=== PATIENT | male | born 1965 | race American Indian/Alaskan Native ===

== ENCOUNTER 2017-12-07 03:23 | Emergency (ER) | payer SELFPAY ==
[2017-12-07] MEDS ORDERED: MOTRIN ONE (04:32)
[2017-12-07 04:36] VITALS: BP 166/78
[2017-12-07] MEDS ORDERED: MOTRIN PO ONE (04:36)
--- NOTE | 2017-12-07 05:12 | XRay Report ---
FINAL REPORT EXAM: XR HIP 2-3V LT HISTORY: hip pain COMPARISONS: None. FINDINGS: AP pelvis with lateral view of the left hip Moderate right greater than left hip osteoarthrosis. Right more prominent than left femoral head neck junction osseous bumps and femoral neck cysts. No proximal femur or pelvic fracture is seen. Diffuse pelvic enthesopathy. IMPRESSION: Moderate right greater than left hip osteoarthrosis with suggested findings of underlying femoral acetabular impingement. No evident fracture. Consider additional imaging for worsening/persistent symptoms.
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
[2017-12-07] MEDS ORDERED: TORADOL IM ONE (05:49)
[2017-12-07] MEDS ORDERED: TORADOL ONE (05:56)
== END 2017-12-07 06:48 | disposition home or self-care (01) ==
LOC: ED 03:23
DX: M16.0 Bilateral primary osteoarthritis of hip (principal); F17.200 Nicotine dependence, unspecified, uncomplicated; F12.10 Cannabis abuse, uncomplicated
CPT/HCPCS: 73502; 96372; 99283; J1885

== ENCOUNTER 2018-01-05 14:30 | Outpatient (CLI) | payer OTHER ==
[2018-01-05 14:59] LABS: Basophils # (Auto) 0.1 K/mm3 (0.0-0.1); Basophils % (Auto) 0.8 % (0.0-1.8); Eosinophils # (Auto) 0.1 K/mm3 (0.0-0.4); Eosinophils % (Auto) 1.9 % (0.0-4.3); Hematocrit 35.1 % (35.5-45.6); Lymphocytes # (Auto) 2.2 K/mm3 (1.2-5.4); Lymphocytes % (Auto) 33.7 % (13.4-35.0); Mean Corpuscular HGB Conc 34 % (32-34); Mean Corpuscular Hemoglobin 33 pg (28-32); Mean Corpuscular Volume 95 fl (84-94); Monocytes # (Auto) 0.5 K/mm3 (0.0-0.8); Monocytes % (Auto) 7.5 % (0.0-7.3); Platelet Count 415 K/mm3 (140-440); Red Blood Count 3.69 M/mm3 (3.65-5.03); Red Cell Distribution Width 13.3 % (13.2-15.2)
[2018-01-05 15:22] LABS: Erythrocyte Sedimentation Rate 91 mm/Hr (0-20)
== END 2018-01-05 14:31 | disposition home or self-care (01) ==
LOC: XRAY 14:30 → LAB 14:30
DX: M54.5 Low back pain (principal); F17.200 Nicotine dependence, unspecified, uncomplicated; Z79.899 Other long term (current) drug therapy
CPT/HCPCS: 36415; 85025; 85652; 86140

== ENCOUNTER 2018-04-11 17:51 | Inpatient (IN) | payer OTHER ==
[2018-04-11] MEDS ORDERED: ATIVAN ONE (18:02)
[2018-04-11] MEDS ORDERED: NACL 0.9% 1000 ML 1,000 ML IV ONE ×2 (18:05→19:47)
[2018-04-11] MEDS ORDERED: TYLENOL PR ONE ×2 (18:05→18:27)
[2018-04-11] MEDS ORDERED: ATIVAN IV ONE ×3 (18:06→20:52)
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
[2018-04-11 18:32] LABS: Hematocrit 32.6 % (35.5-45.6); Hemoglobin 10.3 gm/dl (11.8-15.2); Mean Corpuscular HGB Conc 32 % (32-34); Mean Corpuscular Hemoglobin 29 pg (28-32); Mean Corpuscular Volume 90 fl (84-94); Platelet Count 536 K/mm3 (140-440); Red Blood Count 3.63 M/mm3 (3.65-5.03); Red Cell Distribution Width 16.8 % (13.2-15.2)
[2018-04-11] MEDS ORDERED: NORMODYNE IV ONE (18:47)
[2018-04-11 18:56] LABS: Alanine Aminotransferase 6 units/L (7-56); Albumin 2.8 g/dL (3.9-5); BUN/Creatinine Ratio 20; Blood Urea Nitrogen 12 mg/dL (9-20); Calcium 8.9 mg/dL (8.4-10.2); Hemolysis Index 24
[2018-04-11] MEDS ORDERED: LEVAQUIN 750MG/150ML 750 MG/150 ML BAG IV ONE (19:08)
[2018-04-11 19:21] LABS: Bilirubin,Urine NEG (Negative); Blood,Urine MOD (Negative); Color,Urine Yellow (Yellow); Mucus,Urine FEW /HPF
--- NOTE | 2018-04-11 19:41 | XRay Report ---
FINAL REPORT EXAM: XR CHEST 1V AP HISTORY: fever TECHNIQUE: Single, portable chest x-ray. PRIORS: None. FINDINGS: Cardiac and mediastinal silhouette within normal limits. Lungs are normally expanded, without significant vascular congestion. Probable small and calcified granulomata noted bilaterally. No focal consolidation or apparent pneumothorax. Bony thorax grossly unremarkable. IMPRESSION: 1. No acute consolidation.
[2018-04-11 19:52] LABS: Band Neutrophils # (Manual) 0.6 K/mm3; Basophils % (Manual) 0 % (0.0-1.8); Eosinophils % (Manual) 0 % (0.0-4.3); Total Cells Counted 100
[2018-04-11 19:53] LABS: Anisocytosis 1+
[2018-04-11 19:54] LABS: Giant Platelets Few; Hypochromasia 2+; Large Platelets Few; Platelet Estimate Appears Increased
[2018-04-11] MEDS ORDERED: KETALAR IV ONE (20:53)
[2018-04-11] MEDS ORDERED: KETAMINE HCL IV ONE (20:54)
--- NOTE | 2018-04-11 22:41 | Cat Scan Report ---
FINAL REPORT EXAM: CT HEAD/BRAIN WO CON HISTORY: Headache TECHNIQUE: Noncontrast CT axial images of the brain. PRIORS: None. FINDINGS: No parenchymal mass, mass effect, hemorrhage, midline shift or hydrocephalus. No evidence of acute cortical infarct. No abnormal, extra-axial fluid or air collection. Osseous calvarium grossly intact. IMPRESSION: 1. No acute intracranial findings.
[2018-04-11] MEDS ORDERED: TORADOL IV ONE (22:49)
[2018-04-12] MEDS ORDERED: TYLENOL PR ONE (00:28)
[2018-04-12] MEDS ORDERED: VANCOMYCIN PHARMACY TO DOSE IV SCH (01:00)
[2018-04-12] MEDS ORDERED: VANCOMYCIN/NS 1 GM/250 ML 1 GM/250 ML BAG IV SCH ×2 (01:00→12:00)
[2018-04-12] MEDS ORDERED: VANCOMYCIN 1,250 MG in NACL 0.9% 250ML 250 ML IV ONE (01:15)
[2018-04-12 01:40] LABS: Appearance,CSF Cloudy
[2018-04-12 01:41] LABS: Red Blood Cell,CSF 700 /mm3 (0-0); White Blood Cell,CSF 1350 /mm3 (1-10)
[2018-04-12 01:42] LABS: Appearance,CSF Cloudy; Red Blood Cell,CSF 100 /mm3 (0-0); White Blood Cell,CSF 2900 /mm3 (1-10)
[2018-04-12 03:03] LABS: Total Cells Counted 100 /mm3
[2018-04-12 03:06] LABS: Total Cells Counted 100 /mm3
[2018-04-12 03:07] LABS: Basophils CSF 0 %
[2018-04-12] MEDS ORDERED: SODIUM CHLORIDE FLUSH SYRINGE 10 ML IV PRN (03:52)
[2018-04-12] MEDS ORDERED: ZOFRAN IV PRN (03:52)
[2018-04-12] MEDS ORDERED: TYLENOL PR PRN (03:52)
--- NOTE | 2018-04-12 03:52 | History and Physical Report ---
History of Present Illness Date of examination: 04/12/18 History of present illness: This is a 52-year-old man with history of hypertension was brought to the emergency room by the girlfriend because he was found foaming at the mouth and his eyes rolled back. In the emergency room a spinal tap was done which shows meningitis, he was started on antibiotic. The patient is sedated, review of systems is unobtainable PAST MEDICAL HISTORY: Hypertension PAST SURGICAL HISTORY: Unknown SOCIAL HISTORY: No alcohol, smokes marijuana,,no tobacco FAMILY HISTORY: Hypertension Medications and Allergies Allergies Allergy/AdvReac Type Severity Reaction Status Date / Time No Known Drug Allergies Allergy Unknown Verified 04/14/18 06:34 Home Medications Medication Instructions Recorded Confirmed Last Taken Type Acetaminophen 650 mg PO Q8H PRN 04/12/18 04/12/18 Unknown History Lisinopril [Zestril] 20 mg PO DAILY 04/12/18 04/12/18 Unknown History traMADol [Ultram 50 MG tab] 50 mg PO Q8H PRN 04/12/18 04/12/18 Unknown History Metoprolol [Lopressor TAB] 25 mg PO BID #60 tablet 04/15/18 Unknown Rx diphenhydrAMINE [Benadryl CAP] 25 mg PO Q6H PRN #14 capsule 04/15/18 Unknown Rx glipiZIDE [Glucotrol] 5 mg PO QDDIAB #60 tablet 04/15/18 Unknown Rx levETIRAcetam [Keppra TAB] 500 mg PO BID #60 tablet 04/15/18 Unknown Rx Active Meds: Active Medications Vancomycin HCl (Vancomycin/Ns 1 Gm/250 Ml) 1 gm in 250 mls @ 250 mls/hr IV Q12H BARBARA Acyclovir 650 mg/ Sodium (Chloride) 113 mls @ 100 mls/hr IV Q8HR BARBARA; Protocol Meropenem 2,000 mg/ Sodium (Chloride) 100 mls @ 100 mls/hr IV Q8HR BARBARA; Protocol Vancomycin HCl (Vancomycin Pharmacy To Dose) 1 each IV PKCONSULT BARBARA Exam - Physical Exam Narrative exam: Gen. appearance: Patient lying in bed, no apparent distress HEENT: Normocephalic, atraumatic, pupils equally round and reactive to light, extraocular movement intact, and no sclericterus,. No JVD or thyromegaly or nodule,neck supple, no carotid bruit ,mucous membranes moist, no exudate or erythema Heart: S1, S2, regular rate and rhythm Lungs: Clear bilaterally, breathing comfortable Abdomen: Positive bowel sounds, non-tender, nondistended, no organomegaly Extremity:no edema cyanosis, clubbing Skin: no rash, dry, warm Neuro: seDated - Constitutional Vitals: Temp Pulse Resp BP Pulse Ox 101.2 F H 123 H 38 H 163/82 100 04/12/18 01:16 04/11/18 23:45 04/11/18 23:45 04/12/18 00:00 04/11/18 23:45 Results - Labs CBC & Chem 7: 04/18/18 06:58 04/18/18 06:58 Labs: Abnormal lab results 04/11/18 04/11/18 04/11/18 Range/Units 18:12 18:12 18:12 WBC 14.7 H (4.5-11.0) K/mm3 RBC 3.63 L (3.65-5.03) M/mm3 Hgb 10.3 L (11.8-15.2) gm/dl Hct 32.6 L (35.5-45.6) % RDW 16.8 H (13.2-15.2) % Plt Count 536 H (140-440) K/mm3 Seg Neuts % (Manual) 93.0 H (40.0-70.0) % Lymphocytes % (Manual) 2.0 L (13.4-35.0) % Seg Neutrophils # Man 13.7 H (1.8-7.7) K/mm3 Lymphocytes # (Manual) 0.3 L (1.2-5.4) K/mm3 APTT 23.9 L (24.2-36.6) Sec. VBG pH (7.320-7.420) Sodium 133 L (137-145) mmol/L Chloride 89.4 L (98-107) mmol/L Creatinine 0.6 L (0.8-1.5) mg/dL Glucose 262 H (75-100) mg/dL Lactic Acid (0.7-2.0) mmol/L ALT 6 L (7-56) units/L Total Creatine Kinase 32 L (55-170) units/L Albumin 2.8 L (3.9-5) g/dL 04/11/18 04/11/18 Range/Units 18:16 18:16 WBC (4.5-11.0) K/mm3 RBC (3.65-5.03) M/mm3 Hgb (11.8-15.2) gm/dl Hct (35.5-45.6) % RDW (13.2-15.2) % Plt Count (140-440) K/mm3 Seg Neuts % (Manual) (40.0-70.0) % Lymphocytes % (Manual) (13.4-35.0) % Seg Neutrophils # Man (1.8-7.7) K/mm3 Lymphocytes # (Manual) (1.2-5.4) K/mm3 APTT (24.2-36.6) Sec. VBG pH 7.440 H (7.320-7.420) Sodium (137-145) mmol/L Chloride (98-107) mmol/L Creatinine (0.8-1.5) mg/dL Glucose (75-100) mg/dL Lactic Acid 6.40 H* (0.7-2.0) mmol/L ALT (7-56) units/L Total Creatine Kinase (55-170) units/L Albumin (3.9-5) g/dL Assessment and Plan Assessment Sepsis Meningitis, bacterial Plan Admit to medicine Continue vancomycin, acyclovir Girlfriend state that he is allergic to penicillin, unknown reaction Start meropenem, consult infectious disease, awaiting call back DVT prophylaxis, droplet precautions
[2018-04-12] MEDS ORDERED: NACL 0.9% 1000 ML 1,000 ML IV SCH ×2 (04:00→06:00)
[2018-04-12] MEDS ORDERED: MERREM IV SCH (04:00)
[2018-04-12] MEDS ORDERED: NACL 0.9% IV SCH (04:00)
[2018-04-12] MEDS: NACL 0.9% IV SCH ×3 (06:24→22:17)
[2018-04-12] MEDS: ZOVIRAX IV SCH ×3 (06:24→22:17)
--- NOTE | 2018-04-12 09:44 | Consultation ---
History of Present Illness - Reason for Consult Consult date: 04/12/18 meningitis Requesting physician: DOMINIQUE WHITNEY - History of Present Illness 52 y/o male with history of hypertension; admitted on 04/11/18 after being found by foaming from the mouth and his eyes rolled back. Per , he ahs been c /o severe diffuse headache for 1-2 days. Headache did not improve and was constant. She also reports fever, subjective and AMS with confusion. They have 15 children together. Patient is unable to provide the history due to confusion. Patient is allergic to penicillin, unclear reaction. In the ED, initial temperature 104, heart rate 144, respiration 18, O2 sat 98, blood pressure 199/93. White count 14.7. Hemoglobin 10.3. Platelets 536. Creatinine 0.6. Lactic acid 6.4. CT of the head was negative. Chest x-ray was negative. Patient underwent lumbar puncture showing cloudy fluid with 2900 white blood cells, 83% segs. Glucose 73, protein 418. Gram stain showed multiple polymorphonuclears no organisms. Microbiology: Blood cultures: 04/11 ngtd Urine cultures: 04/11 ngtd Respiratory cultures: Current Antimicrobials: Acyclovir 04/12 Meropenem 04/12 Vanco 04/12 Previous Antimicrobials: Past History Past Medical History: hypertension Past Surgical History: No surgical history Social history: no significant social history Medications and Allergies Allergies Allergy/AdvReac Type Severity Reaction Status Date / Time Penicillins Allergy Unknown Verified 04/11/18 18:11 Home Medications Medication Instructions Recorded Confirmed Last Taken Type Acetaminophen 650 mg PO Q8H PRN 04/12/18 04/12/18 Unknown History Lisinopril [Zestril] 20 mg PO DAILY 04/12/18 04/12/18 Unknown History traMADol [Ultram] 50 mg PO Q8H PRN 04/12/18 04/12/18 Unknown History Active Meds: Active Medications Acetaminophen (Tylenol) 650 mg PO Q4H PRN PRN Reason: Pain MILD(1-3)/Fever >100.5/ASENCIO Acetaminophen (Tylenol) [address] Q4H PRN PRN Reason: Pain MILD(1-3)/Fever >100.5/ASENCIO Enoxaparin Sodium (Lovenox) 40 mg SUB-Q QDAY BARBARA Vancomycin HCl (Vancomycin/Ns 1 Gm/250 Ml) 1 gm in 250 mls @ 250 mls/hr IV Q12H BARBARA Acyclovir 650 mg/ Sodium (Chloride) 113 mls @ 100 mls/hr IV Q8HR BARBARA; Protocol Last Admin: 04/12/18 06:24 Dose: 100 mls/hr Meropenem 2,000 mg/ Sodium (Chloride) 100 mls @ 100 mls/hr IV Q8HR BARBARA; Protocol Last Admin: 04/12/18 04:32 Dose: 100 mls/hr Sodium Chloride (Nacl 0.9% 1000 Ml) 1,000 mls @ 150 mls/hr IV DIRECT BARBARA Sodium Chloride (Nacl 0.9% 1000 Ml) 1,000 mls @ 150 mls/hr IV DIRECT BARBARA Ondansetron HCl (Zofran) 4 mg IV Q8H PRN PRN Reason: Nausea And Vomiting Sodium Chloride (Sodium Chloride Flush Syringe 10 Ml) 10 ml IV BID BARBARA Sodium Chloride (Sodium Chloride Flush Syringe 10 Ml) 10 ml IV PRN PRN PRN Reason: LINE FLUSH Vancomycin HCl (Vancomycin Pharmacy To Dose) 1 each IV PKCONSULT BARBAAR Physical Examination - Physical Exam Narrative exam: General appearance: somnolent in NAD, conversant Eyes: anicteric sclerae, moist conjunctivae; no lid-lag; PERRLA HENT: Atraumatic; oropharynx clear. Neck: Trachea midline; +stiff neck Lungs: CTA, with normal respiratory effort and no intercostal retractions CV: tachy Abdomen: Soft, non-tender; no masses or hepatosplenomegaly Extremities: No peripheral edema or extremity lymphadenopathy Skin: Normal temperature, turgor and texture; no rash, ulcers or subcutaneous nodules Psych: somnolent Neuro: somnolent moving extremities Lines: No CVL / PICC - Constitutional Vitals: Vital Signs Temp Pulse Resp BP Pulse Ox 101.2 F H 114 H 35 H 158/72 100 04/12/18 01:16 04/12/18 08:00 04/12/18 08:00 04/12/18 08:00 04/12/18 08:00 Temperature -Last 24 Hours Temperature 101.2 F Temperature 104 F Results - Labs CBC & Chem 7: 04/11/18 18:12 04/11/18 18:12 Labs: Abnormal lab results 04/11/18 04/11/1818 Range/Units 18:12 18:12 18:12 WBC 14.7 H (4.5-11.0) K/mm3 RBC 3.63 L (3.65-5.03) M/mm3 Hgb 10.3 L (11.8-15.2) gm/dl Hct 32.6 L (35.5-45.6) % RDW 16.8 H (13.2-15.2) % Plt Count 536 H (140-440) K/mm3 Seg Neuts % (Manual) 93.0 H (40.0-70.0) % Lymphocytes % (Manual) 2.0 L (13.4-35.0) % Seg Neutrophils # Man 13.7 H (1.8-7.7) K/mm3 Lymphocytes # (Manual) 0.3 L (1.2-5.4) K/mm3 APTT 23.9 L (24.2-36.6) Sec. VBG pH (7.320-7.420) Sodium 133 L (137-145) mmol/L Chloride 89.4 L (98-107) mmol/L Creatinine 0.6 L (0.8-1.5) mg/dL Glucose 262 H (75-100) mg/dL Lactic Acid (0.7-2.0) mmol/L ALT 6 L (7-56) units/L Total Creatine Kinase 32 L (55-170) units/L Albumin 2.8 L (3.9-5) g/dL 04/11/18 04/11/18 Range/Units 18:16 18:16 WBC (4.5-11.0) K/mm3 RBC (3.65-5.03) M/mm3 Hgb (11.8-15.2) gm/dl Hct (35.5-45.6) % RDW (13.2-15.2) % Plt Count (140-440) K/mm3 Seg Neuts % (Manual) (40.0-70.0) % Lymphocytes % (Manual) (13.4-35.0) % Seg Neutrophils # Man (1.8-7.7) K/mm3 Lymphocytes # (Manual) (1.2-5.4) K/mm3 APTT (24.2-36.6) Sec. VBG pH 7.440 H (7.320-7.420) Sodium (137-145) mmol/L Chloride (98-107) mmol/L Creatinine (0.8-1.5) mg/dL Glucose (75-100) mg/dL Lactic Acid 6.40 H* (0.7-2.0) mmol/L ALT (7-56) units/L Total Creatine Kinase (55-170) units/L Albumin (3.9-5) g/dL Assessment and Plan Assessment: 1) Sepsis: Present on admission, manifested by fever, tachycardia, leukocytosis , increased lactate. Etiology most likely acute meningitis. 2) Acute meningitis: likely bacterial more than viral. DDx Strep pneumoniae, N meningitidis, GNR, Listeria -CT of the head was negative. -S/P lumbar puncture showing cloudy fluid with 2900 white blood cells, 83% segs. Glucose 73, protein 418. Gram stain showed multiple polymorphonuclears no organisms. 3) New onset seizures 4) Acute encephalopathy 5) Anemia 6) Hypertension 7) Allergic to penicillin, unclear reaction. Plan: -follow-up blood cultures, CSF culture -start dexamethasone 0.15 mg/kg IV q6h x 3 days -stop meropenem -start aztreonam 2 g IV q6h and Bactrim 5 mg/kg q 8 h -continue vancomycin -droplet precautions -Neuro consult / EEG / Brain MRI Thank you for your consultation, will follow up with you. Radha Casarez MD Infectious Diseases Specialist [facility] M [phone] O [phone]
[2018-04-12] MEDS: TYLENOL PO PRN ×2 (09:48→17:59)
[2018-04-12] MEDS: LOVENOX SUB-Q SCH (09:50)
[2018-04-12] MEDS: SODIUM CHLORIDE FLUSH SYRINGE 10 ML IV SCH (09:50)
[2018-04-12] MEDS: DECADRON IV SCH ×2 (12:30→18:00)
[2018-04-12] MEDS: VANCOMYCIN/NS 1 GM/250 ML 1 GM/250 ML BAG IV SCH ×2 (12:32→23:45)
[2018-04-12] MEDS: AZACTAM/NS 2 GM/100 ML 2 GM/100 ML VIAL IV SCH ×3 (13:10→23:47)
--- NOTE | 2018-04-12 14:10 | Progress Note ---
Assessment and Plan Assessment and plan: Assessment Acute Toxic Metabolic Encephalopathy 2/2 Acute Bacterial Meningitis New Onset Seizures Sepsis 2/2 above Severe Protein calorie Malnutrition Hyperglycemia, r/o DM Fall risk New Rash. Aspiration risk Chronic Tobacco abuse Abnormal weight loss Full code status Dehydration Plan Neuro consult, d./w Dr Oseguera IV abx per ID reccs MRI brain EEG Seizure precautions continue Decadron fall and aspiration precautions at all times f/u culture results. Monitor progression or regression of UE rashes' maintain in Isolation until culture results am labs A1c in am Further pt mgt per hospital course. More than 35 mins spent. Disposition Plan: Neurology consult, MRI brain, IV abx, EEG, seizure/aspiration precautions, Total Time Spent with Patient (Minutes): More than 35 mins History Interval history: Patient admitted with toxic metabolic encephalopathy, diagnosed with Bacterial Meningitis, Sepsis. Has been seen by ID Dr Torres, [facility] MRI brain, Neuro consult and EEG, see her note for other documentations. Pt seen and exam, Girlfriend by bedside. Pt awake, alert but very weak. Pt c/o Neck pain and headache. associated with generalized body aches. New rash noted on both extremities, per girlfriend, was not present prior to admission Rash is not itchy, and was not noticed by pt or girlfriend. Pt denies any sick contact. Admitted Left ear pain x 1 week. Per partner, pt has lost so much weight and has had recurrent N/V with poor appetite for months now. Pt is quite malnourished. Hospitalist Physical - Constitutional Vitals: Temp Pulse Resp BP Pulse Ox 100.0 F H 106 H 24 169/86 99 04/12/18 13:30 04/12/18 13:30 04/12/18 13:30 04/12/18 13:30 04/12/18 13:30 General appearance: Present: mild distress, cachectic, other (well developed) - EENT Eyes: Present: PERRL, EOM intact ENT: hearing intact, poor dentition, other (missing teeth, decreased light reflex left ear with otoscope) - Neck Neck: Present: rigidity, other (tender) - Respiratory Respiratory effort: normal Respiratory: bilateral: CTA, negative: rales, rhonchi, wheezing - Cardiovascular Rhythm: other (tachy) Heart Sounds: Present: S1 & S2 - Extremities Extremities: pulses intact, No edema, normal color, abnormal (bony and cachectic ) - Abdominal General gastrointestinal: soft, non-tender, normal bowel sounds - Integumentary Integumentary: Present: warm, dry, rash (petechiae rash upper extremities. ) - Psychiatric Psychiatric: appropriate mood/affect, intact judgment & insight - Neurologic Neurologic: moves all extremities, other (unable to complete Neuro exam due to nuchal rigidity, and generalized body pains) - Allied Health Allied health notes reviewed: nursing Results - Labs CBC & Chem 7: 04/11/18 18:12 04/11/18 18:12 Labs: Laboratory Last Values WBC 14.7 K/mm3 (4.5-11.0) H 04/11/18 18:12 RBC 3.63 M/mm3 (3.65-5.03) L 04/11/18 18:12 Hgb 10.3 gm/dl (11.8-15.2) L 04/11/18 18:12 Hct 32.6 % (35.5-45.6) L 04/11/18 18:12 MCV 90 fl (84-94) 04/11/18 18:12 MCH 29 pg (28-32) 04/11/18 18:12 MCHC 32 % (32-34) 04/11/18 18:12 RDW 16.8 % (13.2-15.2) H 04/11/18 18:12 Plt Count 536 K/mm3 (140-440) H 04/11/18 18:12 Add Manual Diff Complete 04/11/18 18:12 Total Counted 100 04/11/18 18:12 Seg Neutrophils % [place] 04/11/18 18:12 Seg Neuts % (Manual) 93.0 % (40.0-70.0) H 04/11/18 18:12 Band Neutrophils % 4.0 % 04/11/18 18:12 Lymphocytes % (Manual) 2.0 % (13.4-35.0) L 04/11/18 18:12 Reactive Lymphs % (Man) 0 % 04/11/18 18:12 Monocytes % (Manual) 1.0 % (0.0-7.3) 04/11/18 18:12 Eosinophils % (Manual) 0 % (0.0-4.3) 04/11/18 18:12 Basophils % (Manual) 0 % (0.0-1.8) 04/11/18 18:12 Metamyelocytes % 0 % 04/11/18 18:12 Myelocytes % 0 % 04/11/18 18:12 Promyelocytes % 0 % 04/11/18 18:12 Blast Cells % 0 % 04/11/18 18:12 Nucleated RBC % Not Reportable 04/11/18 18:12 Seg Neutrophils # Man 13.7 K/mm3 (1.8-7.7) H 04/11/18 18:12 Band Neutrophils # 0.6 K/mm3 04/11/18 18:12 Lymphocytes # (Manual) 0.3 K/mm3 (1.2-5.4) L 04/11/18 18:12 Abs React Lymphs (Man) 0.0 K/mm3 04/11/18 18:12 Monocytes # (Manual) 0.1 K/mm3 (0.0-0.8) 04/11/18 18:12 Eosinophils # (Manual) 0.0 K/mm3 (0.0-0.4) 04/11/18 18:12 Basophils # (Manual) 0.0 K/mm3 (0.0-0.1) 04/11/18 18:12 Metamyelocytes # 0.0 K/mm3 04/11/18 18:12 Myelocytes # 0.0 K/mm3 04/11/18 18:12 Promyelocytes # 0.0 K/mm3 04/11/18 18:12 Blast Cells # 0.0 K/mm3 04/11/18 18:12 WBC Morphology Not Reportable 04/11/18 18:12 Hypersegmented Neuts Not Reportable 04/11/18 18:12 Hyposegmented Neuts Not Reportable 04/11/18 18:12 Hypogranular Neuts Not Reportable 04/11/18 18:12 Smudge Cells Not Reportable 04/11/18 18:12 Toxic Granulation Not Reportable 04/11/18 18:12 Toxic Vacuolation Not Reportable 04/11/18 18:12 Dohle Bodies Not Reportable 04/11/18 18:12 Pelger-Huet Anomaly Not Reportable 04/11/18 18:12 Nadiya Rods Not Reportable 04/11/18 18:12 Platelet Estimate Appears increased 04/11/18 18:12 Clumped Platelets Not Reportable 04/11/18 18:12 Plt Clumps, EDTA Not Reportable 04/11/18 18:12 Large Platelets Few 04/11/18 18:12 Giant Platelets Few 04/11/18 18:12 Platelet Satelliting Not Reportable 04/11/18 18:12 Plt Morphology Comment Not Reportable 04/11/18 18:12 RBC Morphology Not Reportable 04/11/18 18:12 Dimorphic RBCs Not Reportable 04/11/18 18:12 Polychromasia Not Reportable 04/11/18 18:12 Hypochromasia 2+ 04/11/18 18:12 Poikilocytosis Not Reportable 04/11/18 18:12 Anisocytosis 1+ 04/11/18 18:12 Microcytosis Not Reportable 04/11/18 18:12 Macrocytosis Not Reportable 04/11/18 18:12 Spherocytes Not Reportable 04/11/18 18:12 Pappenheimer Bodies Not Reportable 04/11/18 18:12 Sickle Cells Not Reportable 04/11/18 18:12 Target Cells Not Reportable 04/11/18 18:12 Tear Drop Cells Not Reportable 04/11/18 18:12 Ovalocytes Not Reportable 04/11/18 18:12 Helmet Cells Not Reportable 04/11/18 18:12 Cain-Vivian Bodies Not Reportable 04/11/18 18:12 [place] Rings Not Reportable 04/11/18 18:12 [place] Cells Not Reportable 04/11/18 18:12 Bite Cells Not Reportable 04/11/18 18:12 Crenated Cell Not Reportable 04/11/18 18:12 Elliptocytes Not Reportable 04/11/18 18:12 Acanthocytes (Spur) Not Reportable 04/11/18 18:12 Rouleaux Not Reportable 04/11/18 18:12 Hemoglobin C Crystals Not Reportable 04/11/18 18:12 Schistocytes Not Reportable 04/11/18 18:12 Malaria parasites Not Reportable 04/11/18 18:12 Trell Bodies Not Reportable 04/11/18 18:12 Hem Pathologist Commnt No 04/11/18 18:12 APTT 23.9 Sec. (24.2-36.6) L 04/11/18 18:12 VBG pH 7.440 (7.320-7.420) H 04/11/18 18:16 Sodium 133 mmol/L (137-145) L 04/11/18 18:12 Potassium 3.8 mmol/L (3.6-5.0) 04/11/18 18:12 Chloride 89.4 mmol/L (98-107) L 04/11/18 18:12 Carbon Dioxide 23 mmol/L (22-30) 04/11/18 18:12 Anion Gap 24 mmol/L 04/11/18 18:12 BUN 12 mg/dL (9-20) 04/11/18 18:12 Creatinine 0.6 mg/dL (0.8-1.5) L 04/11/18 18:12 Estimated GFR > 60 ml/min 04/11/18 18:12 BUN/Creatinine Ratio 20 % 04/11/18 18:12 Glucose 262 mg/dL (75-100) H 04/11/18 18:12 Lactic Acid 1.50 mmol/L (0.7-2.0) 04/12/18 00:30 Calcium 8.9 mg/dL (8.4-10.2) 04/11/18 18:12 Total Bilirubin 0.50 mg/dL (0.1-1.2) 04/11/18 18:12 AST 14 units/L (5-40) 04/11/18 18:12 ALT 6 units/L (7-56) L 04/11/18 18:12 Alkaline Phosphatase 81 units/L (35-129) 04/11/18 18:12 Ammonia 37.0 umol/L (25-60) 04/11/18 18:12 Total Creatine Kinase 32 units/L (55-170) L 04/11/18 18:12 Troponin T < 0.010 ng/mL (0.00-0.029) 04/11/18 18:12 Total Protein 8.1 g/dL (6.3-8.2) 04/11/18 18:12 Albumin 2.8 g/dL (3.9-5) L 04/11/18 18:12 Albumin/Globulin Ratio 0.5 % 04/11/18 18:12 TSH 1.050 mlU/mL (0.270-4.200) 04/11/18 18:12 Urine Color Yellow (Yellow) 04/11/18 18:10 Urine Turbidity Clear (Clear) 04/11/18 18:10 Urine pH 6.0 (5.0-7.0) 04/11/18 18:10 Ur Specific [place] 1.013 (1.003-1.030) 04/11/18 18:10 Urine Protein 100 mg/dl mg/dL (Negative) 04/11/18 18:10 Urine Glucose (UA) >=500 mg/dL (Negative) 04/11/18 18:10 Urine Ketones Tr mg/dL (Negative) 04/11/18 18:10 Urine Blood Mod (Negative) 04/11/18 18:10 Urine Nitrite Neg (Negative) 04/11/18 18:10 Urine Bilirubin Neg (Negative) 04/11/18 18:10 Urine Urobilinogen 4.0 mg/dL (<2.0) 04/11/18 18:10 Ur Leukocyte Esterase Neg (Negative) 04/11/18 18:10 Urine WBC (Auto) 2.0 /HPF (0.0-6.0) 04/11/18 18:10 Urine RBC (Auto) 89.0 /HPF (0.0-6.0) 04/11/18 18:10 Urine Mucus Few /HPF 04/11/18 18:10 CSF Appearance Cloudy 04/11/18 23:00 CSF Color Straw 04/11/18 23:00 CSF WBC 2900 /mm3 (1-10) 04/11/18 23:00 CSF RBC 100 /mm3 (0-0) 04/11/18 23:00 CSF Seg Neutrophils 83 % (0-6) 04/11/18 23:00 CSF Lymphocytes % 12.0 % (40-80) 04/11/18 23:00 CSF Reactive Lymphs 0 % 04/11/18 23:00 CSF Monocytes % 5 % (15-45) 04/11/18 23:00 CSF Eosinophils % 0 % 04/11/18 23:00 CSF Basophils 0 % 04/11/18 23:00 CSF Pathologist Review C 04/11/18 23:00 CSF Glucose 73 mg/dL 04/11/18 23:00 CSF Total Protein 418 mg/dL 04/11/18 23:00 Blood Type A POSITIVE 04/11/18 18:07 Antibody Screen Negative 04/11/18 18:07 - Imaging and Cardiology Chest x-ray: report reviewed CT Scan - head: report reviewed
[2018-04-12] MEDS: BACTRIM IV SCH ×2 (16:10→23:46)
[2018-04-12] MEDS: D5W IV SCH ×2 (16:10→23:46)
--- NOTE | 2018-04-12 16:11 | Consultation ---
History of Present Illness Consult date: 04/12/18 Requesting physician: MAVERICK BOURGEOIS Reason for Consult: encephalopathy, seizures History of present illness: This is a 52 yearold male with history of hypertension, presented to ER yesterday with history of headache and fever which started that day. The patient felt it necesary to lie down. He was then found by his girlfriend to be seizing. He was brought to ER where temperature was recorded as 104. Mental status was altered. A CT scan of the brain was unremarkable. An LP was performed and revealed cloudy fluid with 2900 white blood cells, 83% segs. Glucose 73, protein 418. Gram stain showed multiple polymorphonuclear cells,no organisms. Culture results are pending. The patient has no prior history of seizure. He admits a sinus infection about 3 months ago. He denies a history of head trauma or family hx of seizures. He denies recent ear infection. At present he notes headache and dizziness. Weight loss has also been a problem which he relates to the medications he is taking and their effect on his appetite. He has left hip pain that is troubling him recently. Past History Past Medical History: hypertension Past Surgical History: No surgical history Social history: no significant social history, smoking Family history: no significant family history Medications and Allergies Allergies Allergy/AdvReac Type Severity Reaction Status Date / Time Penicillins Allergy Unknown Verified 04/11/18 18:11 Home Medications Medication Instructions Recorded Confirmed Last Taken Type Acetaminophen 650 mg PO Q8H PRN 04/12/18 04/12/18 Unknown History Lisinopril [Zestril] 20 mg PO DAILY 04/12/18 04/12/18 Unknown History traMADol [Ultram] 50 mg PO Q8H PRN 04/12/18 04/12/18 Unknown History Active Meds: Active Medications Acetaminophen (Tylenol) 650 mg PO Q4H PRN PRN Reason: Pain MILD(1-3)/Fever >100.5/ASENCIO Last Admin: 04/12/18 09:48 Dose: 650 mg Acetaminophen (Tylenol) 650 mg GA Q4H PRN PRN Reason: Pain MILD(1-3)/Fever >100.5/ASENCIO Dexamethasone (Decadron) 10 mg IV Q6HR BARBARA Stop: 04/15/18 06:01 Last Admin: 04/12/18 12:30 Dose: 10 mg Enoxaparin Sodium (Lovenox) 40 mg SUB-Q QDAY [facility] Last Admin: 04/12/18 09:50 Dose: 40 mg Acyclovir 650 mg/ Sodium (Chloride) 113 mls @ 100 mls/hr IV Q8HR [facility]; Protocol Last Admin: 04/12/18 16:04 Dose: 100 mls/hr Sodium Chloride (Nacl 0.9% 1000 Ml) 1,000 mls @ 150 mls/hr IV DIRECT BARBARA Last Admin: 04/12/18 09:55 Dose: 150 mls/hr Sodium Chloride (Nacl 0.9% 1000 Ml) 1,000 mls @ 150 mls/hr IV DIRECT BARBARA Aztreonam (Azactam/Ns 2 Gm/100 Ml) 2 gm in 100 mls @ 100 mls/hr IV Q6HR [facility] Last Admin: 04/12/18 13:10 Dose: Not Given Trimethoprim/Sulfamethoxazole (325 mg/ Dextrose) 520.3125 mls @ 350 mls/hr IV Q8HR [facility] Last Admin: 04/12/18 16:10 Dose: 350 mls/hr Vancomycin HCl (Vancomycin/Ns 1 Gm/250 Ml) 1 gm in 250 mls @ 166.667 mls/hr IV Q8H [facility] Last Admin: 04/12/18 12:32 Dose: 166.667 mls/hr Ondansetron HCl (Zofran) 4 mg IV Q8H PRN PRN Reason: Nausea And Vomiting Sodium Chloride (Sodium Chloride Flush Syringe 10 Ml) 10 ml IV BID [facility] Last Admin: 04/12/18 09:50 Dose: 10 ml Sodium Chloride (Sodium Chloride Flush Syringe 10 Ml) 10 ml IV PRN PRN PRN Reason: LINE FLUSH Vancomycin HCl (Vancomycin Pharmacy To Dose) 1 each IV PKCONSULT [facility] Review of Systems Constitutional: weight loss, fever, weakness, poor appetite, chronic pain Ears, nose, mouth and throat: tinnitis, no ear pain, no nasal congestion, no sinus pressure, no sinus pain Cardiovascular: no chest pain, no palpitations, no rapid/irregular heart beat, no edema, no syncope Respiratory: no cough, no shortness of breath, no dyspnea on exertion, no congestion Gastrointestinal: no abdominal pain, no nausea, no vomiting Genitourinary Male: no dysuria, no urinary frequency Musculoskeletal: no neck stiffness, no neck pain Integumentary: no rash, no pruritis Neurological: seizures, headaches, no head injury, no syncope, no ataxia, no motor disturbance, no sensory deficit Psychiatric: change in appetite Physical Examination - Vital Signs Vital Signs: Vital Signs Temp Pulse Resp BP Pulse Ox 104 F H 144 H 18 199/93 98 04/11/18 17:51 04/11/18 17:51 04/11/18 17:51 04/11/18 17:51 04/11/18 17:51 - Constitutional General appearance: uncomfortable - EENT EENT: Present: PERRL, mucous membranes moist, hearing intact, vision intact - Respiratory Respiratory: Present: lungs clear, normal breath sounds - Cardiovascular Cardiovascular: Present: regular rate, normal S1, normal S2, no murmurs Extremities: Present: no peripheral edema bilatateraly, no clubbing, cyanosis, no inflammation - Gastrointestinal Gastrointestinal: Present: soft, non-tender - Integumentary Integumentary: Present: normal - Neurologic Cranial nerve examination: PERRL, EOMI, VFF, V1/V2/V3 grossly intact, face symmetric, tongue midline, intact gag reflex Speech examination: intact Sensorimotor examination: intact Detailed motor examination: grossly full strength in, full strength in all paolo - Musculoskeletal Musculoskeletal: Present: pain in joint - Psychiatric Psychiatric: Present: mood/affect appropriate, cooperative Results - Laboratory Findings CBC and BMP: 04/11/18 18:12 04/11/18 18:12 Abnormal Lab Findings: Abnormal Labs 04/11/18 04/11/18 04/11/18 18:12 18:12 18:12 WBC 14.7 H RBC 3.63 L Hgb 10.3 L Hct 32.6 L RDW 16.8 H Plt Count 536 H Seg Neuts % (Manual) 93.0 H Lymphocytes % (Manual) 2.0 L Seg Neutrophils # Man 13.7 H Lymphocytes # (Manual) 0.3 L APTT 23.9 L VBG pH Sodium 133 L Chloride 89.4 L Creatinine 0.6 L Glucose 262 H Lactic Acid ALT 6 L Total Creatine Kinase 32 L Albumin 2.8 L 04/11/18 04/11/18 18:16 18:16 WBC RBC Hgb Hct RDW Plt Count Seg Neuts % (Manual) Lymphocytes % (Manual) Seg Neutrophils # Man Lymphocytes # (Manual) APTT VBG pH 7.440 H Sodium Chloride Creatinine Glucose Lactic Acid 6.40 H* ALT Total Creatine Kinase Albumin Assessment and Plan 52 year old male presented with headache and fever on 04/11/18. Had a seizure at home. Presented in postictal state and encephalopathic. Antibiotics have been started as cultures are maturing. At present the patient is awake, alert, oriented and conversant. Seizure is most likely due to the meningitis, which appears to be bacterial. Plan - Will cover with Keppra as prophylaxis while determining the cause of the meningitis.
[2018-04-12] MEDS: KEPPRA PO SCH (22:19)
[2018-04-13 02:42] LABS: Alanine Aminotransferase 7 units/L (7-56); Albumin 2.6 g/dL (3.9-5); BUN/Creatinine Ratio 24; Blood Urea Nitrogen 12 mg/dL (9-20); Calcium 8.7 mg/dL (8.4-10.2); Hemolysis Index 11
[2018-04-13 06:32] LABS: Hematocrit 27.9 % (35.5-45.6); Hemoglobin 9.3 gm/dl (11.8-15.2); Mean Corpuscular HGB Conc 33 % (32-34); Mean Corpuscular Hemoglobin 29 pg (28-32); Mean Corpuscular Volume 87 fl (84-94); Platelet Count 519 K/mm3 (140-440); Red Blood Count 3.22 M/mm3 (3.65-5.03); Red Cell Distribution Width 16.4 % (13.2-15.2)
[2018-04-13 08:21] LABS: Basophils % (Manual) 0 % (0.0-1.8); Eosinophils % (Manual) 0 % (0.0-4.3); Total Cells Counted 100
[2018-04-13 08:22] LABS: Anisocytosis 1+; Hypochromasia 1+; Platelet Estimate Consistent w Auto; Target Cells Rare
[2018-04-13] MEDS: TYLENOL PO PRN (09:09)
[2018-04-13] MEDS: DECADRON IV SCH ×4 (09:15→17:31)
--- NOTE | 2018-04-13 11:23 | Magnetic Resonance Report ---
MRI OF THE BRAIN WITHOUT CONTRAST: HISTORY: Seizures, meningitis COMPARISON: CT head dated 04/11/18. PROCEDURE: Multiplanar, multisequence MR imaging of the brain without IV contrast was performed. FINDINGS: There is a 3.3 x 2.4 cm signal abnormality in the left frontal lobe which is best demonstrated on image 23 of the T1 and T2 weighted sequences. In retrospect, this is vaguely visualized on the noncontrast CT head. I detect a few enlarged flow-voids in this area on the T2 weighted images. I suspect this represents an arteriovenous malformation. The remaining brain parenchyma is within normal limits on all sequences. No evidence for acute ischemia, hemorrhage or mass. No chronic infarct or extra-axial fluid collection. The midline structures are central. The basal cisterns are patent. Normal ventricular size. The orbital cavities and sella turcica demonstrate no abnormality. The visualized paranasal sinuses and mastoid air cells are well aerated. IMPRESSION: Left frontal AVM is suspected. This could be further characterized with MR brain with contrast or CT head with contrast.
[2018-04-13] MEDS: BACTRIM IV SCH (11:45)
[2018-04-13] MEDS: D5W IV SCH (11:45)
--- NOTE | 2018-04-13 11:51 | Progress Note ---
Assessment and Plan Assessment: 1) Sepsis: still fever and leukocytosis (on IV steroids). Etiology most likely acute meningitis. 2) Acute meningitis: likely bacterial more than viral. DDx Strep pneumoniae, N meningitidis, GNR, Listeria -CT of the head was negative. -S/P lumbar puncture showing cloudy fluid with 2900 white blood cells, 83% segs. Glucose 73, protein 418. Gram stain showed multiple polymorphonuclears no organisms. -Brain MRI + left frotnal AVM 3.3x2.4 cm 3) New onset seizures 4) Acute encephalopathy 5) Anemia 6) Hypertension 7) Allergic to penicillin, unclear reaction. Plan: -follow-up blood cultures, CSF culture -continue dexamethasone 0.15 mg/kg IV q6h D2/3 -continue aztreonam 2 g IV q6h and Bactrim 5 mg/kg q 8 h D2/10 -stop vancomycin -droplet precautions -neuro on board / brain AVM per neuro -monitor fever I am rounding on 04/15 Thank you for your consultation, will follow up with you. Radha Casarez MD Infectious Diseases Specialist [facility] ([facility] [phone] Subjective Date of service: 04/13/18 Principal diagnosis: meninigitis Interval history: Feels better, talking sitting at bedside, reports headache is better, tmax 102.6 Microbiology: Blood cultures: 04/11 ngtd Urine cultures: 04/11 ngtd CSF cultures: 04/11 ngtd Current Antimicrobials: Acyclovir 04/12 Aztreonam 04/12 BActrim IV 04/12 Vanco 04/12 Prior Antimicrobials: Meropenem 04/12 Objective - Exam Narrative Exam: General appearance: alert in NAD, conversant Eyes: anicteric sclerae, moist conjunctivae; no lid-lag; PERRLA HENT: Atraumatic; oropharynx clear. Neck: Trachea midline; +stiff neck Lungs: CTA, with normal respiratory effort and no intercostal retractions CV: tachy Abdomen: Soft, non-tender; no masses or hepatosplenomegaly Extremities: No peripheral edema or extremity lymphadenopathy Skin: Normal temperature, turgor and texture; no rash, ulcers or subcutaneous nodules Psych: alert stable mood Neuro: alert moving extremities Lines: No CVL / PICC - Constitutional Vitals: Vital Signs Temp Pulse Resp BP Pulse Ox 99.3 F 112 H 18 162/88 99 04/13/18 05:51 04/13/18 05:51 04/13/18 09:09 04/13/18 05:51 04/13/18 05:51 Temperature -Last 24 Hours Temperature 99.3 F Temperature 99.1 F Temperature 102.6 F Temperature 100.0 F Temperature 99.8 F - Labs CBC & Chem 7: 04/13/18 05:03 04/13/18 01:41 Labs: Abnormal lab results 04/12/18 04/13/18 04/13/18 Range/Units 15:10 01:41 05:03 WBC 17.6 H (4.5-11.0) K/mm3 RBC 3.22 L (3.65-5.03) M/mm3 Hgb 9.3 L (11.8-15.2) gm/dl Hct 27.9 L (35.5-45.6) % RDW 16.4 H (13.2-15.2) % Plt Count 519 H (140-440) K/mm3 Seg Neuts % (Manual) 91.0 H (40.0-70.0) % Lymphocytes % (Manual) 5.0 L (13.4-35.0) % Seg Neutrophils # Man 16.0 H (1.8-7.7) K/mm3 Lymphocytes # (Manual) 0.9 L (1.2-5.4) K/mm3 Sodium 136 L (137-145) mmol/L Potassium 3.4 L (3.6-5.0) mmol/L Chloride 94.5 L (98-107) mmol/L Creatinine 0.5 L (0.8-1.5) mg/dL Glucose 179 H (75-100) mg/dL Hemoglobin A1c 6.6 H (4-6) % Albumin 2.6 L (3.9-5) g/dL
[2018-04-13] MEDS: SODIUM CHLORIDE FLUSH SYRINGE 10 ML IV SCH ×2 (12:14→21:25)
[2018-04-13] MEDS: LOVENOX SUB-Q SCH (12:15)
[2018-04-13] MEDS: KEPPRA PO SCH ×2 (12:15→22:45)
[2018-04-13] MEDS: LOPRESSOR PO SCH ×2 (12:15→22:45)
[2018-04-13] MEDS: K-DUR PO SCH (12:15)
[2018-04-13] MEDS ORDERED: ROCEPHIN/NS 2 GM/100 ML 2 GM/100 ML BAG IV ONE (13:00)
[2018-04-13] MEDS ORDERED: BENADRYL PO PRN (13:48)
--- NOTE | 2018-04-13 13:52 | Progress Note ---
Assessment and Plan Assessment and plan: Acute Bacterial Meningitis -Continue IV antibiotics and decadron per ID recommendation. Acute Toxic Metabolic Encephalopathy 2/2 to above -Improved New Onset Seizures -Continue Keppra. -Neurology following Sepsis 2/2 meningitis -blood cultures shows positive for gram-positive cocci, follow results Severe Protein calorie Malnutrition -Master Scheduler consulted New diagnosis of DM with A1c of 6.6 -Start SSI -Diabetic education Hyponatremia -Improved on hydration Hypokalemia -will replete potassium and monitor level -will check magnesium level Tobacco abuse -Counseled on cessation Disposition: For DC when clinically stable History Interval history: Patient has no new complaints. Hospitalist Physical - Constitutional Vitals: Temp Pulse Resp BP Pulse Ox 98.8 F 99 H 16 157/73 98 04/13/18 11:58 04/13/18 12:15 04/13/18 11:58 04/13/18 12:15 04/13/18 11:58 General appearance: Present: no acute distress - EENT Eyes: Present: PERRL, EOM intact - Neck Neck: Present: supple - Respiratory Respiratory effort: normal Respiratory: bilateral: CTA - Cardiovascular Rhythm: regular Heart Sounds: Present: S1 & S2 - Extremities Extremities: No edema - Abdominal General gastrointestinal: soft, non-tender, normal bowel sounds - Neurologic Neurologic: other (alert and oriented x3) Results - Labs CBC & Chem 7: 04/13/18 05:03 04/13/18 01:41 Labs: Laboratory Last Values WBC 17.6 K/mm3 (4.5-11.0) H 04/13/18 05:03 RBC 3.22 M/mm3 (3.65-5.03) L 04/13/18 05:03 Hgb 9.3 gm/dl (11.8-15.2) L 04/13/18 05:03 Hct 27.9 % (35.5-45.6) L 04/13/18 05:03 MCV 87 fl (84-94) 04/13/18 05:03 MCH 29 pg (28-32) 04/13/18 05:03 MCHC 33 % (32-34) 04/13/18 05:03 RDW 16.4 % (13.2-15.2) H 04/13/18 05:03 Plt Count 519 K/mm3 (140-440) H 04/13/18 05:03 Add Manual Diff Complete 04/13/18 05:03 Total Counted 100 04/13/18 05:03 Seg Neutrophils % Management Information Systems Director 04/13/18 05:03 Seg Neuts % (Manual) 91.0 % (40.0-70.0) H 04/13/18 05:03 Band Neutrophils % 0 % 04/13/18 05:03 Lymphocytes % (Manual) 5.0 % (13.4-35.0) L 04/13/18 05:03 Reactive Lymphs % (Man) 0 % 04/13/18 05:03 Monocytes % (Manual) 4.0 % (0.0-7.3) 04/13/18 05:03 Eosinophils % (Manual) 0 % (0.0-4.3) 04/13/18 05:03 Basophils % (Manual) 0 % (0.0-1.8) 04/13/18 05:03 Metamyelocytes % 0 % 04/13/18 05:03 Myelocytes % 0 % 04/13/18 05:03 Promyelocytes % 0 % 04/13/18 05:03 Blast Cells % 0 % 04/13/18 05:03 Nucleated RBC % Not Reportable 04/13/18 05:03 Seg Neutrophils # Man 16.0 K/mm3 (1.8-7.7) H 04/13/18 05:03 Band Neutrophils # 0.0 K/mm3 04/13/18 05:03 Lymphocytes # (Manual) 0.9 K/mm3 (1.2-5.4) L 04/13/18 05:03 Abs React Lymphs (Man) 0.0 K/mm3 04/13/18 05:03 Monocytes # (Manual) 0.7 K/mm3 (0.0-0.8) 04/13/18 05:03 Eosinophils # (Manual) 0.0 K/mm3 (0.0-0.4) 04/13/18 05:03 Basophils # (Manual) 0.0 K/mm3 (0.0-0.1) 04/13/18 05:03 Metamyelocytes # 0.0 K/mm3 04/13/18 05:03 Myelocytes # 0.0 K/mm3 04/13/18 05:03 Promyelocytes # 0.0 K/mm3 04/13/18 05:03 Blast Cells # 0.0 K/mm3 04/13/18 05:03 WBC Morphology Not Reportable 04/13/18 05:03 Hypersegmented Neuts Not Reportable 04/13/18 05:03 Hyposegmented Neuts Not Reportable 04/13/18 05:03 Hypogranular Neuts Not Reportable 04/13/18 05:03 Smudge Cells Not Reportable 04/13/18 05:03 Toxic Granulation Not Reportable 04/13/18 05:03 Toxic Vacuolation Not Reportable 04/13/18 05:03 Dohle Bodies Not Reportable 04/13/18 05:03 Pelger-Huet Anomaly Not Reportable 04/13/18 05:03 Nadiya Rods Not Reportable 04/13/18 05:03 Platelet Estimate Consistent w auto 04/13/18 05:03 Clumped Platelets Not Reportable 04/13/18 05:03 Plt Clumps, EDTA Not Reportable 04/13/18 05:03 Large Platelets Not Reportable 04/13/18 05:03 Giant Platelets Not Reportable 04/13/18 05:03 Platelet Satelliting Not Reportable 04/13/18 05:03 Plt Morphology Comment Not Reportable 04/13/18 05:03 RBC Morphology Not Reportable 04/13/18 05:03 Dimorphic RBCs Not Reportable 04/13/18 05:03 Polychromasia Not Reportable 04/13/18 05:03 Hypochromasia 1+ 04/13/18 05:03 Poikilocytosis Not Reportable 04/13/18 05:03 Anisocytosis 1+ 04/13/18 05:03 Microcytosis Not Reportable 04/13/18 05:03 Macrocytosis Not Reportable 04/13/18 05:03 Spherocytes Not Reportable 04/13/18 05:03 Pappenheimer Bodies Not Reportable 04/13/18 05:03 Sickle Cells Not Reportable 04/13/18 05:03 Target Cells Rare 04/13/18 05:03 Tear Drop Cells Not Reportable 04/13/18 05:03 Ovalocytes Not Reportable 04/13/18 05:03 Helmet Cells Not Reportable 04/13/18 05:03 Cain-[place] Bodies Not Reportable 04/13/18 05:03 [place] Rings Not Reportable 04/13/18 05:03 Devi Cells Not Reportable 04/13/18 05:03 Bite Cells Not Reportable 04/13/18 05:03 Crenated Cell Not Reportable 04/13/18 05:03 Elliptocytes Not Reportable 04/13/18 05:03 Acanthocytes (Spur) Not Reportable 04/13/18 05:03 Rouleaux Not Reportable 04/13/18 05:03 Hemoglobin C Crystals Not Reportable 04/13/18 05:03 Schistocytes Not Reportable 04/13/18 05:03 Malaria parasites Not Reportable 04/13/18 05:03 Trell Bodies Not Reportable 04/13/18 05:03 Hem Pathologist Commnt No 04/13/18 05:03 APTT 23.9 Sec. (24.2-36.6) L 04/11/18 18:12 VBG pH 7.440 (7.320-7.420) H 04/11/18 18:16 Sodium 136 mmol/L (137-145) L 04/13/18 01:41 Potassium 3.4 mmol/L (3.6-5.0) L 04/13/18 01:41 Chloride 94.5 mmol/L (98-107) L 04/13/18 01:41 Carbon Dioxide 27 mmol/L (22-30) 04/13/18 01:41 Anion Gap 18 mmol/L 04/13/18 01:41 BUN 12 mg/dL (9-20) 04/13/18 01:41 Creatinine 0.5 mg/dL (0.8-1.5) L 04/13/18 01:41 Estimated GFR > 60 ml/min 04/13/18 01:41 BUN/Creatinine Ratio 24 % 04/13/18 01:41 Glucose 179 mg/dL (75-100) H 04/13/18 01:41 Hemoglobin A1c 6.6 % (4-6) H 04/12/18 15:10 Lactic Acid 1.50 mmol/L (0.7-2.0) 04/12/18 00:30 Calcium 8.7 mg/dL (8.4-10.2) 04/13/18 01:41 Total Bilirubin 0.20 mg/dL (0.1-1.2) 04/13/18 01:41 AST 16 units/L (5-40) 04/13/18 01:41 ALT 7 units/L (7-56) 04/13/18 01:41 Alkaline Phosphatase 72 units/L (35-129) 04/13/18 01:41 Ammonia 37.0 umol/L (25-60) 04/11/18 18:12 Total Creatine Kinase 32 units/L (55-170) L 04/11/18 18:12 Troponin T < 0.010 ng/mL (0.00-0.029) 04/11/18 18:12 Total Protein 6.7 g/dL (6.3-8.2) 04/13/18 01:41 Albumin 2.6 g/dL (3.9-5) L 04/13/18 01:41 Albumin/Globulin Ratio 0.6 % 04/13/18 01:41 TSH 1.050 mlU/mL (0.270-4.200) 04/11/18 18:12 Urine Color Yellow (Yellow) 04/11/18 18:10 Urine Turbidity Clear (Clear) 04/11/18 18:10 Urine pH 6.0 (5.0-7.0) 04/11/18 18:[address] [place] 1.013 (1.003-1.030) 04/11/18 18:10 Urine Protein 100 mg/dl mg/dL (Negative) 04/11/18 18:10 Urine Glucose (UA) >=500 mg/dL (Negative) 04/11/18 18:10 Urine Ketones Tr mg/dL (Negative) 04/11/18 18:10 Urine Blood Mod (Negative) 04/11/18 18:10 Urine Nitrite Neg (Negative) 04/11/18 18:10 Urine Bilirubin Neg (Negative) 04/11/18 18:10 Urine Urobilinogen 4.0 mg/dL (<2.0) 04/11/18 18:10 Ur Leukocyte Esterase Neg (Negative) 04/11/18 18:10 Urine WBC (Auto) 2.0 /HPF (0.0-6.0) 04/11/18 18:10 Urine RBC (Auto) 89.0 /HPF (0.0-6.0) 04/11/18 18:10 Urine Mucus Few /HPF 04/11/18 18:10 CSF Appearance Cloudy 04/11/18 23:00 CSF Color Straw 04/11/18 23:00 CSF WBC 2900 /mm3 (1-10) 04/11/18 23:00 CSF RBC 100 /mm3 (0-0) 04/11/18 23:00 CSF Seg Neutrophils 83 % (0-6) 04/11/18 23:00 CSF Lymphocytes % 12.0 % (40-80) 04/11/18 23:00 CSF Reactive Lymphs 0 % 04/11/18 23:00 CSF Monocytes % 5 % (15-45) 04/11/18 23:00 CSF Eosinophils % 0 % 04/11/18 23:00 CSF Basophils 0 % 04/11/18 23:00 CSF Pathologist Review C 04/11/18 23:00 CSF Glucose 73 mg/dL 04/11/18 23:00 CSF Total Protein 418 mg/dL 04/11/18 23:00 Blood Type A POSITIVE 04/11/18 18:07 Antibody Screen Negative 04/11/18 18:07
[2018-04-13] MEDS ORDERED: D50W (25GM) Syringe IV PRN (14:37)
[2018-04-13] MEDS: ZOVIRAX IV SCH (15:54)
[2018-04-13] MEDS: NACL 0.9% IV SCH (15:54)
[2018-04-13] MEDS: AZACTAM/NS 2 GM/100 ML 2 GM/100 ML VIAL IV SCH ×2 (15:55→15:56)
[2018-04-13] MEDS: VANCOMYCIN/NS 1 GM/250 ML 1 GM/250 ML BAG IV SCH ×3 (15:56→20:50)
[2018-04-13] MEDS: HumuLIN R SUB-Q SCH ×2 (17:31→22:45)
[2018-04-13] MEDS: APRESOLINE IV PRN (17:43)
[2018-04-13] MEDS: ROCEPHIN/NS 2 GM/100 ML 2 GM/100 ML BAG IV SCH (22:45)
[2018-04-14] MEDS: VANCOMYCIN/NS 1 GM/250 ML 1 GM/250 ML BAG IV SCH ×3 (04:18→20:44)
[2018-04-14] MEDS: DECADRON IV SCH ×5 (06:22→23:54)
[2018-04-14 06:54] LABS: Hematocrit 29.2 % (35.5-45.6); Hemoglobin 9.7 gm/dl (11.8-15.2); Mean Corpuscular HGB Conc 33 % (32-34); Mean Corpuscular Hemoglobin 29 pg (28-32); Mean Corpuscular Volume 87 fl (84-94); Platelet Count 508 K/mm3 (140-440); Red Blood Count 3.35 M/mm3 (3.65-5.03); Red Cell Distribution Width 16.4 % (13.2-15.2)
[2018-04-14 07:13] LABS: BUN/Creatinine Ratio 30; Blood Urea Nitrogen 15 mg/dL (9-20); Calcium 8.7 mg/dL (8.4-10.2); Hemolysis Index 0
[2018-04-14] MEDS: HumuLIN R SUB-Q SCH ×4 (07:45→22:34)
[2018-04-14 08:39] LABS: Basophils % (Manual) 0 % (0.0-1.8); Eosinophils % (Manual) 0 % (0.0-4.3); Platelet Estimate Consistent w Auto; RBC Morphology Normal; Total Cells Counted 100
[2018-04-14] MEDS: KEPPRA PO SCH ×2 (10:19→22:36)
[2018-04-14] MEDS: K-DUR PO SCH (10:19)
[2018-04-14] MEDS: LOPRESSOR PO SCH ×2 (10:19→22:36)
[2018-04-14] MEDS: TYLENOL PO PRN ×2 (10:20→22:54)
[2018-04-14] MEDS: SODIUM CHLORIDE FLUSH SYRINGE 10 ML IV SCH ×3 (10:21→22:37)
[2018-04-14] MEDS: LOVENOX SUB-Q SCH (10:23)
--- NOTE | 2018-04-14 13:07 | Progress Note ---
Assessment and Plan Assessment and plan: Assessment New onset Systolic HF with LVEF of 40% Dilated Cardiomyopathy Acute Bacterial Meningitis New Onset Seizures. Severe Protein calorie Malnutrition Sepsis 2/2 above Encephalopathy resolved New Onset DM II h/o Alcoholism Chronic Tobacco abuse Full code status Plan Cardio consult, to Dr Teresa Diabetes diagnosis d/w pt by bedside IV abx per ID reccs Seizure precautions continue Decadron If available, DM educator, and Nutrition consult f/u culture results. am labs Need for oral hyglycemic agent on discharge was d/w him Need to monitor his BG at home also d/w him Further pt mgt per hospital course. More than 30 mins spent of which more than 50% was spent in pt counseling and coordination of care . Disposition Plan: Cardio consult, DM educator, per hospital course Total Time Spent with Patient (Minutes): More than 30 mins History Interval history: Pt seen and exam Feels better c/o 7/10 chronic hip pain. Inputs and reccs of the specialists appreciated Girlfriend by bedside Pt requested to eat Updated and informed pt of the New ONSET DM with A1C of 6.6% and the need for oral med therapy. Pt was visibly upset and used the S/F words. RN was also present. His 2D Echo showed a LVEF of 40%, with Dilated cardiomyopathy. Pt has h/o allcoholism. His questions were answered to the best of my ability. Pt used to weigh more than 180 lbs in the past per girlfriend Hospitalist Physical - Constitutional Vitals: Temp Pulse Resp BP Pulse Ox 98.5 F 103 H 28 H 173/79 98 04/14/18 05:26 04/14/18 05:26 04/14/18 05:26 04/14/18 05:26 04/14/18 05:26 General appearance: Present: no acute distress, other (slim stature, with bitemporal muscle wasting and global muscle wasting) - EENT Eyes: Present: PERRL, EOM intact ENT: hearing intact, clear oral mucosa, other (missing teeth) - Neck Neck: Present: supple, normal ROM, other (no neck rigidity) - Respiratory Respiratory: bilateral: CTA, negative: rales, rhonchi, wheezing - Cardiovascular Rhythm: regular Heart Sounds: Present: S1 & S2 - Extremities Extremities: pulses symmetrical, No edema, normal temperature, normal color - Abdominal General gastrointestinal: soft, non-tender, non-distended, normal bowel sounds - Integumentary Integumentary: Present: clear, warm, dry - Psychiatric Psychiatric: appropriate mood/affect, cooperative, other (intermittently "cursed " under his breath) - Neurologic Neurologic: CNII-XII intact, moves all extremities - Allied Health Allied health notes reviewed: nursing, case management Results - Labs CBC & Chem 7: 04/14/18 06:14 04/14/18 06:14 Labs: Laboratory Last Values WBC 14.4 K/mm3 (4.5-11.0) H 04/14/18 06:14 RBC 3.35 M/mm3 (3.65-5.03) L 04/14/18 06:14 Hgb 9.7 gm/dl (11.8-15.2) L 04/14/18 06:14 Hct 29.2 % (35.5-45.6) L 04/14/18 06:14 MCV 87 fl (84-94) 04/14/18 06:14 MCH 29 pg (28-32) 04/14/18 06:14 MCHC 33 % (32-34) 04/14/18 06:14 RDW 16.4 % (13.2-15.2) H 04/14/18 06:14 Plt Count 508 K/mm3 (140-440) H 04/14/18 06:14 Add Manual Diff Complete 04/14/18 06:14 Total Counted 100 04/14/18 06:14 Seg Neutrophils % Pot Maker 04/14/18 06:14 Seg Neuts % (Manual) 92.0 % (40.0-70.0) H 04/14/18 06:14 Band Neutrophils % 0 % 04/14/18 06:14 Lymphocytes % (Manual) 6.0 % (13.4-35.0) L 04/14/18 06:14 Reactive Lymphs % (Man) 0 % 04/14/18 06:14 Monocytes % (Manual) 2.0 % (0.0-7.3) 04/14/18 06:14 Eosinophils % (Manual) 0 % (0.0-4.3) 04/14/18 06:14 Basophils % (Manual) 0 % (0.0-1.8) 04/14/18 06:14 Metamyelocytes % 0 % 04/14/18 06:14 Myelocytes % 0 % 04/14/18 06:14 Promyelocytes % 0 % 04/14/18 06:14 Blast Cells % 0 % 04/14/18 06:14 Nucleated RBC % Not Reportable 04/14/18 06:14 Seg Neutrophils # Man 13.2 K/mm3 (1.8-7.7) H 04/14/18 06:14 Band Neutrophils # 0.0 K/mm3 04/14/18 06:14 Lymphocytes # (Manual) 0.9 K/mm3 (1.2-5.4) L 04/14/18 06:14 Abs React Lymphs (Man) 0.0 K/mm3 04/14/18 06:14 Monocytes # (Manual) 0.3 K/mm3 (0.0-0.8) 04/14/18 06:14 Eosinophils # (Manual) 0.0 K/mm3 (0.0-0.4) 04/14/18 06:14 Basophils # (Manual) 0.0 K/mm3 (0.0-0.1) 04/14/18 06:14 Metamyelocytes # 0.0 K/mm3 04/14/18 06:14 Myelocytes # 0.0 K/mm3 04/14/18 06:14 Promyelocytes # 0.0 K/mm3 04/14/18 06:14 Blast Cells # 0.0 K/mm3 04/14/18 06:14 WBC Morphology Not Reportable 04/14/18 06:14 Hypersegmented Neuts Not Reportable 04/14/18 06:14 Hyposegmented Neuts Not Reportable 04/14/18 06:14 Hypogranular Neuts Not Reportable 04/14/18 06:14 Smudge Cells Not Reportable 04/14/18 06:14 Toxic Granulation Not Reportable 04/14/18 06:14 Toxic Vacuolation Not Reportable 04/14/18 06:14 Dohle Bodies Not Reportable 04/14/18 06:14 Pelger-Huet Anomaly Not Reportable 04/14/18 06:14 Nadiya Rods Not Reportable 04/14/18 06:14 Platelet Estimate Consistent w auto 04/14/18 06:14 Clumped Platelets Not Reportable 04/14/18 06:14 Plt Clumps, EDTA Not Reportable 04/14/18 06:14 Large Platelets Not Reportable 04/14/18 06:14 Giant Platelets Not Reportable 04/14/18 06:14 Platelet Satelliting Not Reportable 04/14/18 06:14 Plt Morphology Comment Not Reportable 04/14/18 06:14 RBC Morphology Normal 04/14/18 06:14 Dimorphic RBCs Not Reportable 04/14/18 06:14 Polychromasia Not Reportable 04/14/18 06:14 Hypochromasia Not Reportable 04/14/18 06:14 Poikilocytosis Not Reportable 04/14/18 06:14 Anisocytosis Not Reportable 04/14/18 06:14 Microcytosis Not Reportable 04/14/18 06:14 Macrocytosis Not Reportable 04/14/18 06:14 Spherocytes Not Reportable 04/14/18 06:14 Pappenheimer Bodies Not Reportable 04/14/18 06:14 Sickle Cells Not Reportable 04/14/18 06:14 Target Cells Not Reportable 04/14/18 06:14 Tear Drop Cells Not Reportable 04/14/18 06:14 Ovalocytes Not Reportable 04/14/18 06:14 Helmet Cells Not Reportable 04/14/18 06:14 Cain-Streeter Bodies Not Reportable 04/14/18 06:14 [place] Rings Not Reportable 04/14/18 06:14 [place] Cells Not Reportable 04/14/18 06:14 Bite Cells Not Reportable 04/14/18 06:14 Crenated Cell Not Reportable 04/14/18 06:14 Elliptocytes Not Reportable 04/14/18 06:14 Acanthocytes (Spur) Not Reportable 04/14/18 06:14 Rouleaux Not Reportable 04/14/18 06:14 Hemoglobin C Crystals Not Reportable 04/14/18 06:14 Schistocytes Not Reportable 04/14/18 06:14 Malaria parasites Not Reportable 04/14/18 06:14 Trell Bodies Not Reportable 04/14/18 06:14 Hem Pathologist Commnt No 04/14/18 06:14 APTT 23.9 Sec. (24.2-36.6) L 04/11/18 18:12 VBG pH 7.440 (7.320-7.420) H 04/11/18 18:16 Sodium 136 mmol/L (137-145) L 04/14/18 06:14 Potassium 4.0 mmol/L (3.6-5.0) 04/14/18 06:14 Chloride 94.1 mmol/L (98-107) L 04/14/18 06:14 Carbon Dioxide 26 mmol/L (22-30) 04/14/18 06:14 Anion Gap 20 mmol/L 04/14/18 06:14 BUN 15 mg/dL (9-20) 04/14/18 06:14 Creatinine 0.5 mg/dL (0.8-1.5) L 04/14/18 06:14 Estimated GFR > 60 ml/min 04/14/18 06:14 BUN/Creatinine Ratio 30 % 04/14/18 06:14 Glucose 177 mg/dL (75-100) H 04/14/18 06:14 POC Glucose 215 (70-105) H 04/14/18 11:27 Hemoglobin A1c 6.6 % (4-6) H 04/12/18 15:10 Lactic Acid 1.50 mmol/L (0.7-2.0) 04/12/18 00:30 Calcium 8.7 mg/dL (8.4-10.2) 04/14/18 06:14 Magnesium 1.90 mg/dL (1.7-2.3) 04/14/18 06:14 Total Bilirubin 0.20 mg/dL (0.1-1.2) 04/13/18 01:41 AST 16 units/L (5-40) 04/13/18 01:41 ALT 7 units/L (7-56) 04/13/18 01:41 Alkaline Phosphatase 72 units/L (35-129) 04/13/18 01:41 Ammonia 37.0 umol/L (25-60) 04/11/18 18:12 Total Creatine Kinase 32 units/L (55-170) L 04/11/18 18:12 Troponin T < 0.010 ng/mL (0.00-0.029) 04/11/18 18:12 Total Protein 6.7 g/dL (6.3-8.2) 04/13/18 01:41 Albumin 2.6 g/dL (3.9-5) L 04/13/18 01:41 Albumin/Globulin Ratio 0.6 % 04/13/18 01:41 TSH 1.050 mlU/mL (0.270-4.200) 04/11/18 18:12 Urine Color Yellow (Yellow) 04/11/18 18:10 Urine Turbidity Clear (Clear) 04/11/18 18:10 Urine pH 6.0 (5.0-7.0) 04/11/18 18:10 Ur Specific [place] 1.013 (1.003-1.030) 04/11/18 18:10 Urine Protein 100 mg/dl mg/dL (Negative) 04/11/18 18:10 Urine Glucose (UA) >=500 mg/dL (Negative) 04/11/18 18:10 Urine Ketones Tr mg/dL (Negative) 04/11/18 18:10 Urine Blood Mod (Negative) 04/11/18 18:10 Urine Nitrite Neg (Negative) 04/11/18 18:10 Urine Bilirubin Neg (Negative) 04/11/18 18:10 Urine Urobilinogen 4.0 mg/dL (<2.0) 04/11/18 18:10 Ur Leukocyte Esterase Neg (Negative) 04/11/18 18:10 Urine WBC (Auto) 2.0 /HPF (0.0-6.0) 04/11/18 18:10 Urine RBC (Auto) 89.0 /HPF (0.0-6.0) 04/11/18 18:10 Urine Mucus Few /HPF 04/11/18 18:10 CSF Appearance Cloudy 04/11/18 23:00 CSF Color Straw 04/11/18 23:00 CSF WBC 2900 /mm3 (1-10) 04/11/18 23:00 CSF RBC 100 /mm3 (0-0) 04/11/18 23:00 CSF Seg Neutrophils 83 % (0-6) 04/11/18 23:00 CSF Lymphocytes % 12.0 % (40-80) 04/11/18 23:00 CSF Reactive Lymphs 0 % 04/11/18 23:00 CSF Monocytes % 5 % (15-45) 04/11/18 23:00 CSF Eosinophils % 0 % 04/11/18 23:00 CSF Basophils 0 % 04/11/18 23:00 CSF Pathologist Review C 04/11/18 23:00 CSF Glucose 73 mg/dL 04/11/18 23:00 CSF Total Protein 418 mg/dL 04/11/18 23:00 Vancomycin Trough 14.4 ug/mL (5.0-20.0) 04/14/18 10:49 Blood Type A POSITIVE 04/11/18 18:07 Antibody Screen Negative 04/11/18 18:07 - Imaging and Cardiology Chest x-ray: report reviewed, image reviewed MRI - head: report reviewed
[2018-04-14] MEDS: ROCEPHIN/NS 2 GM/100 ML 2 GM/100 ML BAG IV SCH ×2 (14:45→22:35)
[2018-04-15 01:21] LABS: Hematocrit 31.7 % (35.5-45.6); Hemoglobin 10.5 gm/dl (11.8-15.2); Mean Corpuscular HGB Conc 33 % (32-34); Mean Corpuscular Hemoglobin 29 pg (28-32); Mean Corpuscular Volume 88 fl (84-94); Platelet Count 505 K/mm3 (140-440)
[2018-04-15 01:35] LABS: BUN/Creatinine Ratio 34; Blood Urea Nitrogen 17 mg/dL (9-20); Calcium 8.6 mg/dL (8.4-10.2); Hemolysis Index 0
[2018-04-15] MEDS: VANCOMYCIN/NS 1 GM/250 ML 1 GM/250 ML BAG IV SCH ×3 (04:27→21:55)
[2018-04-15] MEDS: APRESOLINE IV PRN (04:34)
[2018-04-15] MEDS: DECADRON IV SCH (05:57)
[2018-04-15] MEDS: LOPRESSOR PO SCH ×2 (09:34→21:55)
[2018-04-15] MEDS: GLUCOTROL PO SCH (09:34)
[2018-04-15] MEDS: LOVENOX SUB-Q SCH (09:35)
[2018-04-15] MEDS: KEPPRA PO SCH ×2 (09:35→21:55)
[2018-04-15] MEDS: HumuLIN R SUB-Q SCH ×4 (09:36→23:47)
--- NOTE | 2018-04-15 10:28 | Discharge Summary ---
Providers - Providers Date of Admission: 04/12/18 03:52 Attending physician: LAKSHMI DELVALLE MD 04/12/18 02:42 Consult to Physician [CONS] Routine Comment: Dr. Jacobsen spoke with Dr. Torres @ [id number] Consulting Provider: TY FERNANDEZ Physician Instructions: Reason For Exam: meningitis 04/12/18 14:42 Consult to Physician [CONS] Routine Comment: Consulting Provider: JYOTSNA HILL Physician Instructions: Reason For Exam: meningitis, new onset seizures 04/13/18 14:35 Consult to Dietitian/Nutrition [CONS] Routine Physician Instructions: Reason For Exam: Reason for Consult: Malnutrition 04/13/18 14:38 Consult to Dietitian/Nutrition [CONS] Routine Physician Instructions: Reason For Exam: Reason for Consult: Diet education 04/14/18 12:59 Consult to Physician [CONS] Routine Comment: Consulting Provider: ISHMAEL THURMAN Physician Instructions: Reason For Exam: new onset cardiomyopathy 04/15/18 10:22 Consult to PICC Line RN [CONS] Routine Reason For Exam: detention antibiotics Type Line:: PICC Primary care physician: CONFERENCE INTERPRETER Hospitalization Condition: Stable Disposition: DC/[place]-06 HOME UNDER HOME [facility] Exam - Constitutional Vitals: Temp Pulse Resp BP Pulse Ox 98.8 F 102 H 20 162/82 96 04/15/18 05:33 04/15/18 05:33 04/15/18 05:33 04/15/18 05:33 04/15/18 07:48 Plan Activity: no driving until cleared by PCP Diet: diabetic Special Instructions: record daily BP diary, record blood sugar diary Durable Medical Equipment Needed Upon Discharge: other (home health to discontinue picc line once abx completed) Follow up with: PRIMARY CARE, [Primary Care Provider] - 3-5 Days TY FERNANDEZ MD [Staff Physician] - 7 Days ISHMAEL THURMAN MD [Staff Physician] - 7 Days Prescriptions: diphenhydrAMINE [Benadryl CAP] 25 mg PO Q6H PRN #14 capsule PRN Reason: Itching glipiZIDE [Glucotrol] 5 mg PO QDDIAB #60 tablet levETIRAcetam [Keppra TAB] 500 mg PO BID #60 tablet Metoprolol [Lopressor TAB] 25 mg PO BID #60 tablet
[2018-04-15] MEDS: ROCEPHIN/NS 2 GM/100 ML 2 GM/100 ML BAG IV SCH ×2 (10:30→23:48)
--- NOTE | 2018-04-15 10:30 | Consultation ---
History of Present Illness Consult date: 04/15/18 Consult reason: other (Cardiomyopathy) History of present illness: This is a 52 year old male who was brought in 3 days ago with fever, headache, altered mental status and His initial labs showed a WBC of 14,700 and lactic acid of 6.4. Chest x-ray reports no acute process. Head CT reports no acute process. Secondary to the patient's fever, headache and altered mental status, a lumbar puncture was performed which reports a WBC of 2900 and protein and 418. Results concerning for bacterial meningitis. Further evaluation with an echocardiogram documents at least moderate aortic regurgitation and a mild to moderate dilated cardiomyopathy, ejection fraction 40%. A cardiac consultation was requested. Patient denies unusual shortness of breath. He denies chest pain. There was no syncope. His presenting ECG shows a sinus tachycardia with left ventricular hypertrophy. Past History Past Medical History: hypertension Family history: no significant family history Medications and Allergies Allergies Allergy/AdvReac Type Severity Reaction Status Date / Time No Known Drug Allergies Allergy Unknown Verified 04/14/18 06:34 Home Medications Medication Instructions Recorded Confirmed Last Taken Type Acetaminophen 650 mg PO Q8H PRN 04/12/18 04/12/18 Unknown History Lisinopril [Zestril] 20 mg PO DAILY 04/12/18 04/12/18 Unknown History traMADol [Ultram] 50 mg PO Q8H PRN 04/12/18 04/12/18 Unknown History Metoprolol [Lopressor TAB] 25 mg PO BID #60 tablet 04/15/18 Unknown Rx diphenhydrAMINE [Benadryl CAP] 25 mg PO Q6H PRN #14 capsule 04/15/18 Unknown Rx glipiZIDE [Glucotrol] 5 mg PO QDDIAB #60 tablet 04/15/18 Unknown Rx levETIRAcetam [Keppra TAB] 500 mg PO BID #60 tablet 04/15/18 Unknown Rx Active Meds: Active Medications Acetaminophen (Tylenol) 650 mg PO Q4H PRN PRN Reason: Pain MILD(1-3)/Fever >100.5/ASENCIO Last Admin: 04/14/18 22:54 Dose: 650 mg Acetaminophen (Tylenol) 650 mg ND Q4H PRN PRN Reason: Pain MILD(1-3)/Fever >100.5/ASENCIO Acetaminophen/Hydrocodone Bitart ([place] 5/325) 1 each PO Q4H PRN PRN Reason: Pain, Moderate (4-6) Dextrose (D50w (25gm) Syringe) 50 ml IV PRN PRN PRN Reason: Hypoglycemia Diphenhydramine HCl (Benadryl) 25 mg PO Q6H PRN PRN Reason: Itching Last Admin: 04/14/18 22:55 Dose: 25 mg Enoxaparin Sodium (Lovenox) 40 mg SUB-Q QDAY [facility] Last Admin: 04/15/18 09:35 Dose: 40 mg Glipizide (Glucotrol) 5 mg PO QDDIAB [facility] Last Admin: 04/15/18 09:34 Dose: 5 mg Hydralazine HCl (Apresoline) 10 mg IV Q6HR PRN PRN Reason: Blood Pressure Last Admin: 04/15/18 04:34 Dose: 10 mg Vancomycin HCl (Vancomycin/Ns 1 Gm/250 Ml) 1 gm in 250 mls @ 166.667 mls/hr IV Q8H [facility] Last Admin: 04/15/18 04:27 Dose: 166.667 mls/hr Ceftriaxone Sodium (Rocephin/Ns 2 Gm/100 Ml) 2 gm in 100 mls @ 200 mls/hr IV Q12HR [facility] Last Admin: 04/14/18 22:35 Dose: 200 mls/hr Insulin Human Regular (Humulin R) 0 units SUB-Q ACHS [facility]; Protocol Last Admin: 04/15/18 09:36 Dose: 3 units Levetiracetam (Keppra) 500 mg PO BID [facility] Last Admin: 04/15/18 09:35 Dose: 500 mg Metoprolol Tartrate (Lopressor) 25 mg PO BID [facility] Last Admin: 04/15/18 09:34 Dose: 25 mg Ondansetron HCl (Zofran) 4 mg IV Q8H PRN PRN Reason: Nausea And Vomiting Sodium Chloride (Sodium Chloride Flush Syringe 10 Ml) 10 ml IV BID [facility] Last Admin: 04/14/18 22:37 Dose: 10 ml Sodium Chloride (Sodium Chloride Flush Syringe 10 Ml) 10 ml IV PRN PRN PRN Reason: LINE FLUSH Vancomycin HCl (Vancomycin Pharmacy To Dose) 1 each IV PKCONSULT [facility] Physical Examination Vital Signs Temp Pulse Resp BP Pulse Ox 104 F H 144 H 18 199/93 98 07/16/18 17:51 04/11/18 17:51 04/11/18 17:51 04/11/18 17:51 04/11/18 17:51 General appearance: no acute distress HEENT: Positive: PERRL Cardiac: Positive: Reg Rate and Rhythm Extremities: Absent: edema Results 04/15/18 00:31 04/15/18 00:31 CBC 04/15/18 Range/Units 00:31 WBC 10.9 (4.5-11.0) K/mm3 RBC 3.60 L (3.65-5.03) M/mm3 Hgb 10.5 L (11.8-15.2) gm/dl Hct 31.7 L (35.5-45.6) % Plt Count 505 H (140-440) K/mm3 Comprehensive Metabolic Panel 04/15/18 Range/Units 00:31 Sodium 134 L (137-145) mmol/L Potassium 4.3 (3.6-5.0) mmol/L Chloride 95.1 L (98-107) mmol/L Carbon Dioxide 25 (22-30) mmol/L BUN 17 (9-20) mg/dL Creatinine 0.5 L (0.8-1.5) mg/dL Glucose 166 H (75-100) mg/dL Calcium 8.6 (8.4-10.2) mg/dL Assessment and Plan Bacterial meningitis Hypertension Dilated Cardiomyopathy EF 40% by echo this admission
--- NOTE | 2018-04-15 10:54 | Progress Note ---
Assessment and Plan Assessment: 1) Sepsis:resolved. Etiology most likely acute meningitis. 2) Acute pneumococcal meningitis: -CT of the head was negative. -S/P lumbar puncture showing cloudy fluid with 2900 white blood cells, 83% segs. Glucose 73, protein 418. Gram stain showed multiple polymorphonuclears no organisms. 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 TTE no vegetationsEF 40% 4) Acute encephalopathy 5) Anemia 6) Hypertension 7) Allergic to penicillin, unclear reaction. 8) New onset seizures Plan: -repeat blood cultures -F/u pneumococcus MICs - hopefully sensitive to ceftriaxone -continue ceftriaxone 2 g IV q 12h -continue vanco for now -upon discharge will do ceftriaxone 2 g IV q12h total 14 days until 04/26/18. Orders sent to case management rn -ID clinic f/u in 2 weeks -PICC Thank you for your consultation, will follow up with you. Radha Casarez MD Infectious Diseases Specialist [facility] ([facility]) [id number] [phone] O [phone] Subjective Date of service: 04/15/18 Principal diagnosis: meninigitis Interval history: Feels better, talking sitting at bedside, no headache no fever Microbiology: Blood cultures: 04/11 Pneumococcus 3 of 4 bottles Urine cultures: 04/11 ngtd CSF cultures: 04/11 ngtd Current Antimicrobials: Ceftriaxone 04/13 vanco 04/12 Prior Antimicrobials: Meropenem 04/12 Acyclovir 04/12 Aztreonam 04/12 BActrim IV 04/12 Objective - Exam Narrative Exam: General appearance: alert in NAD, conversant Eyes: anicteric sclerae, moist conjunctivae; no lid-lag; PERRLA HENT: Atraumatic; oropharynx clear. Neck: Trachea midline; Lungs: CTA, with normal respiratory effort and no intercostal retractions CV: tachy Abdomen: Soft, non-tender; no masses or hepatosplenomegaly Extremities: No peripheral edema or extremity lymphadenopathy Skin: Normal temperature, turgor and texture; no rash, ulcers or subcutaneous nodules Psych: alert stable mood Neuro: alert moving extremities Lines: No CVL / PICC - Constitutional Vitals: Vital Signs Temp Pulse Resp BP Pulse Ox 98.8 F 102 H 20 162/82 96 04/15/18 05:33 04/15/18 05:33 04/15/18 05:33 04/15/18 05:33 04/15/18 07:48 Temperature -Last 24 Hours Temperature 98.8 F Temperature 99.6 F Temperature 98.4 F Temperature 98.1 F - Labs CBC & Chem 7: 04/15/18 00:31 04/15/18 00:31 Labs: Abnormal lab results 04/14/18 04/14/18 04/14/18 Range/Units 11:27 16:48 22:25 RBC (3.65-5.03) M/mm3 Hgb (11.8-15.2) gm/dl Hct (35.5-45.6) % RDW (13.2-15.2) % Plt Count (140-440) K/mm3 Sodium (137-145) mmol/L Chloride (98-107) mmol/L Creatinine (0.8-1.5) mg/dL Glucose (75-100) mg/dL POC Glucose 215 H 236 H 125 H (70-105) 04/15/18 04/15/18 04/15/18 Range/Units 00:31 00:31 08:19 RBC 3.60 L (3.65-5.03) M/mm3 Hgb 10.5 L (11.8-15.2) gm/dl Hct 31.7 L (35.5-45.6) % RDW 16.0 H (13.2-15.2) % Plt Count 505 H (140-440) K/mm3 Sodium 134 L (137-145) mmol/L Chloride 95.1 L (98-107) mmol/L Creatinine 0.5 L (0.8-1.5) mg/dL Glucose 166 H (75-100) mg/dL POC Glucose 219 H (70-105)
[2018-04-15] MEDS: SODIUM CHLORIDE FLUSH SYRINGE 10 ML IV SCH ×2 (16:00→23:48)
[2018-04-15] MEDS: NORCO 5/325 PO PRN ×2 (16:02→21:54)
--- NOTE | 2018-04-15 16:35 | Progress Note ---
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 Severe Protein calorie Malnutrition Sepsis 2/2 above Encephalopathy resolved New Onset DM II h/o Alcoholism Chronic Tobacco abuse Full code status Plan Discussed care with cardiology and ID conservative cardiac management with medical therapy and follow outpatient Diabetes diagnosis d/w pt by bedside IV abx per ID reccs Ceftraiaxone on discharge following picc line placement when repeat cultures are negative Continue dm CONTROL as discussed. Patient verbalized understanding Seizure precautions continue Decadron If available, DM educator, and Nutrition consult f/u culture results. am labs Need for oral hyglycemic agent on discharge was d/w him Need to monitor his BG at home also d/w him Further pt mgt per hospital course. Per patients request girl friend stayed throughout visit plan discussd as much as he will allow inbetween his aggression History Interval history: patient seen and examined today, irate this morning about being served a cold breakfast and was not interested in speaking or being examined., information obtained via routine discussion. Hospitalist Physical - Physical exam Narrative exam: General appearance: Present: no acute distress, temporal wasting - EENT Eyes: Present: PERRL, EOM intact ENT: hearing intact, clear oral mucosa, other (missing teeth) - Neck Neck: Present: supple, normal ROM, other (no neck rigidity) - Respiratory Respiratory: bilateral: CTA, negative: rales, rhonchi, wheezing - Cardiovascular Rhythm: regular Heart Sounds: Present: S1 & S2 - Extremities Extremities: pulses symmetrical, No edema, normal temperature, normal color - Abdominal General gastrointestinal: soft, non-tender, non-distended, normal bowel sounds - Integumentary Integumentary: Present: clear, warm, dry - Psychiatric Psychiatric: appropriate mood/affect, cooperative, other (EXTREMELY RUDE TO PHYSICIAN) - Neurologic Neurologic: CNII-XII intact, moves all extremities - Allied Health Allied health notes reviewed: nursing, case management - Constitutional Vitals: Temp Pulse Resp BP Pulse Ox 98.8 F 102 H 20 162/82 96 04/15/18 05:33 04/15/18 05:33 04/15/18 05:33 04/15/18 05:33 04/15/18 07:48 General appearance: Present: no acute distress Results - Labs CBC & Chem 7: 04/15/18 00:31 04/15/18 00:31 Labs: Laboratory Last Values WBC 10.9 K/mm3 (4.5-11.0) 04/15/18 00:31 RBC 3.60 M/mm3 (3.65-5.03) L 04/15/18 00:31 Hgb 10.5 gm/dl (11.8-15.2) L 04/15/18 00:31 Hct 31.7 % (35.5-45.6) L 04/15/18 00:31 MCV 88 fl (84-94) 04/15/18 00:31 MCH 29 pg (28-32) 04/15/18 00:31 MCHC 33 % (32-34) 04/15/18 00:31 RDW 16.0 % (13.2-15.2) H 04/15/18 00:31 Plt Count 505 K/mm3 (140-440) H 04/15/18 00:31 Add Manual Diff Complete 04/14/18 06:14 Total Counted 100 04/14/18 06:14 Seg Neutrophils % Tile Picker 04/14/18 06:14 Seg Neuts % (Manual) 92.0 % (40.0-70.0) H 04/14/18 06:14 Band Neutrophils % 0 % 04/14/18 06:14 Lymphocytes % (Manual) 6.0 % (13.4-35.0) L 04/14/18 06:14 Reactive Lymphs % (Man) 0 % 04/14/18 06:14 Monocytes % (Manual) 2.0 % (0.0-7.3) 04/14/18 06:14 Eosinophils % (Manual) 0 % (0.0-4.3) 04/14/18 06:14 Basophils % (Manual) 0 % (0.0-1.8) 04/14/18 06:14 Metamyelocytes % 0 % 04/14/18 06:14 Myelocytes % 0 % 04/14/18 06:14 Promyelocytes % 0 % 04/14/18 06:14 Blast Cells % 0 % 04/14/18 06:14 Nucleated RBC % Not Reportable 04/14/18 06:14 Seg Neutrophils # Man 13.2 K/mm3 (1.8-7.7) H 04/14/18 06:14 Band Neutrophils # 0.0 K/mm3 04/14/18 06:14 Lymphocytes # (Manual) 0.9 K/mm3 (1.2-5.4) L 04/14/18 06:14 Abs React Lymphs (Man) 0.0 K/mm3 04/14/18 06:14 Monocytes # (Manual) 0.3 K/mm3 (0.0-0.8) 04/14/18 06:14 Eosinophils # (Manual) 0.0 K/mm3 (0.0-0.4) 04/14/18 06:14 Basophils # (Manual) 0.0 K/mm3 (0.0-0.1) 04/14/18 06:14 Metamyelocytes # 0.0 K/mm3 04/14/18 06:14 Myelocytes # 0.0 K/mm3 04/14/18 06:14 Promyelocytes # 0.0 K/mm3 04/14/18 06:14 Blast Cells # 0.0 K/mm3 04/14/18 06:14 WBC Morphology Not Reportable 04/14/18 06:14 Hypersegmented Neuts Not Reportable 04/14/18 06:14 Hyposegmented Neuts Not Reportable 04/14/18 06:14 Hypogranular Neuts Not Reportable 04/14/18 06:14 Smudge Cells Not Reportable 04/14/18 06:14 Toxic Granulation Not Reportable 04/14/18 06:14 Toxic Vacuolation Not Reportable 04/14/18 06:14 Dohle Bodies Not Reportable 04/14/18 06:14 Pelger-Huet Anomaly Not Reportable 04/14/18 06:14 Nadiya Rods Not Reportable 04/14/18 06:14 Platelet Estimate Consistent w auto 04/14/18 06:14 Clumped Platelets Not Reportable 04/14/18 06:14 Plt Clumps, EDTA Not Reportable 04/14/18 06:14 Large Platelets Not Reportable 04/14/18 06:14 Giant Platelets Not Reportable 04/14/18 06:14 Platelet Satelliting Not Reportable 04/14/18 06:14 Plt Morphology Comment Not Reportable 04/14/18 06:14 RBC Morphology Normal 04/14/18 06:14 Dimorphic RBCs Not Reportable 04/14/18 06:14 Polychromasia Not Reportable 04/14/18 06:14 Hypochromasia Not Reportable 04/14/18 06:14 Poikilocytosis Not Reportable 04/14/18 06:14 Anisocytosis Not Reportable 04/14/18 06:14 Microcytosis Not Reportable 04/14/18 06:14 Macrocytosis Not Reportable 04/14/18 06:14 Spherocytes Not Reportable 04/14/18 06:14 Pappenheimer Bodies Not Reportable 04/14/18 06:14 Sickle Cells Not Reportable 04/14/18 06:14 Target Cells Not Reportable 04/14/18 06:14 Tear Drop Cells Not Reportable 04/14/18 06:14 Ovalocytes Not Reportable 04/14/18 06:14 Helmet Cells Not Reportable 04/14/18 06:14 [place] Bodies Not Reportable 04/14/18 06:14 [place] Rings Not Reportable 04/14/18 06:14 Devi Cells Not Reportable 04/14/18 06:14 Bite Cells Not Reportable 04/14/18 06:14 Crenated Cell Not Reportable 04/14/18 06:14 Elliptocytes Not Reportable 04/14/18 06:14 Acanthocytes (Spur) Not Reportable 04/14/18 06:14 Rouleaux Not Reportable 04/14/18 06:14 Hemoglobin C Crystals Not Reportable 04/14/18 06:14 Schistocytes Not Reportable 04/14/18 06:14 Malaria parasites Not Reportable 04/14/18 06:14 Trell Bodies Not Reportable 04/14/18 06:14 Hem Pathologist Commnt No 04/14/18 06:14 APTT 23.9 Sec. (24.2-36.6) L 04/11/18 18:12 VBG pH 7.440 (7.320-7.420) H 04/11/18 18:16 Sodium 134 mmol/L (137-145) L 04/15/18 00:31 Potassium 4.3 mmol/L (3.6-5.0) 04/15/18 00:31 Chloride 95.1 mmol/L (98-107) L 04/15/18 00:31 Carbon Dioxide 25 mmol/L (22-30) 04/15/18 00:31 Anion Gap 18 mmol/L 04/15/18 00:31 BUN 17 mg/dL (9-20) 04/15/18 00:31 Creatinine 0.5 mg/dL (0.8-1.5) L 04/15/18 00:31 Estimated GFR > 60 ml/min 04/15/18 00:31 BUN/Creatinine Ratio 34 % 04/15/18 00:31 Glucose 166 mg/dL (75-100) H 04/15/18 00:31 POC Glucose 221 (70-105) H 04/15/18 12:09 Hemoglobin A1c 6.6 % (4-6) H 04/12/18 15:10 Lactic Acid 1.50 mmol/L (0.7-2.0) 04/12/18 00:30 Calcium 8.6 mg/dL (8.4-10.2) 04/15/18 00:31 Magnesium 1.90 mg/dL (1.7-2.3) 04/14/18 06:14 Total Bilirubin 0.20 mg/dL (0.1-1.2) 04/13/18 01:41 AST 16 units/L (5-40) 04/13/18 01:41 ALT 7 units/L (7-56) 04/13/18 01:41 Alkaline Phosphatase 72 units/L (35-129) 04/13/18 01:41 Ammonia 37.0 umol/L (25-60) 04/11/18 18:12 Total Creatine Kinase 32 units/L (55-170) L 04/11/18 18:12 Troponin T < 0.010 ng/mL (0.00-0.029) 04/11/18 18:12 Total Protein 6.7 g/dL (6.3-8.2) 04/13/18 01:41 Albumin 2.6 g/dL (3.9-5) L 04/13/18 01:41 Albumin/Globulin Ratio 0.6 % 04/13/18 01:41 TSH 1.050 mlU/mL (0.270-4.200) 04/11/18 18:12 Urine Color Yellow (Yellow) 04/11/18 18:10 Urine Turbidity Clear (Clear) 04/11/18 18:10 Urine pH 6.0 (5.0-7.0) 04/11/18 18:10 Ur Specific [place] 1.013 (1.003-1.030) 04/11/18 18:10 Urine Protein 100 mg/dl mg/dL (Negative) 04/11/18 18:10 Urine Glucose (UA) >=500 mg/dL (Negative) 04/11/18 18:10 Urine Ketones Tr mg/dL (Negative) 04/11/18 18:10 Urine Blood Mod (Negative) 04/11/18 18:10 Urine Nitrite Neg (Negative) 04/11/18 18:10 Urine Bilirubin Neg (Negative) 04/11/18 18:10 Urine Urobilinogen 4.0 mg/dL (<2.0) 04/11/18 18:10 Ur Leukocyte Esterase Neg (Negative) 04/11/18 18:10 Urine WBC (Auto) 2.0 /HPF (0.0-6.0) 04/11/18 18:10 Urine RBC (Auto) 89.0 /HPF (0.0-6.0) 04/11/18 18:10 Urine Mucus Few /HPF 04/11/18 18:10 CSF Appearance Cloudy 04/11/18 23:00 CSF Color Straw 04/11/18 23:00 CSF WBC 2900 /mm3 (1-10) 04/11/18 23:00 CSF RBC 100 /mm3 (0-0) 04/11/18 23:00 CSF Seg Neutrophils 83 % (0-6) 04/11/18 23:00 CSF Lymphocytes % 12.0 % (40-80) 04/11/18 23:00 CSF Reactive Lymphs 0 % 04/11/18 23:00 CSF Monocytes % 5 % (15-45) 04/11/18 23:00 CSF Eosinophils % 0 % 04/11/18 23:00 CSF Basophils 0 % 04/11/18 23:00 CSF Pathologist Review C 04/11/18 23:00 CSF Glucose 73 mg/dL 04/11/18 23:00 CSF Total Protein 418 mg/dL 04/11/18 23:00 Vancomycin Trough 14.4 ug/mL (5.0-20.0) 04/14/18 10:49 Blood Type A POSITIVE 04/11/18 18:07 Antibody Screen Negative 04/11/18 18:07
[2018-04-16] MEDS: APRESOLINE IV PRN (00:20)
[2018-04-16] MEDS: VANCOMYCIN/NS 1 GM/250 ML 1 GM/250 ML BAG IV SCH ×3 (06:47→22:50)
[2018-04-16] MEDS: GLUCOTROL PO SCH (08:51)
[2018-04-16] MEDS: HumuLIN R SUB-Q SCH ×4 (08:51→22:35)
[2018-04-16] MEDS: NORCO 5/325 PO PRN (09:24)
--- NOTE | 2018-04-16 10:07 | Progress Note ---
Assessment and Plan - Patient Problems (1) Altered mental status Current Visit: Yes Status: Acute Qualifiers: Altered mental status type: unspecified Qualified Code(s): R41.82 - Altered mental status, unspecified (2) Bacterial meningitis Current Visit: Yes Status: Acute (3) Sepsis Current Visit: Yes Status: Acute Qualifiers: Sepsis type: sepsis due to unspecified organism Qualified Code(s): A41.9 - Sepsis, unspecified organism Subjective Date of service: 04/16/18 Principal diagnosis: meninigitis Interval history: NAUSEA/ABD. PAIN Objective Vital Signs Temp Pulse Resp BP Pulse Ox 04/16/18 05:22 98.1 F 102 H 18 151/76 97 04/16/18 00:56 98.7 F 89 18 130/76 98 04/16/18 00:13 87 18 163/77 96 04/15/18 23:33 99.2 F 85 18 177/83 99 04/15/18 21:45 99.4 F 103 H 18 168/69 96 04/15/18 16:04 98.9 F 94 H 20 167/90 100 04/15/18 11:58 99.0 F 91 H 22 154/82 94 - Physical Examination General: No Apparent Distress HEENT: Positive: PERRL Cardiac: Positive: Reg Rate and Rhythm Lungs: Positive: clear to auscultation Extremities: Absent: edema
[2018-04-16] MEDS: KEPPRA PO SCH ×3 (11:53→22:50)
[2018-04-16] MEDS: LOPRESSOR PO SCH ×2 (11:54→22:51)
[2018-04-16] MEDS: LOVENOX SUB-Q SCH (11:56)
--- NOTE | 2018-04-16 12:08 | Progress Note ---
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 Severe Protein calorie Malnutrition Sepsis 2/2 above Encephalopathy resolved New Onset DM II h/o Alcoholism Chronic Tobacco abuse Full code status Plan Discussed care with cardiology and ID conservative cardiac management with medical therapy and follow outpatient Diabetes diagnosis d/w pt by bedside IV abx per ID recs Ceftriaxone on discharge following picc line placement when repeat cultures are negative Continue dm CONTROL as discussed. Patient verbalized understanding Seizure precautions continue Decadron f/u culture results. am labs Need for oral hypoglycemic agent on discharge was d/w him Need to monitor his BG at home also d/w him Further pt mgt per hospital course. 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,oriented x3, no focal neurological signs - Constitutional Vitals: Temp Pulse Resp BP Pulse Ox 98.1 F 102 H 18 151/76 97 04/16/18 05:22 04/16/18 05:22 04/16/18 05:22 04/16/18 05:22 04/16/18 05:22 General appearance: Present: no acute distress Results - Labs CBC & Chem 7: 04/15/18 00:31 04/15/18 00:31 Labs: Laboratory Last Values WBC 10.9 K/mm3 (4.5-11.0) 04/15/18 00:31 RBC 3.60 M/mm3 (3.65-5.03) L 04/15/18 00:31 Hgb 10.5 gm/dl (11.8-15.2) L 04/15/18 00:31 Hct 31.7 % (35.5-45.6) L 04/15/18 00:31 MCV 88 fl (84-94) 04/15/18 00:31 MCH 29 pg (28-32) 04/15/18 00:31 MCHC 33 % (32-34) 04/15/18 00:31 RDW 16.0 % (13.2-15.2) H 04/15/18 00:31 Plt Count 505 K/mm3 (140-440) H 04/15/18 00:31 Add Manual Diff Complete 04/14/18 06:14 Total Counted 100 04/14/18 06:14 Seg Neutrophils % Palm Gatherer 04/14/18 06:14 Seg Neuts % (Manual) 92.0 % (40.0-70.0) H 04/14/18 06:14 Band Neutrophils % 0 % 04/14/18 06:14 Lymphocytes % (Manual) 6.0 % (13.4-35.0) L 04/14/18 06:14 Reactive Lymphs % (Man) 0 % 04/14/18 06:14 Monocytes % (Manual) 2.0 % (0.0-7.3) 04/14/18 06:14 Eosinophils % (Manual) 0 % (0.0-4.3) 04/14/18 06:14 Basophils % (Manual) 0 % (0.0-1.8) 04/14/18 06:14 Metamyelocytes % 0 % 04/14/18 06:14 Myelocytes % 0 % 04/14/18 06:14 Promyelocytes % 0 % 04/14/18 06:14 Blast Cells % 0 % 04/14/18 06:14 Nucleated RBC % Not Reportable 04/14/18 06:14 Seg Neutrophils # Man 13.2 K/mm3 (1.8-7.7) H 04/14/18 06:14 Band Neutrophils # 0.0 K/mm3 04/14/18 06:14 Lymphocytes # (Manual) 0.9 K/mm3 (1.2-5.4) L 04/14/18 06:14 Abs React Lymphs (Man) 0.0 K/mm3 04/14/18 06:14 Monocytes # (Manual) 0.3 K/mm3 (0.0-0.8) 04/14/18 06:14 Eosinophils # (Manual) 0.0 K/mm3 (0.0-0.4) 04/14/18 06:14 Basophils # (Manual) 0.0 K/mm3 (0.0-0.1) 04/14/18 06:14 Metamyelocytes # 0.0 K/mm3 04/14/18 06:14 Myelocytes # 0.0 K/mm3 04/14/18 06:14 Promyelocytes # 0.0 K/mm3 04/14/18 06:14 Blast Cells # 0.0 K/mm3 04/14/18 06:14 WBC Morphology Not Reportable 04/14/18 06:14 Hypersegmented Neuts Not Reportable 04/14/18 06:14 Hyposegmented Neuts Not Reportable 04/14/18 06:14 Hypogranular Neuts Not Reportable 04/14/18 06:14 Smudge Cells Not Reportable 04/14/18 06:14 Toxic Granulation Not Reportable 04/14/18 06:14 Toxic Vacuolation Not Reportable 04/14/18 06:14 Dohle Bodies Not Reportable 04/14/18 06:14 Pelger-Huet Anomaly Not Reportable 04/14/18 06:14 Nadiya Rods Not Reportable 04/14/18 06:14 Platelet Estimate Consistent w auto 04/14/18 06:14 Clumped Platelets Not Reportable 04/14/18 06:14 Plt Clumps, EDTA Not Reportable 04/14/18 06:14 Large Platelets Not Reportable 04/14/18 06:14 Giant Platelets Not Reportable 04/14/18 06:14 Platelet Satelliting Not Reportable 04/14/18 06:14 Plt Morphology Comment Not Reportable 04/14/18 06:14 RBC Morphology Normal 04/14/18 06:14 Dimorphic RBCs Not Reportable 04/14/18 06:14 Polychromasia Not Reportable 04/14/18 06:14 Hypochromasia Not Reportable 04/14/18 06:14 Poikilocytosis Not Reportable 04/14/18 06:14 Anisocytosis Not Reportable 04/14/18 06:14 Microcytosis Not Reportable 04/14/18 06:14 Macrocytosis Not Reportable 04/14/18 06:14 Spherocytes Not Reportable 04/14/18 06:14 Pappenheimer Bodies Not Reportable 04/14/18 06:14 Sickle Cells Not Reportable 04/14/18 06:14 Target Cells Not Reportable 04/14/18 06:14 Tear Drop Cells Not Reportable 04/14/18 06:14 Ovalocytes Not Reportable 04/14/18 06:14 Helmet Cells Not Reportable 04/14/18 06:14 Cain-[place] Bodies Not Reportable 04/14/18 06:14 [place] Rings Not Reportable 04/14/18 06:14 Devi Cells Not Reportable 04/14/18 06:14 Bite Cells Not Reportable 04/14/18 06:14 Crenated Cell Not Reportable 04/14/18 06:14 Elliptocytes Not Reportable 04/14/18 06:14 Acanthocytes (Spur) Not Reportable 04/14/18 06:14 Rouleaux Not Reportable 04/14/18 06:14 Hemoglobin C Crystals Not Reportable 04/14/18 06:14 Schistocytes Not Reportable 04/14/18 06:14 Malaria parasites Not Reportable 04/14/18 06:14 Trell Bodies Not Reportable 04/14/18 06:14 Hem Pathologist Commnt No 04/14/18 06:14 APTT 23.9 Sec. (24.2-36.6) L 04/11/18 18:12 VBG pH 7.440 (7.320-7.420) H 04/11/18 18:16 Sodium 134 mmol/L (137-145) L 04/15/18 00:31 Potassium 4.3 mmol/L (3.6-5.0) 04/15/18 00:31 Chloride 95.1 mmol/L (98-107) L 04/15/18 00:31 Carbon Dioxide 25 mmol/L (22-30) 04/15/18 00:31 Anion Gap 18 mmol/L 04/15/18 00:31 BUN 17 mg/dL (9-20) 04/15/18 00:31 Creatinine 0.5 mg/dL (0.8-1.5) L 04/15/18 00:31 Estimated GFR > 60 ml/min 04/15/18 00:31 BUN/Creatinine Ratio 34 % 04/15/18 00:31 Glucose 166 mg/dL (75-100) H 04/15/18 00:31 POC Glucose 121 (70-105) H 04/16/18 12:00 Hemoglobin A1c 6.6 % (4-6) H 04/12/18 15:10 Lactic Acid 1.50 mmol/L (0.7-2.0) 04/12/18 00:30 Calcium 8.6 mg/dL (8.4-10.2) 04/15/18 00:31 Magnesium 1.90 mg/dL (1.7-2.3) 04/14/18 06:14 Total Bilirubin 0.20 mg/dL (0.1-1.2) 04/13/18 01:41 AST 16 units/L (5-40) 04/13/18 01:41 ALT 7 units/L (7-56) 04/13/18 01:41 Alkaline Phosphatase 72 units/L (35-129) 04/13/18 01:41 Ammonia 37.0 umol/L (25-60) 04/11/18 18:12 Total Creatine Kinase 32 units/L (55-170) L 04/11/18 18:12 Troponin T < 0.010 ng/mL (0.00-0.029) 04/11/18 18:12 Total Protein 6.7 g/dL (6.3-8.2) 04/13/18 01:41 Albumin 2.6 g/dL (3.9-5) L 04/13/18 01:41 Albumin/Globulin Ratio 0.6 % 04/13/18 01:41 TSH 1.050 mlU/mL (0.270-4.200) 04/11/18 18:12 Urine Color Yellow (Yellow) 04/11/18 18:10 Urine Turbidity Clear (Clear) 04/11/18 18:10 Urine pH 6.0 (5.0-7.0) 04/11/18 18:10 Ur Specific [place] 1.013 (1.003-1.030) 04/11/18 18:10 Urine Protein 100 mg/dl mg/dL (Negative) 04/11/18 18:10 Urine Glucose (UA) >=500 mg/dL (Negative) 04/11/18 18:10 Urine Ketones Tr mg/dL (Negative) 04/11/18 18:10 Urine Blood Mod (Negative) 04/11/18 18:10 Urine Nitrite Neg (Negative) 04/11/18 18:10 Urine Bilirubin Neg (Negative) 04/11/18 18:10 Urine Urobilinogen 4.0 mg/dL (<2.0) 04/11/18 18:10 Ur Leukocyte Esterase Neg (Negative) 04/11/18 18:10 Urine WBC (Auto) 2.0 /HPF (0.0-6.0) 04/11/18 18:10 Urine RBC (Auto) 89.0 /HPF (0.0-6.0) 04/11/18 18:10 Urine Mucus Few /HPF 04/11/18 18:10 CSF Appearance Cloudy 04/11/18 23:00 CSF Color Straw 04/11/18 23:00 CSF WBC 2900 /mm3 (1-10) 04/11/18 23:00 CSF RBC 100 /mm3 (0-0) 04/11/18 23:00 CSF Seg Neutrophils 83 % (0-6) 04/11/18 23:00 CSF Lymphocytes % 12.0 % (40-80) 04/11/18 23:00 CSF Reactive Lymphs 0 % 04/11/18 23:00 CSF Monocytes % 5 % (15-45) 04/11/18 23:00 CSF Eosinophils % 0 % 04/11/18 23:00 CSF Basophils 0 % 04/11/18 23:00 CSF Pathologist Review C 04/11/18 23:00 CSF Glucose 73 mg/dL 04/11/18 23:00 CSF Total Protein 418 mg/dL 04/11/18 23:00 Vancomycin Trough 14.4 ug/mL (5.0-20.0) 04/14/18 10:49 Blood Type A POSITIVE 04/11/18 18:07 Antibody Screen Negative 04/11/18 18:07
[2018-04-16] MEDS: ROCEPHIN/NS 2 GM/100 ML 2 GM/100 ML BAG IV SCH ×2 (13:37→22:50)
[2018-04-16] MEDS: SODIUM CHLORIDE FLUSH SYRINGE 10 ML IV SCH ×2 (14:04→23:22)
--- NOTE | 2018-04-16 14:17 | Progress Note ---
Assessment and Plan Assessment: 1) Sepsis:resolved. Etiology most likely acute meningitis. 2) Acute pneumococcal meningitis: -CT of the head was negative. -S/P lumbar puncture showing cloudy fluid with 2900 white blood cells, 83% segs. Glucose 73, protein 418. Gram stain showed multiple polymorphonuclears no organisms. 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 TTE no vegetationsEF 40% 4) Acute encephalopathy 5) Anemia 6) Hypertension 7) Allergic to penicillin, unclear reaction. 8) New onset seizures 9) Left hip pain ? chronic Plan: -left hip XR in light of severe pain ? chronic vs joint infection -repeat blood cultures -F/u pneumococcus MICs - likely sensitive to ceftriaxone -continue ceftriaxone 2 g IV q 12h -continue vanco for now -upon discharge will do ceftriaxone 2 g IV q12h total 14 days until 04/26/18. Orders sent to case work aide -ID clinic f/u in 2 weeks -PICC once blood cx neg for 48h Thank you for your consultation, will follow up with you. Radha Casarez MD Infectious Diseases Specialist [facility] ([facility]) M [phone] O [phone] Subjective Date of service: 04/16/18 Principal diagnosis: meninigitis Interval history: Feels better, c/o left hip pain unable to flex hip, no fever Microbiology: Blood cultures: 04/11 Pneumococcus 3 of 4 bottles 04/15 ngtd Urine cultures: 04/11 ngtd CSF cultures: 04/11 ngtd Current Antimicrobials: Ceftriaxone 04/13 vanco 04/12 Prior Antimicrobials: Meropenem 04/12 Acyclovir 04/12 Aztreonam 04/12 BActrim IV 04/12 Objective - Exam Narrative Exam: General appearance: alert in NAD, conversant Eyes: anicteric sclerae, moist conjunctivae; no lid-lag; PERRLA HENT: Atraumatic; oropharynx clear. Neck: Trachea midline; Lungs: CTA, with normal respiratory effort and no intercostal retractions CV: tachy Abdomen: Soft, non-tender; no masses or hepatosplenomegaly Extremities: No peripheral edema or extremity lymphadenopathy Skin: Normal temperature, turgor and texture; no rash, ulcers or subcutaneous nodules Psych: alert stable mood Neuro: alert moving extremities Lines: No CVL / PICC - Constitutional Vitals: Vital Signs Temp Pulse Resp BP Pulse Ox 99.2 F 103 H 20 156/83 98 04/16/18 13:57 04/16/18 13:57 04/16/18 13:57 04/16/18 13:57 04/16/18 13:57 Temperature -Last 24 Hours Temperature 99.2 F Temperature 98.1 F Temperature 98.7 F Temperature 99.2 F Temperature 99.4 F Temperature 98.9 F - Labs CBC & Chem 7: 04/15/18 00:31 04/15/18 00:31 Labs: Abnormal lab results 04/15/18 04/15/18 04/16/18 Range/Units 16:14 22:28 08:47 POC Glucose 175 H 150 H 137 H (70-105) 04/16/18 Range/Units 12:00 POC Glucose 121 H (70-105)
[2018-04-16] MEDS: PERCOCET 5/325 PO PRN ×2 (16:46→23:21)
[2018-04-17] MEDS: VANCOMYCIN/NS 1 GM/250 ML 1 GM/250 ML BAG IV SCH ×3 (04:52→21:48)
[2018-04-17] MEDS: APRESOLINE IV PRN ×2 (05:00→22:30)
[2018-04-17] MEDS: PERCOCET 5/325 PO PRN ×4 (05:45→21:46)
[2018-04-17] MEDS: GLUCOTROL PO SCH (08:29)
--- NOTE | 2018-04-17 09:54 | Progress Note ---
Assessment and Plan - Patient Problems (1) Altered mental status Current Visit: Yes Status: Acute Qualifiers: Altered mental status type: unspecified Qualified Code(s): R41.82 - Altered mental status, unspecified (2) Bacterial meningitis Current Visit: Yes Status: Acute (3) Sepsis Current Visit: Yes Status: Acute Qualifiers: Sepsis type: sepsis due to unspecified organism Qualified Code(s): A41.9 - Sepsis, unspecified organism Subjective Date of service: 04/17/18 Principal diagnosis: meninigitis Interval history: tolerating liquids,,,NO CV C\O,,,,ABD. PAIN Objective Vital Signs Temp Pulse Pulse Resp BP Pulse Ox 04/17/18 05:12 99.5 F 101 H 18 154/79 97 04/17/18 05:00 96 H 182/89 04/17/18 00:06 98.5 F 87 19 172/83 98 04/16/18 22:51 102 H 154/72 04/16/18 22:00 102 H 20 98 04/16/18 19:14 98.8 F 20 161/84 04/16/18 13:57 99.2 F 103 H 20 156/83 98 - Physical Examination General: No Apparent Distress (UNCOMFORTABLE) HEENT: Positive: PERRL Neck: Positive: neck supple Cardiac: Positive: Reg Rate and Rhythm, Systolic Murmur Lungs: Positive: clear to auscultation Abdomen: Positive: Soft Extremities: Absent: edema
[2018-04-17] MEDS: KEPPRA PO SCH ×2 (09:58→21:46)
[2018-04-17] MEDS: LOPRESSOR PO SCH ×2 (09:58→21:46)
[2018-04-17] MEDS: LOVENOX SUB-Q SCH (10:00)
[2018-04-17] MEDS: HumuLIN R SUB-Q SCH ×4 (10:03→22:29)
--- NOTE | 2018-04-17 11:33 | Progress Note ---
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 Severe Protein calorie Malnutrition Sepsis 2/2 above Encephalopathy resolved New Onset DM II h/o Alcoholism Chronic Tobacco abuse Full code status Plan conservative cardiac management with medical therapy and follow outpatient Diabetes diagnosis d/w pt by bedside IV abx per ID recs Ceftriaxone on discharge following picc line placement when repeat cultures are negative Continue dm CONTROL as discussed. Patient verbalized understanding Seizure precautions continue Decadron f/u culture results. am labs Need for oral hypoglycemic agent on discharge was d/w him Need to monitor his BG at home also d/w him Further pt mgt per hospital course. For THAIS on Wednesday For PICC line placement when cultures neg History Interval history: chronic pain, improving, no fever Hospitalist Physical - Physical exam Narrative exam: Constitutional: Not in acute distress, lying in bed, malnourished HEENT: Atraumatic, normocephalic Neck: supple, no lymphadenopathy, Lungs: Clear to auscultation, bilaterally, no wheeze, no crackles CVS: S1-S2 regular, no murmurs, rubs or gallop, Abdomen: soft, non-tender, non distended,bowel sounds are normal, Musculoskeletal: No edema, clubbing, or cyanosis MAID SUPERVISOR: awake, alert,oriented x3, no focal neurological signs - Constitutional Vitals: Temp Pulse Resp BP Pulse Ox 99.5 F 101 H 18 135/76 97 04/17/18 05:12 04/17/18 05:12 04/17/18 05:12 04/17/18 09:58 04/17/18 05:12 General appearance: Present: no acute distress Results - Labs CBC & Chem 7: 04/15/18 00:31 04/15/18 00:31 Labs: Laboratory Last Values WBC 10.9 K/mm3 (4.5-11.0) 04/15/18 00:31 RBC 3.60 M/mm3 (3.65-5.03) L 04/15/18 00:31 Hgb 10.5 gm/dl (11.8-15.2) L 04/15/18 00:31 Hct 31.7 % (35.5-45.6) L 04/15/18 00:31 MCV 88 fl (84-94) 04/15/18 00:31 MCH 29 pg (28-32) 04/15/18 00:31 MCHC 33 % (32-34) 04/15/18 00:31 RDW 16.0 % (13.2-15.2) H 04/15/18 00:31 Plt Count 505 K/mm3 (140-440) H 04/15/18 00:31 Add Manual Diff Complete 04/14/18 06:14 Total Counted 100 04/14/18 06:14 Seg Neutrophils % Bulk Plant Supervisor 04/14/18 06:14 Seg Neuts % (Manual) 92.0 % (40.0-70.0) H 04/14/18 06:14 Band Neutrophils % 0 % 04/14/18 06:14 Lymphocytes % (Manual) 6.0 % (13.4-35.0) L 04/14/18 06:14 Reactive Lymphs % (Man) 0 % 04/14/18 06:14 Monocytes % (Manual) 2.0 % (0.0-7.3) 04/14/18 06:14 Eosinophils % (Manual) 0 % (0.0-4.3) 04/14/18 06:14 Basophils % (Manual) 0 % (0.0-1.8) 04/14/18 06:14 Metamyelocytes % 0 % 04/14/18 06:14 Myelocytes % 0 % 04/14/18 06:14 Promyelocytes % 0 % 04/14/18 06:14 Blast Cells % 0 % 04/14/18 06:14 Nucleated RBC % Not Reportable 04/14/18 06:14 Seg Neutrophils # Man 13.2 K/mm3 (1.8-7.7) H 04/14/18 06:14 Band Neutrophils # 0.0 K/mm3 04/14/18 06:14 Lymphocytes # (Manual) 0.9 K/mm3 (1.2-5.4) L 04/14/18 06:14 Abs React Lymphs (Man) 0.0 K/mm3 04/14/18 06:14 Monocytes # (Manual) 0.3 K/mm3 (0.0-0.8) 04/14/18 06:14 Eosinophils # (Manual) 0.0 K/mm3 (0.0-0.4) 04/14/18 06:14 Basophils # (Manual) 0.0 K/mm3 (0.0-0.1) 04/14/18 06:14 Metamyelocytes # 0.0 K/mm3 04/14/18 06:14 Myelocytes # 0.0 K/mm3 04/14/18 06:14 Promyelocytes # 0.0 K/mm3 04/14/18 06:14 Blast Cells # 0.0 K/mm3 04/14/18 06:14 WBC Morphology Not Reportable 04/14/18 06:14 Hypersegmented Neuts Not Reportable 04/14/18 06:14 Hyposegmented Neuts Not Reportable 04/14/18 06:14 Hypogranular Neuts Not Reportable 04/14/18 06:14 Smudge Cells Not Reportable 04/14/18 06:14 Toxic Granulation Not Reportable 04/14/18 06:14 Toxic Vacuolation Not Reportable 04/14/18 06:14 Dohle Bodies Not Reportable 04/14/18 06:14 Pelger-Huet Anomaly Not Reportable 04/14/18 06:14 Nadiya Rods Not Reportable 04/14/18 06:14 Platelet Estimate Consistent w auto 04/14/18 06:14 Clumped Platelets Not Reportable 04/14/18 06:14 Plt Clumps, EDTA Not Reportable 04/14/18 06:14 Large Platelets Not Reportable 04/14/18 06:14 Giant Platelets Not Reportable 04/14/18 06:14 Platelet Satelliting Not Reportable 04/14/18 06:14 Plt Morphology Comment Not Reportable 04/14/18 06:14 RBC Morphology Normal 04/14/18 06:14 Dimorphic RBCs Not Reportable 04/14/18 06:14 Polychromasia Not Reportable 04/14/18 06:14 Hypochromasia Not Reportable 04/14/18 06:14 Poikilocytosis Not Reportable 04/14/18 06:14 Anisocytosis Not Reportable 04/14/18 06:14 Microcytosis Not Reportable 04/14/18 06:14 Macrocytosis Not Reportable 04/14/18 06:14 Spherocytes Not Reportable 04/14/18 06:14 Pappenheimer Bodies Not Reportable 04/14/18 06:14 Sickle Cells Not Reportable 04/14/18 06:14 Target Cells Not Reportable 04/14/18 06:14 Tear Drop Cells Not Reportable 04/14/18 06:14 Ovalocytes Not Reportable 04/14/18 06:14 Helmet Cells Not Reportable 04/14/18 06:14 [place] Bodies Not Reportable 04/14/18 06:14 [place] Rings Not Reportable 04/14/18 06:14 [place] Cells Not Reportable 04/14/18 06:14 Bite Cells Not Reportable 04/14/18 06:14 Crenated Cell Not Reportable 04/14/18 06:14 Elliptocytes Not Reportable 04/14/18 06:14 Acanthocytes (Spur) Not Reportable 04/14/18 06:14 Rouleaux Not Reportable 04/14/18 06:14 Hemoglobin C Crystals Not Reportable 04/14/18 06:14 Schistocytes Not Reportable 04/14/18 06:14 Malaria parasites Not Reportable 04/14/18 06:14 [place]ll Bodies Not Reportable 04/14/18 06:14 Hem Pathologist Commnt No 04/14/18 06:14 APTT 23.9 Sec. (24.2-36.6) L 04/11/18 18:12 VBG pH 7.440 (7.320-7.420) H 04/11/18 18:16 Sodium 134 mmol/L (137-145) L 04/15/18 00:31 Potassium 4.3 mmol/L (3.6-5.0) 04/15/18 00:31 Chloride 95.1 mmol/L (98-107) L 04/15/18 00:31 Carbon Dioxide 25 mmol/L (22-30) 04/15/18 00:31 Anion Gap 18 mmol/L 04/15/18 00:31 BUN 17 mg/dL (9-20) 04/15/18 00:31 Creatinine 0.5 mg/dL (0.8-1.5) L 04/15/18 00:31 Estimated GFR > 60 ml/min 04/15/18 00:31 BUN/Creatinine Ratio 34 % 04/15/18 00:31 Glucose 166 mg/dL (75-100) H 04/15/18 00:31 POC Glucose 146 (70-105) H 04/17/18 08:09 Hemoglobin A1c 6.6 % (4-6) H 04/12/18 15:10 Lactic Acid 1.50 mmol/L (0.7-2.0) 04/12/18 00:30 Calcium 8.6 mg/dL (8.4-10.2) 04/15/18 00:31 Magnesium 1.90 mg/dL (1.7-2.3) 04/14/18 06:14 Total Bilirubin 0.20 mg/dL (0.1-1.2) 04/13/18 01:41 AST 16 units/L (5-40) 04/13/18 01:41 ALT 7 units/L (7-56) 04/13/18 01:41 Alkaline Phosphatase 72 units/L (35-129) 04/13/18 01:41 Ammonia 37.0 umol/L (25-60) 04/11/18 18:12 Total Creatine Kinase 32 units/L (55-170) L 04/11/18 18:12 Troponin T < 0.010 ng/mL (0.00-0.029) 04/11/18 18:12 Total Protein 6.7 g/dL (6.3-8.2) 04/13/18 01:41 Albumin 2.6 g/dL (3.9-5) L 04/13/18 01:41 Albumin/Globulin Ratio 0.6 % 04/13/18 01:41 TSH 1.050 mlU/mL (0.270-4.200) 04/11/18 18:12 Urine Color Yellow (Yellow) 04/11/18 18:10 Urine Turbidity Clear (Clear) 04/11/18 18:10 Urine pH 6.0 (5.0-7.0) 04/11/18 18:10 Ur Specific [place] 1.013 (1.003-1.030) 04/11/18 18:10 Urine Protein 100 mg/dl mg/dL (Negative) 04/11/18 18:10 Urine Glucose (UA) >=500 mg/dL (Negative) 04/11/18 18:10 Urine Ketones Tr mg/dL (Negative) 04/11/18 18:10 Urine Blood Mod (Negative) 04/11/18 18:10 Urine Nitrite Neg (Negative) 04/11/18 18:10 Urine Bilirubin Neg (Negative) 04/11/18 18:10 Urine Urobilinogen 4.0 mg/dL (<2.0) 04/11/18 18:10 Ur Leukocyte Esterase Neg (Negative) 04/11/18 18:10 Urine WBC (Auto) 2.0 /HPF (0.0-6.0) 04/11/18 18:10 Urine RBC (Auto) 89.0 /HPF (0.0-6.0) 04/11/18 18:10 Urine Mucus Few /HPF 04/11/18 18:10 CSF Appearance Cloudy 04/11/18 23:00 CSF Color Straw 04/11/18 23:00 CSF WBC 2900 /mm3 (1-10) 04/11/18 23:00 CSF RBC 100 /mm3 (0-0) 04/11/18 23:00 CSF Seg Neutrophils 83 % (0-6) 04/11/18 23:00 CSF Lymphocytes % 12.0 % (40-80) 04/11/18 23:00 CSF Reactive Lymphs 0 % 04/11/18 23:00 CSF Monocytes % 5 % (15-45) 04/11/18 23:00 CSF Eosinophils % 0 % 04/11/18 23:00 CSF Basophils 0 % 04/11/18 23:00 CSF Pathologist Review C 04/11/18 23:00 CSF Glucose 73 mg/dL 04/11/18 23:00 CSF Total Protein 418 mg/dL 04/11/18 23:00 Vancomycin Trough 14.4 ug/mL (5.0-20.0) 04/14/18 10:49 Blood Type A POSITIVE 04/11/18 18:07 Antibody Screen Negative 04/11/18 18:07
[2018-04-17] MEDS: ROCEPHIN/NS 2 GM/100 ML 2 GM/100 ML BAG IV SCH ×2 (12:08→21:55)
[2018-04-17] MEDS: SODIUM CHLORIDE FLUSH SYRINGE 10 ML IV SCH ×2 (15:35→21:48)
[2018-04-18] MEDS: VANCOMYCIN/NS 1 GM/250 ML 1 GM/250 ML BAG IV SCH (04:40)
[2018-04-18] MEDS: PERCOCET 5/325 PO PRN ×4 (04:40→21:30)
[2018-04-18 07:34] LABS: Hemoglobin 10.5 gm/dl (11.8-15.2); Mean Corpuscular HGB Conc 33 % (32-34); Mean Corpuscular Hemoglobin 29 pg (28-32); Mean Corpuscular Volume 89 fl (84-94); Platelet Count 403 K/mm3 (140-440); Red Cell Distribution Width 16.4 % (13.2-15.2)
[2018-04-18 07:50] LABS: BUN/Creatinine Ratio 27; Blood Urea Nitrogen 8 mg/dL (9-20); Calcium 8.3 mg/dL (8.4-10.2); Hemolysis Index 51
--- NOTE | 2018-04-18 09:08 | Progress Note ---
Assessment and Plan Assessment: 1) Sepsis:resolved. Etiology most likely acute meningitis. 2) Acute pneumococcal meningitis: better -CT of the head was negative. -S/P lumbar puncture showing cloudy fluid with 2900 white blood cells, 83% segs. Glucose 73, protein 418. Gram stain showed multiple polymorphonuclears no organisms. 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 TTE no vegetationsEF 40% -Blood cx 04/11 3 of 4 positive for Strep pnuemoniae, ceftraixoen JUSTINO<0.25 -Blood cx 04/15 neg 4) Acute encephalopathy: resolved 5) Anemia 6) Hypertension 7) Allergic to penicillin, unclear reaction. 8) New onset seizures 9) Left hip pain ? chronic - still pain Plan: -left hip XR in light of severe pain ? chronic vs joint infection - not done. reodered today -continue ceftriaxone 2 g IV q 12h -stop vanco -upon discharge will do ceftriaxone 2 g IV q12h total 14 days until 04/26/18. Orders sent to field case manager -ID clinic f/u in 2 weeks -PICC today I am signing off Thank you for your consultation, will follow up with you. Radha Casarez MD Infectious Diseases Specialist [facility] ([facility] M [phone] O [phone] Subjective Date of service: 04/18/18 Principal diagnosis: meninigitis Interval history: Feels better, still c/o left hip pain unable to flex hip, no fever Microbiology: Blood cultures: 04/11 Pneumococcus 3 of 4 bottles 04/15 neg Urine cultures: 04/11 neg CSF cultures: 04/11 neg Current Antimicrobials: Ceftriaxone 04/13 vanco 04/12 Prior Antimicrobials: Meropenem 04/12 Acyclovir 04/12 Aztreonam 04/12 BActrim IV 04/12 Objective - Exam Narrative Exam: General appearance: alert in NAD, conversant Eyes: anicteric sclerae, moist conjunctivae; no lid-lag; PERRLA HENT: Atraumatic; oropharynx clear. Neck: Trachea midline; Lungs: CTA, with normal respiratory effort and no intercostal retractions CV: tachy Abdomen: Soft, non-tender; no masses or hepatosplenomegaly Extremities: No peripheral edema or extremity lymphadenopathy +left hip pain Skin: Normal temperature, turgor and texture; no rash, ulcers or subcutaneous nodules Psych: alert stable mood Neuro: alert moving extremities Lines: No CVL / PICC - Constitutional Vitals: Vital Signs Temp Pulse Resp BP Pulse Ox 99.5 F 102 H 16 142/76 98 04/18/18 05:26 04/18/18 05:26 04/18/18 05:26 04/18/18 05:26 04/18/18 05:26 Temperature -Last 24 Hours Temperature 99.5 F Temperature 97.6 F Temperature 98.1 F Temperature 98.5 F - Labs CBC & Chem 7: 04/18/18 06:58 04/18/18 06:58 Labs: Abnormal lab results 04/17/18 04/17/18 04/17/18 Range/Units 12:14 16:39 21:41 RBC (3.65-5.03) M/mm3 Hgb (11.8-15.2) gm/dl Hct (35.5-45.6) % RDW (13.2-15.2) % BUN (9-20) mg/dL Creatinine (0.8-1.5) mg/dL Glucose (75-100) mg/dL POC Glucose 131 H 110 H 189 H (70-105) Calcium (8.4-10.2) mg/dL 04/18/18 04/18/18 04/18/18 Range/Units 06:28 06:58 06:58 RBC 3.60 L (3.65-5.03) M/mm3 Hgb 10.5 L (11.8-15.2) gm/dl Hct 32.0 L (35.5-45.6) % RDW 16.4 H (13.2-15.2) % BUN 8 L (9-20) mg/dL Creatinine 0.3 L (0.8-1.5) mg/dL Glucose 130 H (75-100) mg/dL POC Glucose 127 H (70-105) Calcium 8.3 L (8.4-10.2) mg/dL
[2018-04-18] MEDS: GLUCOTROL PO SCH (09:25)
[2018-04-18] MEDS: KEPPRA PO SCH ×2 (09:26→21:30)
[2018-04-18] MEDS: LOPRESSOR PO SCH ×2 (09:30→21:30)
--- NOTE | 2018-04-18 09:30 | Progress Note ---
Assessment and Plan Bacterial meningitis Hypertension Dilated Cardiomyopathy Diabetes Echocardiogram reports no evidence of endocarditis, but there is an incidental finding of a mild to moderate cardiomyopathy, ejection fraction 40% and moderate severity aortic valve regurgitation. Recommendations: Conservative cardiac management of asymptomatic aortic regurgitation and cardiomyopathy. Medical therapy to include afterload reduction and beta blockers. Ischemic evaluation will be done as outpatient after his febrile illness is resolved. Subjective Date of service: 04/18/18 Principal diagnosis: meninigitis Interval history: Patient is resting in bed comfortably. He has no cardiac complaints. Objective Vital Signs Temp Pulse Pulse Resp BP Pulse Ox 04/18/18 05:26 99.5 F 102 H 16 142/76 98 04/17/18 23:39 97.6 F 93 H 18 124/73 99 04/17/18 22:30 101 H 170/81 04/17/18 22:00 93 H 18 99 04/17/18 21:46 101 H 170/89 04/17/18 17:51 98.1 F 96 H 18 149/78 98 04/17/18 12:02 98.5 F 111 H 18 140/78 99 04/17/18 09:58 135/76 04/17/18 09:51 135/76 - Physical Examination General: No Apparent Distress HEENT: Positive: PERRL Cardiac: Positive: Reg Rate and Rhythm Extremities: Absent: edema - Labs and Meds CBC 04/18/18 Range/Units 06:58 WBC 7.0 (4.5-11.0) K/mm3 RBC 3.60 L (3.65-5.03) M/mm3 Hgb 10.5 L (11.8-15.2) gm/dl Hct 32.0 L (35.5-45.6) % Plt Count 403 (140-440) K/mm3 Comprehensive Metabolic Panel 04/18/18 Range/Units 06:58 Sodium 137 (137-145) mmol/L Potassium 3.8 (3.6-5.0) mmol/L Chloride 98.3 (98-107) mmol/L Carbon Dioxide 26 (22-30) mmol/L BUN 8 L (9-20) mg/dL Creatinine 0.3 L (0.8-1.5) mg/dL Glucose 130 H (75-100) mg/dL Calcium 8.3 L (8.4-10.2) mg/dL
[2018-04-18] MEDS: HumuLIN R SUB-Q SCH ×4 (09:33→21:57)
[2018-04-18] MEDS: LOVENOX SUB-Q SCH (09:33)
--- NOTE | 2018-04-18 10:57 | Progress Note ---
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 Severe Protein calorie Malnutrition Sepsis 2/2 above Encephalopathy resolved New Onset DM II h/o Alcoholism Chronic Tobacco abuse Full code status Plan conservative cardiac management with medical therapy and follow outpatient Diabetes IV abx per ID recs Ceftriaxone on discharge following picc line placement when repeat cultures are negative Continue dm CONTROL as discussed. Patient verbalized understanding Seizure precautions continue Decadron am labs Need for oral hypoglycemic agent on discharge was d/w him Need to monitor his blood glucose at home home also d/w him For PICC line placement when cultures neg, likely today History Interval history: chronic pain, improving, no fever, For THAIS today Hospitalist Physical - Physical exam Narrative exam: Constitutional: Not in acute distress, lying in bed, malnourished HEENT: Atraumatic, normocephalic Neck: supple, no lymphadenopathy, Lungs: Clear to auscultation, bilaterally, no wheeze, no crackles CVS: S1-S2 regular, no murmurs, rubs or gallop, Abdomen: soft, non-tender, non distended,bowel sounds are normal, Musculoskeletal: No edema, clubbing, or cyanosis SOCIAL MEDIA SR STRATEGY MANAGER: awake, alert,oriented x 3, no focal neurological signs - Constitutional Vitals: Temp Pulse Resp BP Pulse Ox 99.5 F 102 H 16 131/73 98 04/18/18 05:26 04/18/18 05:26 04/18/18 05:26 04/18/18 09:30 04/18/18 05:26 General appearance: Present: no acute distress Results - Labs CBC & Chem 7: 04/18/18 06:58 04/18/18 06:58 Labs: Laboratory Last Values WBC 7.0 K/mm3 (4.5-11.0) 04/18/18 06:58 RBC 3.60 M/mm3 (3.65-5.03) L 04/18/18 06:58 Hgb 10.5 gm/dl (11.8-15.2) L 04/18/18 06:58 Hct 32.0 % (35.5-45.6) L 04/18/18 06:58 MCV 89 fl (84-94) 04/18/18 06:58 MCH 29 pg (28-32) 04/18/18 06:58 MCHC 33 % (32-34) 04/18/18 06:58 RDW 16.4 % (13.2-15.2) H 04/18/18 06:58 Plt Count 403 K/mm3 (140-440) 04/18/18 06:58 Add Manual Diff Complete 04/14/18 06:14 Total Counted 100 04/14/18 06:14 Seg Neutrophils % Dentistry Professor 04/14/18 06:14 Seg Neuts % (Manual) 92.0 % (40.0-70.0) H 04/14/18 06:14 Band Neutrophils % 0 % 04/14/18 06:14 Lymphocytes % (Manual) 6.0 % (13.4-35.0) L 04/14/18 06:14 Reactive Lymphs % (Man) 0 % 04/14/18 06:14 Monocytes % (Manual) 2.0 % (0.0-7.3) 04/14/18 06:14 Eosinophils % (Manual) 0 % (0.0-4.3) 04/14/18 06:14 Basophils % (Manual) 0 % (0.0-1.8) 04/14/18 06:14 Metamyelocytes % 0 % 04/14/18 06:14 Myelocytes % 0 % 04/14/18 06:14 Promyelocytes % 0 % 04/14/18 06:14 Blast Cells % 0 % 04/14/18 06:14 Nucleated RBC % Not Reportable 04/14/18 06:14 Seg Neutrophils # Man 13.2 K/mm3 (1.8-7.7) H 04/14/18 06:14 Band Neutrophils # 0.0 K/mm3 04/14/18 06:14 Lymphocytes # (Manual) 0.9 K/mm3 (1.2-5.4) L 04/14/18 06:14 Abs React Lymphs (Man) 0.0 K/mm3 04/14/18 06:14 Monocytes # (Manual) 0.3 K/mm3 (0.0-0.8) 04/14/18 06:14 Eosinophils # (Manual) 0.0 K/mm3 (0.0-0.4) 04/14/18 06:14 Basophils # (Manual) 0.0 K/mm3 (0.0-0.1) 04/14/18 06:14 Metamyelocytes # 0.0 K/mm3 04/14/18 06:14 Myelocytes # 0.0 K/mm3 04/14/18 06:14 Promyelocytes # 0.0 K/mm3 04/14/18 06:14 Blast Cells # 0.0 K/mm3 04/14/18 06:14 WBC Morphology Not Reportable 04/14/18 06:14 Hypersegmented Neuts Not Reportable 04/14/18 06:14 Hyposegmented Neuts Not Reportable 04/14/18 06:14 Hypogranular Neuts Not Reportable 04/14/18 06:14 Smudge Cells Not Reportable 04/14/18 06:14 Toxic Granulation Not Reportable 04/14/18 06:14 Toxic Vacuolation Not Reportable 04/14/18 06:14 Dohle Bodies Not Reportable 04/14/18 06:14 Pelger-Huet Anomaly Not Reportable 04/14/18 06:14 Nadiya Rods Not Reportable 04/14/18 06:14 Platelet Estimate Consistent w auto 04/14/18 06:14 Clumped Platelets Not Reportable 04/14/18 06:14 Plt Clumps, EDTA Not Reportable 04/14/18 06:14 Large Platelets Not Reportable 04/14/18 06:14 Giant Platelets Not Reportable 04/14/18 06:14 Platelet Satelliting Not Reportable 04/14/18 06:14 Plt Morphology Comment Not Reportable 04/14/18 06:14 RBC Morphology Normal 04/14/18 06:14 Dimorphic RBCs Not Reportable 04/14/18 06:14 Polychromasia Not Reportable 04/14/18 06:14 Hypochromasia Not Reportable 04/14/18 06:14 Poikilocytosis Not Reportable 04/14/18 06:14 Anisocytosis Not Reportable 04/14/18 06:14 Microcytosis Not Reportable 04/14/18 06:14 Macrocytosis Not Reportable 04/14/18 06:14 Spherocytes Not Reportable 04/14/18 06:14 Pappenheimer Bodies Not Reportable 04/14/18 06:14 Sickle Cells Not Reportable 04/14/18 06:14 Target Cells Not Reportable 04/14/18 06:14 Tear Drop Cells Not Reportable 04/14/18 06:14 Ovalocytes Not Reportable 04/14/18 06:14 Helmet Cells Not Reportable 04/14/18 06:14 [place] Bodies Not Reportable 04/14/18 06:14 [place] Rings Not Reportable 04/14/18 06:14 [place] Cells Not Reportable 04/14/18 06:14 Bite Cells Not Reportable 04/14/18 06:14 Crenated Cell Not Reportable 04/14/18 06:14 Elliptocytes Not Reportable 04/14/18 06:14 Acanthocytes (Spur) Not Reportable 04/14/18 06:14 Rouleaux Not Reportable 04/14/18 06:14 Hemoglobin C Crystals Not Reportable 04/14/18 06:14 Schistocytes Not Reportable 04/14/18 06:14 Malaria parasites Not Reportable 04/14/18 06:14 Trell Bodies Not Reportable 04/14/18 06:14 Hem Pathologist Commnt No 04/14/18 06:14 APTT 23.9 Sec. (24.2-36.6) L 04/11/18 18:12 VBG pH 7.440 (7.320-7.420) H 04/11/18 18:16 Sodium 137 mmol/L (137-145) 04/18/18 06:58 Potassium 3.8 mmol/L (3.6-5.0) 04/18/18 06:58 Chloride 98.3 mmol/L (98-107) 04/18/18 06:58 Carbon Dioxide 26 mmol/L (22-30) 04/18/18 06:58 Anion Gap 17 mmol/L 04/18/18 06:58 BUN 8 mg/dL (9-20) L 04/18/18 06:58 Creatinine 0.3 mg/dL (0.8-1.5) L 04/18/18 06:58 Estimated GFR > 60 ml/min 04/18/18 06:58 BUN/Creatinine Ratio 27 % 04/18/18 06:58 Glucose 130 mg/dL (75-100) H 04/18/18 06:58 POC Glucose 127 (70-105) H 04/18/18 06:28 Hemoglobin A1c 6.6 % (4-6) H 04/12/18 15:10 Lactic Acid 1.50 mmol/L (0.7-2.0) 04/12/18 00:30 Calcium 8.3 mg/dL (8.4-10.2) L 04/18/18 06:58 Magnesium 1.90 mg/dL (1.7-2.3) 04/14/18 06:14 Total Bilirubin 0.20 mg/dL (0.1-1.2) 04/13/18 01:41 AST 16 units/L (5-40) 04/13/18 01:41 ALT 7 units/L (7-56) 04/13/18 01:41 Alkaline Phosphatase 72 units/L (35-129) 04/13/18 01:41 Ammonia 37.0 umol/L (25-60) 04/11/18 18:12 Total Creatine Kinase 32 units/L (55-170) L 04/11/18 18:12 Troponin T < 0.010 ng/mL (0.00-0.029) 04/11/18 18:12 Total Protein 6.7 g/dL (6.3-8.2) 04/13/18 01:41 Albumin 2.6 g/dL (3.9-5) L 04/13/18 01:41 Albumin/Globulin Ratio 0.6 % 04/13/18 01:41 TSH 1.050 mlU/mL (0.270-4.200) 04/11/18 18:12 Urine Color Yellow (Yellow) 04/11/18 18:10 Urine Turbidity Clear (Clear) 04/11/18 18:10 Urine pH 6.0 (5.0-7.0) 04/11/18 18:10 Ur Specific [place] 1.013 (1.003-1.030) 04/11/18 18:10 Urine Protein 100 mg/dl mg/dL (Negative) 04/11/18 18:10 Urine Glucose (UA) >=500 mg/dL (Negative) 04/11/18 18:10 Urine Ketones Tr mg/dL (Negative) 04/11/18 18:10 Urine Blood Mod (Negative) 04/11/18 18:10 Urine Nitrite Neg (Negative) 04/11/18 18:10 Urine Bilirubin Neg (Negative) 04/11/18 18:10 Urine Urobilinogen 4.0 mg/dL (<2.0) 04/11/18 18:10 Ur Leukocyte Esterase Neg (Negative) 04/11/18 18:10 Urine WBC (Auto) 2.0 /HPF (0.0-6.0) 04/11/18 18:10 Urine RBC (Auto) 89.0 /HPF (0.0-6.0) 04/11/18 18:10 Urine Mucus Few /HPF 04/11/18 18:10 CSF Appearance Cloudy 04/11/18 23:00 CSF Color Straw 04/11/18 23:00 CSF WBC 2900 /mm3 (1-10) 04/11/18 23:00 CSF RBC 100 /mm3 (0-0) 04/11/18 23:00 CSF Seg Neutrophils 83 % (0-6) 04/11/18 23:00 CSF Lymphocytes % 12.0 % (40-80) 04/11/18 23:00 CSF Reactive Lymphs 0 % 04/11/18 23:00 CSF Monocytes % 5 % (15-45) 04/11/18 23:00 CSF Eosinophils % 0 % 04/11/18 23:00 CSF Basophils 0 % 04/11/18 23:00 CSF Pathologist Review C 04/11/18 23:00 CSF Glucose 73 mg/dL 04/11/18 23:00 CSF Total Protein 418 mg/dL 04/11/18 23:00 Vancomycin Trough 14.4 ug/mL (5.0-20.0) 04/14/18 10:49 Blood Type A POSITIVE 04/11/18 18:07 Antibody Screen Negative 04/11/18 18:07
--- NOTE | 2018-04-18 11:35 | XRay Report ---
LEFT HIP, 2 VIEWS: History: Left hip pain. Moderate to severe osteopenia has developed since 12/07/17 exam. Moderate to severe osteoarthritic changes are suspected at the left hip. The superior left femoral head is sclerotic with suggestion of interval development of osteonecrosis. No obvious fracture, dislocation or bone lesion. IMPRESSION: Osteopenia. Degenerative changes. Findings suggestive of osteonecrosis the left femoral head which is new since 12/07/17. No acute injury is appreciated. Consider further evaluation with MRI of the left hip.
[2018-04-18] MEDS: ROCEPHIN/NS 2 GM/100 ML 2 GM/100 ML BAG IV SCH ×2 (11:53→21:39)
[2018-04-18] MEDS: SODIUM CHLORIDE FLUSH SYRINGE 10 ML IV SCH ×2 (11:53→21:33)
[2018-04-18] MEDS: ZESTRIL PO SCH (13:51)
--- NOTE | 2018-04-18 17:08 | Event Note ---
Date: 04/18/18 Called by case specialist that Patient refused Midline, saying he wants to stay here in hospital as inpatient untill he completes iv Antibiotics.
--- NOTE | 2018-04-19 08:48 | Progress Note ---
Assessment and Plan Bacterial meningitis Hypertension Dilated Cardiomyopathy Diabetes Echocardiogram reports no evidence of endocarditis, but there is an incidental finding of a mild to moderate cardiomyopathy, ejection fraction 40% and moderate severity aortic valve regurgitation. Recommendations: Conservative cardiac management of asymptomatic aortic regurgitation and cardiomyopathy. Medical therapy to include afterload reduction and beta blockers. Ischemic evaluation will be done as outpatient after his acute illness is resolved. Subjective Date of service: 04/19/18 Principal diagnosis: meninigitis Interval history: No acute changes. Objective Vital Signs Temp Pulse Resp BP Pulse Ox 04/19/18 04:08 98.9 F 93 H 20 154/79 98 04/18/18 23:29 99.2 F 89 20 151/78 97 04/18/18 22:30 17 04/18/18 21:30 89 16 160/90 04/18/18 17:47 97.6 F 98 H 20 160/81 98 04/18/18 11:47 98.5 F 90 20 139/73 96 04/18/18 09:30 131/73 - Physical Examination General: No Apparent Distress HEENT: Positive: PERRL Cardiac: Positive: Reg Rate and Rhythm Extremities: Absent: edema
[2018-04-19] MEDS: HumuLIN R SUB-Q SCH ×4 (08:56→22:22)
[2018-04-19] MEDS: GLUCOTROL PO SCH (08:57)
[2018-04-19] MEDS: PERCOCET 5/325 PO PRN ×3 (09:15→21:41)
--- NOTE | 2018-04-19 12:08 | Progress Note ---
Subjective Date of service: 04/19/18 Principal diagnosis: meninigitis Interval history: NEUROLOGY FOLLOW UP NOTE: Hx reviewed in detail, studies reviewed. Pt is much improved. No headache. No seizures. On exam his speech is fluent and clear, oriented, RECC: 1. As MRI without contrast reveals what is most likely an AVM in the left frontal lobe, this may have been the cause of the seizures, not the meningitis. Pt has never had [facility] studies before. Will get CT angio head and EEG 2. Go from there. Shahab French MD Objective - Vital Sign Vital Signs - 12hr 04/19/18 04:08 Temperature 98.9 F Pulse Rate 93 H Respiratory 20 Rate Blood Pressure 154/79 O2 Sat by Pulse 98 Oximetry - Laboratory Findings CBC and BMP: 04/18/18 06:58 04/18/18 06:58 Abnormal Lab Findings: Abnormal Labs 04/11/18 04/11/18 04/11/18 18:12 18:12 18:12 WBC 14.7 H RBC 3.63 L Hgb 10.3 L Hct 32.6 L RDW 16.8 H Plt Count 536 H Seg Neuts % (Manual) 93.0 H Lymphocytes % (Manual) 2.0 L Seg Neutrophils # Man 13.7 H Lymphocytes # (Manual) 0.3 L APTT 23.9 L VBG pH Sodium 133 L Potassium Chloride 89.4 L BUN Creatinine 0.6 L Glucose 262 H POC Glucose Hemoglobin A1c Lactic Acid Calcium ALT 6 L Total Creatine Kinase 32 L Albumin 2.8 L 04/11/18 04/11/18 04/12/18 18:16 18:16 15:10 WBC RBC Hgb Hct RDW Plt Count Seg Neuts % (Manual) Lymphocytes % (Manual) Seg Neutrophils # Man Lymphocytes # (Manual) APTT VBG pH 7.440 H Sodium Potassium Chloride BUN Creatinine Glucose POC Glucose Hemoglobin A1c 6.6 H Lactic Acid 6.40 H* Calcium ALT Total Creatine Kinase Albumin 04/13/18 04/13/18 04/13/18 01:41 05:03 17:04 WBC 17.6 H RBC 3.22 L Hgb 9.3 L Hct 27.9 L RDW 16.4 H Plt Count 519 H Seg Neuts % (Manual) 91.0 H Lymphocytes % (Manual) 5.0 L Seg Neutrophils # Man 16.0 H Lymphocytes # (Manual) 0.9 L APTT VBG pH Sodium 136 L Potassium 3.4 L Chloride 94.5 L BUN Creatinine 0.5 L Glucose 179 H POC Glucose 196 H Hemoglobin A1c Lactic Acid Calcium ALT Total Creatine Kinase Albumin 2.6 L 04/13/18 04/14/18 04/14/18 21:30 06:14 06:14 WBC 14.4 H RBC 3.35 L Hgb 9.7 L Hct 29.2 L RDW 16.4 H Plt Count 508 H Seg Neuts % (Manual) 92.0 H Lymphocytes % (Manual) 6.0 L Seg Neutrophils # Man 13.2 H Lymphocytes # (Manual) 0.9 L APTT VBG pH Sodium 136 L Potassium Chloride 94.1 L BUN Creatinine 0.5 L Glucose 177 H POC Glucose 197 H Hemoglobin A1c Lactic Acid Calcium ALT Total Creatine Kinase Albumin 04/14/18 04/14/18 04/14/18 09:29 11:27 16:48 WBC RBC Hgb Hct RDW Plt Count Seg Neuts % (Manual) Lymphocytes % (Manual) Seg Neutrophils # Man Lymphocytes # (Manual) APTT VBG pH Sodium Potassium Chloride BUN Creatinine Glucose POC Glucose 176 H 215 H 236 H Hemoglobin A1c Lactic Acid Calcium ALT Total Creatine Kinase Albumin 04/14/18 04/15/18 04/15/18 22:25 00:31 00:31 WBC RBC 3.60 L Hgb 10.5 L Hct 31.7 L RDW 16.0 H Plt Count 505 H Seg Neuts % (Manual) Lymphocytes % (Manual) Seg Neutrophils # Man Lymphocytes # (Manual) APTT VBG pH Sodium 134 L Potassium Chloride 95.1 L BUN Creatinine 0.5 L Glucose 166 H POC Glucose 125 H Hemoglobin A1c Lactic Acid Calcium ALT Total Creatine Kinase Albumin 04/15/18 04/15/18 04/15/18 08:19 12:09 16:14 WBC RBC Hgb Hct RDW Plt Count Seg Neuts % (Manual) Lymphocytes % (Manual) Seg Neutrophils # Man Lymphocytes # (Manual) APTT VBG pH Sodium Potassium Chloride BUN Creatinine Glucose POC Glucose 219 H 221 H 175 H Hemoglobin A1c Lactic Acid Calcium ALT Total Creatine Kinase Albumin 04/15/18 04/16/18 04/16/18 22:28 08:47 12:00 WBC RBC Hgb Hct RDW Plt Count Seg Neuts % (Manual) Lymphocytes % (Manual) Seg Neutrophils # Man Lymphocytes # (Manual) APTT VBG pH Sodium Potassium Chloride BUN Creatinine Glucose POC Glucose 150 H 137 H 121 H Hemoglobin A1c Lactic Acid Calcium ALT Total Creatine Kinase Albumin 04/16/18 04/16/18 04/17/18 16:26 21:56 08:09 WBC RBC Hgb Hct RDW Plt Count Seg Neuts % (Manual) Lymphocytes % (Manual) Seg Neutrophils # Man Lymphocytes # (Manual) APTT VBG pH Sodium Potassium Chloride BUN Creatinine Glucose POC Glucose 216 H 147 H 146 H Hemoglobin A1c Lactic Acid Calcium ALT Total Creatine Kinase Albumin 04/17/18 04/17/18 04/17/18 12:14 16:39 21:41 WBC RBC Hgb Hct RDW Plt Count Seg Neuts % (Manual) Lymphocytes % (Manual) Seg Neutrophils # Man Lymphocytes # (Manual) APTT VBG pH Sodium Potassium Chloride BUN Creatinine Glucose POC Glucose 131 H 110 H 189 H Hemoglobin A1c Lactic Acid Calcium ALT Total Creatine Kinase Albumin 04/18/18 04/18/18 04/18/18 06:28 06:58 06:58 WBC RBC 3.60 L Hgb 10.5 L Hct 32.0 L RDW 16.4 H Plt Count Seg Neuts % (Manual) Lymphocytes % (Manual) Seg Neutrophils # Man Lymphocytes # (Manual) APTT VBG pH Sodium Potassium Chloride BUN 8 L Creatinine 0.3 L Glucose 130 H POC Glucose 127 H Hemoglobin A1c Lactic Acid Calcium 8.3 L ALT Total Creatine Kinase Albumin 04/18/18 04/18/18 04/18/18 09:26 12:32 21:40 WBC RBC Hgb Hct RDW Plt Count Seg Neuts % (Manual) Lymphocytes % (Manual) Seg Neutrophils # Man Lymphocytes # (Manual) APTT VBG pH Sodium Potassium Chloride BUN Creatinine Glucose POC Glucose 161 H 126 H 216 H Hemoglobin A1c Lactic Acid Calcium ALT Total Creatine Kinase Albumin 04/19/18 04/19/18 08:04 11:40 WBC RBC Hgb Hct RDW Plt Count Seg Neuts % (Manual) Lymphocytes % (Manual) Seg Neutrophils # Man Lymphocytes # (Manual) APTT VBG pH Sodium Potassium Chloride BUN Creatinine Glucose POC Glucose 114 H 133 H Hemoglobin A1c Lactic Acid Calcium ALT Total Creatine Kinase Albumin
[2018-04-19] MEDS: ROCEPHIN/NS 2 GM/100 ML 2 GM/100 ML BAG IV SCH ×2 (12:31→21:42)
[2018-04-19] MEDS: LOVENOX SUB-Q SCH (12:32)
[2018-04-19] MEDS: SODIUM CHLORIDE FLUSH SYRINGE 10 ML IV SCH ×2 (12:32→21:42)
[2018-04-19] MEDS: KEPPRA PO SCH ×2 (12:32→21:41)
[2018-04-19] MEDS: LOPRESSOR PO SCH ×2 (12:32→21:41)
[2018-04-19] MEDS: ZESTRIL PO SCH (12:33)
--- NOTE | 2018-04-19 14:49 | Progress Note ---
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 - Seizure precautions, cont keppra Severe Protein calorie Malnutrition Encephalopathy due to meningitis, resolved New Onset DM II - diabetic diet with SSI h/o Alcoholism, not in withdrawl Chronic Tobacco abuse, counsellled Full code status Hospitalist Physical Constitutional: Not in acute distress, lying in bed, malnourished HEENT: Atraumatic, normocephalic Neck: supple, no lymphadenopathy, Lungs: Clear to auscultation, bilaterally, no wheeze, no crackles CVS: S1-S2 regular, no murmurs, rubs or gallop, Abdomen: soft, non-tender, non distended,bowel sounds are normal, Musculoskeletal: No edema, clubbing, or cyanosis MAORI LIAISON ADVISER: awake, alert,oriented x 3, no focal neurological signs Subjective Date of service: 04/19/18 Principal diagnosis: meninigitis Interval history: Pt seen and examined refusing PICC line, refusing to go home with IV abx set up Objective - Constitutional Vitals: Vital Signs - 12hr 04/19/18 04/19/18 04:08 11:30 Temperature 98.9 F 98.6 F Pulse Rate 93 H 107 H Respiratory 20 20 Rate Blood Pressure 154/79 168/79 O2 Sat by Pulse 98 99 Oximetry - Labs CBC & Chem 7: 04/18/18 06:58 04/18/18 06:58 Labs: Abnormal lab results 04/18/18 04/19/18 04/19/18 Range/Units 21:40 08:04 11:40 POC Glucose 216 H 114 H 133 H (70-105)
--- NOTE | 2018-04-20 08:08 | Progress Note ---
Assessment and Plan Bacterial meningitis Hypertension Dilated Cardiomyopathy Diabetes Echocardiogram reports no evidence of endocarditis, but there is an incidental finding of a mild to moderate cardiomyopathy, ejection fraction 40% and moderate severity aortic valve regurgitation. Recommendations: Conservative cardiac management of asymptomatic aortic regurgitation and cardiomyopathy. Medical therapy to include afterload reduction and beta blockers. Ischemic evaluation will be done as outpatient after his acute illness is resolved. Subjective Date of service: 04/20/18 Principal diagnosis: meninigitis Interval history: Patient is resting in bed comfortably. No acute changes. Objective Vital Signs Temp Pulse Resp BP Pulse Ox 04/20/18 04:41 98.5 F 91 H 20 165/77 97 04/20/18 00:09 98.8 F 81 20 137/66 99 04/19/18 16:53 99.4 F 95 H 20 150/76 99 04/19/18 11:30 98.6 F 107 H 20 168/79 99 - Physical Examination General: No Apparent Distress HEENT: Positive: PERRL Cardiac: Positive: Reg Rate and Rhythm Extremities: Absent: edema
[2018-04-20] MEDS: PERCOCET 5/325 PO PRN ×4 (08:17→21:49)
--- NOTE | 2018-04-20 10:18 | Cat Scan Report ---
CT ANGIOGRAM HEAD History: Left frontal arteriovenous malformation. Technique: Helical CT following IV contrast in 1.25 mm intervals. 3-dimensional volume rendering technique. Findings: The MR brain without contrast dated 04/13/18 was reviewed. CTA head with contrast confirms a left frontal AVM measuring 2.5 x 2.4 cm in axial plane. The arterial supply of the AVM is difficult to determine but may arise from the left anterior cerebral artery. There is a large draining vein which eventually communicates with the superior sagittal sinus near the vertex of the skull. There is no evidence for acute hemorrhage or internal calcifications. The surrounding brain parenchyma is unremarkable on CT. No additional arteriovenous malformations are identified. The anterior and posterior circulations are widely patent otherwise with no evidence of hemodynamically significant stenosis. No aneurysm is identified. Impression: Left frontal arteriovenous malformation as described.
[2018-04-20] MEDS: HumuLIN R SUB-Q SCH ×4 (12:14→23:16)
[2018-04-20] MEDS: KEPPRA PO SCH ×2 (13:00→21:49)
[2018-04-20] MEDS: SODIUM CHLORIDE FLUSH SYRINGE 10 ML IV SCH ×2 (13:00→21:51)
[2018-04-20] MEDS: ZESTRIL PO SCH (13:00)
[2018-04-20] MEDS: LOPRESSOR PO SCH ×2 (13:00→21:49)
[2018-04-20] MEDS: LOVENOX SUB-Q SCH (13:00)
[2018-04-20] MEDS: GLUCOTROL PO SCH (13:00)
[2018-04-20] MEDS: ROCEPHIN/NS 2 GM/100 ML 2 GM/100 ML BAG IV SCH ×2 (13:00→21:48)
--- NOTE | 2018-04-20 17:31 | Progress Note ---
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 Per , he has been c /o severe diffuse headache for 1-2 days along with fever subjective and AMS with confusion. In the ED, initial temperature 104, heart rate 144, respiration 18, O2 sat 98, blood pressure 199/93. White count 14.7. Hemoglobin 10.3. Platelets 536. Creatinine 0.6. Lactic acid 6.4. CT of the head was negative. Chest x-ray was negative. Patient underwent lumbar puncture showed cloudy fluid with 2900 white blood cells, 83% segs. Glucose 73, protein 418. Gram stain od CSF showed multiple polymorphonuclears no organisms. Blood Cx grew Strep Pneumonaie. Hospitalist Physical Constitutional: Not in acute distress, lying in bed, malnourished HEENT: Atraumatic, normocephalic Neck: supple, no lymphadenopathy, Lungs: Clear to auscultation, bilaterally, no wheeze, no crackles CVS: S1-S2 regular, no murmurs, rubs or gallop, Abdomen: soft, non-tender, non distended,bowel sounds are normal, Musculoskeletal: No edema, clubbing, or cyanosis RN ADMISSION: awake, alert,oriented x 3, no focal neurological signs Subjective Date of service: 04/20/18 Principal diagnosis: meninigitis Interval history: Pt seen and examined refusing PICC line, refusing to go home with IV abx set up Objective - Constitutional Vitals: Vital Signs - 12hr 04/20/18 12:09 Temperature 99.0 F Respiratory 19 Rate Blood Pressure 189/90 - Labs CBC & Chem 7: 07/23/18 06:58 04/18/18 06:58 Labs: Abnormal lab results 04/19/18 04/19/18 04/20/18 Range/Units 17:04 22:23 07:17 POC Glucose 131 H 137 H 123 H (70-105) 04/20/18 04/20/18 Range/Units 12:18 17:17 POC Glucose 106 H 130 H (70-105)
[2018-04-21] MEDS ORDERED: ZESTRIL PO SCH (08:26)
[2018-04-21] MEDS: GLUCOTROL PO SCH (08:41)
[2018-04-21] MEDS: HumuLIN R SUB-Q SCH ×4 (08:43→22:44)
[2018-04-21] MEDS: PERCOCET 5/325 PO PRN ×3 (09:09→22:56)
[2018-04-21] MEDS: ZESTRIL PO SCH ×2 (09:10→16:46)
[2018-04-21] MEDS: KEPPRA PO SCH ×3 (09:11→22:45)
[2018-04-21] MEDS: LOPRESSOR PO SCH ×3 (09:11→22:45)
[2018-04-21] MEDS: LOVENOX SUB-Q SCH (09:17)
--- NOTE | 2018-04-21 09:37 | Progress Note ---
Assessment and Plan Bacterial meningitis Hypertension Dilated Cardiomyopathy Diabetes Echocardiogram reports no evidence of endocarditis, but there is an incidental finding of a mild to moderate cardiomyopathy, ejection fraction 40% and moderate severity aortic valve regurgitation. Recommendations: Conservative cardiac management of asymptomatic aortic regurgitation and cardiomyopathy. Medical therapy to include afterload reduction and beta blockers. Ischemic evaluation will be done as outpatient after his acute illness is resolved. Subjective Date of service: 04/21/18 Principal diagnosis: meninigitis Interval history: Patient is resting in bed comfortably. He has no cardiac complaints. Objective Vital Signs Temp Pulse Resp BP Pulse Ox 04/20/18 23:27 97.4 F L 89 20 175/84 100 04/20/18 18:21 98.3 F 83 19 99 04/20/18 12:09 99.0 F 19 189/90 - Physical Examination General: No Apparent Distress HEENT: Positive: PERRL Cardiac: Positive: Reg Rate and Rhythm Extremities: Absent: edema
[2018-04-21] MEDS: ROCEPHIN/NS 2 GM/100 ML 2 GM/100 ML BAG IV SCH ×2 (11:41→22:43)
[2018-04-21] MEDS: SODIUM CHLORIDE FLUSH SYRINGE 10 ML IV SCH (11:41)
--- NOTE | 2018-04-21 12:54 | Progress Note ---
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 Per , he has been c /o severe diffuse headache for 1-2 days along with fever subjective and AMS with confusion. In the ED, initial temperature 104, heart rate 144, respiration 18, O2 sat 98, blood pressure 199/93. White count 14.7. Hemoglobin 10.3. Platelets 536. Creatinine 0.6. Lactic acid 6.4. CT of the head was negative. Chest x-ray was negative. Patient underwent lumbar puncture showed cloudy fluid with 2900 white blood cells, 83% segs. Glucose 73, protein 418. Gram stain od CSF showed multiple polymorphonuclears no organisms. Blood Cx grew Strep Pneumonaie. Hospitalist Physical Constitutional: Not in acute distress, lying in bed, malnourished HEENT: Atraumatic, normocephalic Neck: supple, no lymphadenopathy, Lungs: Clear to auscultation, bilaterally, no wheeze, no crackles CVS: S1-S2 regular, no murmurs, rubs or gallop, Abdomen: soft, non-tender, non distended,bowel sounds are normal, Musculoskeletal: No edema, clubbing, or cyanosis PHOTOGRAPHY SALES ASSOCIATE: awake, alert,oriented x 3, no focal neurological signs Subjective Date of service: 04/21/18 Principal diagnosis: meninigitis Interval history: Pt seen and examined refusing PICC line, refusing to go home with IV abx set up does not want to speak about discharge planning States we are trying to get him out of the hospital as because he does not have insurance Objective - Constitutional Vitals: Vital Signs - 12hr 04/21/18 11:36 Temperature 99.3 F Pulse Rate 107 H Respiratory 19 Rate Blood Pressure 150/80 O2 Sat by Pulse 99 Oximetry - Labs CBC & Chem 7: 04/18/18 06:58 04/18/18 06:58 Labs: Abnormal lab results 04/20/18 04/20/18 04/21/18 Range/Units 12:18 17:17 07:50 POC Glucose 106 H 130 H 122 H (70-105) 04/21/18 Range/Units 11:46 POC Glucose 124 H (70-105)
[2018-04-21] MEDS: BABY ASPIRIN PO SCH (16:46)
[2018-04-22] MEDS: HumuLIN R SUB-Q SCH ×4 (07:30→23:20)
[2018-04-22] MEDS: LOVENOX SUB-Q SCH (09:11)
[2018-04-22] MEDS: BABY ASPIRIN PO SCH (09:11)
[2018-04-22] MEDS: ZESTRIL PO SCH (09:12)
[2018-04-22] MEDS: LOPRESSOR PO SCH ×2 (09:12→21:29)
[2018-04-22] MEDS: KEPPRA PO SCH ×2 (09:12→21:28)
[2018-04-22] MEDS: PERCOCET 5/325 PO PRN ×3 (09:12→21:27)
[2018-04-22] MEDS: GLUCOTROL PO SCH (09:12)
[2018-04-22] MEDS: SODIUM CHLORIDE FLUSH SYRINGE 10 ML IV SCH ×2 (09:13→10:00)
[2018-04-22] MEDS: ROCEPHIN/NS 2 GM/100 ML 2 GM/100 ML BAG IV SCH ×2 (10:00→21:30)
--- NOTE | 2018-04-22 11:57 | Progress Note ---
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 Per , he has been c /o severe diffuse headache for 1-2 days along with fever subjective and AMS with confusion. In the ED, initial temperature 104, heart rate 144, respiration 18, O2 sat 98, blood pressure 199/93. White count 14.7. Hemoglobin 10.3. Platelets 536. Creatinine 0.6. Lactic acid 6.4. CT of the head was negative. Chest x-ray was negative. Patient underwent lumbar puncture showed cloudy fluid with 2900 white blood cells, 83% segs. Glucose 73, protein 418. Gram stain od CSF showed multiple polymorphonuclears no organisms. Blood Cx grew Strep Pneumonaie. Hospitalist Physical Constitutional: Not in acute distress, lying in bed, malnourished HEENT: Atraumatic, normocephalic Neck: supple, no lymphadenopathy, Lungs: Clear to auscultation, bilaterally, no wheeze, no crackles CVS: S1-S2 regular, no murmurs, rubs or gallop, Abdomen: soft, non-tender, non distended,bowel sounds are normal, Musculoskeletal: No edema, clubbing, or cyanosis POLICE INVESTIGATOR: awake, alert,oriented x 3, no focal neurological signs Subjective Date of service: 04/22/18 Principal diagnosis: meninigitis Interval history: Pt seen and examined refusing PICC line, refusing to go home with IV abx set up No other acute issue Objective - Constitutional Vitals: Vital Signs - 12hr 04/22/18 04:59 Temperature 98.9 F Pulse Rate 90 Respiratory 20 Rate Blood Pressure 140/78 O2 Sat by Pulse 96 Oximetry - Labs CBC & Chem 7: 04/18/18 06:58 04/18/18 06:58 Labs: Abnormal lab results 04/21/18 04/21/18 04/22/18 Range/Units 11:46 22:09 07:50 POC Glucose 124 H 143 H 127 H (70-105)
--- NOTE | 2018-04-22 12:15 | Progress Note ---
Subjective Date of service: 04/22/18 Principal diagnosis: meninigitis Interval history: NEUROLOGY FOLLOW UP NOTE: CTA head shows a significant sized AVM in the left frontal lobe, with no hemorrhagic component or infarction EEG - patient steadfastly refuses x two days IMP: 1. 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 He is not clinically seizing at this time RECC: 1. Keep him on the Keppra 500 mg bid 2. No driving at this time 2. arrange f/u with neurologist in one month 3. call as needed. Shahab French MD Objective - Vital Sign Vital Signs - 12hr 04/22/18 04:59 Temperature 98.9 F Pulse Rate 90 Respiratory 20 Rate Blood Pressure 140/78 O2 Sat by Pulse 96 Oximetry - Laboratory Findings CBC and BMP: 04/18/18 06:58 04/18/18 06:58 Abnormal Lab Findings: Abnormal Labs 04/11/18 04/11/18 04/11/18 18:12 18:12 18:12 WBC 14.7 H RBC 3.63 L Hgb 10.3 L Hct 32.6 L RDW 16.8 H Plt Count 536 H Seg Neuts % (Manual) 93.0 H Lymphocytes % (Manual) 2.0 L Seg Neutrophils # Man 13.7 H Lymphocytes # (Manual) 0.3 L APTT 23.9 L VBG pH Sodium 133 L Potassium Chloride 89.4 L BUN Creatinine 0.6 L Glucose 262 H POC Glucose Hemoglobin A1c Lactic Acid Calcium ALT 6 L Total Creatine Kinase 32 L Albumin 2.8 L 04/11/18 04/11/18 04/12/18 18:16 18:16 15:10 WBC RBC Hgb Hct RDW Plt Count Seg Neuts % (Manual) Lymphocytes % (Manual) Seg Neutrophils # Man Lymphocytes # (Manual) APTT VBG pH 7.440 H Sodium Potassium Chloride BUN Creatinine Glucose POC Glucose Hemoglobin A1c 6.6 H Lactic Acid 6.40 H* Calcium ALT Total Creatine Kinase Albumin 04/13/18 04/13/18 04/13/18 01:41 05:03 17:04 WBC 17.6 H RBC 3.22 L Hgb 9.3 L Hct 27.9 L RDW 16.4 H Plt Count 519 H Seg Neuts % (Manual) 91.0 H Lymphocytes % (Manual) 5.0 L Seg Neutrophils # Man 16.0 H Lymphocytes # (Manual) 0.9 L APTT VBG pH Sodium 136 L Potassium 3.4 L Chloride 94.5 L BUN Creatinine 0.5 L Glucose 179 H POC Glucose 196 H Hemoglobin A1c Lactic Acid Calcium ALT Total Creatine Kinase Albumin 2.6 L 04/13/18 04/14/18 04/14/18 21:30 06:14 06:14 WBC 14.4 H RBC 3.35 L Hgb 9.7 L Hct 29.2 L RDW 16.4 H Plt Count 508 H Seg Neuts % (Manual) 92.0 H Lymphocytes % (Manual) 6.0 L Seg Neutrophils # Man 13.2 H Lymphocytes # (Manual) 0.9 L APTT VBG pH Sodium 136 L Potassium Chloride 94.1 L BUN Creatinine 0.5 L Glucose 177 H POC Glucose 197 H Hemoglobin A1c Lactic Acid Calcium ALT Total Creatine Kinase Albumin 04/14/18 04/14/18 04/14/18 09:29 11:27 16:48 WBC RBC Hgb Hct RDW Plt Count Seg Neuts % (Manual) Lymphocytes % (Manual) Seg Neutrophils # Man Lymphocytes # (Manual) APTT VBG pH Sodium Potassium Chloride BUN Creatinine Glucose POC Glucose 176 H 215 H 236 H Hemoglobin A1c Lactic Acid Calcium ALT Total Creatine Kinase Albumin 04/14/18 04/15/18 04/15/18 22:25 00:31 00:31 WBC RBC 3.60 L Hgb 10.5 L Hct 31.7 L RDW 16.0 H Plt Count 505 H Seg Neuts % (Manual) Lymphocytes % (Manual) Seg Neutrophils # Man Lymphocytes # (Manual) APTT VBG pH Sodium 134 L Potassium Chloride 95.1 L BUN Creatinine 0.5 L Glucose 166 H POC Glucose 125 H Hemoglobin A1c Lactic Acid Calcium ALT Total Creatine Kinase Albumin 04/15/18 04/15/18 04/15/18 08:19 12:09 16:14 WBC RBC Hgb Hct RDW Plt Count Seg Neuts % (Manual) Lymphocytes % (Manual) Seg Neutrophils # Man Lymphocytes # (Manual) APTT VBG pH Sodium Potassium Chloride BUN Creatinine Glucose POC Glucose 219 H 221 H 175 H Hemoglobin A1c Lactic Acid Calcium ALT Total Creatine Kinase Albumin 04/15/18 04/16/18 04/16/18 22:28 08:47 12:00 WBC RBC Hgb Hct RDW Plt Count Seg Neuts % (Manual) Lymphocytes % (Manual) Seg Neutrophils # Man Lymphocytes # (Manual) APTT VBG pH Sodium Potassium Chloride BUN Creatinine Glucose POC Glucose 150 H 137 H 121 H Hemoglobin A1c Lactic Acid Calcium ALT Total Creatine Kinase Albumin 04/16/18 04/16/18 04/17/18 16:26 21:56 08:09 WBC RBC Hgb Hct RDW Plt Count Seg Neuts % (Manual) Lymphocytes % (Manual) Seg Neutrophils # Man Lymphocytes # (Manual) APTT VBG pH Sodium Potassium Chloride BUN Creatinine Glucose POC Glucose 216 H 147 H 146 H Hemoglobin A1c Lactic Acid Calcium ALT Total Creatine Kinase Albumin 04/17/18 04/17/18 04/17/18 12:14 16:39 21:41 WBC RBC Hgb Hct RDW Plt Count Seg Neuts % (Manual) Lymphocytes % (Manual) Seg Neutrophils # Man Lymphocytes # (Manual) APTT VBG pH Sodium Potassium Chloride BUN Creatinine Glucose POC Glucose 131 H 110 H 189 H Hemoglobin A1c Lactic Acid Calcium ALT Total Creatine Kinase Albumin 04/18/18 04/18/18 04/18/18 06:28 06:58 06:58 WBC RBC 3.60 L Hgb 10.5 L Hct 32.0 L RDW 16.4 H Plt Count Seg Neuts % (Manual) Lymphocytes % (Manual) Seg Neutrophils # Man Lymphocytes # (Manual) APTT VBG pH Sodium Potassium Chloride BUN 8 L Creatinine 0.3 L Glucose 130 H POC Glucose 127 H Hemoglobin A1c Lactic Acid Calcium 8.3 L ALT Total Creatine Kinase Albumin 04/18/18 04/18/18 04/18/18 09:26 12:32 21:40 WBC RBC Hgb Hct RDW Plt Count Seg Neuts % (Manual) Lymphocytes % (Manual) Seg Neutrophils # Man Lymphocytes # (Manual) APTT VBG pH Sodium Potassium Chloride BUN Creatinine Glucose POC Glucose 161 H 126 H 216 H Hemoglobin A1c Lactic Acid Calcium ALT Total Creatine Kinase Albumin 04/19/18 04/19/18 04/19/18 08:04 11:40 17:04 WBC RBC Hgb Hct RDW Plt Count Seg Neuts % (Manual) Lymphocytes % (Manual) Seg Neutrophils # Man Lymphocytes # (Manual) APTT VBG pH Sodium Potassium Chloride BUN Creatinine Glucose POC Glucose 114 H 133 H 131 H Hemoglobin A1c Lactic Acid Calcium ALT Total Creatine Kinase Albumin 04/19/18 04/20/18 04/20/18 22:23 07:17 12:18 WBC RBC Hgb Hct RDW Plt Count Seg Neuts % (Manual) Lymphocytes % (Manual) Seg Neutrophils # Man Lymphocytes # (Manual) APTT VBG pH Sodium Potassium Chloride BUN Creatinine Glucose POC Glucose 137 H 123 H 106 H Hemoglobin A1c Lactic Acid Calcium ALT Total Creatine Kinase Albumin 04/20/18 04/21/18 04/21/18 17:17 07:50 11:46 WBC RBC Hgb Hct RDW Plt Count Seg Neuts % (Manual) Lymphocytes % (Manual) Seg Neutrophils # Man Lymphocytes # (Manual) APTT VBG pH Sodium Potassium Chloride BUN Creatinine Glucose POC Glucose 130 H 122 H 124 H Hemoglobin A1c Lactic Acid Calcium ALT Total Creatine Kinase Albumin 04/21/18 04/22/18 22:09 07:50 WBC RBC Hgb Hct RDW Plt Count Seg Neuts % (Manual) Lymphocytes % (Manual) Seg Neutrophils # Man Lymphocytes # (Manual) APTT VBG pH Sodium Potassium Chloride BUN Creatinine Glucose POC Glucose 143 H 127 H Hemoglobin A1c Lactic Acid Calcium ALT Total Creatine Kinase Albumin
[2018-04-23] MEDS: HumuLIN R SUB-Q SCH ×4 (07:30→23:55)
[2018-04-23] MEDS: LOVENOX SUB-Q SCH (09:48)
[2018-04-23] MEDS: ZESTRIL PO SCH (09:48)
[2018-04-23] MEDS: KEPPRA PO SCH ×2 (09:49→23:52)
[2018-04-23] MEDS: BABY ASPIRIN PO SCH (09:49)
[2018-04-23] MEDS: LOPRESSOR PO SCH ×2 (09:49→23:52)
[2018-04-23] MEDS: PERCOCET 5/325 PO PRN ×3 (09:49→23:50)
[2018-04-23] MEDS: GLUCOTROL PO SCH (09:49)
[2018-04-23] MEDS: SODIUM CHLORIDE FLUSH SYRINGE 10 ML IV SCH ×3 (09:56→23:57)
[2018-04-23] MEDS: ROCEPHIN/NS 2 GM/100 ML 2 GM/100 ML BAG IV SCH ×2 (10:00→23:55)
--- NOTE | 2018-04-23 11:46 | Progress Note ---
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 Per , he has been c /o severe diffuse headache for 1-2 days along with fever subjective and AMS with confusion. In the ED, initial temperature 104, heart rate 144, respiration 18, O2 sat 98, blood pressure 199/93. White count 14.7. Hemoglobin 10.3. Platelets 536. Creatinine 0.6. Lactic acid 6.4. CT of the head was negative. Chest x-ray was negative. Patient underwent lumbar puncture showed cloudy fluid with 2900 white blood cells, 83% segs. Glucose 73, protein 418. Gram stain od CSF showed multiple polymorphonuclears no organisms. Blood Cx grew Strep Pneumonaie. Hospitalist Physical Constitutional: Not in acute distress, lying in bed, malnourished HEENT: Atraumatic, normocephalic Neck: supple, no lymphadenopathy, Lungs: Clear to auscultation, bilaterally, no wheeze, no crackles CVS: S1-S2 regular, no murmurs, rubs or gallop, Abdomen: soft, non-tender, non distended,bowel sounds are normal, Musculoskeletal: No edema, clubbing, or cyanosis YARN FINISHER: awake, alert,oriented x 3, no focal neurological signs Subjective Date of service: 04/23/18 Principal diagnosis: meninigitis Interval history: Pt seen and examined refusing PICC line, refusing to go home with IV abx set up No other acute issue Objective - Constitutional Vitals: Vital Signs - 12hr 04/23/18 04/23/18 05:26 09:48 Temperature 98.2 F Pulse Rate 98 H 104 H Respiratory 16 Rate Blood Pressure 159/65 185/93 O2 Sat by Pulse 98 Oximetry - Labs CBC & Chem 7: 04/18/18 06:58 04/18/18 06:58 Labs: Abnormal lab results 04/22/18 04/22/18 04/23/18 Range/Units 17:27 21:30 08:05 POC Glucose 116 H 195 H 123 H (70-105)
[2018-04-24] MEDS: HumuLIN R SUB-Q SCH ×4 (07:30→22:10)
[2018-04-24] MEDS: PERCOCET 5/325 PO PRN ×3 (08:48→21:16)
[2018-04-24] MEDS: BABY ASPIRIN PO SCH ×2 (08:48→18:51)
[2018-04-24] MEDS: GLUCOTROL PO SCH (08:48)
[2018-04-24] MEDS: ZESTRIL PO SCH ×2 (08:48→18:52)
[2018-04-24] MEDS: LOPRESSOR PO SCH ×3 (08:49→21:15)
[2018-04-24] MEDS: KEPPRA PO SCH ×3 (08:49→21:14)
[2018-04-24] MEDS: LOVENOX SUB-Q SCH ×2 (08:50→18:53)
[2018-04-24] MEDS: ROCEPHIN/NS 2 GM/100 ML 2 GM/100 ML BAG IV SCH ×2 (10:00→21:14)
--- NOTE | 2018-04-24 14:10 | Progress Note ---
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 Per , he has been c /o severe diffuse headache for 1-2 days along with fever subjective and AMS with confusion. In the ED, initial temperature 104, heart rate 144, respiration 18, O2 sat 98, blood pressure 199/93. White count 14.7. Hemoglobin 10.3. Platelets 536. Creatinine 0.6. Lactic acid 6.4. CT of the head was negative. Chest x-ray was negative. Patient underwent lumbar puncture showed cloudy fluid with 2900 white blood cells, 83% segs. Glucose 73, protein 418. Gram stain od CSF showed multiple polymorphonuclears no organisms. Blood Cx grew Strep Pneumonaie. Hospitalist Physical Constitutional: Not in acute distress, lying in bed, malnourished HEENT: Atraumatic, normocephalic Neck: supple, no lymphadenopathy, Lungs: Clear to auscultation, bilaterally, no wheeze, no crackles CVS: S1-S2 regular, no murmurs, rubs or gallop, Abdomen: soft, non-tender, non distended,bowel sounds are normal, Musculoskeletal: No edema, clubbing, or cyanosis MAINTENANCE GROUNDSKEEPER: awake, alert,oriented x 3, no focal neurological signs Subjective Date of service: 04/24/18 Principal diagnosis: meninigitis Interval history: Pt seen and examined refusing PICC line, refusing to go home with IV abx set up No other acute issue Objective - Constitutional Vitals: Vital Signs - 12hr 04/24/18 04/24/18 04/24/18 05:33 08:48 12:00 Temperature 99.1 F 98.6 F Pulse Rate 95 H 98 H Respiratory 20 19 Rate Blood Pressure 167/86 162/84 163/84 O2 Sat by Pulse 98 Oximetry - Labs CBC & Chem 7: 04/18/18 06:58 04/18/18 06:58 Labs: Abnormal lab results 04/23/18 04/24/18 04/24/18 Range/Units 21:29 08:05 12:12 POC Glucose 141 H 123 H 56 L (70-105)
[2018-04-24] MEDS: SODIUM CHLORIDE FLUSH SYRINGE 10 ML IV SCH ×2 (18:52→21:16)
[2018-04-25] MEDS: APRESOLINE IV PRN (01:10)
[2018-04-25] MEDS: HumuLIN R SUB-Q SCH ×4 (09:00→22:29)
[2018-04-25] MEDS: PERCOCET 5/325 PO PRN ×2 (11:20→18:29)
[2018-04-25] MEDS: GLUCOTROL PO SCH (11:20)
[2018-04-25] MEDS: LOPRESSOR PO SCH ×2 (11:21→22:28)
[2018-04-25] MEDS: LOVENOX SUB-Q SCH (11:21)
[2018-04-25] MEDS: ROCEPHIN/NS 2 GM/100 ML 2 GM/100 ML BAG IV SCH ×2 (11:21→22:29)
[2018-04-25] MEDS: ZESTRIL PO SCH (11:21)
[2018-04-25] MEDS: KEPPRA PO SCH ×2 (11:21→22:28)
[2018-04-25] MEDS: BABY ASPIRIN PO SCH (11:21)
[2018-04-25] MEDS: SODIUM CHLORIDE FLUSH SYRINGE 10 ML IV SCH ×2 (11:37→22:29)
--- NOTE | 2018-04-25 14:44 | Progress Note ---
Assessment and Plan / Acute abdominal pain - due to stool impaction - start on stool softner, suppository - if above does not work could try golytely/enema - GS/GI consult if no improvement Acute Pneumococus meningits based on blood culture Sepsis 2/2 above - will need ceftriaxone 2 g IV q12h total 14 days until 04/26/18 - but pt refused PICC line and and refused to go home with iv abx New onset Acute Systolic heart failureHF with LVEF of 40% with Dilated Cardiomyopathy Moderate to severe aortic regurgitation - conservative cardiac management with medical therapy and follow outpatient New Onset Seizures, likely from meningitis - Seizure precautions, cont keppra Severe Protein calorie Malnutrition - nutrition consulted Encephalopathy due to meningitis, resolved New Onset DM II - diabetic diet with SSI h/o Alcoholism, not in withdrawal Chronic Tobacco abuse, counselled Full code status Brief history: 52 y/o male with history of hypertension; admitted on 04/11/18 after being found by foaming from the mouth and his eyes rolled back. Per , he has been c /o severe diffuse headache for 1-2 days along with fever subjective and AMS with confusion. In the ED, initial temperature 104, heart rate 144, respiration 18, O2 sat 98, blood pressure 199/93. White count 14.7. Hemoglobin 10.3. Platelets 536. Creatinine 0.6. Lactic acid 6.4. CT of the head was negative. Chest x-ray was negative. Patient underwent lumbar puncture showed cloudy fluid with 2900 white blood cells, 83% segs. Glucose 73, protein 418. Gram stain od CSF showed multiple polymorphonuclears no organisms. Blood Cx grew Strep Pneumonaie. Need iv abx till 04/26/18. Refused HH set up and PICC line. Today c/o abdominal pain, abd xry showed stool impaction. Hospitalist Physical Constitutional: mild distress, lying in bed, malnourished HEENT: Atraumatic, normocephalic Neck: supple, no lymphadenopathy, Lungs: Clear to auscultation, bilaterally, no wheeze, no crackles CVS: S1-S2 regular, no murmurs, rubs or gallop, Abdomen: soft, mild diffuse tender, non distended,bowel sounds are normal, Musculoskeletal: No edema, clubbing, or cyanosis SALES OFFICER: awake, alert,oriented x 3, no focal neurological signs Subjective Date of service: 04/25/18 Principal diagnosis: meninigitis Interval history: Pt seen and examined c/o abdominal pain today with nausea but no vomiting Objective - Constitutional Vitals: Vital Signs - 12hr 04/25/18 05:24 Temperature 99.6 F Pulse Rate 102 H Respiratory 20 Rate Blood Pressure 152/83 O2 Sat by Pulse 96 Oximetry - Labs CBC & Chem 7: 04/25/18 15:56 04/25/18 15:56 Labs: Abnormal lab results 04/24/18 04/24/18 04/25/18 Range/Units 17:04 21:59 08:24 POC Glucose 118 H 112 H 120 H (70-105) 04/25/18 Range/Units 11:12 POC Glucose 154 H (70-105)
[2018-04-25] MEDS ORDERED: PROTONIX IV SCH (15:00)
--- NOTE | 2018-04-25 15:20 | XRay Report ---
KUB: Abdominal pain. There is a moderate load of fecal material which appears somewhat greater in the ascending colon than on the descending side. There is no colonic distention. No small bowel distention and no free air. No soft tissue mass. Bilateral degenerative hip changes worse on the left. Impression: Fecal impaction.
[2018-04-25 16:51] LABS: BUN/Creatinine Ratio 28; Blood Urea Nitrogen 11 mg/dL (9-20); Hemolysis Index 2
[2018-04-25 17:42] LABS: Hematocrit 27.2 % (35.5-45.6); Hemoglobin 9.6 gm/dl (11.8-15.2); Mean Corpuscular HGB Conc 35 % (32-34); Mean Corpuscular Hemoglobin 31 pg (28-32); Mean Corpuscular Volume 88 fl (84-94); Platelet Count 421 K/mm3 (140-440); Red Cell Distribution Width 16.9 % (13.2-15.2)
[2018-04-25] MEDS: DULCOLAX PR SCH (20:40)
[2018-04-25] MEDS: MIRALAX 3350 PO SCH (20:40)
[2018-04-25] MEDS: COLACE PO SCH (22:30)
[2018-04-26] MEDS: PERCOCET 5/325 PO PRN ×2 (02:25→10:05)
--- NOTE | 2018-04-26 08:14 | Progress Note ---
Assessment and Plan Assessment and plan: Patient is a 52 yo man with history of hypertension who was admitted on 04/11/18 after being found by foaming from the mouth and his eyes rolled back. Per , he has been c/o severe diffuse headache for 1-2 days along with fever subjective and AMS with confusion. In the ED, initial temperature 104, heart rate 144, respiration 18, O2 sat 98, blood pressure 199/93. White count 14.7. Hemoglobin 10.3. Platelets 536. Creatinine 0.6. Lactic acid 6.4. CT of the head was negative. Chest x-ray was negative. Patient underwent lumbar puncture showed cloudy fluid with 2900 white blood cells, 83% segs. Glucose 73 , protein 418. Gram stain of CSF showed multiple polymorphonuclears no organisms. Blood Cx grew Strep Pneumonaie. Need iv abx till 04/26/18. Refused HH set up and PICC line. Today c/o abdominal pain, abd xry showed stool impaction. / Acute abdominal pain - due to stool impaction, had BM yesterday - start on stool softner, suppository - if above does not work could try golytely/enema - GS/GI consult if no improvement /Acute Pneumococus meningitis based on blood culture /Sepsis 2/2 above - will need ceftriaxone 2 g IV q12h total 14 days until 04/26/18 - but pt refused PICC line and and refused to go home with iv abx /New onset Acute Systolic heart failure HF with LVEF of 40% with Dilated Cardiomyopathy /Moderate to severe aortic regurgitation - conservative cardiac management with medical therapy and follow outpatient /New Onset Seizures, likely from meningitis - Seizure precautions, cont keppra /Severe Protein calorie Malnutrition - nutrition consulted /Encephalopathy due to meningitis, resolved /New Onset DM II - diabetic diet with SSI /h/o Alcoholism, not in withdrawal /Chronic Tobacco abuse, counselled to stop Full code status History Interval history: Patient was seen and examined. Follow-up on current diagnosis. Overnight uneventful. Patient denies any chest pain, shortness breath, nausea/vomiting or severe headaches. Imaging, nursing note, chart, labs and old chart reviewed. Discussed with patient. Hospitalist Physical - Physical exam Narrative exam: GEN: cachetic, bmi 16.6, NAD, Awake, Alert, Orientated HEENT: NCAT, EOMI, PERRL, OP Clear NECK: supple, no adenopathy, no thyromegaly, no JVD CVS/HEART: RRR, normal S1S2, pulses present bilaterally CHEST/LUNGS: CTA B, Symmetrical chest expansion, good air entry bilaterally GI/Abdomen: soft, NTND, good bowel sounds, no guarding or rebound /Bladder: no suprapubic tenderness, no CVA or paraspinal tenderness EXT/Skin: no c/c/e, no obvious rash MSK: FROM x 4 Neuro: CN 2-12 grossly intact, no new focal deficits Psych: calm - Constitutional Vitals: Temp Pulse Resp BP Pulse Ox 98.1 F 88 24 175/105 98 04/26/18 04:43 04/26/18 04:43 04/26/18 04:43 04/26/18 04:43 04/26/18 04:43 General appearance: Present: no acute distress Results - Labs CBC & Chem 7: 04/25/18 15:56 04/25/18 15:56 Labs: Laboratory Last Values WBC 6.3 K/mm3 (4.5-11.0) 04/25/18 15:56 RBC 3.10 M/mm3 (3.65-5.03) L 04/25/18 15:56 Hgb 9.6 gm/dl (11.8-15.2) L 04/25/18 15:56 Hct 27.2 % (35.5-45.6) L 04/25/18 15:56 MCV 88 fl (84-94) 04/25/18 15:56 MCH 31 pg (28-32) 04/25/18 15:56 MCHC 35 % (32-34) H 04/25/18 15:56 RDW 16.9 % (13.2-15.2) H 04/25/18 15:56 Plt Count 421 K/mm3 (140-440) 04/25/18 15:56 Add Manual Diff Complete 04/14/18 06:14 Total Counted 100 04/14/18 06:14 Seg Neutrophils % Light Out Examiner 04/14/18 06:14 Seg Neuts % (Manual) 92.0 % (40.0-70.0) H 04/14/18 06:14 Band Neutrophils % 0 % 04/14/18 06:14 Lymphocytes % (Manual) 6.0 % (13.4-35.0) L 04/14/18 06:14 Reactive Lymphs % (Man) 0 % 04/14/18 06:14 Monocytes % (Manual) 2.0 % (0.0-7.3) 04/14/18 06:14 Eosinophils % (Manual) 0 % (0.0-4.3) 04/14/18 06:14 Basophils % (Manual) 0 % (0.0-1.8) 04/14/18 06:14 Metamyelocytes % 0 % 04/14/18 06:14 Myelocytes % 0 % 04/14/18 06:14 Promyelocytes % 0 % 04/14/18 06:14 Blast Cells % 0 % 04/14/18 06:14 Nucleated RBC % Not Reportable 04/14/18 06:14 Seg Neutrophils # Man 13.2 K/mm3 (1.8-7.7) H 04/14/18 06:14 Band Neutrophils # 0.0 K/mm3 04/14/18 06:14 Lymphocytes # (Manual) 0.9 K/mm3 (1.2-5.4) L 04/14/18 06:14 Abs React Lymphs (Man) 0.0 K/mm3 04/14/18 06:14 Monocytes # (Manual) 0.3 K/mm3 (0.0-0.8) 04/14/18 06:14 Eosinophils # (Manual) 0.0 K/mm3 (0.0-0.4) 04/14/18 06:14 Basophils # (Manual) 0.0 K/mm3 (0.0-0.1) 04/14/18 06:14 Metamyelocytes # 0.0 K/mm3 04/14/18 06:14 Myelocytes # 0.0 K/mm3 04/14/18 06:14 Promyelocytes # 0.0 K/mm3 04/14/18 06:14 Blast Cells # 0.0 K/mm3 04/14/18 06:14 WBC Morphology Not Reportable 04/14/18 06:14 Hypersegmented Neuts Not Reportable 04/14/18 06:14 Hyposegmented Neuts Not Reportable 04/14/18 06:14 Hypogranular Neuts Not Reportable 04/14/18 06:14 Smudge Cells Not Reportable 04/14/18 06:14 Toxic Granulation Not Reportable 04/14/18 06:14 Toxic Vacuolation Not Reportable 04/14/18 06:14 Dohle Bodies Not Reportable 04/14/18 06:14 Pelger-Huet Anomaly Not Reportable 04/14/18 06:14 Nadiya Rods Not Reportable 04/14/18 06:14 Platelet Estimate Consistent w auto 04/14/18 06:14 Clumped Platelets Not Reportable 04/14/18 06:14 Plt Clumps, EDTA Not Reportable 04/14/18 06:14 Large Platelets Not Reportable 04/14/18 06:14 Giant Platelets Not Reportable 04/14/18 06:14 Platelet Satelliting Not Reportable 04/14/18 06:14 Plt Morphology Comment Not Reportable 04/14/18 06:14 RBC Morphology Normal 04/14/18 06:14 Dimorphic RBCs Not Reportable 04/14/18 06:14 Polychromasia Not Reportable 04/14/18 06:14 Hypochromasia Not Reportable 04/14/18 06:14 Poikilocytosis Not Reportable 04/14/18 06:14 Anisocytosis Not Reportable 04/14/18 06:14 Microcytosis Not Reportable 04/14/18 06:14 Macrocytosis Not Reportable 04/14/18 06:14 Spherocytes Not Reportable 04/14/18 06:14 Pappenheimer Bodies Not Reportable 04/14/18 06:14 Sickle Cells Not Reportable 04/14/18 06:14 Target Cells Not Reportable 04/14/18 06:14 Tear Drop Cells Not Reportable 04/14/18 06:14 Ovalocytes Not Reportable 04/14/18 06:14 Helmet Cells Not Reportable 04/14/18 06:14 [place] Bodies Not Reportable 04/14/18 06:14 Hematite Rings Not Reportable 04/14/18 06:14 [place] Cells Not Reportable 04/14/18 06:14 Bite Cells Not Reportable 04/14/18 06:14 Crenated Cell Not Reportable 04/14/18 06:14 Elliptocytes Not Reportable 04/14/18 06:14 Acanthocytes (Spur) Not Reportable 04/14/18 06:14 Rouleaux Not Reportable 04/14/18 06:14 Hemoglobin C Crystals Not Reportable 04/14/18 06:14 Schistocytes Not Reportable 04/14/18 06:14 Malaria parasites Not Reportable 04/14/18 06:14 Trell Bodies Not Reportable 04/14/18 06:14 Hem Pathologist Commnt No 04/14/18 06:14 APTT 23.9 Sec. (24.2-36.6) L 04/11/18 18:12 VBG pH 7.440 (7.320-7.420) H 04/11/18 18:16 Sodium 135 mmol/L (137-145) L 04/25/18 15:56 Potassium 4.3 mmol/L (3.6-5.0) 04/25/18 15:56 Chloride 95.2 mmol/L (98-107) L 04/25/18 15:56 Carbon Dioxide 28 mmol/L (22-30) 04/25/18 15:56 Anion Gap 16 mmol/L 04/25/18 15:56 BUN 11 mg/dL (9-20) 04/25/18 15:56 Creatinine 0.4 mg/dL (0.8-1.5) L 04/25/18 15:56 Estimated GFR > 60 ml/min 04/25/18 15:56 BUN/Creatinine Ratio 28 % 04/25/18 15:56 Glucose 70 mg/dL (75-100) L 04/25/18 15:56 POC Glucose 116 (70-105) H 04/25/18 22:28 Hemoglobin A1c 6.6 % (4-6) H 04/12/18 15:10 Lactic Acid 1.50 mmol/L (0.7-2.0) 04/12/18 00:30 Calcium 9.0 mg/dL (8.4-10.2) 04/25/18 15:56 Magnesium 1.90 mg/dL (1.7-2.3) 04/14/18 06:14 Total Bilirubin 0.20 mg/dL (0.1-1.2) 04/13/18 01:41 AST 16 units/L (5-40) 04/13/18 01:41 ALT 7 units/L (7-56) 04/13/18 01:41 Alkaline Phosphatase 72 units/L (35-129) 04/13/18 01:41 Ammonia 37.0 umol/L (25-60) 04/11/18 18:12 Total Creatine Kinase 32 units/L (55-170) L 04/11/18 18:12 Troponin T < 0.010 ng/mL (0.00-0.029) 04/11/18 18:12 Total Protein 6.7 g/dL (6.3-8.2) 04/13/18 01:41 Albumin 2.6 g/dL (3.9-5) L 04/13/18 01:41 Albumin/Globulin Ratio 0.6 % 04/13/18 01:41 TSH 1.050 mlU/mL (0.270-4.200) 04/11/18 18:12 Urine Color Yellow (Yellow) 04/11/18 18:10 Urine Turbidity Clear (Clear) 04/11/18 18:10 Urine pH 6.0 (5.0-7.0) 04/11/18 18:10 Ur Specific [place] 1.013 (1.003-1.030) 04/11/18 18:10 Urine Protein 100 mg/dl mg/dL (Negative) 04/11/18 18:10 Urine Glucose (UA) >=500 mg/dL (Negative) 04/11/18 18:10 Urine Ketones Tr mg/dL (Negative) 04/11/18 18:10 Urine Blood Mod (Negative) 04/11/18 18:10 Urine Nitrite Neg (Negative) 04/11/18 18:10 Urine Bilirubin Neg (Negative) 04/11/18 18:10 Urine Urobilinogen 4.0 mg/dL (<2.0) 04/11/18 18:10 Ur Leukocyte Esterase Neg (Negative) 04/11/18 18:10 Urine WBC (Auto) 2.0 /HPF (0.0-6.0) 04/11/18 18:10 Urine RBC (Auto) 89.0 /HPF (0.0-6.0) 04/11/18 18:10 Urine Mucus Few /HPF 04/11/18 18:10 CSF Appearance Cloudy 04/11/18 23:00 CSF Color Straw 04/11/18 23:00 CSF WBC 2900 /mm3 (1-10) 04/11/18 23:00 CSF RBC 100 /mm3 (0-0) 04/11/18 23:00 CSF Seg Neutrophils 83 % (0-6) 04/11/18 23:00 CSF Lymphocytes % 12.0 % (40-80) 04/11/18 23:00 CSF Reactive Lymphs 0 % 04/11/18 23:00 CSF Monocytes % 5 % (15-45) 04/11/18 23:00 CSF Eosinophils % 0 % 04/11/18 23:00 CSF Basophils 0 % 04/11/18 23:00 CSF Pathologist Review C 04/11/18 23:00 CSF Glucose 73 mg/dL 04/11/18 23:00 CSF Total Protein 418 mg/dL 04/11/18 23:00 Vancomycin Trough 14.4 ug/mL (5.0-20.0) 04/14/18 10:49 Blood Type A POSITIVE 04/11/18 18:07 Antibody Screen Negative 04/11/18 18:07
[2018-04-26] MEDS: HumuLIN R SUB-Q SCH ×2 (08:28→12:33)
[2018-04-26] MEDS: GLUCOTROL PO SCH (09:00)
[2018-04-26] MEDS: LOPRESSOR PO SCH (09:04)
[2018-04-26] MEDS: KEPPRA PO SCH (09:04)
[2018-04-26] MEDS: ZESTRIL PO SCH (09:04)
[2018-04-26] MEDS: BABY ASPIRIN PO SCH (09:05)
[2018-04-26] MEDS: COLACE PO SCH ×2 (09:05→09:11)
[2018-04-26] MEDS: MIRALAX 3350 PO SCH ×2 (09:05→09:09)
[2018-04-26] MEDS: DULCOLAX PR SCH (09:06)
[2018-04-26] MEDS: LOVENOX SUB-Q SCH (09:11)
[2018-04-26] MEDS ORDERED: PROTONIX PO SCH (10:00)
[2018-04-26] MEDS: SODIUM CHLORIDE FLUSH SYRINGE 10 ML IV SCH (10:24)
[2018-04-26] MEDS: ROCEPHIN/NS 2 GM/100 ML 2 GM/100 ML BAG IV SCH (10:25)
[2018-04-26 12:51] VITALS: BP 136/72
--- NOTE | 2018-04-26 13:16 | Discharge Summary ---
Providers - Providers Date of Admission: 04/12/18 03:52 Date of discharge: 04/26/18 Attending physician: JOSH PITTS 04/12/18 02:42 Consult to Physician [CONS] Routine Comment: Dr. Jacobsen spoke with Dr. Torres @ [phone] Consulting Provider: RADHA FERNANDEZ Physician Instructions: Reason For Exam: meningitis 04/12/18 14:42 Consult to Physician [CONS] Routine Comment: Consulting Provider: JYOTSNA HILL Physician Instructions: Reason For Exam: meningitis, new onset seizures 04/13/18 14:35 Consult to Dietitian/Nutrition [CONS] Routine Physician Instructions: Reason For Exam: Reason for Consult: Malnutrition 04/13/18 14:38 Consult to Dietitian/Nutrition [CONS] Routine Physician Instructions: Reason For Exam: Reason for Consult: Diet education 04/15/18 10:54 Consult to Case Management [CONS] Stat Services Needed at Discharge: 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 Remove PICC line after last dose unless otherwise instructed. Lines: PICC Lab monitoring: CBC, CMP, CRP once a week preferly on Wednesday morning. Please fax results to [phone] and call [phone] for critical lab results. Radha Torres Date:04/15/18 04/18/18 07:00 Consult to PICC Line RN [CONS] Routine Reason For Exam: penitentiary antibiotics Type Line:: PICC 04/18/18 10:21 Midline [Consult to PICC Line RN] [CONS] Routine Reason For Exam: 14 days of iv ABX Type Line:: Midline Primary care physician: CARRIAGE FEEDER Hospitalization Condition: Stable Hospital course: Patient is a 52 yo man with history of hypertension who was admitted on 04/11/18 after being found by foaming from the mouth and his eyes rolled back. Per , he has been c/o severe diffuse headache for 1-2 days along with fever subjective and AMS with confusion. In the ED, initial temperature 104, heart rate 144, respiration 18, O2 sat 98, blood pressure 199/93. White count 14.7. Hemoglobin 10.3. Platelets 536. Creatinine 0.6. Lactic acid 6.4. CT of the head was negative. Chest x-ray was negative. Patient underwent lumbar puncture showed cloudy fluid with 2900 white blood cells, 83% segs. Glucose 73 , protein 418. Gram stain of CSF showed multiple polymorphonuclears no organisms. Blood Cx grew Strep Pneumonaie. Need iv abx till 04/26/18. Refused HH set up and PICC line. /Acute Pneumococus Meningitis with Sepsis, poa /Sepsis 2/2 above - will need ceftriaxone 2 g IV q12h total 14 days until 04/26/18 per ID - but pt refused PICC line and and refused to go home with iv abx / Acute abdominal pain - due to stool impaction, had BM yesterday - start on stool softner, suppository - if above does not work could try golytely/enema - GS/GI consult if no improvement /New onset Acute Systolic heart failure HF with LVEF of 40% with Dilated Cardiomyopathy /Moderate to severe aortic regurgitation - conservative cardiac management with medical therapy and follow outpatient /New Onset Seizures, likely from meningitis - Seizure precautions, cont keppra /Severe Protein calorie Malnutrition - nutrition consulted /Encephalopathy due to meningitis, resolved /New Onset DM II - diabetic diet with SSI /h/o Alcoholism, not in withdrawal /Chronic Tobacco abuse, counselled to stop Full code status Disposition: [id number] HOME [facility] Time spent for discharge: 32 minutes Core Measure Documentation - Palliative Care Palliative Care/ Comfort Measures: Not Applicable - Core Measures Any of the following diagnoses?: none - VTE Discharge Requirements Deep Vein Thrombosis/Pulmonary Embolism Present on Admission: No Has pt received <5 days of overlap therapy or INR<2.0: No Anticoagulant overlap therapy prescribed at discharge: No Contraindication No Overlap Therapy order at DC: Not Indicated Exam - Physical Exam Narrative exam: GEN: cachetic, bmi 16.6, NAD, Awake, Alert, Orientated HEENT: NCAT, EOMI, PERRL, OP Clear NECK: supple, no adenopathy, no thyromegaly, no JVD CVS/HEART: RRR, normal S1S2, pulses present bilaterally CHEST/LUNGS: CTA B, Symmetrical chest expansion, good air entry bilaterally GI/Abdomen: soft, NTND, good bowel sounds, no guarding or rebound /Bladder: no suprapubic tenderness, no CVA or paraspinal tenderness EXT/Skin: no c/c/e, no obvious rash MSK: FROM x 4 Neuro: CN 2-12 grossly intact, no new focal deficits Psych: calm - Constitutional Vitals: Temp Pulse Resp BP Pulse Ox 97.8 F 87 16 136/72 98 04/26/18 12:21 04/26/18 12:21 04/26/18 12:21 04/26/18 12:21 04/26/18 12:21 Plan Activity: other (no strenous activity until cleared by PCP) Diet: regular Special Instructions: smoking cessation Follow up with: ISHMAEL THURMAN MD [Staff Physician] - 7 Days RADHA FERNANDEZ MD [Staff Physician] - 7 Days PRIMARY CARE, [Primary Care Provider] - 3-5 Days Prescriptions: diphenhydrAMINE [Benadryl CAP] 25 mg PO Q6H PRN #14 capsule PRN Reason: Itching glipiZIDE [Glucotrol] 5 mg PO QDDIAB #60 tablet levETIRAcetam [Keppra TAB] 500 mg PO BID #60 tablet Metoprolol [Lopressor TAB] 25 mg PO BID #60 tablet
== END 2018-04-26 16:30 | disposition home health service (06) | DRG 871 ==
LOC: ED 17:51 → 4A 04-12 03:52 → 3A 04-12 12:28
PROVIDERS: ADMIT Internal Medicine; ATTEND Internal Medicine
PROC: 009U3ZZ Drainage of Spinal Canal, Percutaneous Approach (ICD-10-PCS; principal; 2018-04-12)
PROC: B01B1ZZ Fluoroscopy of Spinal Cord using Low Osmolar Contrast (ICD-10-PCS; 2018-04-12)
DX: A40.3 Sepsis due to Streptococcus pneumoniae (principal); G92 Toxic encephalopathy; E43 Unspecified severe protein-calorie malnutrition; G00.1 Pneumococcal meningitis; I50.21 Acute systolic (congestive) heart failure; I42.0 Dilated cardiomyopathy; Z68.1 Body mass index [BMI] 19.9 or less, adult; I35.1 Nonrheumatic aortic (valve) insufficiency; E11.65 Type 2 diabetes mellitus with hyperglycemia; E86.0 Dehydration; I10 Essential (primary) hypertension; D64.9 Anemia, unspecified; F12.90 Cannabis use, unspecified, uncomplicated; Z79.899 Other long term (current) drug therapy; Z88.0 Allergy status to penicillin; Z82.49 Family history of ischemic heart disease and other diseases of the circulatory system; Z71.6 Tobacco abuse counseling
CPT/HCPCS: 36415; 70450; 70496; 70551; 71045; 74018; 80048; 80053; 80202; 81001; 82140; 82550; 82805; 82947; 82962; 83036; 83735; 84160; 84443; 84484; 85007; 85025; 85027; 85730; 86850; 86900; 86901; 87040; 87086; 87116; 87186; 89051; 93005; 93010; 93306; 95819; 96361; 96365; 96367; 96375; 99406; A9270-GY; C9113; J0133; J0360; J0696; J1100; J1650; J1815; J1885; J1956; J2060; J2185; J2405; J3370; J7030; J7050; J7060; Q9967

== ENCOUNTER 2018-05-06 17:24 | Inpatient (IN) | payer SELFPAY ==
[2018-05-06] MEDS ORDERED: NACL 0.9% 1000 ML 1,000 ML IV ONE (17:32)
[2018-05-06 18:20] LABS: Basophils % (Auto) 0.5 % (0.0-1.8); Eosinophils # (Auto) 0.1 K/mm3 (0.0-0.4); Eosinophils % (Auto) 1.5 % (0.0-4.3); Hematocrit 32.8 % (35.5-45.6); Lymphocytes # (Auto) 2.1 K/mm3 (1.2-5.4); Lymphocytes % (Auto) 42.2 % (13.4-35.0); Mean Corpuscular HGB Conc 34 % (32-34); Mean Corpuscular Hemoglobin 30 pg (28-32); Mean Corpuscular Volume 89 fl (84-94); Monocytes # (Auto) 0.4 K/mm3 (0.0-0.8); Monocytes % (Auto) 7.3 % (0.0-7.3); Platelet Count 479 K/mm3 (140-440); Red Blood Count 3.69 M/mm3 (3.65-5.03); Red Cell Distribution Width 18.5 % (13.2-15.2)
[2018-05-06 18:36] LABS: Alanine Aminotransferase 9 units/L (7-56); Albumin 3.5 g/dL (3.9-5); BUN/Creatinine Ratio 38; Blood Urea Nitrogen 19 mg/dL (9-20); Calcium 10.1 mg/dL (8.4-10.2); Hemolysis Index 0
--- NOTE | 2018-05-06 18:53 | XRay Report ---
FINAL REPORT EXAM: XR ABDOMEN 1V AP Full view of the abdomen and pelvis HISTORY: abdominal pain TECHNIQUE: Frontal view of the abdomen and pelvis Comparison: X-ray left hip dated December 07, 2017 FINDINGS: There is no definite evidence of bowel obstruction on this single frontal view. There is a moderate amount of stool throughout the colon. There is no definite evidence of pneumoperitoneum nor organomegaly. The bony structures are notable for marked degenerative change of the right hip similar in appearance to the previous study. However, there has been interval development of possible avascular necrosis of the left femoral head. IMPRESSION: 1. Moderate amount of stool throughout the colon. 2. Interval development of what appears to be possible avascular necrosis of the left femoral head. Dedicated imaging of the left hip may be helpful for further evaluation. 3. Marked degenerative change right hip.
--- NOTE | 2018-05-06 19:10 | Emergency Department Report ---
ED Abdominal Pain HPI - General Chief Complaint: Abdominal Pain Stated Complaint: ABD PAIN Time Seen by Provider: 05/06/18 19:10 Source: patient Mode of arrival: Wheelchair Limitations: No Limitations - History of Present Illness MD Complaint: abdominal pain -: Gradual, month(s) Location: periumbilical Radiation: none Migration to: no migration Severity: severe Severity scale (0 -10): 10 Quality: sharp Consistency: constant Improves With: nothing Worsens With: nothing Associated Symptoms: nausea, vomiting, constipation - Related Data Home Medications Medication Instructions Recorded Confirmed Last Taken Acetaminophen 650 mg PO Q8H PRN 04/12/18 04/12/18 Unknown Lisinopril [Zestril] 20 mg PO DAILY 04/12/18 04/12/18 Unknown traMADol [Ultram 50 MG tab] 50 mg PO Q8H PRN 04/12/18 04/12/18 Unknown Previous Rx's Medication Instructions Recorded Last Taken Type Metoprolol [Lopressor TAB] 25 mg PO BID #60 tablet 04/15/18 Unknown Rx diphenhydrAMINE [Benadryl CAP] 25 mg PO Q6H PRN #14 capsule 04/15/18 Unknown Rx glipiZIDE [Glucotrol] 5 mg PO QDDIAB #60 tablet 04/15/18 Unknown Rx levETIRAcetam [Keppra TAB] 500 mg PO BID #60 tablet 04/15/18 Unknown Rx Allergies Allergy/AdvReac Type Severity Reaction Status Date / Time No Known Drug Allergies Allergy Unknown Verified 04/14/18 06:34 ED Review of Systems ROS: Stated complaint: ABD PAIN Other details as noted in HPI Comment: All other systems reviewed and negative Constitutional: denies: chills, fever Eyes: denies: eye pain ENT: denies: ear pain Respiratory: denies: cough, shortness of breath Cardiovascular: denies: chest pain, palpitations, dyspnea on exertion Endocrine: no symptoms reported Gastrointestinal: abdominal pain, nausea, vomiting Genitourinary: denies: urgency, dysuria, frequency Musculoskeletal: denies: back pain Skin: denies: rash, lesions Neurological: denies: headache, weakness, numbness Psychiatric: denies: anxiety, depression Hematological/Lymphatic: denies: easy bleeding, easy bruising ED Past Medical Hx - Past Medical History Hx Hypertension: Yes Hx Diabetes: Yes Hx Arthritis: Yes (hip) Hx Seizures: Yes - Surgical History Past Surgical History?: No - Social History Smoking Status: Former Smoker Substance Use Type: None - Medications Home Medications: Home Medications Medication Instructions Recorded Confirmed Last Taken Type Acetaminophen 650 mg PO Q8H PRN 04/12/18 04/12/18 Unknown History Lisinopril [Zestril] 20 mg PO DAILY 04/12/18 04/12/18 Unknown History traMADol [Ultram 50 MG tab] 50 mg PO Q8H PRN 04/12/18 04/12/18 Unknown History Metoprolol [Lopressor TAB] 25 mg PO BID #60 tablet 04/15/18 Unknown Rx diphenhydrAMINE [Benadryl CAP] 25 mg PO Q6H PRN #14 capsule 04/15/18 Unknown Rx glipiZIDE [Glucotrol] 5 mg PO QDDIAB #60 tablet 04/15/18 Unknown Rx levETIRAcetam [Keppra TAB] 500 mg PO BID #60 tablet 04/15/18 Unknown Rx ED Physical Exam - General Limitations: No Limitations General appearance: alert, in distress - Head Head exam: Present: atraumatic, normocephalic, normal inspection - Eye Eye exam: Present: normal appearance, PERRL, EOMI Pupils: Present: normal accommodation - ENT ENT exam: Present: normal exam, mucous membranes dry, mucous membranes moist - Neck Neck exam: Present: normal inspection, full ROM. Absent: tenderness - Respiratory Respiratory exam: Present: normal lung sounds bilaterally. Absent: respiratory distress, wheezes, rales, rhonchi, stridor - Cardiovascular Cardiovascular Exam: Present: normal rhythm, tachycardia, normal heart sounds - GI/Abdominal GI/Abdominal exam: Present: soft, tenderness, guarding, rebound, normal bowel sounds. Absent: distended - Rectal Rectal exam: Present: deferred - Extremities Exam Extremities exam: Present: normal inspection, full ROM, normal capillary refill. Absent: tenderness - Back Exam Back exam: Present: normal inspection, full ROM. Absent: tenderness, CVA tenderness (R), CVA tenderness (L) - Neurological Exam Neurological exam: Present: alert, oriented X3, CN II-XII intact - Psychiatric Psychiatric exam: Present: normal affect, anxious - Skin Skin exam: Present: warm, dry, intact, normal color. Absent: rash ED Course Vital Signs 05/06/18 05/06/18 17:30 19:34 Temperature 98.9 F Pulse Rate 115 H Respiratory 18 Rate Blood Pressure 154/88 O2 Sat by Pulse 100 Oximetry - Reevaluation(s) Reevaluation #1: 05/06/18 21:43 I consulted the vascular surgeon workday consultant Dr Diaz. He'll take the patient immediately to the operating room for the repair of his abdominal aortic aneurysm. Patient was discussed with hospitalist on-call Dr. Maricruz Jacobsen. She will admit patient to the hospital after surgery for further management. ED Medical Decision Making - Lab Data Result diagrams: 05/06/18 17:41 05/06/18 17:41 - Radiology Data Radiology results: report reviewed, image reviewed - Medical Decision Making Abdominal pain. Critical Care Time: Yes Critical care time in (mins) excluding proc time.: 75 Critical care attestation.: If time is entered above; I have spent that time in minutes in the direct care of this critically ill patient, excluding procedure time. ED Disposition Clinical Impression: Abdominal aortic aneurysm (AAA) greater than 5.5 cm in diameter in male Abdominal pain Qualifiers: Abdominal location: generalized Qualified Code(s): R10.84 - Generalized abdominal pain Disposition: OP ADMIT IP TO THIS HOSP Is pt being admited?: Yes Does the pt Need Aspirin: No Condition: Serious Referrals: PRIMARY CARE, [Primary Care Provider] - 3-5 Days Time of Disposition: 21:47
[2018-05-06] MEDS ORDERED: TORADOL IV ONE (19:38)
[2018-05-06] MEDS ORDERED: DILAUDID IV ONE ×2 (21:08→22:04)
[2018-05-06] MEDS ORDERED: BREVIBLOC DRIP 2.5GM/250ML 2.5 GM/250 ML BAG IV ONE (21:08)
--- NOTE | 2018-05-06 21:14 | Cat Scan Report ---
FINAL REPORT EXAM: CT ABDOMEN PELVIS W CON HISTORY: andominal pain TECHNIQUE: Following IV administration of 100 cc of Omnipaque 350 axial helical imaging was performed through the abdomen and pelvis with sagittal and coronal reformatted images obtained. Comparison: X-ray abdomen and pelvis also performed today FINDINGS: There is evidence of fatty infiltration of the liver. The spleen, pancreas, kidneys and adrenal glands are unremarkable in appearance. The bowel is normal caliber. There is a vltx-hz-qauvgwex amount of stool throughout the colon. The appendix is normal in appearance. There is no evidence of pneumoperitoneum and no definite evidence of free fluid. There is an approximately 5.4 centimeter (AP) by 5.6 centimeter (lateral) by 6.7 centimeter (craniocaudal) aneurysm of the infrarenal abdominal aorta. The margins of this aneurysm are irregularly shaped with the appearance of areas of possible ulceration. There is an approximately 3.8 centimeter aneurysm of the suprarenal abdominal aorta. This aneurysm is also irregularly-shaped but without the appearance of ulcerations. There is no definite evidence of aneurysm leak/rupture. The urinary bladder is moderately distended and unremarkable in appearance. The prostate gland is enlarged with maximal axial dimension of 5 centimeters. The bony structures are notable for the appearance of avascular necrosis of the left femoral head with marked degenerative change of the left hip and ulnar degenerative change of the right hip. IMPRESSION: 1. Very large (5.4 centimeter x 5.6 centimeter x 6.7 centimeter) irregularly-shaped infrarenal abdominal aortic aneurysm with the appearance of ulcerations. Recommend emergent evaluation by vascular surgery. 2. Approximately 3.8 centimeter aneurysm suprarenal abdominal aorta. 3. Fatty infiltration of the liver. 4. Enlarged prostate gland. 5. 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 The finding of a large irregularly shaped aneurysm with the appearance of ulceration was discussed with Dr. Saleh at 9 p.m. EDT May 06, 2018.
[2018-05-06] MEDS ORDERED: NACL 0.9% 500 ML 500 ML IV ONE (21:21)
[2018-05-06] MEDS ORDERED: NORMODYNE IV ONE ×2 (21:54→22:03)
[2018-05-06] MEDS ORDERED: BREVIBLOC IV ONE (22:03)
--- NOTE | 2018-05-06 22:19 | Anesthesia Consultation ---
Anesthesia Consult and Med Hx Date of service: 05/06/18 - Airway Anesthetic Teeth Evaluation: Good ROM Head & Neck: Adequate Mental/Hyoid Distance: Adequate Mallampati Class: Class II Intubation Access Assessment: Good - Pulmonary Exam CTA: Yes - Cardiac Exam Cardiac Exam: RRR - Pre-Operative Health Status ASA Pre-Surgery Classification: ASA3, Emergency Proposed Anesthetic Plan: General - Cardiovascular System Hx Hypertension: Yes - Central Nervous System Hx Seizures: Yes - Endocrine Hx Non-Insulin Dependent Diabetes: Yes - Other Systems Hx Cancer: No
--- NOTE | 2018-05-06 22:19 | Anesthesia Day of Surgery ---
Anesthesia Day of Surgery - Day of Surgery Patient Examined: Yes Patient H&P Reviewed: Yes Patient is NPO: Yes Beta Blockers: Yes
[2018-05-06] MEDS ORDERED: ACD-A 500 ML IV ONE (22:22)
[2018-05-06] MEDS ORDERED: HEPARIN 10,000 UNITS/10 ML ONE (22:22)
[2018-05-06] MEDS ORDERED: NACL 0.9% 500 ML 500 ML ONE ×2 (22:22→22:27)
[2018-05-06] MEDS ORDERED: ANCEF/STERILE WATER 2 GM/20 ML 2 GM/20 ML SYRINGE IV ONE (22:22)
[2018-05-06] MEDS ORDERED: RIFADIN ONE (22:38)
[2018-05-06] MEDS ORDERED: PROTAMINE SULFATE ONE (22:38)
[2018-05-06] MEDS ORDERED: NACL 0.9% 100 ML ONE (22:39)
[2018-05-06] MEDS ORDERED: XYLOCAINE MPF 2% ONE (22:40)
[2018-05-06] MEDS ORDERED: DILAUDID ONE (22:40)
[2018-05-06] MEDS ORDERED: ZEMURON IV ONE (22:40)
[2018-05-06] MEDS ORDERED: AMIDATE IV ONE (22:40)
--- NOTE | 2018-05-06 22:53 | History and Physical Report ---
History of Present Illness Date of examination: 05/06/18 Date of admission: 05/06/2018 Chief complaint: Abdominal pain History of present illness: Patient is a 52-year-old man who has had about a 6 month history of intermittent abdominal pain. He has been seen in the ER multiple occasions but no clear diagnosis has been established. He was here approximately a week ago but was subsequently discharged as his pain had subsided. He did well until Wednesday of this week. On Wednesday, the pain began in his abdomen. According to his family he felt that the pain would get better if he just waited out. Today the pain became excruciating and he return to the emergency room for evaluation. A CT scan was done which showed a large infrarenal abdominal aortic aneurysm. I was emergently consult for evaluation of his aneurysm. Historical information is provided by the patient's family. The patient has been medicated with Dilaudid to control his pain. The history that is noted above is what they relayed. Past History Past Medical History: diabetes, hypertension. denies: CAD Past Surgical History: No surgical history Social history: , lives with family Family history: no significant family history Medications and Allergies Allergies Allergy/AdvReac Type Severity Reaction Status Date / Time No Known Drug Allergies Allergy Unknown Verified 04/14/18 06:34 Home Medications Medication Instructions Recorded Confirmed Last Taken Type Acetaminophen 650 mg PO Q8H PRN 04/12/18 04/12/18 Unknown History Lisinopril [Zestril] 20 mg PO DAILY 04/12/18 04/12/18 Unknown History traMADol [Ultram 50 MG tab] 50 mg PO Q8H PRN 04/12/18 04/12/18 Unknown History Metoprolol [Lopressor TAB] 25 mg PO BID #60 tablet 04/15/18 Unknown Rx diphenhydrAMINE [Benadryl CAP] 25 mg PO Q6H PRN #14 capsule 04/15/18 Unknown Rx glipiZIDE [Glucotrol] 5 mg PO QDDIAB #60 tablet 04/15/18 Unknown Rx levETIRAcetam [Keppra TAB] 500 mg PO BID #60 tablet 04/15/18 Unknown Rx Active Meds: Active Medications Esmolol HCl (Brevibloc Drip 2.5gm/250ml) 2.5 gm in 250 mls @ 16.738 mls/hr IV TITR ONE; Protocol Stop: 05/07/18 12:04 Last Titration: 05/06/18 22:46 Dose: 300 mcg/kg/min, 100.426 mls/hr Review of Systems All systems: negative (those noted in the history of present illness.) Exam Vital Signs Temp Pulse BP Pulse Ox 98.9 F 115 H 154/88 100 05/06/18 17:30 05/06/18 17:30 05/06/18 17:30 05/06/18 17:30 - General physical appearance Positive: moderate distress, moderate pain, other (patient is very thin) - Eyes Positive: other (no gross abnormalities) - ENT Positive: normal pinna, normal nares - Neck Positive: no masses, no bruits, trachea midline - Respiratory Positive: normal respiratory effort, clear to auscultation - Cardiovascular Rhythm: other (slight tachycardia) Heart Sounds: Absent: gallop, systolic murmur, rub - Extremities Extremities: no ischemia, pulses intact (all 4 pedal pulses intact.) - Abdomen Abdomen: Present: soft, guarding, other (easily palpable and visible aortic pulsations, aorta is exquisitely tender to touch) - Genitourinary Male Genitourinary: normal - Integumentary no rash - Neurologic Neurologic: other (patient is somnolent after medication) - Musculoskeletal other (cannot be assessed) - Psychiatric Psychiatric: other (patient has been medicated with narcotics) Results - Labs 05/06/18 17:41 05/06/18 17:41 Abnormal lab results 05/06/18 05/06/18 05/06/18 Range/Units 17:41 17:41 21:20 Hgb 11.0 L (11.8-15.2) gm/dl Hct 32.8 L (35.5-45.6) % RDW 18.5 H (13.2-15.2) % Plt Count 479 H (140-440) K/mm3 Lymph % (Auto) 42.2 H (13.4-35.0) % Chloride 95.8 L (98-107) mmol/L Creatinine 0.5 L (0.8-1.5) mg/dL Glucose 114 H (75-100) mg/dL Total Protein 8.3 H (6.3-8.2) g/dL Albumin 3.5 L (3.9-5) g/dL Crossmatch See Detail Diabetes panel 05/06/18 Range/Units 17:41 Sodium 137 (137-145) mmol/L Potassium 3.6 (3.6-5.0) mmol/L Chloride 95.8 L (98-107) mmol/L Carbon Dioxide 25 (22-30) mmol/L BUN 19 (9-20) mg/dL Creatinine 0.5 L (0.8-1.5) mg/dL Glucose 114 H (75-100) mg/dL Calcium 10.1 (8.4-10.2) mg/dL AST 14 (5-40) units/L ALT 9 (7-56) units/L Alkaline Phosphatase 70 (35-129) units/L Total Protein 8.3 H (6.3-8.2) g/dL Albumin 3.5 L (3.9-5) g/dL Calcium panel 05/06/18 Range/Units 17:41 Calcium 10.1 (8.4-10.2) mg/dL Albumin 3.5 L (3.9-5) g/dL Pituitary panel 05/06/18 Range/Units 17:41 Sodium 137 (137-145) mmol/L Potassium 3.6 (3.6-5.0) mmol/L Chloride 95.8 L (98-107) mmol/L Carbon Dioxide 25 (22-30) mmol/L BUN 19 (9-20) mg/dL Creatinine 0.5 L (0.8-1.5) mg/dL Glucose 114 H (75-100) mg/dL Calcium 10.1 (8.4-10.2) mg/dL Adrenal panel 05/06/18 Range/Units 17:41 Sodium 137 (137-145) mmol/L Potassium 3.6 (3.6-5.0) mmol/L Chloride 95.8 L (98-107) mmol/L Carbon Dioxide 25 (22-30) mmol/L BUN 19 (9-20) mg/dL Creatinine 0.5 L (0.8-1.5) mg/dL Glucose 114 H (75-100) mg/dL Calcium 10.1 (8.4-10.2) mg/dL Total Bilirubin 0.30 (0.1-1.2) mg/dL AST 14 (5-40) units/L ALT 9 (7-56) units/L Alkaline Phosphatase 70 (35-129) units/L Total Protein 8.3 H (6.3-8.2) g/dL Albumin 3.5 L (3.9-5) g/dL - Imaging CT scan - abdomen: report reviewed, other (Patient has a large infrarenal abdominal aortic aneurysm measuring nearly 6 cm in diameter. There appears to be multiple channels within the aneurysm. There appears to be some inflammatory changes around the aneurysm. There is also an aneurysmal appearance to the aorta above the level of the visceral vessels. 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 There is no radha evidence of rupture but the borders of the aneurysm are indistinct and there are clearly multiple channels consistent with potential dissection within the lumen of the aorta.) Assessment and Plan - Patient Problems (1) Ruptured aortic aneurysm Onset Date: ~05/06/18 Current Visit: Yes Status: Acute Qualifiers: Aortic location: abdominal aorta Qualified Code(s): I71.3 - Abdominal aortic aneurysm, ruptured Plan to address problem: Patient has an acutely symptomatic large infrarenal abdominal aortic aneurysm. The morphology of the aneurysm is not consistent with the ability to repair it with endovascular techniques. Given the situation, it is highly likely that the patient would experience potential catastrophic rupture of the aneurysm because untreated. I spoke at length with his family including his and 2 sons. I explained to them that this situation is quite serious and that the mortality rate is in excess of 70%. I clearly explained to them that it was more probable that not that he would not survive exploration or the postoperative period. However, emergent repair as his best chance for survival. All questions posed by the family were answered. Plan is for emergent repair of his infrarenal abdominal aorta. Open technique will be used.
[2018-05-06] MEDS ORDERED: NACL 0.9% 1000 ML 1,000 ML ONE ×2 (22:56→23:41)
[2018-05-06] MEDS ORDERED: HEPARIN 10,000 UNITS/10 ML IV ONE (23:36)
[2018-05-06] MEDS ORDERED: RIFADIN IV ONE (23:36)
[2018-05-06] MEDS ORDERED: GELFOAM TP ONE (23:36)
[2018-05-06] MEDS ORDERED: ACD-A IV ONE (23:36)
[2018-05-06] MEDS ORDERED: NACL 0.9% 500 ML IRRIGATION ONE (23:36)
[2018-05-07] MEDS ORDERED: LACTATED RINGERS 1,000 ML ONE
[2018-05-07] MEDS ORDERED: DILAUDID IV PRN (00:17)
[2018-05-07] MEDS ORDERED: VASELINE LIP THERAPY TP PRN (00:18)
[2018-05-07] MEDS ORDERED: ARTIFICIAL TEARS OPHTH OINT OU PRN (00:18)
[2018-05-07] MEDS ORDERED: NACL 0.9% 500 ML IV SCH (01:00)
[2018-05-07] MEDS ORDERED: ATIVAN 100 MG in NACL 0.9% 50 ML, VIAFLEX EMPTY CONTAINER 0 ML IV SCH (01:00)
[2018-05-07] MEDS ORDERED: ZEMURON IV ONE (01:11)
[2018-05-07] MEDS ORDERED: NEO SYNEPHRINE/NS Syringe(OR USE) IV ONE (01:17)
[2018-05-07] MEDS ORDERED: NEO SYNEPHRINE ONE (01:23)
[2018-05-07] MEDS ORDERED: NACL 0.9% 0 ML ONE ×2 (01:23→01:31)
[2018-05-07] MEDS ORDERED: ACD-A 500 ML IV ONE (01:25)
[2018-05-07] MEDS ORDERED: NACL 0.9% 100 ML ONE ×2 (01:31→03:09)
[2018-05-07] MEDS ORDERED: GELFOAM TP ONE (02:18)
[2018-05-07] MEDS ORDERED: SODIUM BICARBONATE IV ONE (02:49)
[2018-05-07] MEDS ORDERED: NACL 0.9% 1000 ML 1,000 ML ONE ×3 (03:09→03:43)
[2018-05-07] MEDS ORDERED: HESPAN 500 ML IV ONE (03:12)
[2018-05-07] MEDS ORDERED: ANCEF/STERILE WATER 2 GM/20 ML 2 GM/20 ML SYRINGE IV ONE (03:35)
[2018-05-07] MEDS ORDERED: VERSED IV ONE (03:57)
--- NOTE | 2018-05-07 04:27 | XRay Report ---
FINAL REPORT EXAM: XR ABDOMEN 1V AP HISTORY: INSTRUMENT COUNT POST OP COMPARISONS: 05/06/2018 FINDINGS: AP portable supine radiographs of the abdomen and pelvis for instrument count Mid abdominal surgical clips. Intravenous contrast noted along the urinary tracts and extending into a [place]una catheter. Enteric tube projects over the left upper abdomen. No radiodense foreign bodies/metallic instruments. IMPRESSION: No radiodense foreign body or metallic instrument seen in the abdomen or pelvis.
[2018-05-07] MEDS ORDERED: ATIVAN ONE (04:39)
--- NOTE | 2018-05-07 04:43 | Post Anesthesia Evaluation ---
- Post Anesthesia Evaluation Patient Participated: No (sedated on vent) Airway Patent: Yes Stable Respiratory Function: Yes Nausea/Vomiting: No Temp > 96.8F: Yes Pain Manageable: Yes Adequeate Hydration: Yes Anesthesia Complications: No Block Receding Appropriately: Not Applicable Patient on Ventilator: Yes
[2018-05-07] MEDS ORDERED: D50W (25GM) Syringe IV PRN (04:45)
[2018-05-07] MEDS ORDERED: SODIUM CHLORIDE FLUSH SYRINGE 10 ML IV PRN (04:45)
--- NOTE | 2018-05-07 04:47 | Post Operative Note ---
Pre-op diagnosis: RUPTURED INFRA-RENAL ABDOMINAL AORTIC ANEURYSM Post-op diagnosis: other (ACUTELY SYMPTOMATIC INFLAMMATORY INFRA-RENAL ABDOMINAL AORTIC ANEURYSM) Findings: Inflammatory infrarenal abdominal aortic aneurysm. Duodenum and left renal vein were densely adherent to the neck of the aneurysm. Ureters were densely adherent to the aneurysm. Procedure: Repair of infrarenal abdominal aortic aneurysm using 18 x 9 collagen coated Dacron graft as an aortobifemoral bypass Anesthesia: GETA Surgeon: CESAR FONTANA Nightclub Manager: TONI SÁNCHEZ Estimated blood loss: other (500 ml, 225 ml cell saver returned) Pathology: list (aorta sent for culture) Specimen disposition: to lab Condition: stable Disposition: ICU
--- NOTE | 2018-05-07 04:52 | Consultation ---
History of Present Illness - Reason for Consult Consult date: 05/07/18 - History of Present Illness This is a 53-year-old male with a history of hypertension, diabetes, abdominal aneurysm because emergency room today for evaluation of evaluation of abdominal pain. History is per family, he sedated. CAT scan of the abdomen and pelvis shows a leaking aneurysm, he is going emergently to surgery. Review of systems unobtainable PAST MEDICAL HISTORY: hypertension, diabetes, abdominal aneurysm PAST SURGICAL HISTORY: None SOCIAL HISTORY: No alcohol, no drugs, tobacco FAMILY HISTORY: Hypertension Past History Past Medical History: diabetes, hypertension. denies: CAD Past Surgical History: No surgical history Social history: , lives with family Family history: no significant family history Medications and Allergies Allergies Allergy/AdvReac Type Severity Reaction Status Date / Time No Known Drug Allergies Allergy Unknown Verified 04/14/18 06:34 Home Medications Medication Instructions Recorded Confirmed Last Taken Type Acetaminophen 650 mg PO Q8H PRN 04/12/18 04/12/18 Unknown History Lisinopril [Zestril] 20 mg PO DAILY 04/12/18 04/12/18 Unknown History traMADol [Ultram 50 MG tab] 50 mg PO Q8H PRN 04/12/18 04/12/18 Unknown History Metoprolol [Lopressor TAB] 25 mg PO BID #60 tablet 04/15/18 Unknown Rx diphenhydrAMINE [Benadryl CAP] 25 mg PO Q6H PRN #14 capsule 04/15/18 Unknown Rx glipiZIDE [Glucotrol] 5 mg PO QDDIAB #60 tablet 04/15/18 Unknown Rx levETIRAcetam [Keppra TAB] 500 mg PO BID #60 tablet 04/15/18 Unknown Rx Active Meds: Active Medications Hydromorphone HCl (Dilaudid) 0.5 mg IV Q10MIN PRN PRN Reason: Pain , Severe (7-10) Stop: 05/07/18 12:00 Hydrophilic Ointment (Vaseline Lip Therapy) 1 applic TP Q2HR PRN PRN Reason: Dry Lips Fentanyl Citrate (Fentanyl Drip Premix) 2,000 mcg in 100 mls @ 2.79 mls/hr IV TITR BARBARA; Protocol Lorazepam 100 mg/ Sodium Chloride/ Miscellaneous Information 100 mls @ 1 mls/ hr IV TITR BARBARA; Protocol Multi-Ingred Cream/Lotion/Oil/Oint (Artificial Tears Ophth Oint) 1 applic OU Q4HR PRN PRN Reason: Dry Eye(s) Sodium Chloride (Nacl 0.9% 500 Ml) 1 ml IV DIRECT BARBARA Exam - Physical Exam Narrative exam: Gen. appearance: Patient lying in bed, no apparent distress HEENT: Normocephalic, atraumatic, pupils equally round and reactive to light, extraocular movement intact, and no sclericterus,. No JVD or thyromegaly or nodule,neck supple, no carotid bruit ,mucous membranes moist, no exudate or erythema Heart: S1, S2, regular rate and rhythm Lungs: Clear bilaterally, breathing comfortable Abdomen: Positive bowel sounds, pulsatile mass, nondistended, no organomegaly Extremity:no edema cyanosis, clubbing Skin: no rash, dry, warm Neuro: sedated - Constitutional Vitals: Temp Pulse Resp BP Pulse Ox 99.2 F 88 18 146/77 98 05/06/18 22:48 05/06/18 22:48 05/06/18 22:48 05/06/18 22:48 05/06/18 22:48 Results - Labs CBC & Chem 7: 05/06/18 17:41 05/06/18 17:41 Labs: Abnormal lab results 05/06/18 05/06/18 05/06/18 Range/Units 17:41 17:41 21:20 Hgb 11.0 L (11.8-15.2) gm/dl Hct 32.8 L (35.5-45.6) % RDW 18.5 H (13.2-15.2) % Plt Count 479 H (140-440) K/mm3 Lymph % (Auto) 42.2 H (13.4-35.0) % Chloride 95.8 L (98-107) mmol/L Creatinine 0.5 L (0.8-1.5) mg/dL Glucose 114 H (75-100) mg/dL Total Protein 8.3 H (6.3-8.2) g/dL Albumin 3.5 L (3.9-5) g/dL Crossmatch See Detail - Imaging and Cardiology CT scan - abdomen: report reviewed CT scan - pelvis: report reviewed Assessment and Plan Assessment Abdominal aortic aneurysm, leaking Hypertension Diabetes Plan Aneurysm management per vascular Check fingersticks initiate insulin sliding scale Critical care consult
--- NOTE | 2018-05-07 05:00 | Operative Report ---
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 Anesthesia: Gen. endotracheal tube EBL: 500 mL, 225 mL of Cell Saver blood returned Operative indication: Patient is a 53-year-old man with an acute onset of abdominal pain. CT scan shows a 6 cm infrarenal abdominal aortic aneurysm with inflammatory changes around the wall. He is taken the operating room for emergent exploration. Findings: Patient had a large inflammatory aneurysm involving the infrarenal aorta to the level of the iliac arteries bilaterally. Surrounding structures were densely adherent to the aneurysm including the renal vein, the duodenum, and the ureters. All structures were identified and spared. Procedure: The patient was placed on the table in supine position. He was given appropriate anesthesia. The area over the abdomen and upper thighs was prepped with a ChloraPrep solution and draped in the usual sterile fashion. The patient was hemodynamically stable as the operation began. Bilateral femoral artery incisions were made at the inguinal areas and dissection was carried out to identify the common, profunda, and superficial femoral arteries. These were surrounded with Vesseloops proximally and distally. Tunnels were made from the proximal common femoral arteries underneath the inguinal ligament into the retroperitoneum. The wounds were packed with moist lap sponges. A midline laparotomy was made from the xiphisternum to the pubis. The peritoneal cavity was entered. No obvious hemorrhage was identified. The retroperitoneum was exposed. There was obvious inflammatory changes involving the aorta. The aorta was grossly dilated throughout its course. Dissection was carried along the left lateral side of the duodenum. The duodenum was densely adherent to the anterior surface of the aorta. Meticulous dissection was used to remove the duodenum from the aorta. The left renal vein was noted to be densely adherent to the neck of the aneurysm as well. Meticulous dissection was required to remove the renal vein from the aneurysm. A space was developed along the right side of the neck of the aneurysm just inferior to the right renal artery. A similar space was created on the left side just below the left renal artery. There was clearly a neck to the aneurysm at this location and it was a convenient place for crossclamping. Attention was then directed to the iliac arteries. The ureters were noted to be densely adherent along the aneurysm and the iliac arteries. Meticulous care was taken to dissected the ureters away from the iliac arteries. The iliac arteries were surrounded completely with umbilical tape. Retroperitoneal tunnels were made from the aorta along the iliac arteries to the femoral arteries. These tunnels were marked with umbilical tapes. The patient was then given 5000 units of intravenous heparin and 3 minutes was allowed to pass. The femoral loops were occluded. The neck of the aneurysm was crossclamped just below the renal arteries. No pulsation was noted in the aneurysm after this. The iliac arteries were tied using the umbilical tapes bilaterally. The aneurysm was then opened. The inside of the aorta was highly diseased with multiple loculated lumens consistent with the findings on the CT scan. There was however a neck which could be identified. Atherosclerotic plaque was identified in this area as well. Particular care was taken to dissected the neck of the aorta out and an appropriate area for anastomosis was created. An 18 mm x 9 mm collagen coated Dacron graft was then tailored to fit the neck of the aorta. The 18 mm portion was sewn into place using running 3-0 Prolene. Once this was completed the suture was tied. The graft was occluded and then flow was started into the graft to look for any leaks. None were identified. The aorta was then flushed via the graft. Each limb was tunneled appropriately to the appropriate side. The femoral arteries were occluded. Arteriotomies were made on top of the common femoral arteries. The limbs of the graft were tailored appropriately and then sewn into place using running 5-0 Prolene. All vessels were flushed and vented to remove any air or debris. The anastomoses were completed and then flow was restored first to the pelvis and then to the distal arteries without incident. The patient tolerated this maneuver well with only mild hypotension. Meticulous hemostasis was obtained. Attention was redirected to the abdomen. Meticulous hemostasis was obtained. The aortic wall was then closed over the top of the graft using running 2-0 Vicryl. The retroperitoneum was reapproximated using 3-0 Vicryl. There were some areas of mesenteric disruption around the duodenum which were also oversewn to prevent any internal hernia formation. The abdomen was closed using running #1 PDS double-stranded suture. Skin yajaira were used to close the skin. The femoral incisions were closed in 2 layers of 3-0 Vicryl. The skin was closed with 4-0 subcuticular Monocryl. Sterile dressings were applied. Instrument and sponge counts were not done because of the urgent nature of the case. An x-ray was done at completion which showed no evidence of unexpected foreign body in the abdomen or pelvis. The patient tolerated the procedure well. He had easily palpable dorsalis pedis pulses bilaterally at the end of the case. The patient was taken from the operating room to the intensive care unit in stable condition.
[2018-05-07] MEDS: fentaNYL DRIP Premix 2,000 MCG/100 ML BAG IV SCH ×3 (05:27→18:50)
--- NOTE | 2018-05-07 05:43 | XRay Report ---
FINAL REPORT EXAM: XR CHEST 1V AP HISTORY: ETT placement TECHNIQUE: AP portable view(s) of the chest obtained. PRIORS: Abdominal radiographs of the same date, chest radiograph 04/11/2018 FINDINGS: Endotracheal tube terminates approximately 4.5 cm from the pancho. Enteric tube terminates in the left upper quadrant. Right IJ line terminates in the region of the caudal superior vena cava. No mediastinal shift. Cardiac silhouette is not enlarged. No pneumothorax, effusion, or focal pulmonary opacity identified. No acute skeletal findings. IMPRESSION: Satisfactory appearance of patient's support apparatus without pneumothorax.
[2018-05-07 06:08] LABS: Basophils % (Auto) 0.3 % (0.0-1.8); Eosinophils % (Auto) 0.5 % (0.0-4.3); Hematocrit 24.8 % (35.5-45.6); Hemoglobin 8.2 gm/dl (11.8-15.2); Lymphocytes # (Auto) 1.6 K/mm3 (1.2-5.4); Lymphocytes % (Auto) 24.9 % (13.4-35.0); Mean Corpuscular HGB Conc 33 % (32-34); Mean Corpuscular Hemoglobin 30 pg (28-32); Mean Corpuscular Volume 91 fl (84-94); Monocytes # (Auto) 0.3 K/mm3 (0.0-0.8); Monocytes % (Auto) 4.6 % (0.0-7.3); Platelet Count 266 K/mm3 (140-440); Red Blood Count 2.74 M/mm3 (3.65-5.03); Red Cell Distribution Width 18.7 % (13.2-15.2)
[2018-05-07 06:26] LABS: BUN/Creatinine Ratio 23; Blood Urea Nitrogen 21 mg/dL (9-20); Calcium 7.4 mg/dL (8.4-10.2); Hemolysis Index 25
[2018-05-07] MEDS: ANCEF/NS 1 GM/50 ML 1 GM/50 ML BAG IV SCH ×3 (06:39→21:56)
[2018-05-07] MEDS: LOPRESSOR IV SCH ×3 (06:44→18:39)
[2018-05-07] MEDS ORDERED: SODIUM BICARBONATE FEEDTUBE PRN (09:34)
[2018-05-07] MEDS ORDERED: SIMPLE SYRUP FEEDTUBE PRN ×2 (09:34)
[2018-05-07] MEDS ORDERED: PANCREAZE DR 10,500 UNIT FEEDTUBE PRN (09:34)
[2018-05-07] MEDS: SODIUM CHLORIDE FLUSH SYRINGE 10 ML IV SCH ×2 (10:17→22:20)
--- NOTE | 2018-05-07 10:25 | Event Note ---
Date: 05/07/18 Patient seen and examined, Sedated and intubated, No acute event per nursing stuff. This is a 53-year-old male with a history of hypertension, diabetes, came to emergency room for evaluation of abdominal pain. CAT scan of the abdomen and pelvis showed a leaking aneurysm, he had emergent AAA repair by vascular surgery. will cont to monitor and wean off sedation and vent as tolerated.
[2018-05-07] MEDS: NACL 0.9% 1000 ML 1,000 ML IV SCH ×2 (13:01→21:55)
--- NOTE | 2018-05-07 15:06 | Consultation ---
History of Present Illness Consult date: 05/07/18 Reason for consult: hypoxemia History of present illness: This is a 53-year-old male with a history of hypertension, diabetes, came to emergency room for evaluation of abdominal pain. CAT scan of the abdomen and pelvis showed a leaking aneurysm, he had emergent AAA repair by vascular surgery. Admitted to the ICU early hours of this morning for critical care Patient was seen and examined. vitals, labs, medications, chart and imaging reviewed. Operative and chart notes reviewed. discussed with RN and RT Past History Past Medical History: diabetes, hypertension. denies: CAD Past Surgical History: No surgical history Social history: , lives with family Family history: no significant family history Medications and Allergies Allergies Allergy/AdvReac Type Severity Reaction Status Date / Time No Known Drug Allergies Allergy Unknown Verified 04/14/18 06:34 Home Medications Medication Instructions Recorded Confirmed Last Taken Type Acetaminophen 650 mg PO Q8H PRN 04/12/18 04/12/18 Unknown History Lisinopril [Zestril] 20 mg PO DAILY 04/12/18 04/12/18 Unknown History traMADol [Ultram 50 MG tab] 50 mg PO Q8H PRN 04/12/18 04/12/18 Unknown History Metoprolol [Lopressor TAB] 25 mg PO BID #60 tablet 04/15/18 Unknown Rx diphenhydrAMINE [Benadryl CAP] 25 mg PO Q6H PRN #14 capsule 04/15/18 Unknown Rx glipiZIDE [Glucotrol] 5 mg PO QDDIAB #60 tablet 04/15/18 Unknown Rx levETIRAcetam [Keppra TAB] 500 mg PO BID #60 tablet 04/15/18 Unknown Rx Active Meds: Active Medications Lipase/Protease/Amylase (Pancreaze Dr 10,500 Unit) 1 each FEEDTUBE PRN PRN PRN Reason: For Clogged Feeding Tube Dextrose (D50w (25gm) Syringe) 50 ml IV PRN PRN PRN Reason: Hypoglycemia Hydrophilic Ointment (Vaseline Lip Therapy) 1 applic TP Q2HR PRN PRN Reason: Dry Lips Fentanyl Citrate (Fentanyl Drip Premix) 2,000 mcg in 100 mls @ 2.79 mls/hr IV TITR BARBARA; Protocol Last Admin: 05/07/18 11:26 Dose: 5 mcg/kg/hr, 13.948 mls/hr Lorazepam 100 mg/ Sodium Chloride/ Miscellaneous Information 100 mls @ 1 mls/ hr IV TITR BARBARA; Protocol Last Admin: 05/07/18 05:29 Dose: 2 mg/hr, 2 mls/hr Cefazolin Sodium (Ancef/Ns 1 Gm/50 Ml) 1 gm in 50 mls @ 100 mls/hr IV Q8HR BARBARA ; Protocol Stop: 05/07/18 22:29 Last Admin: 05/07/18 13:27 Dose: 100 mls/hr Sodium Chloride (Nacl 0.9% 1000 Ml) 1,000 mls @ 125 mls/hr IV DIRECT BARBARA Last Admin: 05/07/18 13:01 Dose: 125 mls/hr Metoprolol Tartrate (Lopressor) 2.5 mg IV Q6HR BARBARA Last Admin: 05/07/18 13:00 Dose: Not Given Multi-Ingred Cream/Lotion/Oil/Oint (Artificial Tears Ophth Oint) 1 applic OU Q4HR PRN PRN Reason: Dry Eye(s) Ondansetron HCl (Zofran) 4 mg IV Q8H PRN PRN Reason: Nausea And Vomiting Simple Syrup (Simple Syrup) 15 ml FEEDTUBE PRN PRN PRN Reason: Hypoglycemia Simple Syrup (Simple Syrup) 30 ml FEEDTUBE PRN PRN PRN Reason: Hypoglycemia Sodium Bicarbonate (Sodium Bicarbonate) 325 mg FEEDTUBE PRN PRN PRN Reason: For Clogged Feeding Tube Sodium Chloride (Sodium Chloride Flush Syringe 10 Ml) 10 ml IV BID [facility] Last Admin: 05/07/18 10:17 Dose: 10 ml Sodium Chloride (Sodium Chloride Flush Syringe 10 Ml) 10 ml IV PRN PRN PRN Reason: LINE FLUSH Review of Systems ROS unobtainable: due to endotracheal tube, due to mental status Physical Examination Vital signs: Vital Signs Temp Pulse BP Pulse Ox 98.9 F 115 H 154/88 100 05/06/18 17:30 05/06/18 17:30 05/06/18 17:30 05/06/18 17:30 Gen. appearance: Patient lying in bed, no apparent distress, thin Orally intubated, sedated. ETT to [facility], minimal settings, no patietn-ventilator dyssynchrony HEENT: Normocephalic, atraumatic, pupils equally round and reactive to light, extraocular movement intact, and no sclericterus,. No JVD or thyromegaly or nodule,neck supple, no carotid bruit ,mucous membranes moist, no exudate or erythema Heart: S1, S2, regular rate and rhythm Lungs: Clear bilaterally, breathing comfortable Abdomen: Positive bowel sounds, non distended, no organomegaly Midline surgical dressings, dry Bilateral femoral surgical scars Extremity:no edema cyanosis, clubbing, pulses present bilaterally Skin: no rash, dry, warm Neuro: sedated Results - Laboratory Findings CBC and BMP: 05/07/18 17:01 05/07/18 05:00 ABG POC ABG pH 7.410 (7.35-7.45) 05/07/18 05:05 POC ABG pCO2 39.7 (35-45) 05/07/18 05:05 POC ABG pO2 547 (80-105) H 05/07/18 05:05 POC ABG HCO3 25.2 05/07/18 05:05 POC ABG Total CO2 26 05/07/18 05:05 POC ABG O2 Sat 100 05/07/18 05:05 Abnormal lab findings: Abnormal Labs 05/06/18 05/06/18 05/06/18 17:41 17:41 21:20 RBC Hgb 11.0 L Hct 32.8 L RDW 18.5 H Plt Count 479 H Lymph % (Auto) 42.2 H POC ABG pO2 Chloride 95.8 L Carbon Dioxide BUN Creatinine 0.5 L Glucose 114 H POC Glucose Calcium Magnesium Total Protein 8.3 H Albumin 3.5 L Crossmatch See Detail 05/07/18 05/07/18 05/07/18 05:00 05:00 05:00 RBC 2.74 L Hgb 8.2 L Hct 24.8 L D RDW 18.7 H Plt Count Lymph % (Auto) POC ABG pO2 Chloride Carbon Dioxide 20 L BUN 21 H Creatinine Glucose 189 H POC Glucose Calcium 7.4 L D Magnesium 1.20 L Total Protein Albumin Crossmatch 05/07/18 05/07/18 05:05 12:44 RBC Hgb Hct RDW Plt Count Lymph % (Auto) POC ABG pO2 547 H Chloride Carbon Dioxide BUN Creatinine Glucose POC Glucose 168 H Calcium Magnesium Total Protein Albumin Crossmatch - Diagnostic Findings Chest x-ray: image reviewed Additional studies: CT scan - abdomen: report reviewed, other (Patient has a large infrarenal abdominal aortic aneurysm measuring nearly 6 cm in diameter. There appears to be multiple channels within the aneurysm. There appears to be some inflammatory changes around the aneurysm. There is also an aneurysmal appearance to the aorta above the level of the visceral vessels. 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 There is no radha evidence of rupture but the borders of the aneurysm are indistinct and there are clearly multiple channels consistent with potential dissection within the lumen of the aorta.) Assessment and Plan Acute hypoxemic respiratory failure, post op on MVS Ruptured Abdominal aortic aneurysm Hypertension Diabetes -VAP bundle addressed -wean supplemental oxygen for O2 sats>90% -VTE prophylaxis--SCDs for now -Aspiration precautions -NGT to LIS, address enteral nutrition in the morning - Stress ulcer prophylaxis -Monitor renal indices and urine output -Monitor neurology, neuro checks -In the morning, discussions with vascular service re SAT and SBT -Blood pressure control -Monitor Hand H -Analgesia and agitation management -Rass -1 -Accuchecks with glycemic control -Blood pressure management - FULL CODE The high probability of a clinically significant, sudden or life threatening deterioration of the [respiratory,cardiovascular, renal] system(s) required my full and direct attention, intervention and personal management. The aggregate critical care time was [40] minutes without overlap. Time includes spent on; [x] Data Review and interpretation [x] Patient assessment and monitoring of vital signs [x] Documentation [x] Medication orders and management
[2018-05-07 17:20] LABS: Hematocrit 23.2 % (35.5-45.6); Hemoglobin 7.8 gm/dl (11.8-15.2)
[2018-05-07 22:20] LABS: Hematocrit 24.1 % (35.5-45.6); Hemoglobin 7.8 gm/dl (11.8-15.2)
[2018-05-08] MEDS: fentaNYL DRIP Premix 2,000 MCG/100 ML BAG IV SCH ×4 (01:08→22:21)
[2018-05-08] MEDS: LOPRESSOR IV SCH ×4 (01:11→17:40)
[2018-05-08 01:12] LABS: BUN/Creatinine Ratio 19; Blood Urea Nitrogen 27 mg/dL (9-20); Calcium 7.6 mg/dL (8.4-10.2); Hemolysis Index 0
[2018-05-08] MEDS: NACL 0.9% 1000 ML 1,000 ML IV SCH ×3 (06:10→21:49)
[2018-05-08 06:48] LABS: Hematocrit 21.7 % (35.5-45.6); Hemoglobin 7.2 gm/dl (11.8-15.2)
[2018-05-08] MEDS ORDERED: NACL 0.9% 500 ML 500 ML IV ONE (07:28)
[2018-05-08] MEDS: SODIUM CHLORIDE FLUSH SYRINGE 10 ML IV SCH ×2 (09:18→21:50)
--- NOTE | 2018-05-08 13:28 | Progress Note ---
Assessment and Plan Acute hypoxemic respiratory failure, post op on MVS Ruptured Abdominal aortic aneurysm Hypertension Diabetes -VAP bundle addressed -SAT and SBTs -wean supplemental oxygen for O2 sats>90% -VTE prophylaxis--SCDs for now -Aspiration precautions -NGT to LIS, address enteral nutrition in the morning -Stress ulcer prophylaxis -Monitor renal indices and urine output -Monitor neurology, neuro checks -Blood pressure control -Monitor Hand H -Analgesia and agitation management -Rass -1 -Accuchecks with glycemic control -Blood pressure management - FULL CODE The high probability of a clinically significant, sudden or life threatening deterioration of the [respiratory,cardiovascular, renal] system(s) required my full and direct attention, intervention and personal management. The aggregate critical care time was [31] minutes without overlap. Time includes spent on; [x] Data Review and interpretation [x] Patient assessment and monitoring of vital signs [x] Documentation [x] Medication orders and management Subjective Date of service: 05/08/18 Interval history: F/UP: Post operative respiratory failure(hypoxia), s/p repair of ruptured AAA, hypertension Patient was seen and examined. Vitals, labs, medications, chart and imaging reviewed. Discussed with RN and RT in ICU-IDT rounds Start weaning trials today Objective - Exam Narrative Exam: Gen. appearance: Patient lying in bed, no apparent distress HEENT: Normocephalic, atraumatic, pupils equally round and reactive to light, extraocular movement intact, and no sclericterus,. No JVD or thyromegaly or nodule,neck supple, no carotid bruit ,mucous membranes moist, no exudate or erythema Heart: S1, S2, regular rate and rhythm Lungs: Clear bilaterally, breathing comfortable Abdomen: Positive bowel sounds, non-distended, no organomegaly Extremity:no edema cyanosis, clubbing Skin: no rash, dry, warm Neuro: sedated Vital Signs - 12hr 05/08/18 05/08/18 05/08/18 01:30 01:46 02:00 Temperature Pulse Rate 103 H 103 H 103 H Respiratory 18 18 18 Rate Blood Pressure 104/64 104/64 104/64 O2 Sat by Pulse 100 100 100 Oximetry 05/08/18 05/08/18 05/08/18 02:15 02:16 02:30 Temperature Pulse Rate 112 H 104 H 106 H Respiratory 18 18 Rate Blood Pressure 101/53 104/64 104/64 O2 Sat by Pulse 100 100 100 Oximetry 05/08/18 05/08/18 05/08/18 02:46 03:00 03:16 Temperature Pulse Rate 106 H 104 H 103 H Respiratory 18 18 18 Rate Blood Pressure 104/64 104/64 104/64 O2 Sat by Pulse 100 100 100 Oximetry 05/08/18 05/08/18 05/08/18 03:30 03:46 04:00 Temperature 98.4 F Pulse Rate 104 H 105 H 106 H Respiratory 18 18 18 Rate Blood Pressure 104/64 104/64 104/64 O2 Sat by Pulse 100 100 100 Oximetry 05/08/18 05/08/18 05/08/18 04:16 04:30 04:46 Temperature Pulse Rate 104 H 104 H 103 H Respiratory 18 18 18 Rate Blood Pressure 104/64 104/64 104/64 O2 Sat by Pulse 100 100 100 Oximetry 05/08/18 05/08/18 05/08/18 04:48 05:00 05:16 Temperature Pulse Rate 105 H 105 H 105 H Respiratory 18 18 Rate Blood Pressure 105/51 104/64 104/64 O2 Sat by Pulse 100 100 100 Oximetry 05/08/18 05/08/18 05/08/18 05:30 05:46 06:00 Temperature Pulse Rate 104 H 105 H 104 H Respiratory 18 18 18 Rate Blood Pressure 104/64 104/64 104/64 O2 Sat by Pulse 100 100 100 Oximetry 05/08/18 05/08/18 05/08/18 06:10 06:16 06:30 Temperature Pulse Rate 104 H 95 H 95 H Respiratory 18 18 Rate Blood Pressure 116/53 104/64 104/64 O2 Sat by Pulse 100 100 Oximetry 05/08/18 05/08/18 05/08/18 06:46 07:00 07:16 Temperature Pulse Rate 95 H 96 H 98 H Respiratory 18 18 18 Rate Blood Pressure 104/64 104/64 104/64 O2 Sat by Pulse 100 100 100 Oximetry 05/08/18 05/08/18 05/08/18 07:30 07:46 08:00 Temperature 99.0 F Pulse Rate 99 H 98 H 98 H Respiratory 18 18 18 Rate Blood Pressure 104/64 104/64 104/64 O2 Sat by Pulse 100 100 100 Oximetry 05/08/18 05/08/18 05/08/18 08:16 08:30 08:46 Temperature Pulse Rate 99 H 98 H 98 H Respiratory 18 18 18 Rate Blood Pressure 104/64 104/64 104/64 O2 Sat by Pulse 100 100 100 Oximetry 05/08/18 05/08/18 05/08/18 08:54 09:00 09:15 Temperature Pulse Rate 100 H 100 H 101 H Respiratory 18 18 Rate Blood Pressure 122/55 104/64 119/69 O2 Sat by Pulse 100 100 Oximetry 05/08/18 05/08/18 05/08/18 09:30 09:40 09:46 Temperature 99.0 F Pulse Rate 99 H 99 H 100 H Respiratory 18 18 18 Rate Blood Pressure 119/69 119/69 119/69 O2 Sat by Pulse 100 100 100 Oximetry 05/08/18 05/08/18 05/08/18 10:00 10:05 10:16 Temperature 97.7 F Pulse Rate 100 H 98 H 98 H Respiratory 18 18 18 Rate Blood Pressure 120/68 121/52 120/68 O2 Sat by Pulse 100 100 Oximetry 05/08/18 05/08/18 05/08/18 10:30 10:46 11:00 Temperature Pulse Rate 97 H 95 H 98 H Respiratory 18 18 18 Rate Blood Pressure 120/68 120/68 128/71 O2 Sat by Pulse 100 100 Oximetry 05/08/18 05/08/18 05/08/18 11:16 11:30 11:46 Temperature Pulse Rate 111 H 105 H 105 H Respiratory 16 18 18 Rate Blood Pressure 128/71 128/71 128/71 O2 Sat by Pulse 99 100 100 Oximetry 05/08/18 05/08/18 05/08/18 11:57 12:00 12:19 Temperature 98.6 F Pulse Rate 105 H 97 H 95 H Respiratory 18 Rate Blood Pressure 131/57 117/67 177/67 O2 Sat by Pulse 100 Oximetry 05/08/18 12:40 Temperature 98.4 F Pulse Rate 93 H Respiratory 18 Rate Blood Pressure 124/53 O2 Sat by Pulse 100 Oximetry CBC and BMP: 05/12/18 03:50 05/12/18 03:50 ABG, PT/INR, D-dimer: ABG POC ABG pH 7.420 (7.35-7.45) 05/08/18 04:23 POC ABG pCO2 35.1 (35-45) 05/08/18 04:23 POC ABG pO2 216 (80-105) H 05/08/18 04:23 POC ABG HCO3 22.8 05/08/18 04:23 POC ABG Total CO2 24 05/08/18 04:23 POC ABG O2 Sat 100 05/08/18 04:23 Abnormal lab findings: Abnormal Labs 05/06/18 05/06/18 05/06/18 17:41 17:41 21:20 RBC Hgb 11.0 L Hct 32.8 L RDW 18.5 H Plt Count 479 H Lymph % (Auto) 42.2 H POC ABG pO2 Chloride 95.8 L Carbon Dioxide BUN Creatinine 0.5 L Glucose 114 H POC Glucose Calcium Magnesium Total Protein 8.3 H Albumin 3.5 L Crossmatch See Detail 05/07/18 05/07/18 05/07/18 05:00 05:00 05:00 RBC 2.74 L Hgb 8.2 L Hct 24.8 L D RDW 18.7 H Plt Count Lymph % (Auto) POC ABG pO2 Chloride Carbon Dioxide 20 L BUN 21 H Creatinine Glucose 189 H POC Glucose Calcium 7.4 L D Magnesium 1.20 L Total Protein Albumin Crossmatch 05/07/18 05/07/18 05/07/18 05:05 12:44 17:01 RBC Hgb 7.8 L Hct 23.2 L RDW Plt Count Lymph % (Auto) POC ABG pO2 547 H Chloride Carbon Dioxide BUN Creatinine Glucose POC Glucose 168 H Calcium Magnesium Total Protein Albumin Crossmatch 05/07/18 05/07/18 05/07/18 17:58 21:33 23:26 RBC Hgb 7.8 L Hct 24.1 L RDW Plt Count Lymph % (Auto) POC ABG pO2 Chloride Carbon Dioxide BUN Creatinine Glucose POC Glucose 178 H 151 H Calcium Magnesium Total Protein Albumin Crossmatch 05/08/18 05/08/18 05/08/18 00:10 04:23 06:08 RBC Hgb Hct RDW Plt Count Lymph % (Auto) POC ABG pO2 216 H Chloride 110.4 H Carbon Dioxide 19 L BUN 27 H Creatinine Glucose 160 H POC Glucose 148 H Calcium 7.6 L Magnesium Total Protein Albumin Crossmatch 05/08/18 05/08/18 06:15 13:01 RBC Hgb 7.2 L Hct 21.7 L RDW Plt Count Lymph % (Auto) POC ABG pO2 Chloride Carbon Dioxide BUN Creatinine Glucose POC Glucose 108 H Calcium Magnesium Total Protein Albumin Crossmatch
--- NOTE | 2018-05-08 15:03 | Progress Note ---
Assessment and Plan Rupture Abdominal aortic aneurysm, - s/p repair, monitor H/h Hypertension, cont to monitor BP, currently stable - cont metoprolol iv 2.5 mg q6h Diabetes type 2, SSI s needed Acute respiratory failure - wean off vent as tolerated Anemia, likely due to blood loss from AAA tear - transfuse as needed to keep Hb >8.0 Subjective Date of service: 05/08/18 Interval history: Patient intubated and sedated Vitals notes, discussed with RN at bedside No acute o/n issue Objective - Constitutional Vitals: Vital Signs - 12hr 05/08/18 05/08/18 05/08/18 03:16 03:30 03:46 Temperature Pulse Rate 103 H 104 H 105 H Respiratory 18 18 18 Rate Blood Pressure 104/64 104/64 104/64 O2 Sat by Pulse 100 100 100 Oximetry 05/08/18 05/08/18 05/08/18 04:00 04:16 04:30 Temperature 98.4 F Pulse Rate 106 H 104 H 104 H Respiratory 18 18 18 Rate Blood Pressure 104/64 104/64 104/64 O2 Sat by Pulse 100 100 100 Oximetry 05/08/18 05/08/18 05/08/18 04:46 04:48 05:00 Temperature Pulse Rate 103 H 105 H 105 H Respiratory 18 18 Rate Blood Pressure 104/64 105/51 104/64 O2 Sat by Pulse 100 100 100 Oximetry 05/08/18 05/08/18 05/08/18 05:16 05:30 05:46 Temperature Pulse Rate 105 H 104 H 105 H Respiratory 18 18 18 Rate Blood Pressure 104/64 104/64 104/64 O2 Sat by Pulse 100 100 100 Oximetry 05/08/18 05/08/18 05/08/18 06:00 06:10 06:16 Temperature Pulse Rate 104 H 104 H 95 H Respiratory 18 18 Rate Blood Pressure 104/64 116/53 104/64 O2 Sat by Pulse 100 100 Oximetry 05/08/18 05/08/18 05/08/18 06:30 06:46 07:00 Temperature Pulse Rate 95 H 95 H 96 H Respiratory 18 18 18 Rate Blood Pressure 104/64 104/64 104/64 O2 Sat by Pulse 100 100 100 Oximetry 05/08/18 05/08/18 05/08/18 07:16 07:30 07:46 Temperature Pulse Rate 98 H 99 H 98 H Respiratory 18 18 18 Rate Blood Pressure 104/64 104/64 104/64 O2 Sat by Pulse 100 100 100 Oximetry 05/08/18 05/08/18 05/08/18 08:00 08:16 08:30 Temperature 99.0 F Pulse Rate 98 H 99 H 98 H Respiratory 18 18 18 Rate Blood Pressure 104/64 104/64 104/64 O2 Sat by Pulse 100 100 100 Oximetry 05/08/18 05/08/18 05/08/18 08:46 08:54 09:00 Temperature Pulse Rate 98 H 100 H 100 H Respiratory 18 18 Rate Blood Pressure 104/64 122/55 104/64 O2 Sat by Pulse 100 100 100 Oximetry 05/08/18 05/08/18 05/08/18 09:15 09:30 09:40 Temperature 99.0 F Pulse Rate 101 H 99 H 99 H Respiratory 18 18 18 Rate Blood Pressure 119/69 119/69 119/69 O2 Sat by Pulse 100 100 Oximetry 05/08/18 05/08/18 05/08/18 09:46 10:00 10:05 Temperature 97.7 F Pulse Rate 100 H 100 H 98 H Respiratory 18 18 18 Rate Blood Pressure 119/69 120/68 121/52 O2 Sat by Pulse 100 100 Oximetry 05/08/18 05/08/18 05/08/18 10:16 10:30 10:46 Temperature Pulse Rate 98 H 97 H 95 H Respiratory 18 18 18 Rate Blood Pressure 120/68 120/68 120/68 O2 Sat by Pulse 100 100 100 Oximetry 05/08/18 05/08/18 05/08/18 11:00 11:16 11:30 Temperature Pulse Rate 98 H 111 H 105 H Respiratory 18 16 18 Rate Blood Pressure 128/71 128/71 128/71 O2 Sat by Pulse 99 100 Oximetry 05/08/18 05/08/18 05/08/18 11:46 11:57 12:00 Temperature 98.6 F Pulse Rate 105 H 105 H 97 H Respiratory 18 18 Rate Blood Pressure 128/71 131/57 117/67 O2 Sat by Pulse 100 Oximetry 05/08/18 05/08/18 05/08/18 12:16 12:19 12:30 Temperature Pulse Rate 94 H 95 H 94 H Respiratory 18 18 Rate Blood Pressure 117/67 177/67 117/67 O2 Sat by Pulse 100 100 100 Oximetry 05/08/18 05/08/18 05/08/18 12:40 12:46 13:00 Temperature 98.4 F Pulse Rate 93 H 93 H 94 H Respiratory 18 18 18 Rate Blood Pressure 124/53 117/67 115/64 O2 Sat by Pulse 100 100 Oximetry 05/08/18 13:16 Temperature Pulse Rate 94 H Respiratory 18 Rate Blood Pressure 115/64 O2 Sat by Pulse 100 Oximetry General appearance: Present: other (sedated intubated) - EENT Eyes: no scleral icterus, no conjunctival injection ENT: dentition normal, no thrush, no ulcerations Ears: bilateral: normal - Neck Neck: no enlarged thyroid, no masses or JVD - Respiratory Respiratory effort: normal (on mechanical ventillation) Respiratory: bilateral: CTA - Breasts Breasts: normal - Cardiovascular Rhythm: regular Heart Sounds: Present: S1 & S2. Absent: gallop, rub Extremities: pulses intact, No edema, normal color, Full ROM - Gastrointestinal General gastrointestinal: Present: soft, non-distended, other (surgical dressing on place) - Integumentary Integumentary: clear, warm, dry - Musculoskeletal Musculoskeletal: other (no joint swelling) - Neurologic Neurologic: other (unable to assess, sedated) - Labs CBC & Chem 7: 05/09/18 07:00 05/08/18 00:10 Labs: Abnormal lab results 05/06/18 05/07/18 05/07/18 Range/Units 21:20 17:01 17:58 Hgb 7.8 L (11.8-15.2) gm/dl Hct 23.2 L (35.5-45.6) % POC ABG pO2 (80-105) Chloride (98-107) mmol/L Carbon Dioxide (22-30) mmol/L BUN (9-20) mg/dL Glucose (75-100) mg/dL POC Glucose 178 H (70-105) Calcium (8.4-10.2) mg/dL Crossmatch See Detail 05/07/18 05/07/18 05/08/18 Range/Units 21:33 23:26 00:10 Hgb 7.8 L (11.8-15.2) gm/dl Hct 24.1 L (35.5-45.6) % POC ABG pO2 (80-105) Chloride 110.4 H (98-107) mmol/L Carbon Dioxide 19 L (22-30) mmol/L BUN 27 H (9-20) mg/dL Glucose 160 H (75-100) mg/dL POC Glucose 151 H (70-105) Calcium 7.6 L (8.4-10.2) mg/dL Crossmatch 05/08/18 05/08/18 05/08/18 Range/Units 04:23 06:08 06:15 Hgb 7.2 L (11.8-15.2) gm/dl Hct 21.7 L (35.5-45.6) % POC ABG pO2 216 H (80-105) Chloride (98-107) mmol/L Carbon Dioxide (22-30) mmol/L BUN (9-20) mg/dL Glucose (75-100) mg/dL POC Glucose 148 H (70-105) Calcium (8.4-10.2) mg/dL Crossmatch 05/08/18 Range/Units 13:01 Hgb (11.8-15.2) gm/dl Hct (35.5-45.6) % POC ABG pO2 (80-105) Chloride (98-107) mmol/L Carbon Dioxide (22-30) mmol/L BUN (9-20) mg/dL Glucose (75-100) mg/dL POC Glucose 108 H (70-105) Calcium (8.4-10.2) mg/dL Crossmatch
[2018-05-08] MEDS ORDERED: DULCOLAX PO SCH (16:00)
--- NOTE | 2018-05-08 16:18 | Progress Note ---
Assessment and Plan - Patient Problems (1) Ruptured aortic aneurysm Onset Date: ~05/06/18 Current Visit: No Status: Acute Qualifiers: Aortic location: abdominal aorta Qualified Code(s): I71.3 - Abdominal aortic aneurysm, ruptured Plan to address problem: Patient appears to be hemodynamically stable postoperatively. No immediate complications are noted. Agree with weaning ventilator. Recommend transfusing patient if he continues to have a slow drift in his hemoglobin. Subjective Date of service: 05/08/18 Interval history: Remains on ventilator. Objective - Constitutional Vitals: Vital Signs - 12hr 05/08/18 05/08/18 05/08/18 04:30 04:46 04:48 Temperature Pulse Rate 104 H 103 H 105 H Respiratory 18 18 Rate Blood Pressure 104/64 104/64 105/51 O2 Sat by Pulse 100 100 100 Oximetry 05/08/18 05/08/18 05/08/18 05:00 05:16 05:30 Temperature Pulse Rate 105 H 105 H 104 H Respiratory 18 18 18 Rate Blood Pressure 104/64 104/64 104/64 O2 Sat by Pulse 100 100 100 Oximetry 05/08/18 05/08/18 05/08/18 05:46 06:00 06:10 Temperature Pulse Rate 105 H 104 H 104 H Respiratory 18 18 Rate Blood Pressure 104/64 104/64 116/53 O2 Sat by Pulse 100 100 Oximetry 05/08/18 05/08/18 05/08/18 06:16 06:30 06:46 Temperature Pulse Rate 95 H 95 H 95 H Respiratory 18 18 18 Rate Blood Pressure 104/64 104/64 104/64 O2 Sat by Pulse 100 100 100 Oximetry 05/08/18 05/08/18 05/08/18 07:00 07:16 07:30 Temperature Pulse Rate 96 H 98 H 99 H Respiratory 18 18 18 Rate Blood Pressure 104/64 104/64 104/64 O2 Sat by Pulse 100 100 100 Oximetry 05/08/18 05/08/18 05/08/18 07:46 08:00 08:16 Temperature 99.0 F Pulse Rate 98 H 98 H 99 H Respiratory 18 18 18 Rate Blood Pressure 104/64 104/64 104/64 O2 Sat by Pulse 100 100 100 Oximetry 05/08/18 05/08/18 05/08/18 08:30 08:46 08:54 Temperature Pulse Rate 98 H 98 H 100 H Respiratory 18 18 Rate Blood Pressure 104/64 104/64 122/55 O2 Sat by Pulse 100 100 100 Oximetry 05/08/18 05/08/18 05/08/18 09:00 09:15 09:30 Temperature Pulse Rate 100 H 101 H 99 H Respiratory 18 18 18 Rate Blood Pressure 104/64 119/69 119/69 O2 Sat by Pulse 100 100 Oximetry 05/08/18 05/08/18 05/08/18 09:40 09:46 10:00 Temperature 99.0 F Pulse Rate 99 H 100 H 100 H Respiratory 18 18 18 Rate Blood Pressure 119/69 119/69 120/68 O2 Sat by Pulse 100 100 Oximetry 05/08/18 05/08/18 05/08/18 10:05 10:16 10:30 Temperature 97.7 F Pulse Rate 98 H 98 H 97 H Respiratory 18 18 18 Rate Blood Pressure 121/52 120/68 120/68 O2 Sat by Pulse 100 100 100 Oximetry 05/08/18 05/08/18 05/08/18 10:46 11:00 11:16 Temperature Pulse Rate 95 H 98 H 111 H Respiratory 18 18 16 Rate Blood Pressure 120/68 128/71 128/71 O2 Sat by Pulse 100 99 Oximetry 05/08/18 05/08/18 05/08/18 11:30 11:46 11:57 Temperature Pulse Rate 105 H 105 H 105 H Respiratory 18 18 Rate Blood Pressure 128/71 128/71 131/57 O2 Sat by Pulse 100 100 Oximetry 05/08/18 05/08/18 05/08/18 12:00 12:16 12:19 Temperature 98.6 F Pulse Rate 97 H 94 H 95 H Respiratory 18 18 Rate Blood Pressure 117/67 117/67 177/67 O2 Sat by Pulse 100 100 Oximetry 05/08/18 05/08/18 05/08/18 12:30 12:40 12:46 Temperature 98.4 F Pulse Rate 94 H 93 H 93 H Respiratory 18 18 18 Rate Blood Pressure 117/67 124/53 117/67 O2 Sat by Pulse 100 100 100 Oximetry 05/08/18 05/08/18 05/08/18 13:00 13:16 13:30 Temperature Pulse Rate 94 H 94 H 96 H Respiratory 18 18 18 Rate Blood Pressure 115/64 115/64 115/64 O2 Sat by Pulse 100 100 Oximetry 05/08/18 05/08/18 05/08/18 13:46 14:00 14:16 Temperature Pulse Rate 96 H 95 H 96 H Respiratory 18 18 18 Rate Blood Pressure 115/64 123/66 123/66 O2 Sat by Pulse 100 100 100 Oximetry 05/08/18 05/08/18 05/08/18 14:30 14:46 15:00 Temperature Pulse Rate 94 H 96 H 93 H Respiratory 18 18 18 Rate Blood Pressure 123/66 123/66 121/63 O2 Sat by Pulse 100 100 Oximetry 05/08/18 05/08/18 15:16 15:30 Temperature Pulse Rate 94 H 96 H Respiratory 18 18 Rate Blood Pressure 121/63 121/63 O2 Sat by Pulse 100 100 Oximetry General appearance: Present: no acute distress - Peripheral pulses dorsalis pedis Pulse Strength: 2+ (bilaterally) - Gastrointestinal General gastrointestinal: Present: soft, non-distended - Labs CBC & Chem 7: 05/08/18 06:15 05/08/18 00:10 Labs: Abnormal lab results 05/06/18 05/07/18 05/07/18 Range/Units 21:20 17:01 17:58 Hgb 7.8 L (11.8-15.2) gm/dl Hct 23.2 L (35.5-45.6) % POC ABG pO2 (80-105) Chloride (98-107) mmol/L Carbon Dioxide (22-30) mmol/L BUN (9-20) mg/dL Glucose (75-100) mg/dL POC Glucose 178 H (70-105) Calcium (8.4-10.2) mg/dL Crossmatch See Detail 05/07/18 05/07/18 05/08/18 Range/Units 21:33 23:26 00:10 Hgb 7.8 L (11.8-15.2) gm/dl Hct 24.1 L (35.5-45.6) % POC ABG pO2 (80-105) Chloride 110.4 H (98-107) mmol/L Carbon Dioxide 19 L (22-30) mmol/L BUN 27 H (9-20) mg/dL Glucose 160 H (75-100) mg/dL POC Glucose 151 H (70-105) Calcium 7.6 L (8.4-10.2) mg/dL Crossmatch 05/08/18 05/08/18 05/08/18 Range/Units 04:23 06:08 06:15 Hgb 7.2 L (11.8-15.2) gm/dl Hct 21.7 L (35.5-45.6) % POC ABG pO2 216 H (80-105) Chloride (98-107) mmol/L Carbon Dioxide (22-30) mmol/L BUN (9-20) mg/dL Glucose (75-100) mg/dL POC Glucose 148 H (70-105) Calcium (8.4-10.2) mg/dL Crossmatch 05/08/18 Range/Units 13:01 Hgb (11.8-15.2) gm/dl Hct (35.5-45.6) % POC ABG pO2 (80-105) Chloride (98-107) mmol/L Carbon Dioxide (22-30) mmol/L BUN (9-20) mg/dL Glucose (75-100) mg/dL POC Glucose 108 H (70-105) Calcium (8.4-10.2) mg/dL Crossmatch
[2018-05-08 16:21] LABS: Hematocrit 23.3 % (35.5-45.6); Hemoglobin 7.8 gm/dl (11.8-15.2)
--- NOTE | 2018-05-08 19:48 | XRay Report ---
FINAL REPORT EXAM: XR CHEST 1V AP HISTORY: follow up respiratory failure TECHNIQUE: Frontal portable chest x-ray Comparison: Earlier same day, 04/11/2018 FINDINGS: Patient remains intubated endotracheal tube tip well above the pancho. Nasogastric tube is unchanged with tip in the region of the gastric body. Right IJ central line is present with tip in the region the distal superior vena cava, unchanged. No pneumothorax. Heart size is normal. Lungs are clear and well expanded without focal infiltrate or consolidation. There is lucency projecting over the right hemidiaphragm medially which may represent free intraperitoneal air versus air-filled colon superimposed above the hemidiaphragm. There is an instrument count exam performed earlier same day suggesting the patient has recently undergone surgery. A midline vertical subxiphoid staple line is incompletely imaged. IMPRESSION: Well aerated lungs. Intubated patient. Free intraperitoneal air appears to be related to abdominal surgery same day. Jarrett critical level 2. Findings called on 05/08/2018 at 1940 hours.
[2018-05-08] MEDS: DULCOLAX PR SCH (21:50)
[2018-05-08 21:52] LABS: Hematocrit 21.8 % (35.5-45.6); Hemoglobin 7.5 gm/dl (11.8-15.2)
[2018-05-09] MEDS ORDERED: NACL 0.9% 500 ML 500 ML IV ONE (02:09)
[2018-05-09] MEDS: LOPRESSOR IV SCH ×4 (03:00→17:38)
--- NOTE | 2018-05-09 04:20 | XRay Report ---
FINAL REPORT PROCEDURE: XR CHEST 1V AP TECHNIQUE: Chest radiograph anteroposterior view. CPT 51783 HISTORY: follow up respiratory failure COMPARISON: No prior studies are available for comparison. FINDINGS: Heart: Normal. Mediastinum/Vessels: Normal. Lungs/Pleural space: Lungs are expanded. There are no infiltrates. There is no pleural effusion or pneumothorax.. Bony thorax: No acute osseous abnormality. Life support devices: Endotracheal tube is in the mid trachea. NG tube is in the stomach. There is a right-sided central venous catheter. The tip is the superior vena cava.. IMPRESSION: The heart size is normal.. Lungs are expanded. There are no infiltrates. There is no pleural effusion or pneumothorax.. Endotracheal tube is in the mid trachea. NG tube is in the stomach. There is a right-sided central venous catheter. The tip is the superior vena cava..
[2018-05-09] MEDS: fentaNYL DRIP Premix 2,000 MCG/100 ML BAG IV SCH (06:06)
[2018-05-09] MEDS: NACL 0.9% 1000 ML 1,000 ML IV SCH (07:00)
[2018-05-09 08:08] LABS: Hematocrit 25.3 % (35.5-45.6); Hemoglobin 8.5 gm/dl (11.8-15.2); Mean Corpuscular HGB Conc 33 % (32-34); Mean Corpuscular Hemoglobin 30 pg (28-32); Mean Corpuscular Volume 91 fl (84-94); Platelet Count 239 K/mm3 (140-440); Red Cell Distribution Width 17.4 % (13.2-15.2)
[2018-05-09] MEDS: DULCOLAX PR SCH (09:10)
[2018-05-09] MEDS: SODIUM CHLORIDE FLUSH SYRINGE 10 ML IV SCH ×2 (10:00→22:08)
[2018-05-09] MEDS ORDERED: LOPRESSOR IV ONE ×2 (10:00→13:00)
[2018-05-09] MEDS ORDERED: APRESOLINE IV PRN ×2 (11:12→16:54)
--- NOTE | 2018-05-09 11:17 | Progress Note ---
Assessment and Plan Rupture Abdominal aortic aneurysm, - s/p repair, monitor H/h Hypertension, accelerated - start on labetalol drip, clonidine patch Diabetes type 2, SSI as needed Acute respiratory failure - wean off vent as tolerated Anemia, likely due to blood loss from AAA tear - transfuse as needed to keep Hb >8.0 The high probability of a clinically significant, sudden or life threatening deterioration of the [multiple] system(s) required my full and direct attention , intervention and personal management. The aggregate critical care time was [35 ] minutes. This time is in addition to time spent performing reported procedures but includes the following: [x] Data Review and interpretation [x] Patient assessment and monitoring of vital signs [x] Documentation [x Medication orders and management Physical exam: General appearance: Present: other (sedated intubated) - EENT Eyes: no scleral icterus, no conjunctival injection ENT: dentition normal, no thrush, no ulcerations Ears: bilateral: normal - Neck Neck: no enlarged thyroid, no masses or JVD - Respiratory Respiratory effort: normal (on mechanical ventillation) Respiratory: bilateral: CTA - Breasts Breasts: normal - Cardiovascular Rhythm: regular Heart Sounds: Present: S1 & S2. Absent: gallop, rub Extremities: pulses intact, No edema, normal color, Full ROM - Gastrointestinal General gastrointestinal: Present: soft, non-distended, other (surgical dressing on place) - Integumentary Integumentary: clear, warm, dry - Musculoskeletal Musculoskeletal: other (no joint swelling) - Neurologic Neurologic: other (unable to assess, sedated) Subjective Date of service: 05/09/18 Interval history: Patient intubated and sedated Vitals notes, discussed with RN at bedside No acute o/n issue Plan to wean off vent as tolerated Objective - Constitutional Vitals: Vital Signs - 12hr 05/08/18 05/08/18 05/08/18 23:31 23:45 23:52 Temperature Pulse Rate 110 H 110 H 110 H Pulse Rate [ From Monitor] Respiratory 18 18 Rate Blood Pressure 140/78 140/78 155/63 O2 Sat by Pulse 100 100 100 Oximetry 05/09/18 05/09/18 05/09/18 00:00 00:15 00:31 Temperature 98.0 F Pulse Rate 110 H 110 H 108 H Pulse Rate [ From Monitor] Respiratory 18 33 H 18 Rate Blood Pressure 141/76 141/76 140/78 O2 Sat by Pulse 99 100 100 Oximetry 05/09/18 05/09/18 05/09/18 00:45 01:00 01:15 Temperature Pulse Rate 107 H 106 H 105 H Pulse Rate [ From Monitor] Respiratory 19 17 15 Rate Blood Pressure 140/78 139/77 139/77 O2 Sat by Pulse 100 99 100 Oximetry 05/09/18 05/09/18 05/09/18 01:31 01:45 02:00 Temperature Pulse Rate 107 H 106 H 108 H Pulse Rate [ From Monitor] Respiratory 12 22 18 Rate Blood Pressure 139/77 139/77 147/80 O2 Sat by Pulse 100 100 98 Oximetry 05/09/18 05/09/18 05/09/18 02:15 02:31 02:45 Temperature Pulse Rate 110 H 114 H 112 H Pulse Rate [ From Monitor] Respiratory 17 32 H 39 H Rate Blood Pressure 147/80 147/80 147/80 O2 Sat by Pulse 99 100 99 Oximetry 05/09/18 05/09/18 05/09/18 02:47 03:00 03:02 Temperature 98.5 F 98.4 F Pulse Rate 113 H 97 H 100 H Pulse Rate [ From Monitor] Respiratory 23 26 H 25 H Rate Blood Pressure 147/80 145/79 147/80 O2 Sat by Pulse 100 Oximetry 05/09/18 05/09/18 05/09/18 03:15 03:31 03:32 Temperature 94.4 F L Pulse Rate 98 H 98 H 97 H Pulse Rate [ From Monitor] Respiratory 21 21 24 Rate Blood Pressure 145/79 145/79 145/79 O2 Sat by Pulse 100 100 Oximetry 05/09/18 05/09/18 05/09/18 03:45 04:00 04:02 Temperature 98.3 F 94.6 F L Pulse Rate 98 H 98 H 99 H Pulse Rate [ From Monitor] Respiratory 25 H 24 24 Rate Blood Pressure 145/79 152/80 160/63 O2 Sat by Pulse 100 99 100 Oximetry 05/09/18 05/09/18 05/09/18 04:15 04:31 04:32 Temperature 94.4 F L Pulse Rate 98 H 96 H 100 H Pulse Rate [ From Monitor] Respiratory 20 23 20 Rate Blood Pressure 152/80 152/80 161/83 O2 Sat by Pulse 100 100 Oximetry 05/09/18 05/09/1818 04:45 05:00 05:15 Temperature Pulse Rate 97 H 101 H 111 H Pulse Rate [ From Monitor] Respiratory 28 H 22 26 H Rate Blood Pressure 152/80 161/83 161/83 O2 Sat by Pulse 100 99 100 Oximetry 05/09/18 05/09/18 05/09/18 05:31 05:45 05:59 Temperature Pulse Rate 105 H 108 H 104 H Pulse Rate [ From Monitor] Respiratory 19 31 H Rate Blood Pressure 161/83 161/83 161/83 O2 Sat by Pulse 100 100 Oximetry 05/09/18 05/09/18 05/09/18 06:00 06:15 06:31 Temperature Pulse Rate 96 H 94 H 92 H Pulse Rate [ From Monitor] Respiratory 20 18 23 Rate Blood Pressure 151/79 151/79 151/79 O2 Sat by Pulse 99 100 100 Oximetry 05/09/18 05/09/18 05/09/18 06:45 07:00 07:15 Temperature Pulse Rate 91 H 94 H 94 H Pulse Rate [ From Monitor] Respiratory 23 18 17 Rate Blood Pressure 151/79 154/80 154/80 O2 Sat by Pulse 100 99 100 Oximetry 05/09/18 05/09/18 05/09/18 07:31 07:45 08:00 Temperature 98.9 F Pulse Rate 99 H 113 H 97 H Pulse Rate [ 97 H From Monitor] Respiratory 16 18 11 L Rate Blood Pressure 154/80 154/80 164/83 O2 Sat by Pulse 100 100 99 Oximetry 05/09/18 05/09/18 05/09/18 08:15 08:31 09:09 Temperature Pulse Rate 96 H 98 H 107 H Pulse Rate [ From Monitor] Respiratory 19 14 Rate Blood Pressure 164/83 164/83 173/85 O2 Sat by Pulse 100 100 Oximetry 05/09/18 09:11 Temperature Pulse Rate 92 H Pulse Rate [ From Monitor] Respiratory Rate Blood Pressure 170/83 O2 Sat by Pulse 100 Oximetry - Labs CBC & Chem 7: 05/09/18 07:00 05/08/18 00:10 Labs: Abnormal lab results 05/06/18 05/08/18 05/08/18 Range/Units 21:20 13:01 16:00 RBC (3.65-5.03) M/mm3 Hgb 7.8 L (11.8-15.2) gm/dl Hct 23.3 L (35.5-45.6) % RDW (13.2-15.2) % POC ABG pO2 (80-105) POC Glucose 108 H (70-105) Crossmatch See Detail 05/08/18 05/08/18 05/08/18 Range/Units 18:03 21:40 23:28 RBC (3.65-5.03) M/mm3 Hgb 7.5 L (11.8-15.2) gm/dl Hct 21.8 L (35.5-45.6) % RDW (13.2-15.2) % POC ABG pO2 (80-105) POC Glucose 136 H 145 H (70-105) Crossmatch 05/09/18 05/09/18 05/09/18 Range/Units 04:01 05:22 07:00 RBC 2.80 L (3.65-5.03) M/mm3 Hgb 8.5 L (11.8-15.2) gm/dl Hct 25.3 L (35.5-45.6) % RDW 17.4 H (13.2-15.2) % POC ABG pO2 139 H (80-105) POC Glucose 115 H (70-105) Crossmatch
[2018-05-09] MEDS: PEPCID IV SCH ×2 (12:21→22:08)
--- NOTE | 2018-05-09 13:24 | Progress Note ---
Assessment and Plan Acute hypoxemic respiratory failure, post op on MVS Ruptured Abdominal aortic aneurysm Hypertension Diabetes -VAP bundle addressed, weaning today as tolerated. If he tolerates it and if his mental status acceptable plan to liberate from MVS -wean supplemental oxygen for O2 sats>90% -SAT and SBT -VTE prophylaxis--SCDs for now -Aspiration precautions -NGT to LIS - Stress ulcer prophylaxis -Blood pressure control -Monitor Hand H -Analgesia and agitation management -Rass -1 -Accuchecks with glycemic control -Blood pressure management - FULL CODE The high probability of a clinically significant, sudden or life threatening deterioration of the [respiratory,cardiovascular, renal] system(s) required my full and direct attention, intervention and personal management. The aggregate critical care time was [30] minutes without overlap. Time includes spent on; [x] Data Review and interpretation [x] Patient assessment and monitoring of vital signs [x] Documentation [x] Medication orders and management Subjective Date of service: 05/09/18 Interval history: F/UP: Post operative respiratory failure(hypoxia), s/p repair of ruptured AAA, hypertension Patient was seen and examined. Vitals, labs, medications, chart and imaging reviewed. Discussed with RN and RT in ICU-IDT rounds Start weaning trials today Objective - Exam Narrative Exam: Gen: intubated, responds to painful stimuli and tactile and verbal stimuli Opens eyes, ENT: ETT and OGT in place CV: S1, S2+, no murmurs, gallops or rubs Resp: Good AE bilaterally, CTA Abd: soft, ND, + appropriate TTP near midline incision. Dressing with serous drainage. Ext: no c/c/e. B/L groin incisions c/d/i Vital Signs - 12hr 05/09/18 05/09/18 05/09/18 01:31 01:45 02:00 Temperature Pulse Rate 107 H 106 H 108 H Pulse Rate [ From Monitor] Respiratory 12 22 18 Rate Blood Pressure 139/77 139/77 147/80 O2 Sat by Pulse 100 100 98 Oximetry 05/09/18 05/09/18 05/09/18 02:15 02:31 02:45 Temperature Pulse Rate 110 H 114 H 112 H Pulse Rate [ From Monitor] Respiratory 17 32 H 39 H Rate Blood Pressure 147/80 147/80 147/80 O2 Sat by Pulse 99 100 99 Oximetry 05/09/18 05/09/1818 02:47 03:00 03:02 Temperature 98.5 F 98.4 F Pulse Rate 113 H 97 H 100 H Pulse Rate [ From Monitor] Respiratory 23 26 H 25 H Rate Blood Pressure 147/80 145/79 147/80 O2 Sat by Pulse 100 Oximetry 05/09/18 05/09/18 05/09/18 03:15 03:31 03:32 Temperature 94.4 F L Pulse Rate 98 H 98 H 97 H Pulse Rate [ From Monitor] Respiratory 21 21 24 Rate Blood Pressure 145/79 145/79 145/79 O2 Sat by Pulse 100 100 Oximetry 05/09/18 05/09/18 05/09/18 03:45 04:00 04:02 Temperature 98.3 F 94.6 F L Pulse Rate 98 H 98 H 99 H Pulse Rate [ From Monitor] Respiratory 25 H 24 24 Rate Blood Pressure 145/79 152/80 160/63 O2 Sat by Pulse 100 99 100 Oximetry 05/09/18 05/09/18 05/09/18 04:15 04:31 04:32 Temperature 94.4 F L Pulse Rate 98 H 96 H 100 H Pulse Rate [ From Monitor] Respiratory 20 23 20 Rate Blood Pressure 152/80 152/80 161/83 O2 Sat by Pulse 100 100 Oximetry 05/09/18 05/09/18 05/09/18 04:45 05:00 05:15 Temperature Pulse Rate 97 H 101 H 111 H Pulse Rate [ From Monitor] Respiratory 28 H 22 26 H Rate Blood Pressure 152/80 161/83 161/83 O2 Sat by Pulse 100 99 100 Oximetry 05/09/18 05/09/18 05/09/18 05:31 05:45 05:59 Temperature Pulse Rate 105 H 108 H 104 H Pulse Rate [ From Monitor] Respiratory 19 31 H Rate Blood Pressure 161/83 161/83 161/83 O2 Sat by Pulse 100 100 Oximetry 05/09/18 05/09/18 05/09/18 06:00 06:15 06:31 Temperature Pulse Rate 96 H 94 H 92 H Pulse Rate [ From Monitor] Respiratory 20 18 23 Rate Blood Pressure 151/79 151/79 151/79 O2 Sat by Pulse 99 100 100 Oximetry 05/09/18 05/09/18 05/09/18 06:45 07:00 07:15 Temperature Pulse Rate 91 H 94 H 94 H Pulse Rate [ From Monitor] Respiratory 23 18 17 Rate Blood Pressure 151/79 154/80 154/80 O2 Sat by Pulse 100 99 100 Oximetry 05/09/18 05/09/18 05/09/18 07:31 07:45 08:00 Temperature 98.9 F Pulse Rate 99 H 113 H 97 H Pulse Rate [ 97 H From Monitor] Respiratory 16 18 11 L Rate Blood Pressure 154/80 154/80 164/83 O2 Sat by Pulse 100 100 99 Oximetry 05/09/18 05/09/18 05/09/18 08:15 08:31 09:09 Temperature Pulse Rate 96 H 98 H 107 H Pulse Rate [ From Monitor] Respiratory 19 14 Rate Blood Pressure 164/83 164/83 173/85 O2 Sat by Pulse 100 100 Oximetry 05/09/18 05/09/18 05/09/18 09:11 11:19 11:32 Temperature Pulse Rate 92 H 111 H 108 H Pulse Rate [ From Monitor] Respiratory Rate Blood Pressure 170/83 156/78 180/88 O2 Sat by Pulse 100 94 Oximetry 05/09/18 12:22 Temperature Pulse Rate 105 H Pulse Rate [ From Monitor] Respiratory Rate Blood Pressure 198/74 O2 Sat by Pulse Oximetry CBC and BMP: 05/12/18 03:50 05/12/18 03:50 ABG, PT/INR, D-dimer: ABG POC ABG pH 7.423 (7.35-7.45) 05/09/18 04:01 POC ABG pCO2 40.0 (35-45) 05/09/18 04:01 POC ABG pO2 139 (80-105) H 05/09/18 04:01 POC ABG HCO3 26.1 05/09/18 04:01 POC ABG Total CO2 27 05/09/18 04:01 POC ABG O2 Sat 99 05/09/18 04:01 Abnormal lab findings: Abnormal Labs 05/06/18 05/06/18 05/06/18 17:41 17:41 21:20 RBC Hgb 11.0 L Hct 32.8 L RDW 18.5 H Plt Count 479 H Lymph % (Auto) 42.2 H POC ABG pO2 Chloride 95.8 L Carbon Dioxide BUN Creatinine 0.5 L Glucose 114 H POC Glucose Calcium Magnesium Total Protein 8.3 H Albumin 3.5 L Crossmatch See Detail 05/07/18 05/07/18 05/07/18 05:00 05:00 05:00 RBC 2.74 L Hgb 8.2 L Hct 24.8 L D RDW 18.7 H Plt Count Lymph % (Auto) POC ABG pO2 Chloride Carbon Dioxide 20 L BUN 21 H Creatinine Glucose 189 H POC Glucose Calcium 7.4 L D Magnesium 1.20 L Total Protein Albumin Crossmatch 05/07/18 05/07/18 05/07/18 05:05 12:44 17:01 RBC Hgb 7.8 L Hct 23.2 L RDW Plt Count Lymph % (Auto) POC ABG pO2 547 H Chloride Carbon Dioxide BUN Creatinine Glucose POC Glucose 168 H Calcium Magnesium Total Protein Albumin Crossmatch 05/07/18 05/07/18 05/07/18 17:58 21:33 23:26 RBC Hgb 7.8 L Hct 24.1 L RDW Plt Count Lymph % (Auto) POC ABG pO2 Chloride Carbon Dioxide BUN Creatinine Glucose POC Glucose 178 H 151 H Calcium Magnesium Total Protein Albumin Crossmatch 05/08/18 05/08/18 05/08/18 00:10 04:23 06:08 RBC Hgb Hct RDW Plt Count Lymph % (Auto) POC ABG pO2 216 H Chloride 110.4 H Carbon Dioxide 19 L BUN 27 H Creatinine Glucose 160 H POC Glucose 148 H Calcium 7.6 L Magnesium Total Protein Albumin Crossmatch 05/08/18 05/08/18 05/08/18 06:15 13:01 16:00 RBC Hgb 7.2 L 7.8 L Hct 21.7 L 23.3 L RDW Plt Count Lymph % (Auto) POC ABG pO2 Chloride Carbon Dioxide BUN Creatinine Glucose POC Glucose 108 H Calcium Magnesium Total Protein Albumin Crossmatch 05/08/18 05/08/18 05/08/18 18:03 21:40 23:28 RBC Hgb 7.5 L Hct 21.8 L RDW Plt Count Lymph % (Auto) POC ABG pO2 Chloride Carbon Dioxide BUN Creatinine Glucose POC Glucose 136 H 145 H Calcium Magnesium Total Protein Albumin Crossmatch 05/09/18 05/09/18 05/09/18 04:01 05:22 07:00 RBC 2.80 L Hgb 8.5 L Hct 25.3 L RDW 17.4 H Plt Count Lymph % (Auto) POC ABG pO2 139 H Chloride Carbon Dioxide BUN Creatinine Glucose POC Glucose 115 H Calcium Magnesium Total Protein Albumin Crossmatch 05/09/18 11:52 RBC Hgb Hct RDW Plt Count Lymph % (Auto) POC ABG pO2 Chloride Carbon Dioxide BUN Creatinine Glucose POC Glucose 114 H Calcium Magnesium Total Protein Albumin Crossmatch Chest x-ray: image reviewed
[2018-05-09] MEDS: APRESOLINE PO SCH ×2 (13:52→22:03)
[2018-05-09] MEDS ORDERED: CATAPRES-TTS PATCH TD SCH (14:00)
--- NOTE | 2018-05-09 15:55 | Progress Note ---
Assessment and Plan s/p open AAA repair continue vent management as per pulmonary hypertensive > 200 - control BP urine output adequate keep NGT after extubation for now Subjective Date of service: 05/09/18 Principal diagnosis: ruptured AAA Interval history: Patient remains intubated, on fentanyl drip, easily arousable Objective - Exam Narrative Exam: Abdominal midline dressing c/d/i, groin incisions c/d/i. palpable distal pulses NGT in place - Constitutional Vitals: Vital Signs - 12hr 05/09/18 05/09/18 05/09/18 04:00 04:02 04:15 Temperature 98.3 F 94.6 F L Pulse Rate 98 H 99 H 98 H Pulse Rate [ From Monitor] Respiratory 24 24 20 Rate Blood Pressure 152/80 160/63 152/80 O2 Sat by Pulse 99 100 100 Oximetry 05/09/18 05/09/18 05/09/18 04:31 04:32 04:45 Temperature 94.4 F L Pulse Rate 96 H 100 H 97 H Pulse Rate [ From Monitor] Respiratory 23 20 28 H Rate Blood Pressure 152/80 161/83 152/80 O2 Sat by Pulse 100 100 Oximetry 05/09/18 05/09/18 05/09/18 05:00 05:15 05:31 Temperature Pulse Rate 101 H 111 H 105 H Pulse Rate [ From Monitor] Respiratory 22 26 H 19 Rate Blood Pressure 161/83 161/83 161/83 O2 Sat by Pulse 99 100 100 Oximetry 05/09/18 05/09/18 05/09/18 05:45 05:59 06:00 Temperature Pulse Rate 108 H 104 H 96 H Pulse Rate [ From Monitor] Respiratory 31 H 20 Rate Blood Pressure 161/83 161/83 151/79 O2 Sat by Pulse 100 99 Oximetry 05/09/18 05/09/18 05/09/18 06:15 06:31 06:45 Temperature Pulse Rate 94 H 92 H 91 H Pulse Rate [ From Monitor] Respiratory 18 23 23 Rate Blood Pressure 151/79 151/79 151/79 O2 Sat by Pulse 100 100 100 Oximetry 05/09/18 05/09/18 05/09/18 07:00 07:15 07:31 Temperature Pulse Rate 94 H 94 H 99 H Pulse Rate [ From Monitor] Respiratory 18 17 16 Rate Blood Pressure 154/80 154/80 154/80 O2 Sat by Pulse 99 100 100 Oximetry 05/09/18 05/09/18 05/09/18 07:45 08:00 08:15 Temperature 98.9 F Pulse Rate 113 H 97 H 96 H Pulse Rate [ 97 H From Monitor] Respiratory 18 11 L 19 Rate Blood Pressure 154/80 164/83 164/83 O2 Sat by Pulse 100 99 100 Oximetry 05/09/18 05/09/18 05/09/18 08:31 09:09 09:11 Temperature Pulse Rate 98 H 107 H 92 H Pulse Rate [ From Monitor] Respiratory 14 Rate Blood Pressure 164/83 173/85 170/83 O2 Sat by Pulse 100 100 Oximetry 05/09/18 05/09/18 05/09/18 11:19 11:32 12:22 Temperature Pulse Rate 111 H 108 H 105 H Pulse Rate [ From Monitor] Respiratory Rate Blood Pressure 156/78 180/88 198/74 O2 Sat by Pulse 94 Oximetry 05/09/18 13:52 Temperature Pulse Rate 103 H Pulse Rate [ From Monitor] Respiratory Rate Blood Pressure 185/88 O2 Sat by Pulse Oximetry - Labs CBC & Chem 7: 05/09/18 07:00 05/08/18 00:10 Labs: Abnormal lab results 05/06/18 05/08/18 05/08/18 Range/Units 21:20 16:00 18:03 RBC (3.65-5.03) M/mm3 Hgb 7.8 L (11.8-15.2) gm/dl Hct 23.3 L (35.5-45.6) % RDW (13.2-15.2) % POC ABG pO2 (80-105) POC Glucose 136 H (70-105) Crossmatch See Detail 05/08/18 05/08/18 05/09/18 Range/Units 21:40 23:28 04:01 RBC (3.65-5.03) M/mm3 Hgb 7.5 L (11.8-15.2) gm/dl Hct 21.8 L (35.5-45.6) % RDW (13.2-15.2) % POC ABG pO2 139 H (80-105) POC Glucose 145 H (70-105) Crossmatch 05/09/18 05/09/18 05/09/18 Range/Units 05:22 07:00 11:52 RBC 2.80 L (3.65-5.03) M/mm3 Hgb 8.5 L (11.8-15.2) gm/dl Hct 25.3 L (35.5-45.6) % RDW 17.4 H (13.2-15.2) % POC ABG pO2 (80-105) POC Glucose 115 H 114 H (70-105) Crossmatch
[2018-05-09] MEDS ORDERED: NORMODYNE IV ONE (16:53)
[2018-05-09] MEDS: NORMODYNE 200 MG in D5W 160 ML IV SCH ×3 (17:31→21:22)
[2018-05-09] MEDS: HEPARIN SUB-Q SCH (22:07)
[2018-05-09] MEDS: KEPPRA PO SCH (22:07)
--- NOTE | 2018-05-10 03:04 | XRay Report ---
FINAL REPORT PROCEDURE: XR CHEST 1V AP TECHNIQUE: Chest radiograph anteroposterior view. CPT 10519 HISTORY: follow up respiratory failure COMPARISON: 05/09/2018 FINDINGS: Heart: Normal. Mediastinum/Vessels: Normal. Lungs/Pleural space: Lungs are expanded. There are no infiltrates, effusions or pneumothoraces.. Bony thorax: No acute osseous abnormality. Life support devices: ET tube is in the mid trachea. NG tube is in the stomach.. There is pneumoperitoneum with air under the right hemidiaphragm. IMPRESSION: Heart size is normal. Lungs are expanded. There are no infiltrates, effusions or pneumothoraces.. ET tube is in the mid trachea. NG tube is in the stomach.. There is pneumoperitoneum with air under the right hemidiaphragm. DAVID Olivares was notified by telephone at 1:57 a.m. central. .
--- NOTE | 2018-05-10 04:01 | Event Note ---
Date: 05/10/18 NURSE CALLED ABOUT PATIENT'S X-RAY THAT SHOWS PNEUMOPERITONEUM. PATIENT IS INTUBATED AND ALSO HAS NG TUBE IN PLACE IN PLACE IN THE STOMACH AND NOT IN DISTRESS PLAN: WILL CONSULT GENERAL SURGERY TO EVALUATE PATIENT AND ALSO ORDER WRIST RESTRAINT PER THE NURSE'S REQUEST.
[2018-05-10 05:54] LABS: Basophils % (Auto) 0.4 % (0.0-1.8); Eosinophils # (Auto) 0.1 K/mm3 (0.0-0.4); Eosinophils % (Auto) 0.6 % (0.0-4.3); Hematocrit 26.2 % (35.5-45.6); Hemoglobin 8.9 gm/dl (11.8-15.2); Lymphocytes # (Auto) 1.2 K/mm3 (1.2-5.4); Lymphocytes % (Auto) 13.5 % (13.4-35.0); Mean Corpuscular HGB Conc 34 % (32-34); Mean Corpuscular Hemoglobin 31 pg (28-32); Mean Corpuscular Volume 90 fl (84-94); Monocytes # (Auto) 0.5 K/mm3 (0.0-0.8); Monocytes % (Auto) 5.3 % (0.0-7.3); Platelet Count 280 K/mm3 (140-440); Red Blood Count 2.93 M/mm3 (3.65-5.03); Red Cell Distribution Width 17.9 % (13.2-15.2)
[2018-05-10 06:27] LABS: BUN/Creatinine Ratio 50; Blood Urea Nitrogen 25 mg/dL (9-20); Calcium 8.8 mg/dL (8.4-10.2); Hemolysis Index 29
[2018-05-10] MEDS: ZOFRAN IV PRN ×2 (06:44→11:50)
[2018-05-10] MEDS: APRESOLINE PO SCH ×3 (08:29→20:44)
[2018-05-10] MEDS: NORMODYNE 200 MG in D5W 160 ML IV SCH (08:32)
--- NOTE | 2018-05-10 09:12 | Consultation ---
History of Present Illness Consult date: 05/10/18 Chief complaint: pneumoperitoneum - History of present illness History of present illness: 53 yo M who presented to the ER with abdominal pain. He was found to have a large infrarenal abdominal aortic aneurysm. He was taken to the OR by vascular surgery and underwent an open AAA repair on 05/07/18. The patient is currently intubated and all of the history is obtained from the chart. The patient has had serial CXR while on vent. Last CXR showed free air and surgery is consulted for evaluation. Per nursing, the patient did have one episode of emesis overnight and TF were held. This am, he had no residual from NGT and TF were started at a lower rate. Past History Past Medical History: diabetes, hypertension. denies: CAD Past Surgical History: No surgical history Social history: , lives with family Family history: no significant family history Medications and Allergies Allergies Allergy/AdvReac Type Severity Reaction Status Date / Time No Known Drug Allergies Allergy Unknown Verified 04/14/18 06:34 Home Medications Medication Instructions Recorded Confirmed Last Taken Type Acetaminophen 650 mg PO Q8H PRN 04/12/18 04/12/18 Unknown History Lisinopril [Zestril] 20 mg PO DAILY 04/12/18 04/12/18 Unknown History traMADol [Ultram 50 MG tab] 50 mg PO Q8H PRN 04/12/18 04/12/18 Unknown History Metoprolol [Lopressor TAB] 25 mg PO BID #60 tablet 04/15/18 Unknown Rx diphenhydrAMINE [Benadryl CAP] 25 mg PO Q6H PRN #14 capsule 04/15/18 Unknown Rx glipiZIDE [Glucotrol] 5 mg PO QDDIAB #60 tablet 04/15/18 Unknown Rx levETIRAcetam [Keppra TAB] 500 mg PO BID #60 tablet 04/15/18 Unknown Rx Active Meds: Active Medications Lipase/Protease/Amylase (Jose L Toribio 10,500 Unit) 1 each FEEDTUBE PRN PRN PRN Reason: For Clogged Feeding Tube Bisacodyl (Dulcolax) [address] [facility] Last Admin: 05/09/18 09:10 Dose: 10 mg Clonidine HCl (Catapres-Tts Patch) 0.2 mg TD Mo BARBARA Last Admin: 05/09/18 13:52 Dose: 0.2 mg Dextrose (D50w (25gm) Syringe) 50 ml IV PRN PRN PRN Reason: Hypoglycemia Famotidine (Pepcid) [address] [facility] Last Admin: 05/09/18 22:08 Dose: 20 mg Heparin Sodium (Porcine) (Heparin) 5,000 unit SUB-Q Q12HR [facility] Last Admin: 05/09/18 22:07 Dose: 5,000 unit Hydralazine HCl (Apresoline) [address] [facility] Last Admin: 05/10/18 08:29 Dose: 100 mg Hydralazine HCl (Apresoline) 10 mg IV Q30MIN PRN PRN Reason: HTN SYS>160 PALU>100 Hydrophilic Ointment (Vaseline Lip Therapy) 1 applic TP Q2HR PRN PRN Reason: Dry Lips Fentanyl Citrate (Fentanyl Drip Premix) 2,000 mcg in 100 mls @ 2.79 mls/hr IV TITR [facility]; Protocol Last Titration: 05/10/18 08:14 Dose: 0 mcg/kg/hr, 0 mls/hr Labetalol HCl 200 mg/ Dextrose 200 mls @ 120 mls/hr IV TITR [facility]; Protocol Last Titration: 05/10/18 08:55 Dose: 0 mg/min, 0 mls/hr Levetiracetam (Keppra) [address] [facility] Last Admin: 05/09/18 22:07 Dose: 500 mg Lisinopril (Zestril) [address] [facility] Multi-Ingred Cream/Lotion/Oil/Oint (Artificial Tears Ophth Oint) 1 applic OU Q4HR PRN PRN Reason: Dry Eye(s) Ondansetron HCl (Zofran) 4 mg IV Q8H PRN PRN Reason: Nausea And Vomiting Last Admin: 05/10/18 06:44 Dose: 4 mg Simple Syrup (Simple Syrup) 15 ml FEEDTUBE PRN PRN PRN Reason: Hypoglycemia Simple Syrup (Simple Syrup) 30 ml FEEDTUBE PRN PRN PRN Reason: Hypoglycemia Sodium Bicarbonate (Sodium Bicarbonate) 325 mg FEEDTUBE PRN PRN PRN Reason: For Clogged Feeding Tube Sodium Chloride (Sodium Chloride Flush Syringe 10 Ml) [address] [facility] Last Admin: 05/09/18 22:08 Dose: 10 ml Sodium Chloride (Sodium Chloride Flush Syringe 10 Ml) 10 ml IV PRN PRN PRN Reason: LINE FLUSH Review of Systems ROS unobtainable: due to endotracheal tube Exam Vital Signs Temp Pulse BP Pulse Ox 98.9 F 115 H 154/88 100 05/06/18 17:30 05/06/18 17:30 05/06/18 17:30 05/06/18 17:30 Narrative exam: Gen: intubated, responds to painful stimuli ENT: ETT and OGT in place CV: S1, s2+ resp: even and unlabored Abd: soft, ND, + appropriate TTP near midline incision. Dressing with serous drainage. Ext: no c/c/e. B/L groin incisions c/d/i Results - Labs 05/10/18 05:30 05/10/18 05:30 Abnormal lab results 05/06/18 05/09/18 05/09/18 Range/Units 21:20 11:52 19:04 RBC (3.65-5.03) M/mm3 Hgb (11.8-15.2) gm/dl Hct (35.5-45.6) % RDW (13.2-15.2) % Seg Neutrophils % (40.0-70.0) % POC ABG pO2 (80-105) Sodium (137-145) mmol/L Chloride (98-107) mmol/L Carbon Dioxide (22-30) mmol/L BUN (9-20) mg/dL Creatinine (0.8-1.5) mg/dL Glucose (75-100) mg/dL POC Glucose 114 H 144 H (70-105) Crossmatch See Detail 05/10/18 05/10/18 05/10/18 Range/Units 00:13 05:28 05:30 RBC 2.93 L (3.65-5.03) M/mm3 Hgb 8.9 L (11.8-15.2) gm/dl Hct 26.2 L (35.5-45.6) % RDW 17.9 H (13.2-15.2) % Seg Neutrophils % 80.2 H (40.0-70.0) % POC ABG pO2 114 H (80-105) Sodium (137-145) mmol/L Chloride (98-107) mmol/L Carbon Dioxide (22-30) mmol/L BUN (9-20) mg/dL Creatinine (0.8-1.5) mg/dL Glucose (75-100) mg/dL POC Glucose 146 H (70-105) Crossmatch 05/10/18 05/10/18 Range/Units 05:30 05:30 RBC (3.65-5.03) M/mm3 Hgb (11.8-15.2) gm/dl Hct (35.5-45.6) % RDW (13.2-15.2) % Seg Neutrophils % (40.0-70.0) % POC ABG pO2 (80-105) Sodium 146 H (137-145) mmol/L Chloride 112.8 H (98-107) mmol/L Carbon Dioxide 19 L (22-30) mmol/L BUN 25 H (9-20) mg/dL Creatinine 0.5 L D (0.8-1.5) mg/dL Glucose 150 H (75-100) mg/dL POC Glucose 151 H (70-105) Crossmatch Diabetes panel 05/10/18 Range/Units 05:30 Sodium 146 H (137-145) mmol/L Potassium 3.6 (3.6-5.0) mmol/L Chloride 112.8 H (98-107) mmol/L Carbon Dioxide 19 L (22-30) mmol/L BUN 25 H (9-20) mg/dL Creatinine 0.5 L D (0.8-1.5) mg/dL Glucose 150 H (75-100) mg/dL Calcium 8.8 D (8.4-10.2) mg/dL Calcium panel 05/10/18 Range/Units 05:30 Calcium 8.8 D (8.4-10.2) mg/dL Pituitary panel 05/10/18 Range/Units 05:30 Sodium 146 H (137-145) mmol/L Potassium 3.6 (3.6-5.0) mmol/L Chloride 112.8 H (98-107) mmol/L Carbon Dioxide 19 L (22-30) mmol/L BUN 25 H (9-20) mg/dL Creatinine 0.5 L D (0.8-1.5) mg/dL Glucose 150 H (75-100) mg/dL Calcium 8.8 D (8.4-10.2) mg/dL Adrenal panel 05/10/18 Range/Units 05:30 Sodium 146 H (137-145) mmol/L Potassium 3.6 (3.6-5.0) mmol/L Chloride 112.8 H (98-107) mmol/L Carbon Dioxide 19 L (22-30) mmol/L BUN 25 H (9-20) mg/dL Creatinine 0.5 L D (0.8-1.5) mg/dL Glucose 150 H (75-100) mg/dL Calcium 8.8 D (8.4-10.2) mg/dL - Imaging Chest x-ray: report reviewed, image reviewed Assessment and Plan 53 yo M s/p open AAA repair 05/07/18 with pneumoperitoneum on CXR CXR 05/08-05/10 reviewed - there is pneumoperitoneum on CXR from 05/08 and 05/10 Plan: The patient underwent recent abdominal exploration and repair of AAA. He is hemodynamically stable and afebrile. His abdomen is appropriately TTP due to midline incision. No peritoneal signs. Pneumoperitoneum is likely related to recent abdominal surgery. 1. continue vent management per ICU 2. post op management per vascular surgery 3. may c/w TF as tolerated 4. no acute surgical intervention at this time. Thank you for this consultation, please call with questions or concerns.
[2018-05-10] MEDS ORDERED: ZESTRIL PO SCH (10:00)
[2018-05-10] MEDS: HEPARIN SUB-Q SCH ×2 (11:29→22:52)
[2018-05-10] MEDS: KEPPRA PO SCH ×2 (11:35→22:51)
[2018-05-10] MEDS: ZESTRIL PO SCH (11:36)
[2018-05-10] MEDS: PEPCID PO SCH ×2 (11:36→22:52)
[2018-05-10] MEDS: DULCOLAX PR SCH (11:37)
--- NOTE | 2018-05-10 11:45 | Progress Note ---
Assessment and Plan Acute hypoxemic respiratory failure, post op on MVS Ruptured Abdominal aortic aneurysm Hypertension Diabetes - continue to wean supplemental oxygen for O2 sats>90% (on 4L NC now) - continue VTE prophylaxis (heparin 500u bid) - continue Aspiration precautions - prn BIPAP - ST evaluation; oral nutrition if OK with surgery team - continue Stress ulcer prophylaxis - continue to monitor renal indices and urine output - Monitor neurology, neuro checks - continue Blood pressure control (prn IV meds for MAP > 160 mmHg) - continue to monitor H and H - Analgesia and agitation management - continue Accuchecks with glycemic control per SSI - PT/OT as tolerated - mobility protocol for pressure ulcer prophylaxis FULL CODE STATUS The high probability of a clinically significant, sudden or life threatening deterioration of the [respiratory,cardiovascular, renal] system(s) required my full and direct attention, intervention and personal management. The aggregate critical care time was [34] minutes without overlap. Time includes spent on; [x] Data Review and interpretation [x] Patient assessment and monitoring of vital signs [x] Documentation [x] Medication orders and management Subjective Date of service: 05/10/18 Principal diagnosis: Acute hypoxemic respiratory failure s/p MVS; Ruptured AAA s /p repair Interval history: Patient is seen today for: Acute hypoxemic respiratory failure s/p MVS; Ruptured AAA s/p repair Seen and examined at bedside; 24hour events reviewed; nursing and respiratory care staff consulted; no adverse overnight events reported to me; self extubated earlier but doing relatively well since; no N/V/F/C; denies acute chest pains or increased SOB Objective Vital Signs - 12hr 05/10/18 05/10/18 05/10/18 00:00 00:15 00:30 Temperature Pulse Rate 86 87 89 Pulse Rate [ 94 H From Monitor] Respiratory 14 18 13 Rate Blood Pressure 154/73 145/70 150/74 O2 Sat by Pulse 99 99 96 Oximetry 05/10/18 05/10/18 05/10/18 00:45 01:00 01:15 Temperature Pulse Rate 88 87 86 Pulse Rate [ From Monitor] Respiratory 15 18 16 Rate Blood Pressure 150/74 151/71 151/71 O2 Sat by Pulse 99 96 99 Oximetry 05/10/18 05/10/18 05/10/18 01:30 01:45 02:00 Temperature Pulse Rate 87 86 86 Pulse Rate [ From Monitor] Respiratory 18 15 17 Rate Blood Pressure 158/76 158/76 163/77 O2 Sat by Pulse 95 99 96 Oximetry 05/10/18 05/10/18 05/10/18 02:15 02:30 02:45 Temperature Pulse Rate 89 88 86 Pulse Rate [ From Monitor] Respiratory 20 22 19 Rate Blood Pressure 163/77 179/84 179/84 O2 Sat by Pulse 100 96 100 Oximetry 05/10/18 05/10/18 05/10/18 03:00 03:15 03:30 Temperature Pulse Rate 94 H 83 82 Pulse Rate [ From Monitor] Respiratory 27 H 18 17 Rate Blood Pressure 179/84 193/95 170/80 O2 Sat by Pulse 100 100 97 Oximetry 05/10/18 05/10/18 05/10/18 03:32 03:45 04:00 Temperature 98.8 F Pulse Rate 82 82 Pulse Rate [ 94 H From Monitor] Respiratory 16 17 Rate Blood Pressure 170/80 158/75 O2 Sat by Pulse 99 96 Oximetry 05/10/18 05/10/18 05/10/18 04:15 04:30 04:45 Temperature Pulse Rate 81 83 96 H Pulse Rate [ From Monitor] Respiratory 17 16 25 H Rate Blood Pressure 158/75 153/73 153/73 O2 Sat by Pulse 100 98 100 Oximetry 05/10/18 05/10/18 05/10/18 05:00 05:01 05:15 Temperature Pulse Rate 111 H 118 H 94 H Pulse Rate [ From Monitor] Respiratory 35 H 16 Rate Blood Pressure 215/124 171/84 O2 Sat by Pulse 100 95 95 Oximetry 05/10/18 05/10/18 05/10/18 05:30 05:45 06:00 Temperature Pulse Rate 91 H 93 H 90 Pulse Rate [ From Monitor] Respiratory 15 23 19 Rate Blood Pressure 193/88 179/80 188/88 O2 Sat by Pulse 98 100 Oximetry 05/10/18 05/10/18 05/10/18 06:15 06:30 06:45 Temperature Pulse Rate 89 87 87 Pulse Rate [ From Monitor] Respiratory 15 15 15 Rate Blood Pressure 202/92 182/82 189/84 O2 Sat by Pulse 97 95 96 Oximetry 05/10/18 05/10/18 05/10/18 07:00 07:15 07:30 Temperature Pulse Rate 86 86 86 Pulse Rate [ From Monitor] Respiratory 11 L 14 15 Rate Blood Pressure 179/83 176/82 183/82 O2 Sat by Pulse 95 93 Oximetry 05/10/18 05/10/18 05/10/18 07:43 07:45 07:47 Temperature Pulse Rate 86 86 85 Pulse Rate [ From Monitor] Respiratory 16 Rate Blood Pressure 179/83 188/87 O2 Sat by Pulse 100 96 100 Oximetry 05/10/18 05/10/18 05/10/18 08:00 08:15 08:30 Temperature 98.0 F Pulse Rate 86 86 88 Pulse Rate [ From Monitor] Respiratory 13 12 18 Rate Blood Pressure 203/88 185/88 198/87 O2 Sat by Pulse 99 Oximetry 05/10/18 05/10/18 05/10/18 08:45 09:00 09:15 Temperature Pulse Rate 85 87 87 Pulse Rate [ From Monitor] Respiratory 11 L 15 15 Rate Blood Pressure 194/83 185/80 186/81 O2 Sat by Pulse 98 96 95 Oximetry 05/10/18 05/10/18 05/10/18 09:30 09:45 10:00 Temperature Pulse Rate 88 88 89 Pulse Rate [ From Monitor] Respiratory 15 15 13 Rate Blood Pressure 174/80 164/72 182/74 O2 Sat by Pulse 100 94 96 Oximetry 05/10/18 05/10/18 05/10/18 10:15 10:25 10:30 Temperature Pulse Rate 89 90 92 H Pulse Rate [ From Monitor] Respiratory 17 16 Rate Blood Pressure 167/77 169/75 O2 Sat by Pulse 100 99 94 Oximetry 05/10/18 05/10/18 05/10/18 10:45 11:00 11:36 Temperature Pulse Rate 89 95 H 92 H Pulse Rate [ From Monitor] Respiratory 16 23 Rate Blood Pressure 171/78 166/76 180/76 O2 Sat by Pulse 94 88 Oximetry Constitutional: appears uncomfortable, other (middle aged chronically ill looking AAM; normocephalic and atraumatic with mildly increased respiratory effort) Eyes: non-icteric ENT: oropharynx moist, other ([place] 3) Neck: supple, no lymphadenopathy, no JVD, other (No thyromegaly) Effort: mildly labored Ascultation: Bilateral: diminished breath sounds, rhonchi (scant) Percussion: Bilateral: not dull Cardiovascular: regular rate and rhythm, other (No R/M) Gastrointestinal: hypoactive bowel sounds, soft, non-tender, non-distended, other (midline post-op incision line is clean) Integumentary: normal Extremities: no cyanosis, no edema, pulses normal, no ischemia or petechiae Neurologic: non-focal exam (grossly), pupils equal and round, CN II-XII normal, other (weak) Psychiatric: mood appropriate, affect normal CBC and BMP: 05/10/18 05:30 05/10/18 05:30 ABG, PT/INR, D-dimer: ABG POC ABG pH 7.439 (7.35-7.45) 05/10/18 10:26 POC ABG pCO2 34.9 (35-45) L 05/10/18 10:26 POC ABG pO2 103 (80-105) 05/10/18 10:26 POC ABG HCO3 23.7 05/10/18 10:26 POC ABG Total CO2 25 05/10/18 10:26 POC ABG O2 Sat 98 05/10/18 10:26 Abnormal lab findings: Abnormal Labs 05/06/18 05/06/18 05/06/18 17:41 17:41 21:20 RBC Hgb 11.0 L Hct 32.8 L RDW 18.5 H Plt Count 479 H Lymph % (Auto) 42.2 H Seg Neutrophils % POC ABG pCO2 POC ABG pO2 Sodium Chloride 95.8 L Carbon Dioxide BUN Creatinine 0.5 L Glucose 114 H POC Glucose Calcium Magnesium Total Protein 8.3 H Albumin 3.5 L Crossmatch See Detail 05/07/18 05/07/18 05/07/18 05:00 05:00 05:00 RBC 2.74 L Hgb 8.2 L Hct 24.8 L D RDW 18.7 H Plt Count Lymph % (Auto) Seg Neutrophils % POC ABG pCO2 POC ABG pO2 Sodium Chloride Carbon Dioxide 20 L BUN 21 H Creatinine Glucose 189 H POC Glucose Calcium 7.4 L D Magnesium 1.20 L Total Protein Albumin Crossmatch 05/07/18 05/07/18 05/07/18 05:05 12:44 17:01 RBC Hgb 7.8 L Hct 23.2 L RDW Plt Count Lymph % (Auto) Seg Neutrophils % POC ABG pCO2 POC ABG pO2 547 H Sodium Chloride Carbon Dioxide BUN Creatinine Glucose POC Glucose 168 H Calcium Magnesium Total Protein Albumin Crossmatch 05/07/18 05/07/18 05/07/18 17:58 21:33 23:26 RBC Hgb 7.8 L Hct 24.1 L RDW Plt Count Lymph % (Auto) Seg Neutrophils % POC ABG pCO2 POC ABG pO2 Sodium Chloride Carbon Dioxide BUN Creatinine Glucose POC Glucose 178 H 151 H Calcium Magnesium Total Protein Albumin Crossmatch 05/08/18 05/08/18 05/08/18 00:10 04:23 06:08 RBC Hgb Hct RDW Plt Count Lymph % (Auto) Seg Neutrophils % POC ABG pCO2 POC ABG pO2 216 H Sodium Chloride 110.4 H Carbon Dioxide 19 L BUN 27 H Creatinine Glucose 160 H POC Glucose 148 H Calcium 7.6 L Magnesium Total Protein Albumin Crossmatch 05/08/18 05/08/18 05/08/18 06:15 13:01 16:00 RBC Hgb 7.2 L 7.8 L Hct 21.7 L 23.3 L RDW Plt Count Lymph % (Auto) Seg Neutrophils % POC ABG pCO2 POC ABG pO2 Sodium Chloride Carbon Dioxide BUN Creatinine Glucose POC Glucose 108 H Calcium Magnesium Total Protein Albumin Crossmatch 05/08/18 05/08/18 05/08/18 18:03 21:40 23:28 RBC Hgb 7.5 L Hct 21.8 L RDW Plt Count Lymph % (Auto) Seg Neutrophils % POC ABG pCO2 POC ABG pO2 Sodium Chloride Carbon Dioxide BUN Creatinine Glucose POC Glucose 136 H 145 H Calcium Magnesium Total Protein Albumin Crossmatch 05/09/18 05/09/18 05/09/18 04:01 05:22 07:00 RBC 2.80 L Hgb 8.5 L Hct 25.3 L RDW 17.4 H Plt Count Lymph % (Auto) Seg Neutrophils % POC ABG pCO2 POC ABG pO2 139 H Sodium Chloride Carbon Dioxide BUN Creatinine Glucose POC Glucose 115 H Calcium Magnesium Total Protein Albumin Crossmatch 05/09/18 05/09/18 05/10/18 11:52 19:04 00:13 RBC Hgb Hct RDW Plt Count Lymph % (Auto) Seg Neutrophils % POC ABG pCO2 POC ABG pO2 Sodium Chloride Carbon Dioxide BUN Creatinine Glucose POC Glucose 114 H 144 H 146 H Calcium Magnesium Total Protein Albumin Crossmatch 05/10/18 05/10/18 05/10/18 05:28 05:30 05:30 RBC 2.93 L Hgb 8.9 L Hct 26.2 L RDW 17.9 H Plt Count Lymph % (Auto) Seg Neutrophils % 80.2 H POC ABG pCO2 POC ABG pO2 114 H Sodium 146 H Chloride 112.8 H Carbon Dioxide 19 L BUN 25 H Creatinine 0.5 L D Glucose 150 H POC Glucose Calcium Magnesium Total Protein Albumin Crossmatch 05/10/18 05/10/18 05:30 10:26 RBC Hgb Hct RDW Plt Count Lymph % (Auto) Seg Neutrophils % POC ABG pCO2 34.9 L POC ABG pO2 Sodium Chloride Carbon Dioxide BUN Creatinine Glucose POC Glucose 151 H Calcium Magnesium Total Protein Albumin Crossmatch Chest x-ray: image reviewed (no focal infiltrate) Allied health notes reviewed: nursing
[2018-05-10] MEDS: SODIUM CHLORIDE FLUSH SYRINGE 10 ML IV SCH (11:56)
--- NOTE | 2018-05-10 12:49 | Progress Note ---
Assessment and Plan Rupture Abdominal aortic aneurysm, - s/p repair, monitor H/h Hypertension, accelerated -SBP >180 - off labetalol drip, - cont clonidine patch, hydralazine and lisinopril - will add metoprolol and norvasc Diabetes type 2, SSI as needed Acute respiratory failure, following surgery - self extubated today am - cont nebs and supplemental O2 with N/c Anemia, likely due to blood loss from AAA tear - transfuse as needed to keep Hb >8.0 The high probability of a clinically significant, sudden or life threatening deterioration of the [multiple] system(s) required my full and direct attention , intervention and personal management. The aggregate critical care time was [35 ] minutes. This time is in addition to time spent performing reported procedures but includes the following: [x] Data Review and interpretation [x] Patient assessment and monitoring of vital signs [x] Documentation [x Medication orders and management Physical exam: General appearance: Present: no acute distress - EENT Eyes: no scleral icterus, no conjunctival injection ENT: dentition normal, no thrush, no ulcerations Ears: bilateral: normal - Neck Neck: no enlarged thyroid, no masses or JVD - Respiratory Respiratory effort: normal Respiratory: bilateral: CTA - Breasts Breasts: normal - Cardiovascular Rhythm: regular Heart Sounds: Present: S1 & S2. Absent: gallop, rub Extremities: pulses intact, No edema, normal color, Full ROM - Gastrointestinal General gastrointestinal: Present: soft, non-distended, other (surgical dressing on place) - Integumentary Integumentary: clear, warm, dry - Musculoskeletal Musculoskeletal: other (no joint swelling) - Neurologic Neurologic: no focal deficits Subjective Date of service: 05/10/18 Principal diagnosis: ruptured AAA Interval history: Patient extubated himself earlier Vitals notes, discussed with RN at bedside No acute o/n issue off labetelol drip Objective - Constitutional Vitals: Vital Signs - 12hr 05/10/18 05/10/18 05/10/18 01:00 01:15 01:30 Temperature Pulse Rate 87 86 87 Pulse Rate [ From Monitor] Respiratory 18 16 18 Rate Blood Pressure 151/71 151/71 158/76 O2 Sat by Pulse 96 99 95 Oximetry 05/10/18 05/10/18 05/10/18 01:45 02:00 02:15 Temperature Pulse Rate 86 86 89 Pulse Rate [ From Monitor] Respiratory 15 17 20 Rate Blood Pressure 158/76 163/77 163/77 O2 Sat by Pulse 99 96 100 Oximetry 05/10/18 05/10/18 05/10/18 02:30 02:45 03:00 Temperature Pulse Rate 88 86 94 H Pulse Rate [ From Monitor] Respiratory 22 19 27 H Rate Blood Pressure 179/84 179/84 179/84 O2 Sat by Pulse 96 100 100 Oximetry 05/10/18 05/10/18 05/10/18 03:15 03:30 03:32 Temperature 98.8 F Pulse Rate 83 82 Pulse Rate [ From Monitor] Respiratory 18 17 Rate Blood Pressure 193/95 170/80 O2 Sat by Pulse 100 97 Oximetry 05/10/18 05/10/18 05/10/18 03:45 04:00 04:15 Temperature Pulse Rate 82 82 81 Pulse Rate [ 94 H From Monitor] Respiratory 16 17 17 Rate Blood Pressure 170/80 158/75 158/75 O2 Sat by Pulse 99 96 100 Oximetry 05/10/18 05/10/18 05/10/18 04:30 04:45 05:00 Temperature Pulse Rate 83 96 H 111 H Pulse Rate [ From Monitor] Respiratory 16 25 H Rate Blood Pressure 153/73 153/73 O2 Sat by Pulse 98 100 100 Oximetry 05/10/18 05/10/18 05/10/18 05:01 05:15 05:30 Temperature Pulse Rate 118 H 94 H 91 H Pulse Rate [ From Monitor] Respiratory 35 H 16 15 Rate Blood Pressure 215/124 171/84 193/88 O2 Sat by Pulse 95 95 98 Oximetry 05/10/18 05/10/18 05/10/18 05:45 06:00 06:15 Temperature Pulse Rate 93 H 90 89 Pulse Rate [ From Monitor] Respiratory 23 19 15 Rate Blood Pressure 179/80 188/88 202/92 O2 Sat by Pulse 100 97 Oximetry 05/10/18 05/10/18 05/10/18 06:30 06:45 07:00 Temperature Pulse Rate 87 87 86 Pulse Rate [ From Monitor] Respiratory 15 15 11 L Rate Blood Pressure 182/82 189/84 179/83 O2 Sat by Pulse 95 96 95 Oximetry 05/10/18 05/10/18 05/10/18 07:15 07:30 07:43 Temperature Pulse Rate 86 86 86 Pulse Rate [ From Monitor] Respiratory 14 15 Rate Blood Pressure 176/82 183/82 179/83 O2 Sat by Pulse 93 100 Oximetry 05/10/18 05/10/18 05/10/18 07:45 07:47 08:00 Temperature 98.0 F Pulse Rate 86 85 86 Pulse Rate [ From Monitor] Respiratory 16 13 Rate Blood Pressure 188/87 203/88 O2 Sat by Pulse 96 100 99 Oximetry 05/10/18 05/10/18 05/10/18 08:15 08:30 08:45 Temperature Pulse Rate 86 88 85 Pulse Rate [ From Monitor] Respiratory 12 18 11 L Rate Blood Pressure 185/88 198/87 194/83 O2 Sat by Pulse 98 Oximetry 05/10/18 05/10/18 05/10/18 09:00 09:15 09:30 Temperature Pulse Rate 87 87 88 Pulse Rate [ From Monitor] Respiratory 15 15 15 Rate Blood Pressure 185/80 186/81 174/80 O2 Sat by Pulse 96 95 100 Oximetry 05/10/18 05/10/18 05/10/18 09:45 10:00 10:15 Temperature Pulse Rate 88 89 89 Pulse Rate [ From Monitor] Respiratory 15 13 17 Rate Blood Pressure 164/72 182/74 167/77 O2 Sat by Pulse 94 96 100 Oximetry 05/10/18 05/10/18 05/10/18 10:25 10:30 10:45 Temperature Pulse Rate 90 92 H 89 Pulse Rate [ From Monitor] Respiratory 16 16 Rate Blood Pressure 169/75 171/78 O2 Sat by Pulse 99 94 94 Oximetry 05/10/18 05/10/18 05/10/18 11:00 11:15 11:30 Temperature Pulse Rate 95 H 94 H 92 H Pulse Rate [ From Monitor] Respiratory 23 28 H 22 Rate Blood Pressure 166/76 179/78 180/76 O2 Sat by Pulse 88 90 Oximetry 05/10/18 05/10/18 05/10/18 11:36 11:45 12:00 Temperature 98.3 F Pulse Rate 92 H 94 H 92 H Pulse Rate [ From Monitor] Respiratory 25 H 22 Rate Blood Pressure 180/76 199/87 190/84 O2 Sat by Pulse 91 88 Oximetry - Labs CBC & Chem 7: 05/10/18 05:30 05/10/18 05:30 Labs: Abnormal lab results 05/06/18 05/09/18 05/10/18 Range/Units 21:20 19:04 00:13 RBC (3.65-5.03) M/mm3 Hgb (11.8-15.2) gm/dl Hct (35.5-45.6) % RDW (13.2-15.2) % Seg Neutrophils % (40.0-70.0) % POC ABG pCO2 (35-45) POC ABG pO2 (80-105) Sodium (137-145) mmol/L Chloride (98-107) mmol/L Carbon Dioxide (22-30) mmol/L BUN (9-20) mg/dL Creatinine (0.8-1.5) mg/dL Glucose (75-100) mg/dL POC Glucose 144 H 146 H (70-105) Crossmatch See Detail 05/10/18 05/10/18 05/10/18 Range/Units 05:28 05:30 05:30 RBC 2.93 L (3.65-5.03) M/mm3 Hgb 8.9 L (11.8-15.2) gm/dl Hct 26.2 L (35.5-45.6) % RDW 17.9 H (13.2-15.2) % Seg Neutrophils % 80.2 H (40.0-70.0) % POC ABG pCO2 (35-45) POC ABG pO2 114 H (80-105) Sodium 146 H (137-145) mmol/L Chloride 112.8 H (98-107) mmol/L Carbon Dioxide 19 L (22-30) mmol/L BUN 25 H (9-20) mg/dL Creatinine 0.5 L D (0.8-1.5) mg/dL Glucose 150 H (75-100) mg/dL POC Glucose (70-105) Crossmatch 05/10/18 05/10/18 05/10/18 Range/Units 05:30 10:26 12:23 RBC (3.65-5.03) M/mm3 Hgb (11.8-15.2) gm/dl Hct (35.5-45.6) % RDW (13.2-15.2) % Seg Neutrophils % (40.0-70.0) % POC ABG pCO2 34.9 L (35-45) POC ABG pO2 (80-105) Sodium (137-145) mmol/L Chloride (98-107) mmol/L Carbon Dioxide (22-30) mmol/L BUN (9-20) mg/dL Creatinine (0.8-1.5) mg/dL Glucose (75-100) mg/dL POC Glucose 151 H 145 H (70-105) Crossmatch
[2018-05-10] MEDS ORDERED: LOPRESSOR PO SCH (13:00)
[2018-05-10] MEDS: NORVASC PO SCH (16:41)
[2018-05-10] MEDS: D5/0.45NS 1,000 ML IV SCH (17:03)
--- NOTE | 2018-05-10 17:25 | Progress Note ---
Assessment and Plan Pt s/p aorta bifem for ruptured aorta. Pt self extubated and removed his NGT earlier today. Had an extensive conversation with the pt about complying nursing recommendation. Explained the risk of eating and drinking before return of bowel fxn. Pt now agrees to comply. Do not recommend, advancing po intake until bowel fxn returns. OOB to chair, and adv act as tolerated. Supp to stimulate bowel fxn return. - Patient Problems (1) Ruptured aortic aneurysm Onset Date: ~05/06/18 Current Visit: No Status: Acute Qualifiers: Aortic location: abdominal aorta Qualified Code(s): I71.3 - Abdominal aortic aneurysm, ruptured Subjective Date of service: 05/10/18 Principal diagnosis: ruptured AAA Interval history: Pt eval'd multiple times through out the day. Pt self extubated and removed his NGT earlier. C/o mild incisional discomfort. Denies nausea at present. Given zofran earlier. Objective - Constitutional Vitals: Vital Signs - 12hr 05/10/18 05/10/18 05/10/18 05:30 05:45 06:00 Temperature Pulse Rate 91 H 93 H 90 Pulse Rate [ From Monitor] Respiratory 15 23 19 Rate Blood Pressure 193/88 179/80 188/88 O2 Sat by Pulse 98 100 Oximetry 05/10/18 05/10/18 05/10/18 06:15 06:30 06:45 Temperature Pulse Rate 89 87 87 Pulse Rate [ From Monitor] Respiratory 15 15 15 Rate Blood Pressure 202/92 182/82 189/84 O2 Sat by Pulse 97 95 96 Oximetry 05/10/18 05/10/18 05/10/18 07:00 07:15 07:30 Temperature Pulse Rate 86 86 86 Pulse Rate [ From Monitor] Respiratory 11 L 14 15 Rate Blood Pressure 179/83 176/82 183/82 O2 Sat by Pulse 95 93 Oximetry 05/10/18 05/10/18 05/10/18 07:43 07:45 07:47 Temperature Pulse Rate 86 86 85 Pulse Rate [ From Monitor] Respiratory 16 Rate Blood Pressure 179/83 188/87 O2 Sat by Pulse 100 96 100 Oximetry 05/10/18 05/10/18 05/10/18 08:00 08:15 08:30 Temperature 98.0 F Pulse Rate 86 86 88 Pulse Rate [ From Monitor] Respiratory 13 12 18 Rate Blood Pressure 203/88 185/88 198/87 O2 Sat by Pulse 99 Oximetry 05/10/18 05/10/18 05/10/18 08:45 09:00 09:15 Temperature Pulse Rate 85 87 87 Pulse Rate [ From Monitor] Respiratory 11 L 15 15 Rate Blood Pressure 194/83 185/80 186/81 O2 Sat by Pulse 98 96 95 Oximetry 05/10/18 05/10/18 05/10/18 09:30 09:45 10:00 Temperature Pulse Rate 88 88 89 Pulse Rate [ From Monitor] Respiratory 15 15 13 Rate Blood Pressure 174/80 164/72 182/74 O2 Sat by Pulse 100 94 96 Oximetry 05/10/18 05/10/18 05/10/18 10:15 10:25 10:30 Temperature Pulse Rate 89 90 92 H Pulse Rate [ From Monitor] Respiratory 17 16 Rate Blood Pressure 167/77 169/75 O2 Sat by Pulse 100 99 94 Oximetry 05/10/18 05/10/18 05/10/18 10:45 11:00 11:15 Temperature Pulse Rate 89 95 H 94 H Pulse Rate [ From Monitor] Respiratory 16 23 28 H Rate Blood Pressure 171/78 166/76 179/78 O2 Sat by Pulse 94 88 Oximetry 05/10/18 05/10/18 05/10/18 11:30 11:36 11:45 Temperature Pulse Rate 92 H 92 H 94 H Pulse Rate [ From Monitor] Respiratory 22 25 H Rate Blood Pressure 180/76 180/76 199/87 O2 Sat by Pulse 90 91 Oximetry 05/10/18 05/10/18 05/10/18 12:00 12:15 12:30 Temperature 98.3 F Pulse Rate 92 H 91 H 92 H Pulse Rate [ 90 From Monitor] Respiratory 22 24 25 H Rate Blood Pressure 190/84 182/83 183/79 O2 Sat by Pulse 88 87 85 Oximetry 05/10/18 05/10/18 05/10/18 12:45 13:00 13:15 Temperature Pulse Rate 90 90 91 H Pulse Rate [ From Monitor] Respiratory 22 22 24 Rate Blood Pressure 186/83 164/75 169/75 O2 Sat by Pulse 94 89 97 Oximetry 05/10/18 05/10/18 05/10/18 13:30 13:45 14:00 Temperature Pulse Rate 88 88 88 Pulse Rate [ From Monitor] Respiratory 21 22 20 Rate Blood Pressure 162/71 170/75 170/75 O2 Sat by Pulse 91 90 99 Oximetry 05/10/18 05/10/18 05/10/18 14:15 14:30 14:45 Temperature Pulse Rate 89 89 89 Pulse Rate [ From Monitor] Respiratory 23 23 22 Rate Blood Pressure 172/77 177/75 168/73 O2 Sat by Pulse 88 90 90 Oximetry 05/10/18 05/10/18 05/10/18 15:00 15:15 15:30 Temperature Pulse Rate 90 93 H 93 H Pulse Rate [ From Monitor] Respiratory 21 23 22 Rate Blood Pressure 162/72 155/67 161/71 O2 Sat by Pulse 90 90 89 Oximetry 05/10/18 05/10/18 05/10/18 15:45 16:00 16:15 Temperature 98.3 F Pulse Rate 101 H 91 H 88 Pulse Rate [ 89 From Monitor] Respiratory 22 21 22 Rate Blood Pressure 161/71 159/71 166/63 O2 Sat by Pulse 96 Oximetry 05/10/18 05/10/18 05/10/18 16:30 16:41 16:45 Temperature Pulse Rate 90 89 93 H Pulse Rate [ From Monitor] Respiratory 23 24 Rate Blood Pressure 174/75 174/75 174/75 O2 Sat by Pulse 95 100 Oximetry 05/10/18 17:01 Temperature Pulse Rate 91 H Pulse Rate [ From Monitor] Respiratory 25 H Rate Blood Pressure 158/66 O2 Sat by Pulse 92 Oximetry General appearance: Present: no acute distress - EENT Eyes: EOM intact ENT: hearing intact - Respiratory Respiratory effort: other (unlabored at rest on O2 NC) Extremities: normal temperature, abnormal (Abd and bilat groin incisions intact without erythema or drainage appreciated.) - Gastrointestinal General gastrointestinal: Present: soft, non-tender - Neurologic Neurologic: no focal deficits - Psychiatric Psychiatric: no appropriate mood/affect (slightly aggitated), no cooperative ( after extensive discussion with pt , he agreed to comply with nurses instructions and recommendations) - Labs CBC & Chem 7: 05/10/18 05:30 05/10/18 05:30 Labs: Abnormal lab results 05/06/18 05/09/18 05/10/18 Range/Units 21:20 19:04 00:13 RBC (3.65-5.03) M/mm3 Hgb (11.8-15.2) gm/dl Hct (35.5-45.6) % RDW (13.2-15.2) % Seg Neutrophils % (40.0-70.0) % POC ABG pCO2 (35-45) POC ABG pO2 (80-105) Sodium (137-145) mmol/L Chloride (98-107) mmol/L Carbon Dioxide (22-30) mmol/L BUN (9-20) mg/dL Creatinine (0.8-1.5) mg/dL Glucose (75-100) mg/dL POC Glucose 144 H 146 H (70-105) Crossmatch See Detail 05/10/18 05/10/18 05/10/18 Range/Units 05:28 05:30 05:30 RBC 2.93 L (3.65-5.03) M/mm3 Hgb 8.9 L (11.8-15.2) gm/dl Hct 26.2 L (35.5-45.6) % RDW 17.9 H (13.2-15.2) % Seg Neutrophils % 80.2 H (40.0-70.0) % POC ABG pCO2 (35-45) POC ABG pO2 114 H (80-105) Sodium 146 H (137-145) mmol/L Chloride 112.8 H (98-107) mmol/L Carbon Dioxide 19 L (22-30) mmol/L BUN 25 H (9-20) mg/dL Creatinine 0.5 L D (0.8-1.5) mg/dL Glucose 150 H (75-100) mg/dL POC Glucose (70-105) Crossmatch 05/10/18 05/10/18 05/10/18 Range/Units 05:30 10:26 12:23 RBC (3.65-5.03) M/mm3 Hgb (11.8-15.2) gm/dl Hct (35.5-45.6) % RDW (13.2-15.2) % Seg Neutrophils % (40.0-70.0) % POC ABG pCO2 34.9 L (35-45) POC ABG pO2 (80-105) Sodium (137-145) mmol/L Chloride (98-107) mmol/L Carbon Dioxide (22-30) mmol/L BUN (9-20) mg/dL Creatinine (0.8-1.5) mg/dL Glucose (75-100) mg/dL POC Glucose 151 H 145 H (70-105) Crossmatch
[2018-05-10] MEDS: MORPHINE IV PRN (20:50)
[2018-05-10] MEDS: LOPRESSOR PO SCH (22:52)
[2018-05-11] MEDS: MORPHINE IV PRN ×3 (02:13→18:07)
[2018-05-11] MEDS: SODIUM CHLORIDE FLUSH SYRINGE 10 ML IV SCH ×3 (02:16→22:00)
[2018-05-11 05:34] LABS: Basophils % (Auto) 0.3 % (0.0-1.8); Eosinophils # (Auto) 0.1 K/mm3 (0.0-0.4); Eosinophils % (Auto) 0.9 % (0.0-4.3); Hematocrit 28.4 % (35.5-45.6); Hemoglobin 9.6 gm/dl (11.8-15.2); Lymphocytes # (Auto) 1.1 K/mm3 (1.2-5.4); Lymphocytes % (Auto) 14.5 % (13.4-35.0); Mean Corpuscular HGB Conc 34 % (32-34); Mean Corpuscular Hemoglobin 30 pg (28-32); Mean Corpuscular Volume 89 fl (84-94); Monocytes # (Auto) 0.4 K/mm3 (0.0-0.8); Platelet Count 314 K/mm3 (140-440); Red Blood Count 3.19 M/mm3 (3.65-5.03); Red Cell Distribution Width 17.4 % (13.2-15.2)
[2018-05-11 05:56] LABS: BUN/Creatinine Ratio 33; Blood Urea Nitrogen 13 mg/dL (9-20); Calcium 9.4 mg/dL (8.4-10.2); Hemolysis Index 77
[2018-05-11] MEDS: KEPPRA PO SCH ×3 (07:41→22:07)
[2018-05-11] MEDS: APRESOLINE PO SCH ×3 (08:02→22:06)
[2018-05-11] MEDS: HEPARIN SUB-Q SCH ×2 (10:39→22:07)
[2018-05-11] MEDS: DULCOLAX PR SCH (10:40)
[2018-05-11] MEDS: ZOFRAN IV PRN (10:41)
[2018-05-11] MEDS: PEPCID PO SCH ×2 (11:53→22:12)
[2018-05-11] MEDS: LOPRESSOR PO SCH ×2 (11:54→22:12)
[2018-05-11] MEDS: NORVASC PO SCH (11:58)
[2018-05-11] MEDS: ZESTRIL PO SCH (11:59)
--- NOTE | 2018-05-11 12:42 | Progress Note ---
Assessment and Plan Patient will need to remain in the ICU overnight. We'll reassess tomorrow to determine if he can be transferred to the floor. We'll hold off on his diet for now. Subjective Date of service: 05/11/18 Principal diagnosis: ruptured AAA Interval history: Patient with a history of noncompliance status post open repair of abdominal aortic aneurysm. He is not yet had a bowel movement or flatus. Patient removed his nasogastric tube as it had bothered him. Resting comfortably at time of exam. His abdominal incision and bilateral groin incisions are soft with only minimal tenderness and no significant subcutaneous hematomas. Objective - Constitutional Vitals: Vital Signs - 12hr 05/11/18 05/11/18 05/11/18 00:45 01:00 01:15 Temperature Pulse Rate 100 H 97 H 97 H Pulse Rate [ From Monitor] Respiratory 21 21 21 Rate Blood Pressure 185/82 195/84 171/78 O2 Sat by Pulse 91 98 94 Oximetry 05/11/18 05/11/18 05/11/18 01:30 01:45 02:00 Temperature Pulse Rate 95 H 105 H 93 H Pulse Rate [ From Monitor] Respiratory 24 20 24 Rate Blood Pressure 180/81 186/105 181/80 O2 Sat by Pulse 96 91 97 Oximetry 05/11/18 05/11/18 05/11/18 02:13 02:15 02:30 Temperature Pulse Rate 93 H 91 H Pulse Rate [ From Monitor] Respiratory 26 H 25 H 24 Rate Blood Pressure 182/82 173/87 O2 Sat by Pulse 96 95 Oximetry 05/11/18 05/11/18 05/11/18 02:45 03:00 03:15 Temperature Pulse Rate 92 H 94 H 94 H Pulse Rate [ From Monitor] Respiratory 28 H 25 H 26 H Rate Blood Pressure 151/67 144/66 147/68 O2 Sat by Pulse 97 97 99 Oximetry 05/11/18 05/11/18 05/11/18 03:30 03:45 04:00 Temperature 98.6 F Pulse Rate 98 H 97 H 102 H Pulse Rate [ 102 H From Monitor] Respiratory 21 28 H 23 Rate Blood Pressure 152/72 152/72 138/77 O2 Sat by Pulse 91 99 97 Oximetry 05/11/18 05/11/18 05/11/18 04:15 04:30 04:45 Temperature Pulse Rate 116 H 101 H 99 H Pulse Rate [ From Monitor] Respiratory 35 H 27 H 25 H Rate Blood Pressure 169/77 152/84 101/49 O2 Sat by Pulse 95 98 Oximetry 05/11/18 05/11/18 05/11/18 05:01 05:15 05:30 Temperature Pulse Rate 96 H 92 H 94 H Pulse Rate [ From Monitor] Respiratory 24 24 28 H Rate Blood Pressure 107/51 138/68 148/71 O2 Sat by Pulse 100 100 100 Oximetry 05/11/18 05/11/18 05/11/18 05:45 06:00 06:15 Temperature Pulse Rate 101 H 92 H 92 H Pulse Rate [ From Monitor] Respiratory 21 24 27 H Rate Blood Pressure 183/85 154/73 153/71 O2 Sat by Pulse 97 100 100 Oximetry 05/11/18 05/11/18 05/11/18 06:30 06:45 07:00 Temperature Pulse Rate 95 H 97 H 93 H Pulse Rate [ From Monitor] Respiratory 20 26 H 23 Rate Blood Pressure 161/75 165/75 163/75 O2 Sat by Pulse 99 93 96 Oximetry 05/11/18 05/11/18 05/11/18 07:15 07:30 07:45 Temperature Pulse Rate 97 H 97 H 95 H Pulse Rate [ From Monitor] Respiratory 26 H 25 H 23 Rate Blood Pressure 148/74 158/76 167/76 O2 Sat by Pulse 97 97 98 Oximetry 05/11/18 05/11/18 05/11/18 08:00 08:15 08:30 Temperature 97.6 F Pulse Rate 90 87 91 H Pulse Rate [ 90 From Monitor] Respiratory 18 24 20 Rate Blood Pressure 162/80 165/75 175/80 O2 Sat by Pulse 98 99 95 Oximetry 05/11/18 05/11/18 05/11/18 08:53 09:01 09:15 Temperature Pulse Rate 79 90 86 Pulse Rate [ From Monitor] Respiratory 20 28 H Rate Blood Pressure 167/76 167/76 146/71 O2 Sat by Pulse Oximetry 05/11/18 05/11/18 05/11/18 09:31 09:45 10:00 Temperature Pulse Rate 83 87 82 Pulse Rate [ From Monitor] Respiratory 26 H 26 H 28 H Rate Blood Pressure 137/62 175/80 158/76 O2 Sat by Pulse Oximetry 05/11/18 05/11/18 05/11/18 10:15 10:30 10:45 Temperature Pulse Rate 83 85 87 Pulse Rate [ From Monitor] Respiratory 25 H 23 22 Rate Blood Pressure 155/71 162/75 174/72 O2 Sat by Pulse Oximetry 05/11/18 05/11/18 05/11/18 11:00 11:15 11:31 Temperature Pulse Rate 89 87 96 H Pulse Rate [ From Monitor] Respiratory 29 H 23 22 Rate Blood Pressure 156/64 163/74 161/77 O2 Sat by Pulse Oximetry 05/11/18 05/11/18 05/11/18 11:45 11:54 11:58 Temperature Pulse Rate 88 87 88 Pulse Rate [ From Monitor] Respiratory 28 H Rate Blood Pressure 142/66 142/66 142/66 O2 Sat by Pulse Oximetry 05/11/18 05/11/18 11:59 12:00 Temperature 97.8 F Pulse Rate 88 Pulse Rate [ From Monitor] Respiratory Rate Blood Pressure 142/66 O2 Sat by Pulse Oximetry General appearance: Present: no acute distress - EENT Eyes: PERRL, EOM intact ENT: hearing intact - Neck Neck: supple, normal ROM - Respiratory Respiratory effort: normal - Breasts Breasts: deferred Extremities: no ischemia - Gastrointestinal General gastrointestinal: Present: soft, non-tender, other (post surgical) Rectal Exam: deferred - Genitourinary Male genitourinary: deferred - Psychiatric Psychiatric: cooperative - Labs CBC & Chem 7: 05/11/18 05:00 05/11/18 05:00 Labs: Abnormal lab results 05/10/18 05/10/18 05/11/18 Range/Units 18:07 23:53 05:00 RBC 3.19 L (3.65-5.03) M/mm3 Hgb 9.6 L (11.8-15.2) gm/dl Hct 28.4 L (35.5-45.6) % RDW 17.4 H (13.2-15.2) % Lymph # 1.1 L (1.2-5.4) K/mm3 Seg Neutrophils % 78.3 H (40.0-70.0) % Potassium (3.6-5.0) mmol/L Chloride (98-107) mmol/L Creatinine (0.8-1.5) mg/dL Glucose (75-100) mg/dL POC Glucose 129 H 127 H (70-105) 05/11/18 05/11/18 05/11/18 Range/Units 05:00 05:24 12:06 RBC (3.65-5.03) M/mm3 Hgb (11.8-15.2) gm/dl Hct (35.5-45.6) % RDW (13.2-15.2) % Lymph # (1.2-5.4) K/mm3 Seg Neutrophils % (40.0-70.0) % Potassium 3.3 L (3.6-5.0) mmol/L Chloride 107.6 H (98-107) mmol/L Creatinine 0.4 L (0.8-1.5) mg/dL Glucose 124 H (75-100) mg/dL POC Glucose 114 H 129 H (70-105)
--- NOTE | 2018-05-11 12:52 | Progress Note ---
Assessment and Plan Rupture Abdominal aortic aneurysm, - s/p repair by vascular, monitor H/h - cont to monitor at ICU - NPO for now Hypertension, accelerated -SBP >180 - off labetalol drip, - cont clonidine patch, hydralazine, lisinopril, metoprolol and norvasc Diabetes type 2, SSI as needed Acute respiratory failure, following surgery - self extubated 05/10/18 - cont nebs and supplemental O2 with N/c Anemia, likely due to blood loss from AAA tear - transfuse as needed to keep Hb >8.0 The high probability of a clinically significant, sudden or life threatening deterioration of the [multiple] system(s) required my full and direct attention , intervention and personal management. The aggregate critical care time was [35 ] minutes. This time is in addition to time spent performing reported procedures but includes the following: [x] Data Review and interpretation [x] Patient assessment and monitoring of vital signs [x] Documentation [x Medication orders and management Physical exam: General appearance: Present: no acute distress - EENT Eyes: no scleral icterus, no conjunctival injection ENT: dentition normal, no thrush, no ulcerations Ears: bilateral: normal - Neck Neck: no enlarged thyroid, no masses or JVD - Respiratory Respiratory effort: normal Respiratory: bilateral: CTA - Breasts Breasts: normal - Cardiovascular Rhythm: regular Heart Sounds: Present: S1 & S2. Absent: gallop, rub Extremities: pulses intact, No edema, normal color, Full ROM - Gastrointestinal General gastrointestinal: Present: soft, non-distended, other (surgical dressing on place) - Integumentary Integumentary: clear, warm, dry - Musculoskeletal Musculoskeletal: other (no joint swelling) - Neurologic Neurologic: no focal deficits Subjective Date of service: 05/11/18 Principal diagnosis: ruptured AAA Interval history: Patient seen and examined Patient extubated himself on 05/10/18 Vitals notes, discussed with RN at bedside No acute o/n issue, NPO Objective - Constitutional Vitals: Vital Signs - 12hr 05/11/18 05/11/18 05/11/18 01:00 01:15 01:30 Temperature Pulse Rate 97 H 97 H 95 H Pulse Rate [ From Monitor] Respiratory 21 21 24 Rate Blood Pressure 195/84 171/78 180/81 O2 Sat by Pulse 98 94 96 Oximetry 0805/11/18 05/11/18 01:45 02:00 02:13 Temperature Pulse Rate 105 H 93 H Pulse Rate [ From Monitor] Respiratory 20 24 26 H Rate Blood Pressure 186/105 181/80 O2 Sat by Pulse 91 97 Oximetry 05/11/18 05/11/18 05/11/18 02:15 02:30 02:45 Temperature Pulse Rate 93 H 91 H 92 H Pulse Rate [ From Monitor] Respiratory 25 H 24 28 H Rate Blood Pressure 182/82 173/87 151/67 O2 Sat by Pulse 96 95 97 Oximetry 05/11/18 05/11/18 05/11/18 03:00 03:15 03:30 Temperature Pulse Rate 94 H 94 H 98 H Pulse Rate [ From Monitor] Respiratory 25 H 26 H 21 Rate Blood Pressure 144/66 147/68 152/72 O2 Sat by Pulse 97 99 91 Oximetry 05/11/18 05/11/18 05/11/18 03:45 04:00 04:15 Temperature 98.6 F Pulse Rate 97 H 102 H 116 H Pulse Rate [ 102 H From Monitor] Respiratory 28 H 23 35 H Rate Blood Pressure 152/72 138/77 169/77 O2 Sat by Pulse 99 97 Oximetry 05/11/18 05/11/18 05/11/18 04:30 04:45 05:01 Temperature Pulse Rate 101 H 99 H 96 H Pulse Rate [ From Monitor] Respiratory 27 H 25 H 24 Rate Blood Pressure 152/84 101/49 107/51 O2 Sat by Pulse 95 98 100 Oximetry 05/11/18 05/11/18 05/11/18 05:15 05:30 05:45 Temperature Pulse Rate 92 H 94 H 101 H Pulse Rate [ From Monitor] Respiratory 24 28 H 21 Rate Blood Pressure 138/68 148/71 183/85 O2 Sat by Pulse 100 100 97 Oximetry 05/11/18 05/11/18 05/11/18 06:00 06:15 06:30 Temperature Pulse Rate 92 H 92 H 95 H Pulse Rate [ From Monitor] Respiratory 24 27 H 20 Rate Blood Pressure 154/73 153/71 161/75 O2 Sat by Pulse 100 100 99 Oximetry 05/11/18 05/11/18 05/11/18 06:45 07:00 07:15 Temperature Pulse Rate 97 H 93 H 97 H Pulse Rate [ From Monitor] Respiratory 26 H 23 26 H Rate Blood Pressure 165/75 163/75 148/74 O2 Sat by Pulse 93 96 97 Oximetry 05/11/18 05/11/18 05/11/18 07:30 07:45 08:00 Temperature 97.6 F Pulse Rate 97 H 95 H 90 Pulse Rate [ 90 From Monitor] Respiratory 25 H 23 18 Rate Blood Pressure 158/76 167/76 162/80 O2 Sat by Pulse 97 98 98 Oximetry 05/11/18 05/11/18 05/11/18 08:15 08:30 08:53 Temperature Pulse Rate 87 91 H 79 Pulse Rate [ From Monitor] Respiratory 24 20 Rate Blood Pressure 165/75 175/80 167/76 O2 Sat by Pulse 99 95 Oximetry 05/11/18 05/11/18 05/11/18 09:01 09:15 09:31 Temperature Pulse Rate 90 86 83 Pulse Rate [ From Monitor] Respiratory 20 28 H 26 H Rate Blood Pressure 167/76 146/71 137/62 O2 Sat by Pulse Oximetry 05/11/18 05/11/18 05/11/18 09:45 10:00 10:15 Temperature Pulse Rate 87 82 83 Pulse Rate [ From Monitor] Respiratory 26 H 28 H 25 H Rate Blood Pressure 175/80 158/76 155/71 O2 Sat by Pulse Oximetry 05/11/18 05/11/18 05/11/18 10:30 10:45 11:00 Temperature Pulse Rate 85 87 89 Pulse Rate [ From Monitor] Respiratory 23 22 29 H Rate Blood Pressure 162/75 174/72 156/64 O2 Sat by Pulse Oximetry 05/11/18 05/11/18 05/11/18 11:15 11:31 11:45 Temperature Pulse Rate 87 96 H 88 Pulse Rate [ From Monitor] Respiratory 23 22 28 H Rate Blood Pressure 163/74 161/77 142/66 O2 Sat by Pulse Oximetry 05/11/18 05/11/18 05/11/18 11:54 11:58 11:59 Temperature Pulse Rate 87 88 88 Pulse Rate [ From Monitor] Respiratory Rate Blood Pressure 142/66 142/66 142/66 O2 Sat by Pulse Oximetry 05/11/18 12:00 Temperature 98.2 F Pulse Rate Pulse Rate [ From Monitor] Respiratory Rate Blood Pressure O2 Sat by Pulse Oximetry - Labs CBC & Chem 7: 05/11/18 05:00 05/11/18 05:00 Labs: Abnormal lab results 05/10/18 05/10/18 05/11/18 Range/Units 18:07 23:53 05:00 RBC 3.19 L (3.65-5.03) M/mm3 Hgb 9.6 L (11.8-15.2) gm/dl Hct 28.4 L (35.5-45.6) % RDW 17.4 H (13.2-15.2) % Lymph # 1.1 L (1.2-5.4) K/mm3 Seg Neutrophils % 78.3 H (40.0-70.0) % Potassium (3.6-5.0) mmol/L Chloride (98-107) mmol/L Creatinine (0.8-1.5) mg/dL Glucose (75-100) mg/dL POC Glucose 129 H 127 H (70-105) 05/11/18 05/11/18 05/11/18 Range/Units 05:00 05:24 12:06 RBC (3.65-5.03) M/mm3 Hgb (11.8-15.2) gm/dl Hct (35.5-45.6) % RDW (13.2-15.2) % Lymph # (1.2-5.4) K/mm3 Seg Neutrophils % (40.0-70.0) % Potassium 3.3 L (3.6-5.0) mmol/L Chloride 107.6 H (98-107) mmol/L Creatinine 0.4 L (0.8-1.5) mg/dL Glucose 124 H (75-100) mg/dL POC Glucose 114 H 129 H (70-105)
[2018-05-11] MEDS ORDERED: K-DUR PO ONE (13:00)
[2018-05-11] MEDS ORDERED: DULCOLAX PO ONE (13:00)
[2018-05-11] MEDS ORDERED: POTASSIUM CHLORIDE FEEDTUBE ONE (13:00)
[2018-05-11] MEDS ORDERED: CITRATE OF MAGNESIA PO ONE (13:00)
--- NOTE | 2018-05-11 14:39 | Progress Note ---
Assessment and Plan Acute hypoxemic respiratory failure, post op on MVS Ruptured Abdominal aortic aneurysm Hypertension Diabetes - will schedule some laxatives as part of a bowel regimen to avoid overt constipation and straining - repaced potassium (Kcl 40 meq p.o.) - continue to wean supplemental oxygen for O2 sats>90% (on 4L NC now) - continue VTE prophylaxis (heparin 5000 u bid) - continue Aspiration precautions - prn BIPAP - continue ST evaluation; oral nutrition if OK with surgery team - continue Stress ulcer prophylaxis - continue to monitor renal indices and urine output - Monitor neurology, neuro checks - continue Blood pressure control (prn IV meds for MAP > 160 mmHg) - continue to monitor H and H - Analgesia and agitation management - continue Accuchecks with glycemic control per SSI - PT/OT as tolerated - mobility protocol for pressure ulcer prophylaxis - transfer out of ICU once ok with vascular team FULL CODE STATUS .... 35' Subjective Date of service: 05/11/18 Principal diagnosis: ruptured AAA Interval history: Patient is seen today for: Acute hypoxemic respiratory failure s/p MVS; Ruptured AAA s/p repair Seen and examined at bedside; 24hour events reviewed; nursing and respiratory care staff consulted; no adverse overnight events reported to me; complains of vague abdominal pain; no sentinel or other GI bleeding; remains constipated; no N/V/F/C Objective Vital Signs - 12hr 05/11/18 05/11/18 05/11/18 02:45 03:00 03:15 Temperature Pulse Rate 92 H 94 H 94 H Pulse Rate [ From Monitor] Respiratory 28 H 25 H 26 H Rate Blood Pressure 151/67 144/66 147/68 O2 Sat by Pulse 97 97 99 Oximetry 05/11/18 05/11/18 05/11/18 03:30 03:45 04:00 Temperature 98.6 F Pulse Rate 98 H 97 H 102 H Pulse Rate [ 102 H From Monitor] Respiratory 21 28 H 23 Rate Blood Pressure 152/72 152/72 138/77 O2 Sat by Pulse 91 99 97 Oximetry 05/11/18 05/11/18 05/11/18 04:15 04:30 04:45 Temperature Pulse Rate 116 H 101 H 99 H Pulse Rate [ From Monitor] Respiratory 35 H 27 H 25 H Rate Blood Pressure 169/77 152/84 101/49 O2 Sat by Pulse 95 98 Oximetry 05/11/18 05/11/1805/11/18 05:01 05:15 05:30 Temperature Pulse Rate 96 H 92 H 94 H Pulse Rate [ From Monitor] Respiratory 24 24 28 H Rate Blood Pressure 107/51 138/68 148/71 O2 Sat by Pulse 100 100 100 Oximetry 05/11/18 05/11/18 05/11/18 05:45 06:00 06:15 Temperature Pulse Rate 101 H 92 H 92 H Pulse Rate [ From Monitor] Respiratory 21 24 27 H Rate Blood Pressure 183/85 154/73 153/71 O2 Sat by Pulse 97 100 100 Oximetry 05/11/18 05/11/18 05/11/18 06:30 06:45 07:00 Temperature Pulse Rate 95 H 97 H 93 H Pulse Rate [ From Monitor] Respiratory 20 26 H 23 Rate Blood Pressure 161/75 165/75 163/75 O2 Sat by Pulse 99 93 96 Oximetry 05/11/18 05/11/18 05/11/18 07:15 07:30 07:45 Temperature Pulse Rate 97 H 97 H 95 H Pulse Rate [ From Monitor] Respiratory 26 H 25 H 23 Rate Blood Pressure 148/74 158/76 167/76 O2 Sat by Pulse 97 97 98 Oximetry 05/11/18 05/11/18 05/11/18 08:00 08:15 08:30 Temperature 97.6 F Pulse Rate 90 87 91 H Pulse Rate [ 90 From Monitor] Respiratory 18 24 20 Rate Blood Pressure 162/80 165/75 175/80 O2 Sat by Pulse 98 99 95 Oximetry 05/11/18 05/11/18 05/11/18 08:53 09:01 09:15 Temperature Pulse Rate 79 90 86 Pulse Rate [ From Monitor] Respiratory 20 28 H Rate Blood Pressure 167/76 167/76 146/71 O2 Sat by Pulse Oximetry 05/11/18 05/11/18 05/11/18 09:31 09:45 10:00 Temperature Pulse Rate 83 87 82 Pulse Rate [ From Monitor] Respiratory 26 H 26 H 28 H Rate Blood Pressure 137/62 175/80 158/76 O2 Sat by Pulse Oximetry 05/11/18 05/11/18 05/11/18 10:15 10:30 10:45 Temperature Pulse Rate 83 85 87 Pulse Rate [ From Monitor] Respiratory 25 H 23 22 Rate Blood Pressure 155/71 162/75 174/72 O2 Sat by Pulse Oximetry 05/11/18 05/11/18 05/11/18 11:00 11:15 11:31 Temperature Pulse Rate 89 87 96 H Pulse Rate [ From Monitor] Respiratory 29 H 23 22 Rate Blood Pressure 156/64 163/74 161/77 O2 Sat by Pulse Oximetry 05/11/18 05/11/18 05/11/18 11:45 11:54 11:58 Temperature Pulse Rate 88 87 88 Pulse Rate [ From Monitor] Respiratory 28 H Rate Blood Pressure 142/66 142/66 142/66 O2 Sat by Pulse Oximetry 05/11/18 05/11/18 05/11/18 11:59 12:00 12:15 Temperature 98.2 F Pulse Rate 88 95 H 85 Pulse Rate [ From Monitor] Respiratory 29 H 22 Rate Blood Pressure 142/66 174/81 158/73 O2 Sat by Pulse Oximetry 05/11/18 05/11/18 05/11/18 12:31 12:45 13:00 Temperature Pulse Rate 91 H 95 H 98 H Pulse Rate [ From Monitor] Respiratory 27 H 28 H 22 Rate Blood Pressure 150/72 162/90 140/69 O2 Sat by Pulse Oximetry 05/11/18 05/11/18 13:15 13:30 Temperature Pulse Rate 91 H 88 Pulse Rate [ From Monitor] Respiratory 25 H 23 Rate Blood Pressure 141/67 135/75 O2 Sat by Pulse Oximetry Constitutional: appears uncomfortable, other (middle aged chronically ill looking AAM; normocephalic and atraumatic with mildly increased respiratory effort) Eyes: non-icteric ENT: oropharynx moist, other (Mallampatti 3) Neck: supple, no lymphadenopathy, no JVD, other (No thyromegaly) Effort: mildly labored Ascultation: Bilateral: diminished breath sounds, rhonchi (scant) Percussion: Bilateral: not dull Cardiovascular: regular rate and rhythm, other (No R/M) Gastrointestinal: hypoactive bowel sounds, soft, non-tender, non-distended, other (midline post-op incision line is clean) Integumentary: normal Extremities: no cyanosis, no edema, pulses normal, no ischemia or petechiae Neurologic: non-focal exam (grossly), pupils equal and round, CN II-XII normal, other (weak) Psychiatric: mood appropriate, affect normal CBC and BMP: 05/11/18 05:00 05/11/18 05:00 ABG, PT/INR, D-dimer: ABG POC ABG pH 7.439 (7.35-7.45) 05/10/18 10:26 POC ABG pCO2 34.9 (35-45) L 05/10/18 10:26 POC ABG pO2 103 (80-105) 05/10/18 10:26 POC ABG HCO3 23.7 05/10/18 10:26 POC ABG Total CO2 25 05/10/18 10:26 POC ABG O2 Sat 98 05/10/18 10:26 Abnormal lab findings: Abnormal Labs 05/06/18 05/06/18 05/06/18 17:41 17:41 21:20 RBC Hgb 11.0 L Hct 32.8 L RDW 18.5 H Plt Count 479 H Lymph % (Auto) 42.2 H Lymph # Seg Neutrophils % POC ABG pCO2 POC ABG pO2 Sodium Potassium Chloride 95.8 L Carbon Dioxide BUN Creatinine 0.5 L Glucose 114 H POC Glucose Calcium Magnesium Total Protein 8.3 H Albumin 3.5 L Crossmatch See Detail 05/07/18 05/07/18 05/07/18 05:00 05:00 05:00 RBC 2.74 L Hgb 8.2 L Hct 24.8 L D RDW 18.7 H Plt Count Lymph % (Auto) Lymph # Seg Neutrophils % POC ABG pCO2 POC ABG pO2 Sodium Potassium Chloride Carbon Dioxide 20 L BUN 21 H Creatinine Glucose 189 H POC Glucose Calcium 7.4 L D Magnesium 1.20 L Total Protein Albumin Crossmatch 05/07/18 05/07/18 05/07/18 05:05 12:44 17:01 RBC Hgb 7.8 L Hct 23.2 L RDW Plt Count Lymph % (Auto) Lymph # Seg Neutrophils % POC ABG pCO2 POC ABG pO2 547 H Sodium Potassium Chloride Carbon Dioxide BUN Creatinine Glucose POC Glucose 168 H Calcium Magnesium Total Protein Albumin Crossmatch 05/07/18 05/07/18 05/07/18 17:58 21:33 23:26 RBC Hgb 7.8 L Hct 24.1 L RDW Plt Count Lymph % (Auto) Lymph # Seg Neutrophils % POC ABG pCO2 POC ABG pO2 Sodium Potassium Chloride Carbon Dioxide BUN Creatinine Glucose POC Glucose 178 H 151 H Calcium Magnesium Total Protein Albumin Crossmatch 05/08/18 05/08/18 05/08/18 00:10 04:23 06:08 RBC Hgb Hct RDW Plt Count Lymph % (Auto) Lymph # Seg Neutrophils % POC ABG pCO2 POC ABG pO2 216 H Sodium Potassium Chloride 110.4 H Carbon Dioxide 19 L BUN 27 H Creatinine Glucose 160 H POC Glucose 148 H Calcium 7.6 L Magnesium Total Protein Albumin Crossmatch 05/08/18 05/08/18 05/08/18 06:15 13:01 16:00 RBC Hgb 7.2 L 7.8 L Hct 21.7 L 23.3 L RDW Plt Count Lymph % (Auto) Lymph # Seg Neutrophils % POC ABG pCO2 POC ABG pO2 Sodium Potassium Chloride Carbon Dioxide BUN Creatinine Glucose POC Glucose 108 H Calcium Magnesium Total Protein Albumin Crossmatch 05/08/18 05/08/18 05/08/18 18:03 21:40 23:28 RBC Hgb 7.5 L Hct 21.8 L RDW Plt Count Lymph % (Auto) Lymph # Seg Neutrophils % POC ABG pCO2 POC ABG pO2 Sodium Potassium Chloride Carbon Dioxide BUN Creatinine Glucose POC Glucose 136 H 145 H Calcium Magnesium Total Protein Albumin Crossmatch 05/09/18 05/09/18 05/09/18 04:01 05:22 07:00 RBC 2.80 L Hgb 8.5 L Hct 25.3 L RDW 17.4 H Plt Count Lymph % (Auto) Lymph # Seg Neutrophils % POC ABG pCO2 POC ABG pO2 139 H Sodium Potassium Chloride Carbon Dioxide BUN Creatinine Glucose POC Glucose 115 H Calcium Magnesium Total Protein Albumin Crossmatch 05/09/18 05/09/18 05/10/18 11:52 19:04 00:13 RBC Hgb Hct RDW Plt Count Lymph % (Auto) Lymph # Seg Neutrophils % POC ABG pCO2 POC ABG pO2 Sodium Potassium Chloride Carbon Dioxide BUN Creatinine Glucose POC Glucose 114 H 144 H 146 H Calcium Magnesium Total Protein Albumin Crossmatch 05/10/18 05/10/18 05/10/18 05:28 05:30 05:30 RBC 2.93 L Hgb 8.9 L Hct 26.2 L RDW 17.9 H Plt Count Lymph % (Auto) Lymph # Seg Neutrophils % 80.2 H POC ABG pCO2 POC ABG pO2 114 H Sodium 146 H Potassium Chloride 112.8 H Carbon Dioxide 19 L BUN 25 H Creatinine 0.5 L D Glucose 150 H POC Glucose Calcium Magnesium Total Protein Albumin Crossmatch 05/10/18 05/10/18 05/10/18 05:30 10:26 12:23 RBC Hgb Hct RDW Plt Count Lymph % (Auto) Lymph # Seg Neutrophils % POC ABG pCO2 34.9 L POC ABG pO2 Sodium Potassium Chloride Carbon Dioxide BUN Creatinine Glucose POC Glucose 151 H 145 H Calcium Magnesium Total Protein Albumin Crossmatch 05/10/18 05/10/18 05/11/18 18:07 23:53 05:00 RBC 3.19 L Hgb 9.6 L Hct 28.4 L RDW 17.4 H Plt Count Lymph % (Auto) Lymph # 1.1 L Seg Neutrophils % 78.3 H POC ABG pCO2 POC ABG pO2 Sodium Potassium Chloride Carbon Dioxide BUN Creatinine Glucose POC Glucose 129 H 127 H Calcium Magnesium Total Protein Albumin Crossmatch 05/11/18 05/11/18 05/11/18 05:00 05:24 12:06 RBC Hgb Hct RDW Plt Count Lymph % (Auto) Lymph # Seg Neutrophils % POC ABG pCO2 POC ABG pO2 Sodium Potassium 3.3 L Chloride 107.6 H Carbon Dioxide BUN Creatinine 0.4 L Glucose 124 H POC Glucose 114 H 129 H Calcium Magnesium Total Protein Albumin Crossmatch Allied health notes reviewed: nursing
[2018-05-11] MEDS ORDERED: MIRALAX 3350 PO PRN (16:00)
--- NOTE | 2018-05-11 16:52 | XRay Report ---
FINAL REPORT EXAM: XR CHEST 1V AP HISTORY: follow up respiratory failure TECHNIQUE: Frontal chest x-ray Comparison: 05/10/2018, 05/09/2018, 05/08/2018, 05/07/2018 FINDINGS: Heart size is normal. There has been interval extubation and removal of the nasogastric tube. There is persistent free intraperitoneal air. Lungs are hyperlucent and clear. IMPRESSION: Clear lungs. Preserved volumes status post extubation. Removal of the nasogastric tube. Free intraperitoneal air persists, presumably from AAA repair 05/07/18. Correlate with clinical status.
[2018-05-11] MEDS: D5/0.45NS 1,000 ML IV SCH (18:14)
[2018-05-11] MEDS: COLACE PO SCH (22:13)
[2018-05-11] MEDS: NORCO 5/325 PO PRN (22:16)
--- NOTE | 2018-05-12 03:07 | XRay Report ---
FINAL REPORT PROCEDURE: XR CHEST 1V AP TECHNIQUE: Chest radiograph anteroposterior view. CPT 17931 HISTORY: follow up respiratory failure COMPARISON: 05/11/2018 FINDINGS: Heart: Normal. Mediastinum/Vessels: Normal. Lungs/Pleural space: Normal. Bony thorax: No acute osseous abnormality. Life support devices: None. There remains free intraperitoneal air IMPRESSION: There is no evidence of an acute infiltrate or effusion. There remains free intraperitoneal air..
[2018-05-12 04:26] LABS: Basophils # (Auto) 0.1 K/mm3 (0.0-0.1); Basophils % (Auto) 0.9 % (0.0-1.8); Eosinophils # (Auto) 0.1 K/mm3 (0.0-0.4); Eosinophils % (Auto) 1.3 % (0.0-4.3); Hematocrit 28.9 % (35.5-45.6); Hemoglobin 9.7 gm/dl (11.8-15.2); Lymphocytes # (Auto) 1.6 K/mm3 (1.2-5.4); Lymphocytes % (Auto) 25.5 % (13.4-35.0); Mean Corpuscular HGB Conc 34 % (32-34); Mean Corpuscular Hemoglobin 30 pg (28-32); Mean Corpuscular Volume 89 fl (84-94); Monocytes # (Auto) 0.5 K/mm3 (0.0-0.8); Monocytes % (Auto) 8.3 % (0.0-7.3); Platelet Count 304 K/mm3 (140-440); Red Blood Count 3.24 M/mm3 (3.65-5.03); Red Cell Distribution Width 16.8 % (13.2-15.2)
[2018-05-12 04:44] LABS: BUN/Creatinine Ratio 18; Blood Urea Nitrogen 7 mg/dL (9-20); Calcium 8.5 mg/dL (8.4-10.2); Hemolysis Index 34
[2018-05-12] MEDS: KCL 10MEQ/100ML 10 MEQ/100 ML BAG IV SCH ×6 (06:42→21:35)
[2018-05-12] MEDS: LOPRESSOR PO SCH ×2 (09:02→21:25)
[2018-05-12] MEDS: KEPPRA PO SCH ×2 (09:02→21:11)
[2018-05-12] MEDS: NORVASC PO SCH (09:02)
[2018-05-12] MEDS: PEPCID PO SCH ×2 (09:03→21:11)
[2018-05-12] MEDS: COLACE PO SCH ×2 (09:03→21:11)
[2018-05-12] MEDS: ZESTRIL PO SCH ×2 (09:03→12:18)
[2018-05-12] MEDS: APRESOLINE PO SCH ×3 (09:03→21:25)
[2018-05-12] MEDS: DULCOLAX PR SCH (09:08)
[2018-05-12] MEDS: SODIUM CHLORIDE FLUSH SYRINGE 10 ML IV SCH ×2 (09:08→21:36)
[2018-05-12] MEDS: HEPARIN SUB-Q SCH ×2 (09:09→21:25)
[2018-05-12] MEDS: MORPHINE IV PRN (10:08)
--- NOTE | 2018-05-12 11:03 | Progress Note ---
Assessment and Plan Acute hypoxemic respiratory failure, post op on MVS Ruptured Abdominal aortic aneurysm Hypertension Diabetes -Bowel regimen -Monitor renal indices and urine output -Start clear liquid diet -Blood pressure control -Accuchecks with glycemic control -Trnasfer to surgical floor FULL CODE Subjective Date of service: 05/12/18 Principal diagnosis: ruptured AAA Interval history: F/UP: Post operative respiratory failure(hypoxia), s/p repair of ruptured AAA, hypertension Patient was seen and examined. Vitals, labs, medications, chart and imaging reviewed. Discussed with RN and RT in ICU-IDT rounds Discussed in IDT-ICU rounds. No bowel movement Objective - Exam Narrative Exam: Gen. appearance: Patient lying in bed, no apparent distress HEENT: Normocephalic, atraumatic, pupils equally round and reactive to light, extraocular movement intact, and no sclericterus,. No JVD or thyromegaly or nodule,neck supple, no carotid bruit ,mucous membranes moist, no exudate or erythema Heart: S1, S2, regular rate and rhythm Lungs: Clear bilaterally, breathing comfortable Abdomen: Positive bowel sounds, non-distended, no organomegaly Extremity:no edema cyanosis, clubbing Skin: no rash, dry, warm Neuro: sedated Vital Signs - 12hr 05/11/18 05/11/18 05/11/18 23:15 23:30 23:45 Temperature Pulse Rate 88 87 84 Pulse Rate [ From Monitor] Respiratory 25 H 25 H 23 Rate Blood Pressure 137/77 145/76 149/74 O2 Sat by Pulse 97 99 95 Oximetry 05/12/18 05/12/18 05/12/18 00:00 00:15 00:31 Temperature 98.4 F Pulse Rate 86 84 84 Pulse Rate [ 90 From Monitor] Respiratory 26 H 18 27 H Rate Blood Pressure 148/66 148/66 158/73 O2 Sat by Pulse 92 98 97 Oximetry 05/12/18 05/12/18 05/12/18 00:45 01:01 01:15 Temperature Pulse Rate 80 80 88 Pulse Rate [ From Monitor] Respiratory 25 H 24 25 H Rate Blood Pressure 158/73 158/73 158/73 O2 Sat by Pulse 98 97 96 Oximetry 05/12/18 05/12/18 05/12/18 01:31 01:45 02:00 Temperature Pulse Rate 83 84 78 Pulse Rate [ From Monitor] Respiratory 28 H 31 H 21 Rate Blood Pressure 158/73 158/73 148/74 O2 Sat by Pulse 97 98 100 Oximetry 05/12/18 05/12/18 05/12/18 02:15 02:30 02:45 Temperature Pulse Rate 78 78 85 Pulse Rate [ From Monitor] Respiratory 20 22 21 Rate Blood Pressure 147/72 156/74 150/74 O2 Sat by Pulse 97 97 92 Oximetry 05/12/18 05/12/18 05/12/18 03:00 03:15 03:30 Temperature Pulse Rate 80 84 80 Pulse Rate [ From Monitor] Respiratory 21 21 18 Rate Blood Pressure 160/74 156/74 156/80 O2 Sat by Pulse 95 98 Oximetry 05/12/18 05/12/18 05/12/18 03:45 03:56 04:00 Temperature 98.6 F Pulse Rate 83 80 Pulse Rate [ 90 From Monitor] Respiratory 13 23 Rate Blood Pressure 156/80 153/78 O2 Sat by Pulse 99 99 Oximetry 05/12/18 05/12/18 05/12/18 04:15 04:30 04:45 Temperature Pulse Rate 95 H 81 79 Pulse Rate [ From Monitor] Respiratory 22 23 24 Rate Blood Pressure 156/81 164/80 157/77 O2 Sat by Pulse 98 97 98 Oximetry 05/12/18 05/12/18 05/12/18 05:00 05:15 05:18 Temperature Pulse Rate 84 92 H Pulse Rate [ 90 From Monitor] Respiratory 22 18 20 Rate Blood Pressure 159/82 182/89 O2 Sat by Pulse 98 98 97 Oximetry 05/12/18 05/12/18 05/12/18 05:30 05:45 06:01 Temperature Pulse Rate 79 80 85 Pulse Rate [ From Monitor] Respiratory 21 21 26 H Rate Blood Pressure 161/74 167/76 155/79 O2 Sat by Pulse 96 97 97 Oximetry 05/12/18 05/12/18 05/12/18 06:15 06:30 06:45 Temperature Pulse Rate 84 84 93 H Pulse Rate [ From Monitor] Respiratory 29 H 36 H 26 H Rate Blood Pressure 161/83 161/83 161/83 O2 Sat by Pulse 96 98 99 Oximetry 05/12/18 05/12/18 05/12/18 07:00 07:15 07:30 Temperature Pulse Rate 82 83 82 Pulse Rate [ From Monitor] Respiratory 15 18 22 Rate Blood Pressure 162/78 162/79 174/80 O2 Sat by Pulse 96 97 96 Oximetry 05/12/18 05/12/18 05/12/18 07:45 08:01 08:15 Temperature Pulse Rate 85 90 86 Pulse Rate [ From Monitor] Respiratory 24 24 19 Rate Blood Pressure 162/79 162/79 156/77 O2 Sat by Pulse 98 95 Oximetry 05/12/18 05/12/18 05/12/18 08:30 08:45 09:00 Temperature Pulse Rate 84 88 86 Pulse Rate [ From Monitor] Respiratory 19 22 18 Rate Blood Pressure 165/80 164/80 175/79 O2 Sat by Pulse 97 97 95 Oximetry 05/12/18 05/12/18 05/12/18 09:02 09:03 09:15 Temperature Pulse Rate 90 89 86 Pulse Rate [ From Monitor] Respiratory 20 Rate Blood Pressure 145/80 O2 Sat by Pulse 98 Oximetry 05/12/18 05/12/18 05/12/18 09:30 09:45 10:00 Temperature Pulse Rate 86 85 87 Pulse Rate [ From Monitor] Respiratory 22 20 17 Rate Blood Pressure 159/76 174/81 164/81 O2 Sat by Pulse 96 97 97 Oximetry 05/12/18 10:15 Temperature Pulse Rate 84 Pulse Rate [ From Monitor] Respiratory 19 Rate Blood Pressure 165/77 O2 Sat by Pulse 96 Oximetry Constitutional: appears uncomfortable, other (middle aged chronically ill looking AAM; normocephalic and atraumatic with mildly increased respiratory effort) Eyes: non-icteric ENT: oropharynx moist, other (Mallampatti 3) Neck: supple, no lymphadenopathy, no JVD, other (No thyromegaly) Effort: mildly labored Ascultation: Bilateral: diminished breath sounds, rhonchi (scant) Percussion: Bilateral: not dull Cardiovascular: regular rate and rhythm, other (No R/M) Gastrointestinal: hypoactive bowel sounds, soft, non-tender, non-distended, other (midline post-op incision line is clean) Integumentary: normal Extremities: no cyanosis, no edema, pulses normal, no ischemia or petechiae Neurologic: non-focal exam (grossly), pupils equal and round, CN II-XII normal, other (weak) Psychiatric: mood appropriate, affect normal CBC and BMP: 05/12/18 03:50 05/12/18 03:50 ABG, PT/INR, D-dimer: ABG POC ABG pH 7.439 (7.35-7.45) 05/10/18 10:26 POC ABG pCO2 34.9 (35-45) L 05/10/18 10:26 POC ABG pO2 103 (80-105) 05/10/18 10:26 POC ABG HCO3 23.7 05/10/18 10:26 POC ABG Total CO2 25 05/10/18 10:26 POC ABG O2 Sat 98 05/10/18 10:26 Abnormal lab findings: Abnormal Labs 05/06/18 05/06/18 05/06/18 17:41 17:41 21:20 RBC Hgb 11.0 L Hct 32.8 L RDW 18.5 H Plt Count 479 H Lymph % (Auto) 42.2 H [place] % (Auto) Lymph # Seg Neutrophils % POC ABG pCO2 POC ABG pO2 Sodium Potassium Chloride 95.8 L Carbon Dioxide BUN Creatinine 0.5 L Glucose 114 H POC Glucose Calcium Magnesium Total Protein 8.3 H Albumin 3.5 L Crossmatch See Detail 05/07/18 05/07/18 05/07/18 05:00 05:00 05:00 RBC 2.74 L Hgb 8.2 L Hct 24.8 L D RDW 18.7 H Plt Count Lymph % (Auto) [place] % (Auto) Lymph # Seg Neutrophils % POC ABG pCO2 POC ABG pO2 Sodium Potassium Chloride Carbon Dioxide 20 L BUN 21 H Creatinine Glucose 189 H POC Glucose Calcium 7.4 L D Magnesium 1.20 L Total Protein Albumin Crossmatch 05/07/18 05/07/18 05/07/18 05:05 12:44 17:01 RBC Hgb 7.8 L Hct 23.2 L RDW Plt Count Lymph % (Auto) [place] % (Auto) Lymph # Seg Neutrophils % POC ABG pCO2 POC ABG pO2 547 H Sodium Potassium Chloride Carbon Dioxide BUN Creatinine Glucose POC Glucose 168 H Calcium Magnesium Total Protein Albumin Crossmatch 05/07/18 05/07/18 05/07/18 17:58 21:33 23:26 RBC Hgb 7.8 L Hct 24.1 L RDW Plt Count Lymph % (Auto) [place] % (Auto) Lymph # Seg Neutrophils % POC ABG pCO2 POC ABG pO2 Sodium Potassium Chloride Carbon Dioxide BUN Creatinine Glucose POC Glucose 178 H 151 H Calcium Magnesium Total Protein Albumin Crossmatch 05/08/18 05/08/18 05/08/18 00:10 04:23 06:08 RBC Hgb Hct RDW Plt Count Lymph % (Auto) [place] % (Auto) Lymph # Seg Neutrophils % POC ABG pCO2 POC ABG pO2 216 H Sodium Potassium Chloride 110.4 H Carbon Dioxide 19 L BUN 27 H Creatinine Glucose 160 H POC Glucose 148 H Calcium 7.6 L Magnesium Total Protein Albumin Crossmatch 05/08/18 05/08/18 05/08/18 06:15 13:01 16:00 RBC Hgb 7.2 L 7.8 L Hct 21.7 L 23.3 L RDW Plt Count Lymph % (Auto) [place] % (Auto) Lymph # Seg Neutrophils % POC ABG pCO2 POC ABG pO2 Sodium Potassium Chloride Carbon Dioxide BUN Creatinine Glucose POC Glucose 108 H Calcium Magnesium Total Protein Albumin Crossmatch 05/08/18 05/08/18 05/08/18 18:03 21:40 23:28 RBC Hgb 7.5 L Hct 21.8 L RDW Plt Count Lymph % (Auto) [place] % (Auto) Lymph # Seg Neutrophils % POC ABG pCO2 POC ABG pO2 Sodium Potassium Chloride Carbon Dioxide BUN Creatinine Glucose POC Glucose 136 H 145 H Calcium Magnesium Total Protein Albumin Crossmatch 05/09/18 05/09/18 05/09/18 04:01 05:22 07:00 RBC 2.80 L Hgb 8.5 L Hct 25.3 L RDW 17.4 H Plt Count Lymph % (Auto) [place] % (Auto) Lymph # Seg Neutrophils % POC ABG pCO2 POC ABG pO2 139 H Sodium Potassium Chloride Carbon Dioxide BUN Creatinine Glucose POC Glucose 115 H Calcium Magnesium Total Protein Albumin Crossmatch 05/09/18 05/09/18 05/10/18 11:52 19:04 00:13 RBC Hgb Hct RDW Plt Count Lymph % (Auto) [place] % (Auto) Lymph # Seg Neutrophils % POC ABG pCO2 POC ABG pO2 Sodium Potassium Chloride Carbon Dioxide BUN Creatinine Glucose POC Glucose 114 H 144 H 146 H Calcium Magnesium Total Protein Albumin Crossmatch 05/10/18 05/10/18 05/10/18 05:28 05:30 05:30 RBC 2.93 L Hgb 8.9 L Hct 26.2 L RDW 17.9 H Plt Count Lymph % (Auto) [place] % (Auto) Lymph # Seg Neutrophils % 80.2 H POC ABG pCO2 POC ABG pO2 114 H Sodium 146 H Potassium Chloride 112.8 H Carbon Dioxide 19 L BUN 25 H Creatinine 0.5 L D Glucose 150 H POC Glucose Calcium Magnesium Total Protein Albumin Crossmatch 05/10/18 05/10/18 05/10/18 05:30 10:26 12:23 RBC Hgb Hct RDW Plt Count Lymph % (Auto) [place] % (Auto) Lymph # Seg Neutrophils % POC ABG pCO2 34.9 L POC ABG pO2 Sodium Potassium Chloride Carbon Dioxide BUN Creatinine Glucose POC Glucose 151 H 145 H Calcium Magnesium Total Protein Albumin Crossmatch 05/10/18 05/10/18 05/11/18 18:07 23:53 05:00 RBC 3.19 L Hgb 9.6 L Hct 28.4 L RDW 17.4 H Plt Count Lymph % (Auto) [place] % (Auto) Lymph # 1.1 L Seg Neutrophils % 78.3 H POC ABG pCO2 POC ABG pO2 Sodium Potassium Chloride Carbon Dioxide BUN Creatinine Glucose POC Glucose 129 H 127 H Calcium Magnesium Total Protein Albumin Crossmatch 05/11/18 05/11/18 05/11/18 05:00 05:24 12:06 RBC Hgb Hct RDW Plt Count Lymph % (Auto) [place] % (Auto) Lymph # Seg Neutrophils % POC ABG pCO2 POC ABG pO2 Sodium Potassium 3.3 L Chloride 107.6 H Carbon Dioxide BUN Creatinine 0.4 L Glucose 124 H POC Glucose 114 H 129 H Calcium Magnesium Total Protein Albumin Crossmatch 05/11/18 05/11/18 05/12/18 18:35 23:39 03:50 RBC 3.24 L Hgb 9.7 L Hct 28.9 L RDW 16.8 H Plt Count Lymph % (Auto) [place] % (Auto) 8.3 H Lymph # Seg Neutrophils % POC ABG pCO2 POC ABG pO2 Sodium Potassium Chloride Carbon Dioxide BUN Creatinine Glucose POC Glucose 111 H 122 H Calcium Magnesium Total Protein Albumin Crossmatch 05/12/18 03:50 RBC Hgb Hct RDW Plt Count Lymph % (Auto) [place] % (Auto) Lymph # Seg Neutrophils % POC ABG pCO2 POC ABG pO2 Sodium 136 L Potassium 3.0 L Chloride Carbon Dioxide BUN 7 L Creatinine 0.4 L Glucose 107 H POC Glucose Calcium Magnesium Total Protein Albumin Crossmatch Allied health notes reviewed: nursing
[2018-05-12] MEDS ORDERED: ZESTRIL PO SCH (11:45)
[2018-05-12] MEDS: DULCOLAX PO SCH (12:16)
[2018-05-12] MEDS: SENOKOT S PO SCH ×2 (12:18→21:11)
--- NOTE | 2018-05-12 13:31 | Progress Note ---
Assessment and Plan Rupture Abdominal aortic aneurysm, - s/p repair by vascular, monitor H/h - cont to monitor H/H and BP Post-operative ileus - resolving, start on clear liquid diet and advance as tolerated Hypertension, accelerated -SBP >180 - off labetalol drip, - cont clonidine patch, hydralazine, lisinopril, metoprolol and norvasc Diabetes type 2, SSI as needed Acute respiratory failure, following surgery - self extubated 05/10/18 - cont nebs and supplemental O2 with N/c Anemia, likely due to blood loss from AAA tear - transfuse as needed to keep Hb >8.0 Physical exam: General appearance: Present: no acute distress - EENT Eyes: no scleral icterus, no conjunctival injection ENT: dentition normal, no thrush, no ulcerations Ears: bilateral: normal - Neck Neck: no enlarged thyroid, no masses or JVD - Respiratory Respiratory effort: normal Respiratory: bilateral: CTA - Breasts Breasts: normal - Cardiovascular Rhythm: regular Heart Sounds: Present: S1 & S2. Absent: gallop, rub Extremities: pulses intact, No edema, normal color, Full ROM - Gastrointestinal General gastrointestinal: Present: soft, non-distended, other (surgical dressing on place) - Integumentary Integumentary: clear, warm, dry - Musculoskeletal Musculoskeletal: other (no joint swelling) - Neurologic Neurologic: no focal deficits Subjective Date of service: 05/12/18 Principal diagnosis: ruptured AAA Interval history: Patient seen and examined Patient extubated himself on 05/10/18 Vitals notes, discussed with RN at bedside No acute o/n issue, passing flatus, no BM Objective - Constitutional Vitals: Vital Signs - 12hr 05/12/18 05/12/18 05/12/18 01:45 02:00 02:15 Temperature Pulse Rate 84 78 78 Pulse Rate [ From Monitor] Respiratory 31 H 21 20 Rate Blood Pressure 158/73 148/74 147/72 O2 Sat by Pulse 98 100 97 Oximetry 05/12/18 05/12/18 05/12/18 02:30 02:45 03:00 Temperature Pulse Rate 78 85 80 Pulse Rate [ From Monitor] Respiratory 22 21 21 Rate Blood Pressure 156/74 150/74 160/74 O2 Sat by Pulse 97 92 95 Oximetry 05/12/18 05/12/18 05/12/18 03:15 03:30 03:45 Temperature Pulse Rate 84 80 83 Pulse Rate [ From Monitor] Respiratory 21 18 13 Rate Blood Pressure 156/74 156/80 156/80 O2 Sat by Pulse 98 99 Oximetry 05/12/18 05/12/18 05/12/18 03:56 04:00 04:15 Temperature 98.6 F Pulse Rate 80 95 H Pulse Rate [ 90 From Monitor] Respiratory 23 22 Rate Blood Pressure 153/78 156/81 O2 Sat by Pulse 99 98 Oximetry 05/12/18 05/12/18 05/12/18 04:30 04:45 05:00 Temperature Pulse Rate 81 79 84 Pulse Rate [ From Monitor] Respiratory 23 24 22 Rate Blood Pressure 164/80 157/77 159/82 O2 Sat by Pulse 97 98 98 Oximetry 05/12/18 05/12/18 05/12/18 05:15 05:18 05:30 Temperature Pulse Rate 92 H 79 Pulse Rate [ 90 From Monitor] Respiratory 18 20 21 Rate Blood Pressure 182/89 161/74 O2 Sat by Pulse 98 97 96 Oximetry 05/12/18 05/12/18 05/12/18 05:45 06:01 06:15 Temperature Pulse Rate 80 85 84 Pulse Rate [ From Monitor] Respiratory 21 26 H 29 H Rate Blood Pressure 167/76 155/79 161/83 O2 Sat by Pulse 97 97 96 Oximetry 05/12/18 05/12/18 05/12/18 06:30 06:45 07:00 Temperature Pulse Rate 84 93 H 82 Pulse Rate [ From Monitor] Respiratory 36 H 26 H 15 Rate Blood Pressure 161/83 161/83 162/78 O2 Sat by Pulse 98 99 96 Oximetry 05/12/18 05/12/18 05/12/18 07:15 07:30 07:45 Temperature Pulse Rate 83 82 85 Pulse Rate [ From Monitor] Respiratory 18 22 24 Rate Blood Pressure 162/79 174/80 162/79 O2 Sat by Pulse 97 96 Oximetry 05/12/18 05/12/18 05/12/18 08:00 08:01 08:15 Temperature 100 F H Pulse Rate 90 86 Pulse Rate [ 84 From Monitor] Respiratory 20 24 19 Rate Blood Pressure 162/79 156/77 O2 Sat by Pulse 97 98 95 Oximetry 05/12/18 05/12/18 05/12/18 08:30 08:45 09:00 Temperature Pulse Rate 84 88 86 Pulse Rate [ From Monitor] Respiratory 19 22 18 Rate Blood Pressure 165/80 164/80 175/79 O2 Sat by Pulse 97 97 95 Oximetry 05/12/18 05/12/18 05/12/18 09:02 09:03 09:15 Temperature Pulse Rate 90 89 86 Pulse Rate [ From Monitor] Respiratory 20 Rate Blood Pressure 145/80 O2 Sat by Pulse 98 Oximetry 05/12/18 05/12/18 05/12/18 09:30 09:45 10:00 Temperature Pulse Rate 86 85 84 Pulse Rate [ From Monitor] Respiratory 22 20 17 Rate Blood Pressure 159/76 174/81 164/81 O2 Sat by Pulse 96 97 97 Oximetry 05/12/18 05/12/18 05/12/18 10:15 10:31 10:45 Temperature Pulse Rate 84 92 H 84 Pulse Rate [ From Monitor] Respiratory 19 22 21 Rate Blood Pressure 165/77 160/76 158/75 O2 Sat by Pulse 96 96 97 Oximetry 05/12/18 05/12/18 05/12/18 11:00 11:15 11:30 Temperature Pulse Rate 86 79 80 Pulse Rate [ From Monitor] Respiratory 19 22 22 Rate Blood Pressure 166/80 166/80 158/76 O2 Sat by Pulse 99 96 96 Oximetry 05/12/18 05/12/18 05/12/18 11:45 12:00 12:15 Temperature Pulse Rate 79 80 76 Pulse Rate [ 84 From Monitor] Respiratory 23 27 H 16 Rate Blood Pressure 159/77 160/79 156/75 O2 Sat by Pulse 98 97 98 Oximetry 05/12/18 12:18 Temperature Pulse Rate 76 Pulse Rate [ From Monitor] Respiratory Rate Blood Pressure 160/79 O2 Sat by Pulse Oximetry - Labs CBC & Chem 7: 05/12/18 03:50 05/12/18 03:50 Labs: Abnormal lab results 05/11/18 05/11/18 05/12/18 Range/Units 18:35 23:39 03:50 RBC 3.24 L (3.65-5.03) M/mm3 Hgb 9.7 L (11.8-15.2) gm/dl Hct 28.9 L (35.5-45.6) % RDW 16.8 H (13.2-15.2) % [place] % (Auto) 8.3 H (0.0-7.3) % Sodium (137-145) mmol/L Potassium (3.6-5.0) mmol/L BUN (9-20) mg/dL Creatinine (0.8-1.5) mg/dL Glucose (75-100) mg/dL POC Glucose 111 H 122 H (70-105) 05/12/18 Range/Units 03:50 RBC (3.65-5.03) M/mm3 Hgb (11.8-15.2) gm/dl Hct (35.5-45.6) % RDW (13.2-15.2) % [place] % (Auto) (0.0-7.3) % Sodium 136 L (137-145) mmol/L Potassium 3.0 L (3.6-5.0) mmol/L BUN 7 L (9-20) mg/dL Creatinine 0.4 L (0.8-1.5) mg/dL Glucose 107 H (75-100) mg/dL POC Glucose (70-105)
--- NOTE | 2018-05-12 18:35 | Progress Note ---
Assessment and Plan - Patient Problems (1) Ruptured aortic aneurysm Onset Date: ~05/06/18 Current Visit: No Status: Acute Qualifiers: Aortic location: abdominal aorta Qualified Code(s): I71.3 - Abdominal aortic aneurysm, ruptured Plan to address problem: Postoperative ileus is resolving. Will advance diet. Approaching discharge home. Subjective Date of service: 05/12/18 Principal diagnosis: ruptured AAA Interval history: Doing well. Beginning to eat tolerating clear liquids. Moved to the floor. Objective - Exam Narrative Exam: Surgical incisions dry and clean. Good distal pulses. - Constitutional Vitals: Vital Signs - 12hr 05/12/18 05/12/18 05/12/18 06:45 07:00 07:15 Temperature Pulse Rate 93 H 82 83 Pulse Rate [ From Monitor] Respiratory 26 H 15 18 Rate Blood Pressure 161/83 162/78 162/79 O2 Sat by Pulse 99 96 97 Oximetry 05/12/18 05/12/18 05/12/18 07:30 07:45 08:00 Temperature 100 F H Pulse Rate 82 85 Pulse Rate [ 84 From Monitor] Respiratory 22 24 20 Rate Blood Pressure 174/80 162/79 O2 Sat by Pulse 96 97 Oximetry 05/12/18 05/12/18 05/12/18 08:01 08:15 08:30 Temperature Pulse Rate 90 86 84 Pulse Rate [ From Monitor] Respiratory 24 19 19 Rate Blood Pressure 162/79 156/77 165/80 O2 Sat by Pulse 98 95 97 Oximetry 05/12/18 05/12/18 05/12/18 08:45 09:00 09:02 Temperature Pulse Rate 88 86 90 Pulse Rate [ From Monitor] Respiratory 22 18 Rate Blood Pressure 164/80 175/79 O2 Sat by Pulse 97 95 Oximetry 05/12/18 05/12/18 05/12/18 09:03 09:15 09:30 Temperature Pulse Rate 89 86 86 Pulse Rate [ From Monitor] Respiratory 20 22 Rate Blood Pressure 145/80 159/76 O2 Sat by Pulse 98 96 Oximetry 05/12/18 05/12/18 05/12/18 09:45 10:00 10:15 Temperature Pulse Rate 85 84 84 Pulse Rate [ From Monitor] Respiratory 20 17 19 Rate Blood Pressure 174/81 164/81 165/77 O2 Sat by Pulse 97 97 96 Oximetry 05/12/18 05/12/18 05/12/18 10:31 10:45 11:00 Temperature Pulse Rate 92 H 84 86 Pulse Rate [ From Monitor] Respiratory 22 21 19 Rate Blood Pressure 160/76 158/75 166/80 O2 Sat by Pulse 96 97 99 Oximetry 05/12/18 05/12/18 05/12/18 11:15 11:30 11:45 Temperature Pulse Rate 79 80 79 Pulse Rate [ From Monitor] Respiratory 22 22 23 Rate Blood Pressure 166/80 158/76 159/77 O2 Sat by Pulse 96 96 98 Oximetry 05/12/18 05/12/18 05/12/18 12:00 12:15 12:18 Temperature Pulse Rate 80 76 76 Pulse Rate [ 84 From Monitor] Respiratory 27 H 16 Rate Blood Pressure 160/79 156/75 160/79 O2 Sat by Pulse 97 98 Oximetry 05/12/18 05/12/18 05/12/18 12:30 12:45 13:01 Temperature Pulse Rate 75 78 85 Pulse Rate [ From Monitor] Respiratory 29 H 31 H 34 H Rate Blood Pressure 153/74 149/77 174/76 O2 Sat by Pulse 97 98 97 Oximetry 05/12/18 05/12/18 05/12/18 13:15 13:30 13:45 Temperature Pulse Rate 74 77 78 Pulse Rate [ From Monitor] Respiratory 25 H 24 26 H Rate Blood Pressure 141/72 149/74 149/74 O2 Sat by Pulse 97 98 99 Oximetry 05/12/18 05/12/18 05/12/18 14:00 14:15 14:30 Temperature Pulse Rate 75 77 93 H Pulse Rate [ From Monitor] Respiratory 25 H 25 H 32 H Rate Blood Pressure 132/65 134/65 143/69 O2 Sat by Pulse 96 97 97 Oximetry 05/12/18 05/12/18 05/12/18 14:45 15:00 15:15 Temperature Pulse Rate 79 79 81 Pulse Rate [ From Monitor] Respiratory 24 35 H 20 Rate Blood Pressure 127/67 128/67 133/70 O2 Sat by Pulse 95 96 95 Oximetry 05/12/18 05/12/18 05/12/18 15:30 15:45 16:00 Temperature 98.3 F Pulse Rate 78 82 82 Pulse Rate [ 84 From Monitor] Respiratory 24 25 H 22 Rate Blood Pressure 129/66 129/66 135/72 O2 Sat by Pulse 96 99 93 Oximetry 05/12/18 05/12/18 05/12/18 16:11 16:21 16:30 Temperature Pulse Rate 79 79 82 Pulse Rate [ From Monitor] Respiratory 27 H 24 26 H Rate Blood Pressure 135/72 121/65 139/71 O2 Sat by Pulse 98 97 93 Oximetry 05/12/18 05/12/18 16:41 17:14 Temperature Pulse Rate 79 79 Pulse Rate [ From Monitor] Respiratory 20 Rate Blood Pressure 139/71 O2 Sat by Pulse 98 98 Oximetry - Labs CBC & Chem 7: 05/12/18 03:50 05/12/18 03:50 Labs: Abnormal lab results 05/11/18 05/12/18 05/12/18 Range/Units 23:39 03:50 03:50 RBC 3.24 L (3.65-5.03) M/mm3 Hgb 9.7 L (11.8-15.2) gm/dl Hct 28.9 L (35.5-45.6) % RDW 16.8 H (13.2-15.2) % [place] % (Auto) 8.3 H (0.0-7.3) % Sodium 136 L (137-145) mmol/L Potassium 3.0 L (3.6-5.0) mmol/L BUN 7 L (9-20) mg/dL Creatinine 0.4 L (0.8-1.5) mg/dL Glucose 107 H (75-100) mg/dL POC Glucose 122 H (70-105)
[2018-05-12] MEDS: NORCO 5/325 PO PRN (20:42)
[2018-05-13] MEDS: MORPHINE IV PRN ×2 (06:44→20:39)
[2018-05-13] MEDS: NORCO 5/325 PO PRN ×3 (08:59→23:51)
--- NOTE | 2018-05-13 12:19 | Progress Note ---
Assessment and Plan Rupture Abdominal aortic aneurysm, - s/p repair by vascular, monitor H/h - cont to monitor H/H and BP Post-operative ileus - resolving, start on clear liquid diet and advance as tolerated Hypertension, accelerated -SBP >180 - off labetalol drip, - cont clonidine patch, hydralazine, lisinopril, metoprolol and norvasc Diabetes type 2, SSI as needed Acute respiratory failure, following surgery - self extubated 05/10/18 - cont nebs and supplemental O2 with N/c Anemia, likely due to blood loss from AAA tear - transfuse as needed to keep Hb >8.0 Physical exam: General appearance: Present: no acute distress - EENT Eyes: no scleral icterus, no conjunctival injection ENT: dentition normal, no thrush, no ulcerations Ears: bilateral: normal - Neck Neck: no enlarged thyroid, no masses or JVD - Respiratory Respiratory effort: normal Respiratory: bilateral: CTA - Breasts Breasts: normal - Cardiovascular Rhythm: regular Heart Sounds: Present: S1 & S2. Absent: gallop, rub Extremities: pulses intact, No edema, normal color, Full ROM - Gastrointestinal General gastrointestinal: Present: soft, non-distended, other (surgical dressing on place) - Integumentary Integumentary: clear, warm, dry - Musculoskeletal Musculoskeletal: other (no joint swelling) - Neurologic Neurologic: no focal deficits Subjective Date of service: 05/13/18 Principal diagnosis: ruptured AAA Interval history: Patient seen and examined Patient extubated himself on 05/10/18 Vitals notes, discussed with RN at bedside No acute o/n issue, passing flatus, no BM tolerating diet Objective - Constitutional Vitals: Vital Signs - 12hr 05/13/18 05/13/18 05/13/18 06:29 10:09 11:15 Temperature 98.9 F 98.9 F Pulse Rate 77 84 78 Respiratory 18 18 18 Rate Blood Pressure 137/65 145/67 Blood Pressure 127/65 [Right] O2 Sat by Pulse 97 98 97 Oximetry - Labs CBC & Chem 7: 05/14/18 06:21 05/14/18 06:21 Labs: Abnormal lab results 05/13/18 Range/Units 11:26 POC Glucose 125 H (70-105)
[2018-05-13] MEDS: SENOKOT S PO SCH (13:16)
[2018-05-13] MEDS: NORVASC PO SCH (13:16)
[2018-05-13] MEDS: ZESTRIL PO SCH (13:17)
[2018-05-13] MEDS: COLACE PO SCH ×2 (13:17→21:05)
[2018-05-13] MEDS: DULCOLAX PO SCH (13:17)
[2018-05-13] MEDS: PEPCID PO SCH ×2 (13:18→21:06)
[2018-05-13] MEDS: LOPRESSOR PO SCH ×2 (13:18→21:43)
[2018-05-13] MEDS: KEPPRA PO SCH ×2 (13:18→21:06)
[2018-05-13] MEDS: HEPARIN SUB-Q SCH ×2 (13:22→21:08)
[2018-05-13] MEDS: SODIUM CHLORIDE FLUSH SYRINGE 10 ML IV SCH ×2 (13:33→21:03)
[2018-05-13] MEDS: APRESOLINE PO SCH ×3 (13:33→21:02)
--- NOTE | 2018-05-13 16:58 | Progress Note ---
Assessment and Plan Needs to be out of bed at meals and walking. Discussed this in depth with patient. Wants a softer diet. Will change to soft mechanical. Having flatus, but no bowel movements. Will start bisacodyl suppository. Patient is not cleared for discharge. Patient needs to be ambulating and defecating. Subjective Date of service: 05/13/18 Principal diagnosis: ruptured AAA Interval history: Having flatus. No bowel movement. Had some abdominal discomfort with regular diet. Discussed diet. Not participating with PT. Discussed suppository. Did not like the idea. Reminded patient that he underwent a large operation and needs to be compliant in order to do well postoperative. Patient understood. Objective - Constitutional Vitals: Vital Signs - 12hr 05/13/18 05/13/18 05/13/18 06:29 10:09 11:15 Temperature 98.9 F 98.9 F Pulse Rate 77 84 78 Respiratory 18 18 18 Rate Blood Pressure 137/65 145/67 Blood Pressure 127/65 [Right] O2 Sat by Pulse 97 98 97 Oximetry 05/13/18 16:09 Temperature 98.7 F Pulse Rate 72 Respiratory 18 Rate Blood Pressure 145/69 Blood Pressure [Right] O2 Sat by Pulse 98 Oximetry General appearance: Present: no acute distress - EENT Eyes: EOM intact ENT: hearing intact - Respiratory Respiratory effort: normal Extremities: pulses intact, normal temperature, normal color, abnormal ( incision at groins c/d/i) - Gastrointestinal General gastrointestinal: Present: other (incision c/d/i, mild tenderness ) - Psychiatric Psychiatric: appropriate mood/affect - Labs CBC & Chem 7: 05/12/18 03:50 05/12/18 03:50 Labs: Abnormal lab results 05/13/18 05/13/18 Range/Units 11:26 16:21 POC Glucose 125 H 122 H (70-105)
--- NOTE | 2018-05-13 19:10 | Progress Note ---
Assessment and Plan Patient alert, awake and resting on room air. O2 saturation 98%. No complaint of chest pain, shortness of breath or cough. Complaining abdominal pain at surgical site. - Patient Problems (1) Ruptured aortic aneurysm Onset Date: ~05/06/18 Current Visit: No Status: Acute Qualifiers: Aortic location: abdominal aorta Qualified Code(s): I71.3 - Abdominal aortic aneurysm, ruptured Plan to address problem: S/P Abdominal Aortic aneurysm repair. Subjective Date of service: 05/13/18 Principal diagnosis: ruptured AAA Interval history: Patient alert, awake and resting on room air. O2 saturation 98%. No complaint of chest pain, shortness of breath or cough. Complaining abdominal pain at surgical site. Objective Vital Signs - 12hr 05/13/18 05/13/18 05/13/18 10:09 11:15 16:09 Temperature 98.9 F 98.9 F 98.7 F Pulse Rate 84 78 72 Respiratory 18 18 18 Rate Blood Pressure 145/67 145/69 Blood Pressure 127/65 [Right] O2 Sat by Pulse 98 97 98 Oximetry Constitutional: appears uncomfortable, other (middle aged chronically ill looking AAM; normocephalic and atraumatic with mildly increased respiratory effort) Eyes: non-icteric ENT: oropharynx moist, other ([place] 3) Neck: supple, no lymphadenopathy, no JVD, other (No thyromegaly) Effort: mildly labored Ascultation: Bilateral: diminished breath sounds, rhonchi (scant) Percussion: Bilateral: not dull Cardiovascular: regular rate and rhythm, other (No R/M) Gastrointestinal: hypoactive bowel sounds, soft, non-tender, non-distended, other (midline post-op incision line is clean) Integumentary: normal Extremities: no cyanosis, no edema, pulses normal, no ischemia or petechiae Neurologic: non-focal exam (grossly), pupils equal and round, CN II-XII normal, other (weak) Psychiatric: mood appropriate, affect normal CBC and BMP: 05/12/18 03:50 05/12/18 03:50 ABG, PT/INR, D-dimer: ABG POC ABG pH 7.439 (7.35-7.45) 05/10/18 10:26 POC ABG pCO2 34.9 (35-45) L 05/10/18 10:26 POC ABG pO2 103 (80-105) 05/10/18 10:26 POC ABG HCO3 23.7 05/10/18 10:26 POC ABG Total CO2 25 05/10/18 10:26 POC ABG O2 Sat 98 05/10/18 10:26 Abnormal lab findings: Abnormal Labs 05/06/18 05/06/18 05/06/18 17:41 17:41 21:20 RBC Hgb 11.0 L Hct 32.8 L RDW 18.5 H Plt Count 479 H Lymph % (Auto) 42.2 H [place] % (Auto) Lymph # Seg Neutrophils % POC ABG pCO2 POC ABG pO2 Sodium Potassium Chloride 95.8 L Carbon Dioxide BUN Creatinine 0.5 L Glucose 114 H POC Glucose Calcium Magnesium Total Protein 8.3 H Albumin 3.5 L Crossmatch See Detail 05/07/18 05/07/18 05/07/18 05:00 05:00 05:00 RBC 2.74 L Hgb 8.2 L Hct 24.8 L D RDW 18.7 H Plt Count Lymph % (Auto) [place] % (Auto) Lymph # Seg Neutrophils % POC ABG pCO2 POC ABG pO2 Sodium Potassium Chloride Carbon Dioxide 20 L BUN 21 H Creatinine Glucose 189 H POC Glucose Calcium 7.4 L D Magnesium 1.20 L Total Protein Albumin Crossmatch 05/07/18 05/07/18 05/07/18 05:05 12:44 17:01 RBC Hgb 7.8 L Hct 23.2 L RDW Plt Count Lymph % (Auto) [place] % (Auto) Lymph # Seg Neutrophils % POC ABG pCO2 POC ABG pO2 547 H Sodium Potassium Chloride Carbon Dioxide BUN Creatinine Glucose POC Glucose 168 H Calcium Magnesium Total Protein Albumin Crossmatch 05/07/18 05/07/18 05/07/18 17:58 21:33 23:26 RBC Hgb 7.8 L Hct 24.1 L RDW Plt Count Lymph % (Auto) [place] % (Auto) Lymph # Seg Neutrophils % POC ABG pCO2 POC ABG pO2 Sodium Potassium Chloride Carbon Dioxide BUN Creatinine Glucose POC Glucose 178 H 151 H Calcium Magnesium Total Protein Albumin Crossmatch 05/08/18 05/08/18 05/08/18 00:10 04:23 06:08 RBC Hgb Hct RDW Plt Count Lymph % (Auto) [place] % (Auto) Lymph # Seg Neutrophils % POC ABG pCO2 POC ABG pO2 216 H Sodium Potassium Chloride 110.4 H Carbon Dioxide 19 L BUN 27 H Creatinine Glucose 160 H POC Glucose 148 H Calcium 7.6 L Magnesium Total Protein Albumin Crossmatch 05/08/18 05/08/18 05/08/18 06:15 13:01 16:00 RBC Hgb 7.2 L 7.8 L Hct 21.7 L 23.3 L RDW Plt Count Lymph % (Auto) [place] % (Auto) Lymph # Seg Neutrophils % POC ABG pCO2 POC ABG pO2 Sodium Potassium Chloride Carbon Dioxide BUN Creatinine Glucose POC Glucose 108 H Calcium Magnesium Total Protein Albumin Crossmatch 05/08/18 05/08/18 05/08/18 18:03 21:40 23:28 RBC Hgb 7.5 L Hct 21.8 L RDW Plt Count Lymph % (Auto) [place] % (Auto) Lymph # Seg Neutrophils % POC ABG pCO2 POC ABG pO2 Sodium Potassium Chloride Carbon Dioxide BUN Creatinine Glucose POC Glucose 136 H 145 H Calcium Magnesium Total Protein Albumin Crossmatch 05/09/18 05/09/18 05/09/18 04:01 05:22 07:00 RBC 2.80 L Hgb 8.5 L Hct 25.3 L RDW 17.4 H Plt Count Lymph % (Auto) [place] % (Auto) Lymph # Seg Neutrophils % POC ABG pCO2 POC ABG pO2 139 H Sodium Potassium Chloride Carbon Dioxide BUN Creatinine Glucose POC Glucose 115 H Calcium Magnesium Total Protein Albumin Crossmatch 05/09/18 05/09/18 05/10/18 11:52 19:04 00:13 RBC Hgb Hct RDW Plt Count Lymph % (Auto) [place] % (Auto) Lymph # Seg Neutrophils % POC ABG pCO2 POC ABG pO2 Sodium Potassium Chloride Carbon Dioxide BUN Creatinine Glucose POC Glucose 114 H 144 H 146 H Calcium Magnesium Total Protein Albumin Crossmatch 05/10/18 05/10/18 05/10/18 05:28 05:30 05:30 RBC 2.93 L Hgb 8.9 L Hct 26.2 L RDW 17.9 H Plt Count Lymph % (Auto) [place] % (Auto) Lymph # Seg Neutrophils % 80.2 H POC ABG pCO2 POC ABG pO2 114 H Sodium 146 H Potassium Chloride 112.8 H Carbon Dioxide 19 L BUN 25 H Creatinine 0.5 L D Glucose 150 H POC Glucose Calcium Magnesium Total Protein Albumin Crossmatch 05/10/18 05/10/18 05/10/18 05:30 10:26 12:23 RBC Hgb Hct RDW Plt Count Lymph % (Auto) [place] % (Auto) Lymph # Seg Neutrophils % POC ABG pCO2 34.9 L POC ABG pO2 Sodium Potassium Chloride Carbon Dioxide BUN Creatinine Glucose POC Glucose 151 H 145 H Calcium Magnesium Total Protein Albumin Crossmatch 05/10/18 05/10/18 05/11/18 18:07 23:53 05:00 RBC 3.19 L Hgb 9.6 L Hct 28.4 L RDW 17.4 H Plt Count Lymph % (Auto) [place] % (Auto) Lymph # 1.1 L Seg Neutrophils % 78.3 H POC ABG pCO2 POC ABG pO2 Sodium Potassium Chloride Carbon Dioxide BUN Creatinine Glucose POC Glucose 129 H 127 H Calcium Magnesium Total Protein Albumin Crossmatch 05/11/18 05/11/18 05/11/18 05:00 05:24 12:06 RBC Hgb Hct RDW Plt Count Lymph % (Auto) [place] % (Auto) Lymph # Seg Neutrophils % POC ABG pCO2 POC ABG pO2 Sodium Potassium 3.3 L Chloride 107.6 H Carbon Dioxide BUN Creatinine 0.4 L Glucose 124 H POC Glucose 114 H 129 H Calcium Magnesium Total Protein Albumin Crossmatch 05/11/18 05/11/18 05/12/18 18:35 23:39 03:50 RBC 3.24 L Hgb 9.7 L Hct 28.9 L RDW 16.8 H Plt Count Lymph % (Auto) [place] % (Auto) 8.3 H Lymph # Seg Neutrophils % POC ABG pCO2 POC ABG pO2 Sodium Potassium Chloride Carbon Dioxide BUN Creatinine Glucose POC Glucose 111 H 122 H Calcium Magnesium Total Protein Albumin Crossmatch 05/12/18 05/13/18 05/13/18 03:50 11:26 16:21 RBC Hgb Hct RDW Plt Count Lymph % (Auto) [place] % (Auto) Lymph # Seg Neutrophils % POC ABG pCO2 POC ABG pO2 Sodium 136 L Potassium 3.0 L Chloride Carbon Dioxide BUN 7 L Creatinine 0.4 L Glucose 107 H POC Glucose 125 H 122 H Calcium Magnesium Total Protein Albumin Crossmatch Chest x-ray: report reviewed (sub diaphramatic air.), image reviewed Allied health notes reviewed: nursing
[2018-05-13] MEDS: DULCOLAX PR SCH (23:35)
[2018-05-14 06:35] LABS: Basophils # (Auto) 0.1 K/mm3 (0.0-0.1); Basophils % (Auto) 0.9 % (0.0-1.8); Eosinophils % (Auto) 0.4 % (0.0-4.3); Hematocrit 30.5 % (35.5-45.6); Hemoglobin 10.3 gm/dl (11.8-15.2); Lymphocytes # (Auto) 1.2 K/mm3 (1.2-5.4); Lymphocytes % (Auto) 16.3 % (13.4-35.0); Mean Corpuscular HGB Conc 34 % (32-34); Mean Corpuscular Hemoglobin 30 pg (28-32); Mean Corpuscular Volume 90 fl (84-94); Monocytes # (Auto) 0.4 K/mm3 (0.0-0.8); Platelet Count 211 K/mm3 (140-440); Red Cell Distribution Width 16.8 % (13.2-15.2)
[2018-05-14 07:00] LABS: BUN/Creatinine Ratio 25; Blood Urea Nitrogen 10 mg/dL (9-20); Calcium 8.6 mg/dL (8.4-10.2); Hemolysis Index 25
[2018-05-14] MEDS: DULCOLAX PR SCH (09:00)
[2018-05-14] MEDS: PEPCID PO SCH ×2 (09:19→22:33)
[2018-05-14] MEDS: COLACE PO SCH ×2 (09:19→22:32)
[2018-05-14] MEDS: KEPPRA PO SCH ×2 (09:19→22:31)
[2018-05-14] MEDS: ZESTRIL PO SCH (09:20)
[2018-05-14] MEDS: NORVASC PO SCH (09:20)
[2018-05-14] MEDS: LOPRESSOR PO SCH ×2 (09:20→22:34)
[2018-05-14] MEDS: HEPARIN SUB-Q SCH ×2 (09:21→22:31)
[2018-05-14] MEDS: APRESOLINE PO SCH ×2 (09:21→13:23)
[2018-05-14] MEDS: NORCO 5/325 PO PRN ×3 (09:30→20:47)
[2018-05-14] MEDS: SODIUM CHLORIDE FLUSH SYRINGE 10 ML IV SCH ×2 (11:29→22:34)
--- NOTE | 2018-05-14 12:34 | Progress Note ---
Assessment and Plan Patient may be discharged home when is able to tolerate diet. Will follow up with us as an outpatient Subjective Date of service: 05/14/18 Principal diagnosis: ruptured AAA Interval history: Patient with bowel movements overnight. At time of examination, patient has no significant complaints of abdominal pain however, does not feel as if he is able to tolerate a soft mechanical diet. Plan on advancing his diet more slowly. Objective - Constitutional Vitals: Vital Signs - 12hr 05/14/18 05/14/18 05/14/18 05:58 07:55 09:30 Temperature 97.9 F 98.4 F Pulse Rate 78 76 Respiratory 16 18 Rate Respiratory 20 Rate [Back] Respiratory 20 Rate [Left Hip] Blood Pressure 148/67 Blood Pressure 134/57 [Right] O2 Sat by Pulse 97 98 Oximetry 05/14/18 10:30 Temperature Pulse Rate Respiratory 18 Rate Respiratory Rate [Back] Respiratory Rate [Left Hip] Blood Pressure Blood Pressure [Right] O2 Sat by Pulse Oximetry General appearance: Present: no acute distress - EENT Eyes: PERRL ENT: hearing intact - Neck Neck: supple, normal ROM - Respiratory Respiratory effort: normal - Breasts Breasts: deferred Extremities: no ischemia - Gastrointestinal General gastrointestinal: Present: deferred Rectal Exam: deferred - Genitourinary Male genitourinary: deferred - Psychiatric Psychiatric: appropriate mood/affect, cooperative - Labs CBC & Chem 7: 05/14/18 06:21 05/14/18 06:21 Labs: Abnormal lab results 05/13/18 05/13/18 05/14/18 Range/Units 16:21 22:26 06:21 RBC 3.40 L (3.65-5.03) M/mm3 Hgb 10.3 L (11.8-15.2) gm/dl Hct 30.5 L (35.5-45.6) % RDW 16.8 H (13.2-15.2) % Seg Neutrophils % 77.4 H (40.0-70.0) % Sodium (137-145) mmol/L Potassium (3.6-5.0) mmol/L Chloride (98-107) mmol/L Creatinine (0.8-1.5) mg/dL Glucose (75-100) mg/dL POC Glucose 122 H 123 H (70-105) 05/14/18 05/14/18 05/14/18 Range/Units 06:21 08:34 12:16 RBC (3.65-5.03) M/mm3 Hgb (11.8-15.2) gm/dl Hct (35.5-45.6) % RDW (13.2-15.2) % Seg Neutrophils % (40.0-70.0) % Sodium 136 L (137-145) mmol/L Potassium 3.3 L (3.6-5.0) mmol/L Chloride 96.0 L (98-107) mmol/L Creatinine 0.4 L (0.8-1.5) mg/dL Glucose 112 H (75-100) mg/dL POC Glucose 124 H 149 H (70-105)
[2018-05-14] MEDS ORDERED: K-DUR PO ONE (13:00)
--- NOTE | 2018-05-14 15:03 | Progress Note ---
Assessment and Plan Rupture Abdominal aortic aneurysm, - s/p repair by vascular, monitor H/h - cont to monitor H/H and BP Post-operative ileus - resolving, start on clear liquid diet and advance as tolerated Hypertension, accelerated -SBP >180 - off labetalol drip, - cont clonidine patch, hydralazine, lisinopril, metoprolol and norvasc Diabetes type 2, SSI as needed Acute respiratory failure, following surgery - self extubated 05/10/18 - cont nebs and supplemental O2 with N/c Anemia, likely due to blood loss from AAA tear - transfuse as needed to keep Hb >8.0 Physical exam: General appearance: Present: no acute distress - EENT Eyes: no scleral icterus, no conjunctival injection ENT: dentition normal, no thrush, no ulcerations Ears: bilateral: normal - Neck Neck: no enlarged thyroid, no masses or JVD - Respiratory Respiratory effort: normal Respiratory: bilateral: CTA - Breasts Breasts: normal - Cardiovascular Rhythm: regular Heart Sounds: Present: S1 & S2. Absent: gallop, rub Extremities: pulses intact, No edema, normal color, Full ROM - Gastrointestinal General gastrointestinal: Present: soft, non-distended, other (surgical dressing on place) - Integumentary Integumentary: clear, warm, dry - Musculoskeletal Musculoskeletal: other (no joint swelling) - Neurologic Neurologic: no focal deficits Subjective Date of service: 05/14/18 Principal diagnosis: ruptured AAA Interval history: Patient seen and examined Patient extubated himself on 05/10/18 Vitals notes, discussed with RN at bedside No acute o/n issue, had BM last night could not tolerate GI soft diet today Objective - Constitutional Vitals: Vital Signs - 12hr 05/14/18 05/14/18 05/14/18 05:58 07:55 09:30 Temperature 97.9 F 98.4 F Pulse Rate 78 76 Respiratory 16 18 Rate Respiratory 20 Rate [Back] Respiratory 20 Rate [Left Hip] Blood Pressure 148/67 Blood Pressure 134/57 [Right] O2 Sat by Pulse 97 98 Oximetry 05/14/18 05/14/18 10:30 13:15 Temperature Pulse Rate 74 Respiratory 18 Rate Respiratory Rate [Back] Respiratory Rate [Left Hip] Blood Pressure Blood Pressure 119/52 [Right] O2 Sat by Pulse Oximetry - Labs CBC & Chem 7: 05/14/18 06:21 05/14/18 06:21 Labs: Abnormal lab results 05/13/18 05/13/18 05/14/18 Range/Units 16:21 22:26 06:21 RBC 3.40 L (3.65-5.03) M/mm3 Hgb 10.3 L (11.8-15.2) gm/dl Hct 30.5 L (35.5-45.6) % RDW 16.8 H (13.2-15.2) % Seg Neutrophils % 77.4 H (40.0-70.0) % Sodium (137-145) mmol/L Potassium (3.6-5.0) mmol/L Chloride (98-107) mmol/L Creatinine (0.8-1.5) mg/dL Glucose (75-100) mg/dL POC Glucose 122 H 123 H (70-105) 05/14/18 05/14/18 05/14/18 Range/Units 06:21 08:34 12:16 RBC (3.65-5.03) M/mm3 Hgb (11.8-15.2) gm/dl Hct (35.5-45.6) % RDW (13.2-15.2) % Seg Neutrophils % (40.0-70.0) % Sodium 136 L (137-145) mmol/L Potassium 3.3 L (3.6-5.0) mmol/L Chloride 96.0 L (98-107) mmol/L Creatinine 0.4 L (0.8-1.5) mg/dL Glucose 112 H (75-100) mg/dL POC Glucose 124 H 149 H (70-105)
--- NOTE | 2018-05-14 23:25 | Progress Note ---
Assessment and Plan Patient alert, awake and resting on room air. O2 saturation 98%. No complaint of chest pain, shortness of breath or cough. Complaining abdominal pain at surgical site. - Patient Problems (1) Ruptured aortic aneurysm Onset Date: ~05/06/18 Current Visit: No Status: Acute Qualifiers: Aortic location: abdominal aorta Qualified Code(s): I71.3 - Abdominal aortic aneurysm, ruptured Plan to address problem: S/P Abdominal Aortic aneurysm repair. (2) Altered mental status Current Visit: No Status: Acute Qualifiers: Altered mental status type: unspecified Qualified Code(s): R41.82 - Altered mental status, unspecified Plan to address problem: Improved. Management as per primary care. Subjective Date of service: 05/14/18 Principal diagnosis: ruptured AAA Interval history: Patient alert, awake and resting on room air. O2 saturation 98%. No complaint of chest pain, shortness of breath or cough. Complaining abdominal pain at surgical site. Objective Vital Signs - 12hr 05/14/18 05/14/18 05/14/18 13:15 15:42 16:42 Temperature Pulse Rate 74 Respiratory 18 18 Rate Blood Pressure Blood Pressure 119/52 [Right] O2 Sat by Pulse Oximetry 05/14/18 05/14/18 05/14/18 17:10 19:55 22:34 Temperature 98.2 F 98.6 F Pulse Rate 71 81 81 Respiratory 18 18 Rate Blood Pressure 121/57 Blood Pressure 130/61 121/57 [Right] O2 Sat by Pulse 99 98 Oximetry Constitutional: no acute distress, alert Eyes: non-icteric ENT: oropharynx moist, other ([place] 3) Neck: supple, no lymphadenopathy, no JVD, other (No thyromegaly) Effort: mildly labored Ascultation: Bilateral: diminished breath sounds, rhonchi (scant) Percussion: Bilateral: not dull Cardiovascular: regular rate and rhythm, other (No R/M) Gastrointestinal: hypoactive bowel sounds, soft, non-tender, non-distended, other (midline post-op incision line is clean) Integumentary: normal Extremities: no cyanosis, no edema, pulses normal, no ischemia or petechiae Neurologic: non-focal exam (grossly), pupils equal and round, CN II-XII normal, other (weak) Psychiatric: mood appropriate, affect normal CBC and BMP: 08/18/18 06:21 05/14/18 06:21 ABG, PT/INR, D-dimer: ABG POC ABG pH 7.439 (7.35-7.45) 05/10/18 10:26 POC ABG pCO2 34.9 (35-45) L 05/10/18 10:26 POC ABG pO2 103 (80-105) 05/10/18 10:26 POC ABG HCO3 23.7 05/10/18 10:26 POC ABG Total CO2 25 05/10/18 10:26 POC ABG O2 Sat 98 05/10/18 10:26 Abnormal lab findings: Abnormal Labs 05/06/18 05/06/18 05/06/18 17:41 17:41 21:20 RBC Hgb 11.0 L Hct 32.8 L RDW 18.5 H Plt Count 479 H Lymph % (Auto) 42.2 H [place] % (Auto) Lymph # Seg Neutrophils % POC ABG pCO2 POC ABG pO2 Sodium Potassium Chloride 95.8 L Carbon Dioxide BUN Creatinine 0.5 L Glucose 114 H POC Glucose Calcium Magnesium Total Protein 8.3 H Albumin 3.5 L Crossmatch See Detail 05/07/18 05/07/18 05/07/18 05:00 05:00 05:00 RBC 2.74 L Hgb 8.2 L Hct 24.8 L D RDW 18.7 H Plt Count Lymph % (Auto) [place] % (Auto) Lymph # Seg Neutrophils % POC ABG pCO2 POC ABG pO2 Sodium Potassium Chloride Carbon Dioxide 20 L BUN 21 H Creatinine Glucose 189 H POC Glucose Calcium 7.4 L D Magnesium 1.20 L Total Protein Albumin Crossmatch 05/07/18 05/07/18 05/07/18 05:05 12:44 17:01 RBC Hgb 7.8 L Hct 23.2 L RDW Plt Count Lymph % (Auto) [place] % (Auto) Lymph # Seg Neutrophils % POC ABG pCO2 POC ABG pO2 547 H Sodium Potassium Chloride Carbon Dioxide BUN Creatinine Glucose POC Glucose 168 H Calcium Magnesium Total Protein Albumin Crossmatch 05/07/18 05/07/18 05/07/18 17:58 21:33 23:26 RBC Hgb 7.8 L Hct 24.1 L RDW Plt Count Lymph % (Auto) [place] % (Auto) Lymph # Seg Neutrophils % POC ABG pCO2 POC ABG pO2 Sodium Potassium Chloride Carbon Dioxide BUN Creatinine Glucose POC Glucose 178 H 151 H Calcium Magnesium Total Protein Albumin Crossmatch 05/08/18 05/08/18 05/08/18 00:10 04:23 06:08 RBC Hgb Hct RDW Plt Count Lymph % (Auto) [place] % (Auto) Lymph # Seg Neutrophils % POC ABG pCO2 POC ABG pO2 216 H Sodium Potassium Chloride 110.4 H Carbon Dioxide 19 L BUN 27 H Creatinine Glucose 160 H POC Glucose 148 H Calcium 7.6 L Magnesium Total Protein Albumin Crossmatch 05/08/18 05/08/18 05/08/18 06:15 13:01 16:00 RBC Hgb 7.2 L 7.8 L Hct 21.7 L 23.3 L RDW Plt Count Lymph % (Auto) [place] % (Auto) Lymph # Seg Neutrophils % POC ABG pCO2 POC ABG pO2 Sodium Potassium Chloride Carbon Dioxide BUN Creatinine Glucose POC Glucose 108 H Calcium Magnesium Total Protein Albumin Crossmatch 05/08/18 05/08/18 05/08/18 18:03 21:40 23:28 RBC Hgb 7.5 L Hct 21.8 L RDW Plt Count Lymph % (Auto) [place] % (Auto) Lymph # Seg Neutrophils % POC ABG pCO2 POC ABG pO2 Sodium Potassium Chloride Carbon Dioxide BUN Creatinine Glucose POC Glucose 136 H 145 H Calcium Magnesium Total Protein Albumin Crossmatch 05/09/18 05/09/18 05/09/18 04:01 05:22 07:00 RBC 2.80 L Hgb 8.5 L Hct 25.3 L RDW 17.4 H Plt Count Lymph % (Auto) [place] % (Auto) Lymph # Seg Neutrophils % POC ABG pCO2 POC ABG pO2 139 H Sodium Potassium Chloride Carbon Dioxide BUN Creatinine Glucose POC Glucose 115 H Calcium Magnesium Total Protein Albumin Crossmatch 05/09/18 05/09/18 05/10/18 11:52 19:04 00:13 RBC Hgb Hct RDW Plt Count Lymph % (Auto) [place] % (Auto) Lymph # Seg Neutrophils % POC ABG pCO2 POC ABG pO2 Sodium Potassium Chloride Carbon Dioxide BUN Creatinine Glucose POC Glucose 114 H 144 H 146 H Calcium Magnesium Total Protein Albumin Crossmatch 05/10/18 05/10/18 05/10/18 05:28 05:30 05:30 RBC 2.93 L Hgb 8.9 L Hct 26.2 L RDW 17.9 H Plt Count Lymph % (Auto) [place] % (Auto) Lymph # Seg Neutrophils % 80.2 H POC ABG pCO2 POC ABG pO2 114 H Sodium 146 H Potassium Chloride 112.8 H Carbon Dioxide 19 L BUN 25 H Creatinine 0.5 L D Glucose 150 H POC Glucose Calcium Magnesium Total Protein Albumin Crossmatch 05/10/18 05/10/18 05/10/18 05:30 10:26 12:23 RBC Hgb Hct RDW Plt Count Lymph % (Auto) [place] % (Auto) Lymph # Seg Neutrophils % POC ABG pCO2 34.9 L POC ABG pO2 Sodium Potassium Chloride Carbon Dioxide BUN Creatinine Glucose POC Glucose 151 H 145 H Calcium Magnesium Total Protein Albumin Crossmatch 05/10/18 05/10/18 05/11/18 18:07 23:53 05:00 RBC 3.19 L Hgb 9.6 L Hct 28.4 L RDW 17.4 H Plt Count Lymph % (Auto) [place] % (Auto) Lymph # 1.1 L Seg Neutrophils % 78.3 H POC ABG pCO2 POC ABG pO2 Sodium Potassium Chloride Carbon Dioxide BUN Creatinine Glucose POC Glucose 129 H 127 H Calcium Magnesium Total Protein Albumin Crossmatch 05/11/18 05/11/18 05/11/18 05:00 05:24 12:06 RBC Hgb Hct RDW Plt Count Lymph % (Auto) [place] % (Auto) Lymph # Seg Neutrophils % POC ABG pCO2 POC ABG pO2 Sodium Potassium 3.3 L Chloride 107.6 H Carbon Dioxide BUN Creatinine 0.4 L Glucose 124 H POC Glucose 114 H 129 H Calcium Magnesium Total Protein Albumin Crossmatch 05/11/18 05/11/18 05/12/18 18:35 23:39 03:50 RBC 3.24 L Hgb 9.7 L Hct 28.9 L RDW 16.8 H Plt Count Lymph % (Auto) [place] % (Auto) 8.3 H Lymph # Seg Neutrophils % POC ABG pCO2 POC ABG pO2 Sodium Potassium Chloride Carbon Dioxide BUN Creatinine Glucose POC Glucose 111 H 122 H Calcium Magnesium Total Protein Albumin Crossmatch 05/12/18 05/13/18 05/13/18 03:50 11:26 16:21 RBC Hgb Hct RDW Plt Count Lymph % (Auto) [place] % (Auto) Lymph # Seg Neutrophils % POC ABG pCO2 POC ABG pO2 Sodium 136 L Potassium 3.0 L Chloride Carbon Dioxide BUN 7 L Creatinine 0.4 L Glucose 107 H POC Glucose 125 H 122 H Calcium Magnesium Total Protein Albumin Crossmatch 05/13/18 05/14/18 05/14/18 22:26 06:21 06:21 RBC 3.40 L Hgb 10.3 L Hct 30.5 L RDW 16.8 H Plt Count Lymph % (Auto) [place] % (Auto) Lymph # Seg Neutrophils % 77.4 H POC ABG pCO2 POC ABG pO2 Sodium 136 L Potassium 3.3 L Chloride 96.0 L Carbon Dioxide BUN Creatinine 0.4 L Glucose 112 H POC Glucose 123 H Calcium Magnesium Total Protein Albumin Crossmatch 05/14/18 05/14/18 05/14/18 08:34 12:16 17:05 RBC Hgb Hct RDW Plt Count Lymph % (Auto) [place] % (Auto) Lymph # Seg Neutrophils % POC ABG pCO2 POC ABG pO2 Sodium Potassium Chloride Carbon Dioxide BUN Creatinine Glucose POC Glucose 124 H 149 H 112 H Calcium Magnesium Total Protein Albumin Crossmatch 05/14/18 22:20 RBC Hgb Hct RDW Plt Count Lymph % (Auto) [place] % (Auto) Lymph # Seg Neutrophils % POC ABG pCO2 POC ABG pO2 Sodium Potassium Chloride Carbon Dioxide BUN Creatinine Glucose POC Glucose 131 H Calcium Magnesium Total Protein Albumin Crossmatch Allied health notes reviewed: nursing
[2018-05-15] MEDS: APRESOLINE PO SCH ×3 (05:26→13:48)
[2018-05-15] MEDS: NORCO 5/325 PO PRN ×2 (08:12→13:48)
[2018-05-15] MEDS: LOPRESSOR PO SCH ×2 (08:15→09:44)
[2018-05-15] MEDS: KEPPRA PO SCH ×2 (08:15→09:44)
[2018-05-15] MEDS: COLACE PO SCH ×2 (08:15→09:44)
[2018-05-15] MEDS: NORVASC PO SCH ×2 (08:16→09:44)
[2018-05-15] MEDS: ZESTRIL PO SCH ×2 (08:16→09:45)
[2018-05-15] MEDS: PEPCID PO SCH ×2 (08:16→09:45)
[2018-05-15] MEDS: HEPARIN SUB-Q SCH ×2 (08:18→09:44)
[2018-05-15] MEDS: DULCOLAX PR SCH ×2 (08:23→09:44)
[2018-05-15] MEDS: SODIUM CHLORIDE FLUSH SYRINGE 10 ML IV SCH (09:45)
--- NOTE | 2018-05-15 10:14 | Progress Note ---
Assessment and Plan When patient is able to tolerate diet, patient may be discharged home. Subjective Date of service: 05/15/18 Principal diagnosis: ruptured AAA Interval history: Patient complains of abdominal pain with by mouth intake. No other complaints. Objective - Constitutional Vitals: Vital Signs - 12hr 05/14/18 05/15/18 05/15/18 22:34 02:20 02:21 Temperature 98.3 F Pulse Rate 81 79 76 Respiratory 18 Rate Blood Pressure 121/57 133/66 O2 Sat by Pulse 99 99 Oximetry 05/15/18 07:00 Temperature 98.6 F Pulse Rate 78 Respiratory 20 Rate Blood Pressure 130/57 O2 Sat by Pulse 95 Oximetry General appearance: Present: no acute distress - EENT Eyes: PERRL ENT: hearing intact - Neck Neck: supple, normal ROM - Respiratory Respiratory effort: normal - Gastrointestinal Rectal Exam: deferred - Genitourinary Male genitourinary: deferred - Psychiatric Psychiatric: appropriate mood/affect, cooperative - Labs CBC & Chem 7: 05/14/18 06:21 05/14/18 06:21 Labs: Abnormal lab results 05/14/18 05/14/18 05/14/18 Range/Units 12:16 17:05 22:20 POC Glucose 149 H 112 H 131 H (70-105)
[2018-05-15 12:00] VITALS: BP 128/59
--- NOTE | 2018-05-15 15:00 | Event Note ---
Date: 05/15/18 Refused lab today
--- NOTE | 2018-05-15 15:07 | Discharge Summary ---
Providers - Providers Date of Admission: 05/07/18 04:44 Date of discharge: 05/15/18 Attending physician: RANDALL PADILLA 05/07/18 04:00 Consult to Dietitian/Nutrition [CONS] Routine Physician Instructions: Reason For Exam: Reason for Consult: Write/Manage Tube Feeding 05/07/18 04:45 Consult to Physician [CONS] Routine Comment: Consulting Provider: KATELIN LEWIS Physician Instructions: Reason For Exam: cc 05/10/18 06:00 Consult to Physician [CONS] Routine Comment: Consulting Provider: MAN BUENO Physician Instructions: Reason For Exam: pneumoperitoneum on X-ray done 05/10/18 05/10/18 12:45 Speech Therapy Evaluation and Treat [CONS] Routine Reason For Exam: aspiration 05/12/18 11:17 Occupational Therapy Evaluate and Treat [CONS] Routine Comment: Reason For Exam: deconditioning Physical Therapy Evaluation and Treat [CONS] Routine Comment: Reason For Exam: deconditioning Primary care physician: TRAINING AND DEVELOPMENT SPECIALIST Hospitalization Reason for admission: abdominal pain Condition: Serious Procedures: CT abdomen/pelvis: 1. Very large (5.4 centimeter x 5.6 centimeter x 6.7 centimeter) irregularly- shaped infrarenal abdominal aortic aneurysm with the appearance of ulcerations. Recommend emergent evaluation by vascular surgery. 2. Approximately 3.8 centimeter aneurysm suprarenal abdominal aorta. 3. Fatty infiltration of the liver. 4. Enlarged prostate gland. 5. 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 Hospital course: Brief history: This is a 53 y/o AAM who was recently discharged from hospital after being treated for meningitis presented with excruciating abdominal pain. A CT scan was done which showed a large infrarenal abdominal aortic aneurysm. Vascular surgeon was emergently consulted for evaluation of his aneurysm and they recommended immediate repair due to presence of ulceration and increased size. Discharge diagnosis: Rupture Abdominal aortic aneurysm, - s/p repair by vascular, monitor H/h - Monitored with serial H/H and BP - outpt follow up with vascular surgeon in one week Post-operative ileus - resolved, tolerating diet with regular BM Hypertension, accelerated -SBP >180 - initially required labetalol drip for brief period following surgery, -Bp was then stable with clonidine patch, hydralazine, lisinopril, metoprolol and norvasc, - clonidine patch was discontinued on discharge. Diabetes type 2, SSI as needed Acute respiratory failure, following surgery - self extubated 05/10/18 - managed nebs and supplemental O2 with N/c as needed Anemia, likely due to blood loss from AAA tear - transfuse as needed to keep Hb >8.0 Physical exam: General appearance: Present: no acute distress - EENT Eyes: no scleral icterus, no conjunctival injection ENT: dentition normal, no thrush, no ulcerations Ears: bilateral: normal - Neck Neck: no enlarged thyroid, no masses or JVD - Respiratory Respiratory effort: normal Respiratory: bilateral: CTA - Breasts Breasts: normal - Cardiovascular Rhythm: regular Heart Sounds: Present: S1 & S2. Absent: gallop, rub Extremities: pulses intact, No edema, normal color, Full ROM - Gastrointestinal General gastrointestinal: Present: soft, non-distended, other (surgical yajaira on place) - Integumentary Integumentary: clear, warm, dry - Musculoskeletal Musculoskeletal: other (no joint swelling) - Neurologic Neurologic: no focal deficits Disposition: DC-01 TO HOME OR SELFCARE Time spent for discharge: 32 minutes Core Measure Documentation - Palliative Care Palliative Care/ Comfort Measures: Not Applicable - Core Measures Any of the following diagnoses?: none Exam - Constitutional Vitals: Temp Pulse Resp BP Pulse Ox 98.7 F 72 20 128/59 97 05/15/18 11:30 05/15/18 11:30 05/15/18 11:30 05/15/18 11:30 05/15/18 11:30 Plan Activity: advance as tolerated (with crutches), fall precautions, avoid flexion Diet: low fat, low salt Wound: keep clean and dry Additional Instructions: F/u with vascular surgeon in one week. Follow up with: PRIMARY CARE, [Primary Care Provider] - 3-5 Days Prescriptions: amLODIPine [Norvasc] 10 mg PO QDAY #30 tablet glipiZIDE [Glucotrol] 5 mg PO QDDIAB #60 tablet hydrALAZINE [Apresoline TAB] 100 mg PO TID #90 tab levETIRAcetam [Keppra TAB] 500 mg PO BID #60 tablet Lisinopril [Zestril TAB] 40 mg PO QDAY #30 tablet Metoprolol [Lopressor TAB] 50 mg PO BID #60 tablet Polyethylene Glycol 3350 [Miralax 3350] 17 gm PO QDAY PRN #14 powd.pack PRN Reason: Constipation traMADol [Ultram 50 MG tab] 50 mg PO Q8H PRN #20 tablet PRN Reason: Pain , Severe (7-10)
--- NOTE | 2018-05-15 15:24 | Progress Note ---
Assessment and Plan Patient alert, awake and resting on room air. O2 saturation 97%. No complaint of chest pain, shortness of breath or cough. Patients abdominal xray done on 05/12/18 showed some subdiaphragmatic air.If patient going home recommend to repeat abdominal xray in few days. - Patient Problems (1) Ruptured aortic aneurysm Onset Date: ~05/06/18 Current Visit: No Status: Acute Qualifiers: Aortic location: abdominal aorta Qualified Code(s): I71.3 - Abdominal aortic aneurysm, ruptured Plan to address problem: S/P Abdominal Aortic aneurysm repair. (2) Altered mental status Current Visit: No Status: Acute Qualifiers: Altered mental status type: unspecified Qualified Code(s): R41.82 - Altered mental status, unspecified Plan to address problem: Improved. Management as per primary care. Subjective Date of service: 05/15/18 Principal diagnosis: ruptured AAA Interval history: Patient alert, awake and resting on room air. O2 saturation 97%. No complaint of chest pain, shortness of breath or cough. Objective Vital Signs - 12hr 05/15/18 05/15/18 07:00 11:30 Temperature 98.6 F 98.7 F Pulse Rate 78 72 Respiratory 20 20 Rate Blood Pressure 130/57 Blood Pressure 128/59 [Right] O2 Sat by Pulse 95 97 Oximetry Constitutional: no acute distress, alert Eyes: non-icteric ENT: oropharynx moist, other ([place] 3) Neck: supple, no lymphadenopathy, no JVD, other (No thyromegaly) Effort: mildly labored Ascultation: Bilateral: diminished breath sounds, rhonchi (scant) Percussion: Bilateral: not dull Cardiovascular: regular rate and rhythm, other (No R/M) Gastrointestinal: hypoactive bowel sounds, soft, non-tender, non-distended, other (midline post-op incision line is clean) Integumentary: normal Extremities: no cyanosis, no edema, pulses normal, no ischemia or petechiae Neurologic: non-focal exam (grossly), pupils equal and round, CN II-XII normal, other (weak) Psychiatric: mood appropriate, affect normal CBC and BMP: 05/14/18 06:21 05/14/18 06:21 ABG, PT/INR, D-dimer: ABG POC ABG pH 7.439 (7.35-7.45) 05/10/18 10:26 POC ABG pCO2 34.9 (35-45) L 05/10/18 10:26 POC ABG pO2 103 (80-105) 05/10/18 10:26 POC ABG HCO3 23.7 05/10/18 10:26 POC ABG Total CO2 25 05/10/18 10:26 POC ABG O2 Sat 98 05/10/18 10:26 Abnormal lab findings: Abnormal Labs 05/06/18 05/06/18 05/06/18 17:41 17:41 21:20 RBC Hgb 11.0 L Hct 32.8 L RDW 18.5 H Plt Count 479 H Lymph % (Auto) 42.2 H Spink % (Auto) Lymph # Seg Neutrophils % POC ABG pCO2 POC ABG pO2 Sodium Potassium Chloride 95.8 L Carbon Dioxide BUN Creatinine 0.5 L Glucose 114 H POC Glucose Calcium Magnesium Total Protein 8.3 H Albumin 3.5 L Crossmatch See Detail 05/07/18 05/07/18 05/07/18 05:00 05:00 05:00 RBC 2.74 L Hgb 8.2 L Hct 24.8 L D RDW 18.7 H Plt Count Lymph % (Auto) [place] % (Auto) Lymph # Seg Neutrophils % POC ABG pCO2 POC ABG pO2 Sodium Potassium Chloride Carbon Dioxide 20 L BUN 21 H Creatinine Glucose 189 H POC Glucose Calcium 7.4 L D Magnesium 1.20 L Total Protein Albumin Crossmatch 05/07/18 05/07/18 05/07/18 05:05 12:44 17:01 RBC Hgb 7.8 L Hct 23.2 L RDW Plt Count Lymph % (Auto) [place] % (Auto) Lymph # Seg Neutrophils % POC ABG pCO2 POC ABG pO2 547 H Sodium Potassium Chloride Carbon Dioxide BUN Creatinine Glucose POC Glucose 168 H Calcium Magnesium Total Protein Albumin Crossmatch 05/07/18 05/07/18 05/07/18 17:58 21:33 23:26 RBC Hgb 7.8 L Hct 24.1 L RDW Plt Count Lymph % (Auto) [place] % (Auto) Lymph # Seg Neutrophils % POC ABG pCO2 POC ABG pO2 Sodium Potassium Chloride Carbon Dioxide BUN Creatinine Glucose POC Glucose 178 H 151 H Calcium Magnesium Total Protein Albumin Crossmatch 05/08/18 05/08/1805/08/18 00:10 04:23 06:08 RBC Hgb Hct RDW Plt Count Lymph % (Auto) [place] % (Auto) Lymph # Seg Neutrophils % POC ABG pCO2 POC ABG pO2 216 H Sodium Potassium Chloride 110.4 H Carbon Dioxide 19 L BUN 27 H Creatinine Glucose 160 H POC Glucose 148 H Calcium 7.6 L Magnesium Total Protein Albumin Crossmatch 05/08/18 05/08/18 05/08/18 06:15 13:01 16:00 RBC Hgb 7.2 L 7.8 L Hct 21.7 L 23.3 L RDW Plt Count Lymph % (Auto) [place] % (Auto) Lymph # Seg Neutrophils % POC ABG pCO2 POC ABG pO2 Sodium Potassium Chloride Carbon Dioxide BUN Creatinine Glucose POC Glucose 108 H Calcium Magnesium Total Protein Albumin Crossmatch 05/08/18 05/08/18 05/08/18 18:03 21:40 23:28 RBC Hgb 7.5 L Hct 21.8 L RDW Plt Count Lymph % (Auto) [place] % (Auto) Lymph # Seg Neutrophils % POC ABG pCO2 POC ABG pO2 Sodium Potassium Chloride Carbon Dioxide BUN Creatinine Glucose POC Glucose 136 H 145 H Calcium Magnesium Total Protein Albumin Crossmatch 05/09/18 05/09/18 05/09/18 04:01 05:22 07:00 RBC 2.80 L Hgb 8.5 L Hct 25.3 L RDW 17.4 H Plt Count Lymph % (Auto) [place] % (Auto) Lymph # Seg Neutrophils % POC ABG pCO2 POC ABG pO2 139 H Sodium Potassium Chloride Carbon Dioxide BUN Creatinine Glucose POC Glucose 115 H Calcium Magnesium Total Protein Albumin Crossmatch 05/09/18 05/09/18 05/10/18 11:52 19:04 00:13 RBC Hgb Hct RDW Plt Count Lymph % (Auto) [place] % (Auto) Lymph # Seg Neutrophils % POC ABG pCO2 POC ABG pO2 Sodium Potassium Chloride Carbon Dioxide BUN Creatinine Glucose POC Glucose 114 H 144 H 146 H Calcium Magnesium Total Protein Albumin Crossmatch 05/10/18 05/10/18 05/10/18 05:28 05:30 05:30 RBC 2.93 L Hgb 8.9 L Hct 26.2 L RDW 17.9 H Plt Count Lymph % (Auto) [place] % (Auto) Lymph # Seg Neutrophils % 80.2 H POC ABG pCO2 POC ABG pO2 114 H Sodium 146 H Potassium Chloride 112.8 H Carbon Dioxide 19 L BUN 25 H Creatinine 0.5 L D Glucose 150 H POC Glucose Calcium Magnesium Total Protein Albumin Crossmatch 05/10/18 05/10/18 05/10/18 05:30 10:26 12:23 RBC Hgb Hct RDW Plt Count Lymph % (Auto) [place] % (Auto) Lymph # Seg Neutrophils % POC ABG pCO2 34.9 L POC ABG pO2 Sodium Potassium Chloride Carbon Dioxide BUN Creatinine Glucose POC Glucose 151 H 145 H Calcium Magnesium Total Protein Albumin Crossmatch 05/10/18 05/10/18 05/11/18 18:07 23:53 05:00 RBC 3.19 L Hgb 9.6 L Hct 28.4 L RDW 17.4 H Plt Count Lymph % (Auto) [place] % (Auto) Lymph # 1.1 L Seg Neutrophils % 78.3 H POC ABG pCO2 POC ABG pO2 Sodium Potassium Chloride Carbon Dioxide BUN Creatinine Glucose POC Glucose 129 H 127 H Calcium Magnesium Total Protein Albumin Crossmatch 05/11/18 05/11/18 05/11/18 05:00 05:24 12:06 RBC Hgb Hct RDW Plt Count Lymph % (Auto) [place] % (Auto) Lymph # Seg Neutrophils % POC ABG pCO2 POC ABG pO2 Sodium Potassium 3.3 L Chloride 107.6 H Carbon Dioxide BUN Creatinine 0.4 L Glucose 124 H POC Glucose 114 H 129 H Calcium Magnesium Total Protein Albumin Crossmatch 05/11/18 05/11/18 05/12/18 18:35 23:39 03:50 RBC 3.24 L Hgb 9.7 L Hct 28.9 L RDW 16.8 H Plt Count Lymph % (Auto) [place] % (Auto) 8.3 H Lymph # Seg Neutrophils % POC ABG pCO2 POC ABG pO2 Sodium Potassium Chloride Carbon Dioxide BUN Creatinine Glucose POC Glucose 111 H 122 H Calcium Magnesium Total Protein Albumin Crossmatch 05/12/18 05/13/18 05/13/18 03:50 11:26 16:21 RBC Hgb Hct RDW Plt Count Lymph % (Auto) [place] % (Auto) Lymph # Seg Neutrophils % POC ABG pCO2 POC ABG pO2 Sodium 136 L Potassium 3.0 L Chloride Carbon Dioxide BUN 7 L Creatinine 0.4 L Glucose 107 H POC Glucose 125 H 122 H Calcium Magnesium Total Protein Albumin Crossmatch 05/13/18 05/14/18 05/14/18 22:26 06:21 06:21 RBC 3.40 L Hgb 10.3 L Hct 30.5 L RDW 16.8 H Plt Count Lymph % (Auto) [place] % (Auto) Lymph # Seg Neutrophils % 77.4 H POC ABG pCO2 POC ABG pO2 Sodium 136 L Potassium 3.3 L Chloride 96.0 L Carbon Dioxide BUN Creatinine 0.4 L Glucose 112 H POC Glucose 123 H Calcium Magnesium Total Protein Albumin Crossmatch 05/14/18 05/14/18 05/14/18 08:34 12:16 17:05 RBC Hgb Hct RDW Plt Count Lymph % (Auto) [place] % (Auto) Lymph # Seg Neutrophils % POC ABG pCO2 POC ABG pO2 Sodium Potassium Chloride Carbon Dioxide BUN Creatinine Glucose POC Glucose 124 H 149 H 112 H Calcium Magnesium Total Protein Albumin Crossmatch 05/14/18 22:20 RBC Hgb Hct RDW Plt Count Lymph % (Auto) [place]ink % (Auto) Lymph # Seg Neutrophils % POC ABG pCO2 POC ABG pO2 Sodium Potassium Chloride Carbon Dioxide BUN Creatinine Glucose POC Glucose 131 H Calcium Magnesium Total Protein Albumin Crossmatch Allied health notes reviewed: nursing
== END 2018-05-15 15:45 | disposition home or self-care (01) | DRG 268 ==
LOC: ED 17:24 → CC1 05-07 04:44 → 3B-SURG 05-12 17:22
PROVIDERS: ADMIT Internal Medicine; ATTEND Internal Medicine
PROC: 04R00JZ Replacement of Abdominal Aorta with Synthetic Substitute, Open Approach (ICD-10-PCS; principal; 2018-05-07)
PROC: 4A033R1 Measurement of Arterial Saturation, Peripheral, Percutaneous Approach (ICD-10-PCS; 2018-05-07)
PROC: 5A1945Z Respiratory Ventilation, 24-96 Consecutive Hours (ICD-10-PCS; 2018-05-08)
PROC: 0BH17EZ Insertion of Endotracheal Airway into Trachea, Via Natural or Artificial Opening (ICD-10-PCS; 2018-05-08)
PROC: 30233N1 Transfusion of Nonautologous Red Blood Cells into Peripheral Vein, Percutaneous Approach (ICD-10-PCS; 2018-05-08)
DX: I71.3 Abdominal aortic aneurysm, ruptured (principal); J95.821 Acute postprocedural respiratory failure; K56.7 Ileus, unspecified; Z79.899 Other long term (current) drug therapy; I10 Essential (primary) hypertension; E11.9 Type 2 diabetes mellitus without complications; R56.9 Unspecified convulsions; M16.10 Unilateral primary osteoarthritis, unspecified hip; Z87.891 Personal history of nicotine dependence; D50.0 Iron deficiency anemia secondary to blood loss (chronic)
CPT/HCPCS: 36415; 71045; 74018; 74177; 80048; 80053; 82803; 82962; 83690; 83735; 85014; 85018; 85025; 85027; 86850; 86900; 86901; 86920; 87070; 87076; 87116; 87186; 87205; 94003; 99291; 99292; A4649; C1768; C9250; J0360; J0690; J1170; J1644; J1885; J2060; J2250; J2270; J2370; J2405; J2720; J3010; J3480; J3490; J7030; J7040; J7120; P9016; Q9967

== ENCOUNTER 2018-07-11 02:25 | Inpatient (IN) | payer OTHER ==
[2018-07-11] MEDS ORDERED: NACL 0.9% 1000 ML 1,000 ML IV ONE (02:33)
[2018-07-11] MEDS ORDERED: NACL 0.9% 50 ML ONE (03:31)
[2018-07-11 03:37] LABS: Albumin 4.1 g/dL (3.9-5); BUN/Creatinine Ratio 17; Blood Urea Nitrogen 12 mg/dL (9-20); Calcium 9.6 mg/dL (8.4-10.2); Hemolysis Index 229; Lipase 23 units/L (13-60)
[2018-07-11 03:44] LABS: Alanine Aminotransferase 8 units/L (7-56)
[2018-07-11 03:49] LABS: Hematocrit 39.6 % (35.5-45.6); Mean Corpuscular HGB Conc 33 % (32-34); Mean Corpuscular Hemoglobin 32 pg (28-32); Mean Corpuscular Volume 99 fl (84-94); Platelet Count 153 K/mm3 (140-440); Red Blood Count 4.02 M/mm3 (3.65-5.03); Red Cell Distribution Width 16.7 % (13.2-15.2)
--- NOTE | 2018-07-11 04:21 | Cat Scan Report ---
FINAL REPORT EXAM: CT ANGIO ABDOMEN PELVIS HISTORY: hx of abd aneurysm requiring surgey TECHNIQUE: A CT angiogram was performed of the abdomen and pelvis following the intravenous injection of 100 cc of Omnipaque 350. Rotational, sagittal, and coronal MIP reconstructions were reviewed. Comparison is made to the preoperative study of 05/06/2018. FINDINGS: Since the previous study there is been repair of the infrarenal abdominal aortic aneurysm with an aortoiliac graft. There is no evidence of leakage around the graft. The suprarenal abdominal aorta measures 3.6 cm in diameter and is unchanged from the previous study. The celiac and superior mesenteric arteries are widely patent. Both renal arteries are widely patent. The liver, gallbladder, pancreas and spleen appear normal. The adrenal glands are not enlarged. The kidneys reveal moderate left-sided hydronephrosis which has occurred since the previous study. A stone is not seen in the left ureter. The etiology of the hydronephrosis is uncertain. The right kidney enhances normally. There is now moderate distention of multiple small bowel loops with air-fluid levels suspicious for a partial mechanical small bowel obstruction. The colon is decompressed. There is no evidence of free fluid or adenopathy. The appendix is not seen. In the pelvis the prostate gland is moderately enlarged. The bladder appears normal. The skeletal structures otherwise reveal arthritic changes in both hip joints along with multilevel disc degeneration lumbar spine. IMPRESSION: Status post infrarenal abdominal aortic aneurysm repair with interval placement of aorto bi-iliac graft. No evidence of leakage around the graft or thrombosis. Moderate distention of small-bowel loops with air-fluid levels compatible with partial mechanical small bowel obstruction. Moderate left-sided hydronephrosis. A stone is not seen in the left ureter. The etiology of the left-sided hydronephrosis is uncertain. Prostatic enlargement. Degenerative arthritic changes in both hip joints and within the lumbar spine
[2018-07-11] MEDS ORDERED: DILAUDID IV ONE (05:10)
[2018-07-11] MEDS ORDERED: ZOFRAN IV ONE (05:10)
[2018-07-11] MEDS ORDERED: DILAUDID ONE (05:14)
[2018-07-11] MEDS ORDERED: LIDOCAINE VISCOUS 2% PO ONE (05:24)
--- NOTE | 2018-07-11 05:37 | Emergency Department Report ---
ED Abdominal Pain HPI - General Chief Complaint: Abdominal Pain Stated Complaint: ABDOMINAL PAIN Time Seen by Provider: 07/11/18 05:06 Source: patient Mode of arrival: Wheelchair Limitations: No Limitations - History of Present Illness Initial Comments: 53-year-old male with a past medical history of diabetes, hypertension, seizures , and infrarenal abdominal aortic aneurysm repair in April 2018 presents to the hospital with complaints of severe abdominal pain times one day. Pain started in a.m. and has been constant and not improving. Pain is rated 10/10 intensity, worse with palpation, no alleviating factors. Positive nausea with 2 episodes of vomiting. Last bowel moment was yesterday and no flatus produced today. No reports of fever. Severity scale (0 -10): 10 - Related Data Previous Rx's Medication Instructions Recorded Last Taken Type AtorvaSTATin [Lipitor] 20 mg PO QHS #30 tab 05/15/18 Unknown Rx Lisinopril [Zestril TAB] 40 mg PO QDAY #30 tablet 05/15/18 Unknown Rx Metoprolol [Lopressor TAB] 50 mg PO BID #60 tablet 05/15/18 Unknown Rx Polyethylene Glycol 3350 [Miralax 17 gm PO QDAY PRN #14 powd.pack 05/15/18 Unknown Rx 3350] amLODIPine [Norvasc] 10 mg PO QDAY #30 tablet 05/15/18 Unknown Rx glipiZIDE [Glucotrol] 5 mg PO QDDIAB #60 tablet 05/15/18 Unknown Rx hydrALAZINE [Apresoline TAB] 100 mg PO TID #90 tab 05/15/18 Unknown Rx levETIRAcetam [Keppra ORAL LIQ] 500 mg PO BID 30 Days bottle 05/15/18 Unknown Rx traMADol [Ultram 50 MG tab] 50 mg PO Q8H PRN #20 tablet 05/15/18 Unknown Rx Allergies Allergy/AdvReac Type Severity Reaction Status Date / Time No Known Drug Allergies Allergy Unknown Verified 04/14/18 06:34 ED Review of Systems ROS: Stated complaint: ABDOMINAL PAIN Other details as noted in HPI Comment: All other systems reviewed and negative ED Past Medical Hx - Past Medical History Previous Medical History?: Yes Hx Hypertension: Yes Hx Congestive Heart Failure: No Hx Diabetes: Yes Hx Arthritis: Yes (hip) Hx Seizures: Yes Hx Asthma: No Hx COPD: No - Surgical History Past Surgical History?: Yes Additional Surgical History: abd anerusim repair apr 2018 - Social History Smoking Status: Never Smoker Substance Use Type: None - Medications Home Medications: Home Medications Medication Instructions Recorded Confirmed Last Taken Type AtorvaSTATin [Lipitor] 20 mg PO QHS #30 tab 05/15/18 Unknown Rx Lisinopril [Zestril TAB] 40 mg PO QDAY #30 tablet 05/15/18 Unknown Rx Metoprolol [Lopressor TAB] 50 mg PO BID #60 tablet 05/15/18 Unknown Rx Polyethylene Glycol 3350 [Miralax 17 gm PO QDAY PRN #14 powd.pack 05/15/18 Unknown Rx 3350] amLODIPine [Norvasc] 10 mg PO QDAY #30 tablet 05/15/18 Unknown Rx glipiZIDE [Glucotrol] 5 mg PO QDDIAB #60 tablet 05/15/18 Unknown Rx hydrALAZINE [Apresoline TAB] 100 mg PO TID #90 tab 05/15/18 Unknown Rx levETIRAcetam [Keppra ORAL LIQ] 500 mg PO BID 30 Days bottle 05/15/18 Unknown Rx traMADol [Ultram 50 MG tab] 50 mg PO Q8H PRN #20 tablet 05/15/18 Unknown Rx ED Physical Exam - General Limitations: No Limitations - Other Other exam information: General: Moderate distress secondary to pain Head exam: Atraumatic, normocephalic Eyes exam: Normal appearance, pupils equal reactive to light, extraocular movements intact ENT: Moist mucous membrane, normal oropharynx Neck exam: Normal inspection, full range of motion, no meningismus nontender Respiratory exam: Clear to auscultation bilateral, no wheezes, rales, crackles Cardiovascular: Normal rate and rhythm, normal heart sounds Abdomen: Soft, nondistended, midline surgical scar. Diminished bowel sounds. Generalized tenderness Extremity: Full range of motion normal inspection no deformity Back: Normal Inspection, full range of motion, no tenderness Neurologic: Alert, oriented x3, cranial nerves intact, no motor or sensory deficit Psychiatric: normal affect, normal mood Skin: Warm, dry, intact ED Course Vital Signs 07/11/18 07/11/18 07/11/18 02:27 02:29 03:00 Temperature 97.8 F 97.8 F Pulse Rate 70 70 78 Respiratory 16 16 13 Rate Blood Pressure 176/78 176/78 161/83 O2 Sat by Pulse 100 100 100 Oximetry 07/11/18 07/11/18 07/11/18 03:30 03:46 04:30 Temperature Pulse Rate 81 84 92 H Respiratory 14 14 13 Rate Blood Pressure 161/83 135/84 165/87 O2 Sat by Pulse 100 100 99 Oximetry 07/11/18 07/11/18 04:46 05:30 Temperature Pulse Rate 97 H 92 H Respiratory 11 L 12 Rate Blood Pressure 165/87 194/82 O2 Sat by Pulse 99 98 Oximetry - Consultations Consultation #1: 07/11/18 5:31 AM Case discussed with Dr. Tong radiotelephone operator general surgeon who will consult on patient. Requests admission to hospitalist service ED Medical Decision Making - Lab Data Result diagrams: 07/11/18 03:01 07/11/18 03:01 Lab Results 07/11/18 07/11/18 Range/Units 03:01 03:01 WBC 11.6 H (4.5-11.0) K/mm3 RBC 4.02 (3.65-5.03) M/mm3 Hgb 13.0 (11.8-15.2) gm/dl Hct 39.6 (35.5-45.6) % MCV 99 H (84-94) fl MCH 32 (28-32) pg MCHC 33 (32-34) % RDW 16.7 H (13.2-15.2) % Plt Count 153 (140-440) K/mm3 Lymph % (Auto) [employer] [place] % (Auto) [employer] Detective Eos % (Auto) [employer] Detective Baso % (Auto) [employer] Detective Lymph # [employer] Detective [place] # [employer] Detective Eos # [employer] Detective Baso # [employer] Detective Seg Neutrophils % [employer] Detective Seg Neutrophils # [employer] Sodium 140 (137-145) mmol/L Potassium 4.4 (3.6-5.0) mmol/L Chloride 101.5 (98-107) mmol/L Carbon Dioxide 22 (22-30) mmol/L Anion Gap 21 mmol/L BUN 12 (9-20) mg/dL Creatinine 0.7 L (0.8-1.5) mg/dL Estimated GFR > 60 ml/min BUN/Creatinine Ratio 17 % Glucose 141 H (75-100) mg/dL Calcium 9.6 (8.4-10.2) mg/dL Total Bilirubin 0.50 (0.1-1.2) mg/dL AST 22 (5-40) units/L ALT 8 (7-56) units/L Alkaline Phosphatase 44 (35-129) units/L Total Protein 7.3 (6.3-8.2) g/dL Albumin 4.1 (3.9-5) g/dL Albumin/Globulin Ratio 1.3 % Lipase 23 (13-60) units/L - Radiology Data Radiology results: report reviewed FINAL REPORT EXAM: CT ANGIO ABDOMEN PELVIS HISTORY: hx of abd aneurysm requiring surgey TECHNIQUE: A CT angiogram was performed of the abdomen and pelvis following the intravenous injection of 100 cc of Omnipaque 350. Rotational, sagittal, and coronal MIP reconstructions were reviewed. Comparison is made to the preoperative study of 05/06/2018. FINDINGS: Since the previous study there is been repair of the infrarenal abdominal aortic aneurysm with an aortoiliac graft. There is no evidence of leakage around the graft. The suprarenal abdominal aorta measures 3.6 cm in diameter and is unchanged from the previous study. The celiac and superior mesenteric arteries are widely patent. Both renal arteries are widely patent. The liver, gallbladder, pancreas and spleen appear normal. The adrenal glands are not enlarged. The kidneys reveal moderate left-sided hydronephrosis which has occurred since the previous study. A stone is not seen in the left ureter. The etiology of the hydronephrosis is uncertain. The right kidney enhances normally. There is now moderate distention of multiple small bowel loops with air-fluid levels suspicious for a partial mechanical small bowel obstruction. The colon is decompressed. There is no evidence of free fluid or adenopathy. The appendix is not seen. In the pelvis the prostate gland is moderately enlarged. The bladder appears normal. The skeletal structures otherwise reveal arthritic changes in both hip joints along with multilevel disc degeneration lumbar spine. MPRESSION: Status post infrarenal abdominal aortic aneurysm repair with interval placement of aorto bi-iliac graft. No evidence of leakage around the graft or thrombosis. Moderate distention of small-bowel loops with air-fluid levels compatible with partial mechanical small bowel obstruction. Moderate left -sided hydronephrosis. A stone is not seen in the left ureter. The etiology of the left-sided hydronephrosis is uncertain. Prostatic enlargement. Degenerative arthritic changes in both hip joints and within the lumbar spine - Medical Decision Making Patient presented with significant abdominal pain. CT shows partial small bowel obstruction and left-sided hydronephrosis with unknown cause. Aneurysm repair intact. Patient medicated with Dilaudid, Zofran, normal saline. IV labetalol given for hypertension. NG tube placed in the ED. Surgery consulted. Hospitalist informed for admission. Bridge orders placed as requested - Differential Diagnosis obstruction, aneurysm rupture/dissection, gastroenteritis, ileus Critical Care Time: No Critical care attestation.: If time is entered above; I have spent that time in minutes in the direct care of this critically ill patient, excluding procedure time. ED Disposition Clinical Impression: Partial small bowel obstruction, Hx of aortic aneurysm repair, HTN ( hypertension), Hydronephrosis, left Disposition: 09 OP ADMIT IP TO THIS HOSP Is pt being admited?: Yes Condition: Stable Time of Disposition: 05:39 (Dr John/hosp)
[2018-07-11] MEDS ORDERED: NORMODYNE IV ONE ×2 (06:15→08:38)
[2018-07-11] MEDS ORDERED: SUBLIMAZE IV ONE (08:10)
[2018-07-11] MEDS ORDERED: ZOFRAN ONE (08:24)
[2018-07-11] MEDS: ZOFRAN IV PRN (08:45)
--- NOTE | 2018-07-11 09:01 | Progress Note ---
Assessment and Plan Full consult dictated: hx as below Chief Complaint: Abdominal Pain Stated Complaint: ABDOMINAL PAIN Time Seen by Provider: 07/11/18 05:06 Source: patient Mode of arrival: Wheelchair Limitations: No Limitations - History of Present Illness Initial Comments: 53-year-old male with a past medical history of diabetes, hypertension, seizures , and infrarenal abdominal aortic aneurysm repair in April 2018 presents to the hospital with complaints of severe abdominal pain times one day. Pain started in a.m. and has been constant and not improving. Pain is rated 10/10 intensity, worse with palpation, no alleviating factors. Positive nausea with 2 episodes of vomiting. Last bowel moment was yesterday and no flatus produced today. No reports of fever. Abd 1+ distended. mild tenderness CT - consistent with partial sbo and L hydronephrosis imp: as above rec keep npo ng low intermittent suction will repeat labs and abd series in am consider eval for L hydro will follow Laboratory Tests 07/11/18 07/11/18 03:01 03:01 WBC 11.6 H Hgb 13.0 Hct 39.6 Sodium 140 Potassium 4.4 Chloride 101.5 BUN 12 Creatinine 0.7 L Glucose 141 H Total Bilirubin 0.50 AST 22 ALT 8 Alkaline Phosphatase 44 Lipase 23 Objective Vital Signs - 12hr 07/11/18 07/11/18 07/11/18 02:27 02:29 03:00 Temperature 97.8 F 97.8 F Pulse Rate 70 70 78 Respiratory 16 16 13 Rate Blood Pressure 176/78 176/78 161/83 O2 Sat by Pulse 100 100 100 Oximetry 07/11/18 07/11/18 07/11/18 03:30 03:46 04:30 Temperature Pulse Rate 81 84 92 H Respiratory 14 14 13 Rate Blood Pressure 161/83 135/84 165/87 O2 Sat by Pulse 100 100 99 Oximetry 07/11/18 07/11/18 07/11/18 04:46 05:30 06:00 Temperature Pulse Rate 97 H 92 H 92 H Respiratory 11 L 12 16 Rate Blood Pressure 165/87 194/82 194/82 O2 Sat by Pulse 99 98 99 Oximetry 07/11/18 07/11/18 07/11/18 06:30 07:00 07:30 Temperature Pulse Rate 88 90 87 Respiratory 18 18 14 Rate Blood Pressure 206/86 200/86 208/87 O2 Sat by Pulse 99 99 98 Oximetry 07/11/18 07/11/18 08:00 08:43 Temperature Pulse Rate 91 H Respiratory 17 Rate Blood Pressure 200/86 208/90 O2 Sat by Pulse 98 Oximetry - Labs 07/11/18 03:01 07/11/18 03:01 Diabetes panel 07/11/18 Range/Units 03:01 Sodium 140 (137-145) mmol/L Potassium 4.4 (3.6-5.0) mmol/L Chloride 101.5 (98-107) mmol/L Carbon Dioxide 22 (22-30) mmol/L BUN 12 (9-20) mg/dL Creatinine 0.7 L (0.8-1.5) mg/dL Glucose 141 H (75-100) mg/dL Calcium 9.6 (8.4-10.2) mg/dL AST 22 (5-40) units/L ALT 8 (7-56) units/L Alkaline Phosphatase 44 (35-129) units/L Total Protein 7.3 (6.3-8.2) g/dL Albumin 4.1 (3.9-5) g/dL Calcium panel 07/11/18 Range/Units 03:01 Calcium 9.6 (8.4-10.2) mg/dL Albumin 4.1 (3.9-5) g/dL Pituitary panel 07/11/18 Range/Units 03:01 Sodium 140 (137-145) mmol/L Potassium 4.4 (3.6-5.0) mmol/L Chloride 101.5 (98-107) mmol/L Carbon Dioxide 22 (22-30) mmol/L BUN 12 (9-20) mg/dL Creatinine 0.7 L (0.8-1.5) mg/dL Glucose 141 H (75-100) mg/dL Calcium 9.6 (8.4-10.2) mg/dL Adrenal panel 07/11/18 Range/Units 03:01 Sodium 140 (137-145) mmol/L Potassium 4.4 (3.6-5.0) mmol/L Chloride 101.5 (98-107) mmol/L Carbon Dioxide 22 (22-30) mmol/L BUN 12 (9-20) mg/dL Creatinine 0.7 L (0.8-1.5) mg/dL Glucose 141 H (75-100) mg/dL Calcium 9.6 (8.4-10.2) mg/dL Total Bilirubin 0.50 (0.1-1.2) mg/dL AST 22 (5-40) units/L ALT 8 (7-56) units/L Alkaline Phosphatase 44 (35-129) units/L Total Protein 7.3 (6.3-8.2) g/dL Albumin 4.1 (3.9-5) g/dL
[2018-07-11] MEDS ORDERED: SUBLIMAZE IV NR (10:00)
[2018-07-11] MEDS ORDERED: APRESOLINE PO PRN (10:06)
[2018-07-11] MEDS: MORPHINE IV PRN ×3 (10:49→21:55)
[2018-07-11] MEDS: LEVAQUIN 750MG/150ML 750 MG/150 ML BAG IV SCH (10:50)
[2018-07-11 10:51] LABS: Bilirubin,Urine NEG (Negative); Blood,Urine SM (Negative); Color,Urine Yellow (Yellow); Protein,Urine <15 mg/dL mg/dL (Negative); Urobilinogen,Urine < 2.0 mg/dL (<2.0)
[2018-07-11] MEDS: D5/0.45NS 1,000 ML IV SCH ×2 (10:53→22:14)
[2018-07-11] MEDS ORDERED: APRESOLINE IV SCH (11:00)
--- NOTE | 2018-07-11 11:34 | History and Physical Report ---
History of Present Illness Date of examination: 07/11/18 Date of admission: 07/11/18 05:53 Chief complaint: Abdominal pain, SBO History of present illness: 53-year-old male with a past medical history of diabetes, hypertension, seizures , and infrarenal abdominal aortic aneurysm repair in April 2018 presents to the hospital with complaints of severe abdominal pain times one day. Pain started in a.m. and has been constant and not improving. Pain is rated 10/10 intensity, worse with palpation, no alleviating factors. Positive nausea with 2 episodes of vomiting. Last bowel moment was yesterday and no flatus produced today. No reports of fever. Past History Past Medical History: diabetes Past Surgical History: Other (surgery for AAA) Social history: smoking Family history: no significant family history Medications and Allergies Allergies Allergy/AdvReac Type Severity Reaction Status Date / Time No Known Drug Allergies Allergy Unknown Verified 04/14/18 06:34 Home Medications Medication Instructions Recorded Confirmed Last Taken Type AtorvaSTATin [Lipitor] 20 mg PO QHS #30 tab 05/15/18 Unknown Rx Lisinopril [Zestril TAB] 40 mg PO QDAY #30 tablet 05/15/18 Unknown Rx Metoprolol [Lopressor TAB] 50 mg PO BID #60 tablet 05/15/18 Unknown Rx Polyethylene Glycol 3350 [Miralax 17 gm PO QDAY PRN #14 powd.pack 05/15/18 Unknown Rx 3350] amLODIPine [Norvasc] 10 mg PO QDAY #30 tablet 05/15/18 Unknown Rx glipiZIDE [Glucotrol] 5 mg PO QDDIAB #60 tablet 05/15/18 Unknown Rx hydrALAZINE [Apresoline TAB] 100 mg PO TID #90 tab 05/15/18 Unknown Rx levETIRAcetam [Keppra ORAL LIQ] 500 mg PO BID 30 Days bottle 05/15/18 Unknown Rx traMADol [Ultram 50 MG tab] 50 mg PO Q8H PRN #20 tablet 05/15/18 Unknown Rx Active Meds: Active Medications Fentanyl (Sublimaze) 50 mcg IV ONCE NR Stop: 07/11/18 14:00 Hydralazine HCl (Apresoline) 10 mg IV Q4HR PRN PRN Reason: Hypertension Dextrose/Sodium Chloride (D5/0.45ns) 1,000 mls @ 150 mls/hr IV DIRECT BARBARA Last Admin: 07/11/18 10:53 Dose: 150 mls/hr Metronidazole (Flagyl 500 Mg/100 Ml) 500 mg in 100 mls @ 100 mls/hr IV Q8HR BARBARA ; Protocol Levofloxacin/Dextrose (Levaquin 750mg/150ml) 750 mg in 150 mls @ 100 mls/hr IV Q24HR BARBARA; Protocol Last Admin: 07/11/18 10:50 Dose: 100 mls/hr Morphine Sulfate (Morphine) 2 mg IV Q4H PRN PRN Reason: Pain, Moderate (4-6) Last Admin: 07/11/18 10:49 Dose: 2 mg Ondansetron HCl (Zofran) 4 mg IV Q4H PRN PRN Reason: Nausea And Vomiting Last Admin: 07/11/18 08:45 Dose: 4 mg Review of systems Constitutional: Well Nouridhed and Well developed. Head: NC/ AT Eyes: Denies any visual impairments. No discharge from the eyes Nose: Denies any rhinorrhea or epistaxis Throats: Denies any post nasal drainage. Ears: Denies any hearing deficits Cardiovascular system: Denies any chest pain, shortness of breath, orthopnea, paroxysmal nocturnal dyspnea, or palpitation. Respiratory system: Denies any cough, difficulty breathing, wheezing, pleuritic chest pain, Gastrointestinal system: has abdominal pain, nausea vomiting, hematemesis or melena. Neurological system: Denies any headache, slurred speech, facial droop, lateralizing weakness Genitalia system: Denies any dysuria, urinary frequency or urgency, urethral discharge Skin: No rashes, hyperpigmented spots. Hematological: Denies any cervical tenderness hemorrhages or petechia. Immunological: Denies any multiple septic spots, Lymphatic: Denies any generalized lymphadenopathy. Endocrine: Denies any polyuria, polydipsia, polyphagia. No heat or cold intolerance. Musculoskeletal system: No joint pain or swelling. Psych: No visual, tactile, auditory or hallucination Exam - Physical Exam Narrative exam: Constitutional: Well-nourished well-developed. In no distress Head: Normocephalic atraumatic Eyes: Pupils are equal round and reactive to light Nose: No enlarged turbinates, no septal deviation. Mouth: Moist mucous membranes. Neck: Supple no thyromegaly. No bruit. No JVD Heart: Regular rate and rhythm, S1-S2 abnormal. No rubs murmurs or gallop Lungs: Clear to auscultation bilaterally no rales or rhonchi Abdomen: Soft, nontender. Bowel sound are present. Extremities: No edema no cyanosis and no clubbing. Neuro: Alert oriented Oriented x3. No focal sensory or motor deficit. Skin: No rashes no hyperemic spots YULI: No scrotal edema Psychiatry: Euthymic. Calm. - Constitutional Vitals: Temp Pulse Resp BP Pulse Ox 97.8 F 92 H 20 195/85 100 07/11/18 02:29 07/11/18 08:41 07/11/18 08:41 07/11/18 09:48 07/11/18 09:48 Results - Labs CBC & Chem 7: 07/11/18 03:01 07/11/18 03:01 Labs: Abnormal lab results 07/11/18 07/11/18 Range/Units 03:01 03:01 WBC 11.6 H (4.5-11.0) K/mm3 MCV 99 H (84-94) fl RDW 16.7 H (13.2-15.2) % Creatinine 0.7 L (0.8-1.5) mg/dL Glucose 141 H (75-100) mg/dL Assessment and Plan Assessment Small bowel obstruction History of repair of abdominal aneurysm Diabetes mellitus Accelerated hypertension Tobacco use disorder Plan Admit to med so much Nothing by mouth IV fluid NG tube to low intermittent suction Sliding-scale insulin IV as well as 4 blood pressure control since patient is nothing by mouth See the Clonidin patch is SBP > 180 IV Flagyl and Zosyn Surgical consult already obtained. Discussed with Surgeons DVT prophylaxis with Lovenox
[2018-07-11] MEDS ORDERED: D50W (25GM) Syringe IV PRN ×2 (11:46→11:47)
[2018-07-11] MEDS: HumaLOG SUB-Q SCH ×2 (12:20→18:41)
[2018-07-11 13:19] LABS: Basophils % (Auto) 0.1 % (0.0-1.8); Eosinophils % (Auto) 0.2 % (0.0-4.3); Hematocrit 36.9 % (35.5-45.6); Hemoglobin 12.3 gm/dl (11.8-15.2); Lymphocytes # (Auto) 0.6 K/mm3 (1.2-5.4); Lymphocytes % (Auto) 11.9 % (13.4-35.0); Mean Corpuscular HGB Conc 33 % (32-34); Mean Corpuscular Hemoglobin 32 pg (28-32); Mean Corpuscular Volume 97 fl (84-94); Monocytes # (Auto) 0.3 K/mm3 (0.0-0.8); Monocytes % (Auto) 5.4 % (0.0-7.3); Platelet Count 244 K/mm3 (140-440); Red Cell Distribution Width 16.8 % (13.2-15.2)
[2018-07-11 13:38] LABS: BUN/Creatinine Ratio 16; Blood Urea Nitrogen 11 mg/dL (9-20); Calcium 9.7 mg/dL (8.4-10.2); Hemolysis Index 6
[2018-07-11] MEDS: LOVENOX SUB-Q SCH (13:38)
[2018-07-11] MEDS: ZOSYN/NS 4.5GM/100ML 4.5 GM/100 ML VIAL IV SCH ×2 (13:38→21:54)
[2018-07-11] MEDS: FLAGYL 500 MG/100 ML 500 MG/100 ML BAG IV SCH ×2 (13:38→21:53)
[2018-07-11] MEDS ORDERED: CATAPRES-TTS PATCH TD SCH (14:00)
--- NOTE | 2018-07-12 00:01 | Consultation ---
REASON FOR CONSULTATION: Rule out partial small bowel obstruction. HISTORY OF PRESENT ILLNESS: The patient is a 53-year-old poor historian, who presents to the Emergency Room with recent onset of " Also had some nausea and vomiting. The patient states he had an open aortic aneurysm repair approximately 2 months ago. PAST MEDICAL HISTORY: Pertinent for diabetes and hypertension. PAST SURGICAL HISTORY: Aneurysm repair as previously mentioned. ALLERGIES: No known allergies. MEDICATIONS: The patient does not know his medications, but on chart here, I am seeing Norvasc, glipizide, lisinopril and Lopressor. FAMILY HISTORY: Negative. SOCIAL HISTORY: The patient states he smokes marijuana and used to drink, but he quit approximately 4 years ago. as to how much he used to smoke or drink. PHYSICAL EXAMINATION: GENERAL: At this time reveals the patient to be awake, alert and cooperative, moderate discomfort, but no acute distress. VITAL SIGNS: Show him to be afebrile with a temperature of 97.8, blood pressure is 194/82, pulse of 92, respirations 16. ABDOMEN: Examination of the abdomen reveals a long midline scar. The abdomen is 1+ distended and mildly tender. NG tube is in place. Bowel sounds are hypoactive. LABORATORY DATA: Lab work at present includes a CBC, which shows a white count of 11.6. H and H is 13 and 39. Electrolytes are essentially normal including sodium of 140, potassium 4.4, chloride 101, BUN is 12, creatinine is 0.7. LFTs were also normal. Lipase is normal at 23. Glucose is 141. A CT scan of the abdomen has been performed, which I have reviewed with Dr. Faustin. The CT is consistent with partial small-bowel obstruction. Also, left hydronephrosis is noted, but no stone is clearly seen. IMPRESSION: 1. At this time is that of a 53-year-old gentleman with history of diabetes and hypertension as well as recent open aortic abdominal repair. 2. Rule out partial small-bowel obstruction. 3. Left hydronephrosis secondary to ?. RECOMMENDATIONS: I would keep the patient n.p.o. at present. Continue NG to low intermittent suction. We will repeat abdominal series in the morning. We will follow closely with you. Thank you very much for consultation. JOB# [id number] FP/NTS
[2018-07-12] MEDS: HumaLOG SUB-Q SCH ×4 (01:01→18:56)
[2018-07-12] MEDS: MORPHINE IV PRN ×4 (05:09→16:39)
[2018-07-12] MEDS: FLAGYL 500 MG/100 ML 500 MG/100 ML BAG IV SCH (05:09)
[2018-07-12] MEDS: ZOSYN/NS 4.5GM/100ML 4.5 GM/100 ML VIAL IV SCH ×3 (05:11→22:30)
[2018-07-12] MEDS: D5/0.45NS 1,000 ML IV SCH (05:16)
[2018-07-12 06:07] LABS: Basophils % (Auto) 0.6 % (0.0-1.8); Eosinophils # (Auto) 0.2 K/mm3 (0.0-0.4); Eosinophils % (Auto) 5.4 % (0.0-4.3); Hematocrit 32.3 % (35.5-45.6); Hemoglobin 10.9 gm/dl (11.8-15.2); Lymphocytes # (Auto) 1.3 K/mm3 (1.2-5.4); Lymphocytes % (Auto) 37.9 % (13.4-35.0); Mean Corpuscular HGB Conc 34 % (32-34); Mean Corpuscular Hemoglobin 33 pg (28-32); Mean Corpuscular Volume 97 fl (84-94); Monocytes # (Auto) 0.3 K/mm3 (0.0-0.8); Platelet Count 207 K/mm3 (140-440); Red Blood Count 3.34 M/mm3 (3.65-5.03); Red Cell Distribution Width 16.5 % (13.2-15.2)
[2018-07-12 06:53] LABS: Albumin 3.5 g/dL (3.9-5); BUN/Creatinine Ratio 13; Blood Urea Nitrogen 9 mg/dL (9-20); Hemolysis Index 1
[2018-07-12] MEDS: APRESOLINE IV PRN ×2 (06:53→17:08)
[2018-07-12 06:59] LABS: Alanine Aminotransferase < 5 units/L (7-56)
[2018-07-12] MEDS: ZOFRAN IV PRN ×2 (09:26→14:07)
[2018-07-12] MEDS: LOVENOX SUB-Q SCH (09:26)
[2018-07-12] MEDS: LEVAQUIN 750MG/150ML 750 MG/150 ML BAG IV SCH (09:32)
[2018-07-12] MEDS: KCL 10MEQ/100ML 10 MEQ/100 ML BAG IV SCH ×4 (09:33→12:36)
--- NOTE | 2018-07-12 12:21 | Progress Note ---
Assessment and Plan Assessment and plan: 53-year-old male with a past medical history of diabetes, hypertension, seizures , and infrarenal abdominal aortic aneurysm repair in April 2018 presents to the hospital with complaints of severe abdominal pain times one day. assoc with vomiting, found to have SBO Past History Past Medical History: diabetes Small bowel obstruction conservative mgt, NPO patient pulled out ngt last night to be reinserted, Mineral oil per ngt -case dw Dr Tong History of repair of abdominal aneurysm Diabetes mellitus SSI Accelerated hypertension optimize clonidine patch and IV meds as he is NPO Tobacco use disorder counseled about cessation Hypokalemia Replete IV Left Hydronephrosis patient denies hx of it -Urology consulted History Interval history: Review of systems Constitutional: No fevers, no malaise, no joint pains CVS: No chest pain, no orthopnea, no dyspnea on exertion, no pedal edema GI: Nc/o o abdominal pain, and nausea and vomiting, Respiratory: No shortness of breath, no wheezing, no coughing Hospitalist Physical - Physical exam Narrative exam: General.: Appears well, no distress, nontoxic HEENT: Moist mucous membranes, extraocular muscles intact, no lymphadenopathy Neck: supple Cardiac: S1-S2 heard Lungs: clear to auscultation bilaterally Abdomen: soft , nontender, nondistended, bowel sounds positive Extremities: no edema clubbing or cyanosis Skin: no rash or lesions Neurologic: no gross focal deficits Psych: appropriate behavior, appropriate mood, corporative, judgment intact - Constitutional Vitals: Temp Pulse Resp BP Pulse Ox 98.7 F 84 20 190/84 96 07/12/18 06:47 07/12/18 06:47 07/12/18 06:47 07/12/18 06:47 07/12/18 06:47 Results - Labs CBC & Chem 7: 07/12/18 05:50 07/12/18 05:50 Labs: Laboratory Last Values WBC 3.4 K/mm3 (4.5-11.0) L 07/12/18 05:50 RBC 3.34 M/mm3 (3.65-5.03) L 07/12/18 05:50 Hgb 10.9 gm/dl (11.8-15.2) L 07/12/18 05:50 Hct 32.3 % (35.5-45.6) L 07/12/18 05:50 MCV 97 fl (84-94) H 07/12/18 05:50 MCH 33 pg (28-32) H 07/12/18 05:50 MCHC 34 % (32-34) 07/12/18 05:50 RDW 16.5 % (13.2-15.2) H 07/12/18 05:50 Plt Count 207 K/mm3 (140-440) 07/12/18 05:50 Lymph % (Auto) 37.9 % (13.4-35.0) H 07/12/18 05:50 [place] % (Auto) 10.0 % (0.0-7.3) H 07/12/18 05:50 Eos % (Auto) 5.4 % (0.0-4.3) H 07/12/18 05:50 Baso % (Auto) 0.6 % (0.0-1.8) 07/12/18 05:50 Lymph # 1.3 K/mm3 (1.2-5.4) 07/12/18 05:50 [place] # 0.3 K/mm3 (0.0-0.8) 07/12/18 05:50 Eos # 0.2 K/mm3 (0.0-0.4) 07/12/18 05:50 Baso # 0.0 K/mm3 (0.0-0.1) 07/12/18 05:50 Seg Neutrophils % 46.1 % (40.0-70.0) 07/12/18 05:50 Seg Neutrophils # 1.6 K/mm3 (1.8-7.7) L 07/12/18 05:50 Sodium 143 mmol/L (137-145) 07/12/18 05:50 Potassium 2.9 mmol/L (3.6-5.0) L* D 07/12/18 05:50 Chloride 103.5 mmol/L (98-107) 07/12/18 05:50 Carbon Dioxide 29 mmol/L (22-30) 07/12/18 05:50 Anion Gap 13 mmol/L 07/12/18 05:50 BUN 9 mg/dL (9-20) 07/12/18 05:50 Creatinine 0.7 mg/dL (0.8-1.5) L 07/12/18 05:50 Estimated GFR > 60 ml/min 07/12/18 05:50 BUN/Creatinine Ratio 13 % 07/12/18 05:50 Glucose 112 mg/dL (75-100) H 07/12/18 05:50 POC Glucose 136 (70-105) H 07/12/18 11:16 Calcium 9.0 mg/dL (8.4-10.2) 07/12/18 05:50 Total Bilirubin 0.60 mg/dL (0.1-1.2) 07/12/18 05:50 AST 9 units/L (5-40) 07/12/18 05:50 ALT < 5 units/L (7-56) L 07/12/18 05:50 Alkaline Phosphatase 39 units/L (35-129) 07/12/18 05:50 Total Protein 6.6 g/dL (6.3-8.2) 07/12/18 05:50 Albumin 3.5 g/dL (3.9-5) L 07/12/18 05:50 Albumin/Globulin Ratio 1.1 % 07/12/18 05:50 Lipase 23 units/L (13-60) 07/11/18 03:01 Urine Color Yellow (Yellow) 07/11/18 10:25 Urine Turbidity Clear (Clear) 07/11/18 10:25 Urine pH 6.0 (5.0-7.0) 07/11/18 10:25 Ur Specific [place] 1.029 (1.003-1.030) 07/11/18 10:25 Urine Protein <15 mg/dl mg/dL (Negative) 07/11/18 10:25 Urine Glucose (UA) Neg mg/dL (Negative) 07/11/18 10:25 Urine Ketones Tr mg/dL (Negative) 07/11/18 10:25 Urine Blood Sm (Negative) 07/11/18 10:25 Urine Nitrite Neg (Negative) 07/11/18 10:25 Urine Bilirubin Neg (Negative) 07/11/18 10:25 Urine Urobilinogen < 2.0 mg/dL (<2.0) 07/11/18 10:25 Ur Leukocyte Esterase Neg (Negative) 07/11/18 10:25 Urine WBC (Auto) 2.0 /HPF (0.0-6.0) 10/15/18 10:25 Urine RBC (Auto) 4.0 /HPF (0.0-6.0) 07/11/18 10:25
[2018-07-12] MEDS ORDERED: [UNRECOGNIZED DRUG - OTHER] IV SCH (12:25)
[2018-07-12] MEDS ORDERED: D5 IV SCH (12:25)
[2018-07-12] MEDS ORDERED: KCL IV SCH (12:25)
[2018-07-12] MEDS ORDERED: CHLORASEPTIC MM PRN (13:06)
--- NOTE | 2018-07-12 13:17 | Progress Note ---
Assessment and Plan Pt pulled out ng and had refused to have it re-inserted Abd tympanic. 2+ distention stressed to pt that he needs ng re-inserted if he wishes to try and avoid surg. pt has now agreed to have in reinserted low K abd series - slightly improved ileus pattern vs partial sbo correct K re-insert ng mineral oil per ng will need to proceed with expl lap and lysis of adhesions if no improvement over the next 48 hrs Selected Entries 07/12/18 06:47 Temperature 98.7 F Pulse Rate 84 Respiratory 20 Rate Blood Pressure 190/84 Laboratory Tests 07/12/18 07/12/18 05:50 05:50 WBC 3.4 L Hgb 10.9 L Hct 32.3 L Potassium 2.9 L* D Objective Vital Signs - 12hr 07/12/18 06:47 Temperature 98.7 F Pulse Rate 84 Respiratory 20 Rate Blood Pressure 190/84 O2 Sat by Pulse 96 Oximetry - Labs 07/12/18 05:50 07/12/18 05:50 Diabetes panel 07/11/18 07/12/18 Range/Units 12:33 05:50 Sodium 141 143 (137-145) mmol/L Potassium 3.7 2.9 L* D (3.6-5.0) mmol/L Chloride 98.2 103.5 (98-107) mmol/L Carbon Dioxide 30 D 29 (22-30) mmol/L BUN 11 9 (9-20) mg/dL Creatinine 0.7 L 0.7 L (0.8-1.5) mg/dL Glucose 169 H 112 H (75-100) mg/dL Calcium 9.7 9.0 (8.4-10.2) mg/dL AST 9 (5-40) units/L ALT < 5 L (7-56) units/L Alkaline Phosphatase 39 (35-129) units/L Total Protein 6.6 (6.3-8.2) g/dL Albumin 3.5 L (3.9-5) g/dL Calcium panel 07/11/18 07/12/18 Range/Units 12:33 05:50 Calcium 9.7 9.0 (8.4-10.2) mg/dL Albumin 3.5 L (3.9-5) g/dL Pituitary panel 07/11/18 07/12/18 Range/Units 12:33 05:50 Sodium 141 143 (137-145) mmol/L Potassium 3.7 2.9 L* D (3.6-5.0) mmol/L Chloride 98.2 103.5 (98-107) mmol/L Carbon Dioxide 30 D 29 (22-30) mmol/L BUN 11 9 (9-20) mg/dL Creatinine 0.7 L 0.7 L (0.8-1.5) mg/dL Glucose 169 H 112 H (75-100) mg/dL Calcium 9.7 9.0 (8.4-10.2) mg/dL Adrenal panel 07/11/18 07/12/18 Range/Units 12:33 05:50 Sodium 141 143 (137-145) mmol/L Potassium 3.7 2.9 L* D (3.6-5.0) mmol/L Chloride 98.2 103.5 (98-107) mmol/L Carbon Dioxide 30 D 29 (22-30) mmol/L BUN 11 9 (9-20) mg/dL Creatinine 0.7 L 0.7 L (0.8-1.5) mg/dL Glucose 169 H 112 H (75-100) mg/dL Calcium 9.7 9.0 (8.4-10.2) mg/dL Total Bilirubin 0.60 (0.1-1.2) mg/dL AST 9 (5-40) units/L ALT < 5 L (7-56) units/L Alkaline Phosphatase 39 (35-129) units/L Total Protein 6.6 (6.3-8.2) g/dL Albumin 3.5 L (3.9-5) g/dL
[2018-07-12] MEDS ORDERED: CATAPRES-TTS PATCH TD SCH (14:00)
[2018-07-12] MEDS: D5W/0.45% NACL/KCL 40 MEQ 40 MEQ/1,000 ML BAG IV SCH ×2 (15:56→22:51)
--- NOTE | 2018-07-12 16:13 | Ultrasound Report ---
Renal ultrasound: Left hydronephrosis: The right kidney has a length of 10.2 cm. The kidney is somewhat echogenic. There may be a very minimal degree of increased fluid in the collecting system. No renal mass and no calculus identified. The left renal length is difficult to clearly assess due to poor margination however it is estimated to be 12.5 cm in length. There is increased parenchymal echogenicity with parenchymal thickness of 13 mm. There is moderate dilatation of the central collecting system and ureter. There is no renal mass and no calculus. Imaging of the urinary bladder is grossly normal but it is slightly distended. Of additional note is a small amount of fluid near the spleen. Impression: 1. Echogenic kidneys consistent with medical renal disease. 2. Nonspecific left hydronephrosis and hydroureter. 3. Nonspecific small volume of free abdominal fluid near spleen.
[2018-07-12] MEDS: MINERAL OIL PO SCH ×3 (16:38→22:44)
[2018-07-12] MEDS ORDERED: DILAUDID IM PRN (17:47)
[2018-07-12] MEDS: DILAUDID IV PRN ×2 (18:08→22:23)
[2018-07-12] MEDS: CEPACOL X STRENGTH MM PRN (18:20)
--- NOTE | 2018-07-12 19:43 | XRay Report ---
FINAL REPORT PROCEDURE: XR ABD SERIES W CXR 1V TECHNIQUE: Abdominal series complete, including supine and upright AP views of the abdomen and frontal chest. HISTORY: sbo COMPARISON: Prior chest x-ray 05/12/2018 FINDINGS: There are multiple surgical clips visualized in the left upper quadrant. There several mildly gas distended loops of small bowel in the mid abdomen and left lower quadrant. No free air is seen. On the upright view no significant air-fluid levels are visualized. No abnormal masses are identified. No abnormal calcifications are seen. Moderate arthritic change seen in both hips. Heart size and pulmonary vasculature appear normal. Lungs are clear. No infiltrates masses effusions or pneumothorax visualized. Free air below the diaphragm seen on the prior study is no longer visualized. IMPRESSION: Postsurgical changes seen upper abdomen as described. Bowel gas pattern as described. I do not see evidence of obstruction. There are several mildly gas distended loops of small bowel as described. I cannot exclude a stricture without obstruction. No free air is seen. .
[2018-07-12] MEDS ORDERED: MAGNESIUM SULFATE 4GM/100ML 4 GM/100 ML BAG IV ONE (20:56)
[2018-07-13] MEDS: MINERAL OIL PO SCH ×3 (02:33→10:31)
[2018-07-13] MEDS: ZOSYN/NS 4.5GM/100ML 4.5 GM/100 ML VIAL IV SCH ×3 (05:32→22:38)
[2018-07-13] MEDS: DILAUDID IV PRN ×4 (05:53→21:15)
[2018-07-13 07:18] LABS: BUN/Creatinine Ratio 7; Blood Urea Nitrogen 5 mg/dL (9-20); Hemolysis Index 6
--- NOTE | 2018-07-13 08:27 | XRay Report ---
ABDOMINAL SERIES: History: Small bowel obstruction. Compared to 07/12/18. A nasogastric tube has been inserted which is coiled in the fundus of the stomach. Mildly distended small bowel loops in the central abdomen have not significantly changed. There is normal gas and stool in the colon. No large air-fluid levels or free air is appreciated. Surgical changes in the epigastric region are again noted. The lung bases are clear. IMPRESSION: No change.
[2018-07-13] MEDS: D5W/0.45% NACL/KCL 40 MEQ 40 MEQ/1,000 ML BAG IV SCH (08:57)
[2018-07-13] MEDS: HumaLOG SUB-Q SCH ×4 (10:28→17:54)
[2018-07-13] MEDS: LOVENOX SUB-Q SCH (10:31)
--- NOTE | 2018-07-13 11:12 | Progress Note ---
Assessment and Plan Pt status quo. neg flatus Abd 2+ distended. no improvement K now wnl abd series - no improvement imp persistent partial sbo will schedule for expl lap in am Selected Entries 07/13/18 06:16 Temperature 97.3 F L Pulse Rate 88 Respiratory 20 Rate Blood Pressure 182/84 [Left] Laboratory Tests 07/12/18 07/13/18 05:50 05:29 Potassium 2.9 L* D 3.9 D Objective Vital Signs - 12hr 07/13/18 06:16 Temperature 97.3 F L Pulse Rate 88 Respiratory 20 Rate Blood Pressure 182/84 [Left] - Labs 07/12/18 05:50 07/13/18 05:29 Diabetes panel 07/13/18 Range/Units 05:29 Sodium 140 (137-145) mmol/L Potassium 3.9 D (3.6-5.0) mmol/L Chloride 101.6 (98-107) mmol/L Carbon Dioxide 25 (22-30) mmol/L BUN 5 L (9-20) mg/dL Creatinine 0.7 L (0.8-1.5) mg/dL Glucose 143 H (75-100) mg/dL Calcium 9.0 (8.4-10.2) mg/dL Calcium panel 07/13/18 Range/Units 05:29 Calcium 9.0 (8.4-10.2) mg/dL Phosphorus 3.10 (2.5-4.5) mg/dL Pituitary panel 07/13/18 Range/Units 05:29 Sodium 140 (137-145) mmol/L Potassium 3.9 D (3.6-5.0) mmol/L Chloride 101.6 (98-107) mmol/L Carbon Dioxide 25 (22-30) mmol/L BUN 5 L (9-20) mg/dL Creatinine 0.7 L (0.8-1.5) mg/dL Glucose 143 H (75-100) mg/dL Calcium 9.0 (8.4-10.2) mg/dL Adrenal panel 07/13/18 Range/Units 05:29 Sodium 140 (137-145) mmol/L Potassium 3.9 D (3.6-5.0) mmol/L Chloride 101.6 (98-107) mmol/L Carbon Dioxide 25 (22-30) mmol/L BUN 5 L (9-20) mg/dL Creatinine 0.7 L (0.8-1.5) mg/dL Glucose 143 H (75-100) mg/dL Calcium 9.0 (8.4-10.2) mg/dL
[2018-07-13] MEDS ORDERED: ANCEF/STERILE WATER 2 GM/20 ML 2 GM/20 ML SYRINGE IV NR (12:00)
--- NOTE | 2018-07-13 13:59 | Progress Note ---
Assessment and Plan Assessment and plan: 53-year-old male with a past medical history of diabetes, hypertension, seizures , and infrarenal abdominal aortic aneurysm repair in April 2018 presents to the hospital with complaints of severe abdominal pain times one day. assoc with vomiting, found to have SBO Past History Past Medical History: diabetes Small bowel obstruction conservative mgt, NPO, continue NGT to LIS Mineral oil per ngt -case dw Dr Tong History of repair of abdominal aneurysm Diabetes mellitus SSI Accelerated hypertension optimize clonidine patch and IV meds as he is NPO Tobacco use disorder counseled about cessation Hypokalemia Replete IV Left Hydronephrosis patient denies hx of it -Urology consulted History Interval history: Review of systems Constitutional: No fevers, no malaise, no joint pains CVS: No chest pain, no orthopnea, no dyspnea on exertion, no pedal edema GI: c/o mild abdominal pain, no nausea , no vomiting, passed gas x1 Respiratory: No shortness of breath, no wheezing, no coughing Hospitalist Physical - Physical exam Narrative exam: General.: Appears well, no distress, nontoxic HEENT: Moist mucous membranes, extraocular muscles intact, no lymphadenopathy Neck: supple Cardiac: S1-S2 heard Lungs: clear to auscultation bilaterally Abdomen: soft , nontender, nondistended, bowel sounds positive Extremities: no edema clubbing or cyanosis Skin: no rash or lesions Neurologic: no gross focal deficits Psych: appropriate behavior, appropriate mood, corporative, judgment intact - Constitutional Vitals: Temp Pulse Resp BP Pulse Ox 97.3 F L 88 20 182/84 98 07/13/18 06:16 07/13/18 06:16 07/13/18 06:16 07/13/18 06:16 07/12/18 17:04 Results - Labs CBC & Chem 7: 07/12/18 05:50 07/13/18 05:29 Labs: Laboratory Last Values WBC 3.4 K/mm3 (4.5-11.0) L 07/12/18 05:50 RBC 3.34 M/mm3 (3.65-5.03) L 07/12/18 05:50 Hgb 10.9 gm/dl (11.8-15.2) L 07/12/18 05:50 Hct 32.3 % (35.5-45.6) L 07/12/18 05:50 MCV 97 fl (84-94) H 07/12/18 05:50 MCH 33 pg (28-32) H 07/12/18 05:50 MCHC 34 % (32-34) 07/12/18 05:50 RDW 16.5 % (13.2-15.2) H 07/12/18 05:50 Plt Count 207 K/mm3 (140-440) 07/12/18 05:50 Lymph % (Auto) 37.9 % (13.4-35.0) H 07/12/18 05:50 [place] % (Auto) 10.0 % (0.0-7.3) H 07/12/18 05:50 Eos % (Auto) 5.4 % (0.0-4.3) H 07/12/18 05:50 Baso % (Auto) 0.6 % (0.0-1.8) 07/12/18 05:50 Lymph # 1.3 K/mm3 (1.2-5.4) 07/12/18 05:50 [place] # 0.3 K/mm3 (0.0-0.8) 07/12/18 05:50 Eos # 0.2 K/mm3 (0.0-0.4) 07/12/18 05:50 Baso # 0.0 K/mm3 (0.0-0.1) 07/12/18 05:50 Seg Neutrophils % 46.1 % (40.0-70.0) 07/12/18 05:50 Seg Neutrophils # 1.6 K/mm3 (1.8-7.7) L 07/12/18 05:50 Sodium 140 mmol/L (137-145) 07/13/18 05:29 Potassium 3.9 mmol/L (3.6-5.0) D 07/13/18 05:29 Chloride 101.6 mmol/L (98-107) 07/13/18 05:29 Carbon Dioxide 25 mmol/L (22-30) 07/13/18 05:29 Anion Gap 17 mmol/L 07/13/18 05:29 BUN 5 mg/dL (9-20) L 07/13/18 05:29 Creatinine 0.7 mg/dL (0.8-1.5) L 07/13/18 05:29 Estimated GFR > 60 ml/min 07/13/18 05:29 BUN/Creatinine Ratio 7 % 07/13/18 05:29 Glucose 143 mg/dL (75-100) H 07/13/18 05:29 POC Glucose 107 (70-105) H 07/13/18 11:28 Calcium 9.0 mg/dL (8.4-10.2) 07/13/18 05:29 Phosphorus 3.10 mg/dL (2.5-4.5) 07/13/18 05:29 Magnesium 2.60 mg/dL (1.7-2.3) H 07/13/18 05:29 Total Bilirubin 0.60 mg/dL (0.1-1.2) 07/12/18 05:50 AST 9 units/L (5-40) 07/12/18 05:50 ALT < 5 units/L (7-56) L 07/12/18 05:50 Alkaline Phosphatase 39 units/L (35-129) 07/12/18 05:50 Total Protein 6.6 g/dL (6.3-8.2) 07/12/18 05:50 Albumin 3.5 g/dL (3.9-5) L 07/12/18 05:50 Albumin/Globulin Ratio 1.1 % 07/12/18 05:50 Lipase 23 units/L (13-60) 07/11/18 03:01 Urine Color Yellow (Yellow) 07/11/18 10:25 Urine Turbidity Clear (Clear) 07/11/18 10:25 Urine pH 6.0 (5.0-7.0) 07/11/18 10:25 Ur Specific [place] 1.029 (1.003-1.030) 07/11/18 10:25 Urine Protein <15 mg/dl mg/dL (Negative) 07/11/18 10:25 Urine Glucose (UA) Neg mg/dL (Negative) 07/11/18 10:25 Urine Ketones Tr mg/dL (Negative) 07/11/18 10:25 Urine Blood Sm (Negative) 07/11/18 10:25 Urine Nitrite Neg (Negative) 07/11/18 10:25 Urine Bilirubin Neg (Negative) 07/11/18 10:25 Urine Urobilinogen < 2.0 mg/dL (<2.0) 07/11/18 10:25 Ur Leukocyte Esterase Neg (Negative) 07/11/18 10:25 Urine WBC (Auto) 2.0 /HPF (0.0-6.0) 07/11/18 10:25 Urine RBC (Auto) 4.0 /HPF (0.0-6.0) 07/11/18 10:25
[2018-07-13] MEDS: D5W/0.45% NACL/KCL 10 MEQ 10 MEQ/1,000 ML BAG IV SCH (17:52)
[2018-07-13] MEDS: APRESOLINE IV PRN (20:31)
[2018-07-13] MEDS: CATAPRES-TTS PATCH TD SCH (21:16)
[2018-07-14] MEDS: HumaLOG SUB-Q SCH ×4 (01:29→18:55)
[2018-07-14] MEDS: DILAUDID IV PRN ×8 (01:30→23:20)
[2018-07-14] MEDS: APRESOLINE IV PRN ×3 (01:38→18:51)
[2018-07-14] MEDS: D5W/0.45% NACL/KCL 10 MEQ 10 MEQ/1,000 ML BAG IV SCH (04:44)
[2018-07-14] MEDS: ZOSYN/NS 4.5GM/100ML 4.5 GM/100 ML VIAL IV SCH ×3 (06:07→23:20)
[2018-07-14 06:13] LABS: BUN/Creatinine Ratio 7; Blood Urea Nitrogen 5 mg/dL (9-20); Calcium 9.3 mg/dL (8.4-10.2); Hemolysis Index 74
[2018-07-14] MEDS: LOVENOX SUB-Q SCH (10:16)
[2018-07-14] MEDS ORDERED: ZOFRAN IV PRN ×2 (10:20→11:16)
[2018-07-14] MEDS ORDERED: LACTATED RINGERS 1,000 ML IV SCH ×2 (11:00)
[2018-07-14] MEDS ORDERED: PEPCID IV NR (11:00)
--- NOTE | 2018-07-14 11:13 | Anesthesia Day of Surgery ---
Anesthesia Day of Surgery - Day of Surgery Patient Examined: Yes Patient H&P Reviewed: Yes Patient is NPO: Yes
--- NOTE | 2018-07-14 11:16 | Anesthesia Consultation ---
Anesthesia Consult and Med Hx Date of service: 07/14/18 - Airway Anesthetic Teeth Evaluation: Poor ROM Head & Neck: Adequate Mental/Hyoid Distance: Adequate Mallampati Class: Class I Intubation Access Assessment: Good - Pre-Operative Health Status ASA Pre-Surgery Classification: ASA3, Emergency Proposed Anesthetic Plan: General (rapid seq intubation, AAA repair 2017, HTN) - Pulmonary Hx Asthma: No COPD: No Hx Pneumonia: No - Cardiovascular System Hx Hypertension: Yes - Central Nervous System Hx Seizures: Yes - Endocrine Hx End Stage Renal Disease: No Hx Non-Insulin Dependent Diabetes: Yes - Other Systems Hx Cancer: No
[2018-07-14] MEDS ORDERED: DIPRIVAN 10 MG/ML IV ONE (11:39)
[2018-07-14] MEDS ORDERED: XYLOCAINE MPF 2% ONE (11:39)
[2018-07-14] MEDS ORDERED: DILAUDID ONE (11:40)
[2018-07-14] MEDS ORDERED: ROBINUL ONE (11:43)
[2018-07-14] MEDS ORDERED: BLOXIVERZ ONE (11:43)
[2018-07-14] MEDS ORDERED: VERSED IV NR (12:00)
[2018-07-14] MEDS ORDERED: QUELICIN ONE (12:40)
[2018-07-14] MEDS ORDERED: NACL 0.9% IR ONE (13:10)
[2018-07-14] MEDS ORDERED: ZOFRAN ONE (13:33)
[2018-07-14] MEDS ORDERED: TORADOL ONE (14:48)
[2018-07-14] MEDS: TORADOL IV PRN (14:48)
[2018-07-14] MEDS: NORMODYNE IV PRN ×2 (14:52→15:05)
--- NOTE | 2018-07-14 16:26 | Operative Report ---
PREOPERATIVE DIAGNOSIS: Rule out small bowel obstruction. POSTOPERATIVE DIAGNOSIS: Rule out small bowel obstruction. PROCEDURE: Exploratory laparotomy and lysis of adhesions. SURGEON: Cuauhtemoc Tong MD [employer] ASSEMBLER: Dr. Valencia. ANESTHESIA: General. ESTIMATED BLOOD LOSS: Minimal. DRAINS: None. COMPLICATIONS: None. DESCRIPTION OF PROCEDURE: The patient was taken to the operating room and prepped and draped in usual sterile fashion. A midline incision was made and the abdomen entered. Dilated small bowel was encountered. The ligament of Treitz was identified and the small bowel slowly followed down to the area of adhesive band. A very thick adhesive band was noted, which was resected and sent as specimen. Multiple omental adhesions were also noted on the undersurface of the peritoneum under the previous incision site. All of these were dissected free with ligature. The entire small bowel was then run. The transition point once again confirmed. The bowel distal to the transition point was completely collapsed down to the cecum. The entire abdomen was then irrigated copiously and dried. Checked for hemostasis and noted to be dry. Fascia was closed with interrupted #1 Vicryl suture. Subcutaneous tissues irrigated. Skin closed with yajaira. The patient tolerated the procedure well and left the OR in stable condition. JOB# [id number] UNRULY/STEVEN
--- NOTE | 2018-07-14 17:10 | Progress Note ---
Assessment and Plan Assessment and plan: 53-year-old male with a past medical history of diabetes, hypertension, seizures , and infrarenal abdominal aortic aneurysm repair in April 2018 presents to the hospital with complaints of severe abdominal pain times one day. assoc with vomiting, found to have SBO Past History Past Medical History: diabetes Small bowel obstruction did not respond to conservative mgt -sp Ex lap and HANS, 07/14 -gen sx input appreciated History of repair of abdominal aneurysm Diabetes mellitus SSI Accelerated hypertension optimize clonidine patch and IV meds as he is NPO Tobacco use disorder counseled about cessation Hypokalemia Replete IV Left Hydronephrosis patient denies hx of it -Urology consulted History Interval history: Review of systems Constitutional: No fevers, no malaise, no joint pains CVS: No chest pain, no orthopnea, no dyspnea on exertion, no pedal edema GI: c/o mild abdominal pain, no nausea , no vomiting, still no BM Respiratory: No shortness of breath, no wheezing, no coughing Hospitalist Physical - Physical exam Narrative exam: General.: Appears well, no distress, nontoxic HEENT: Moist mucous membranes, extraocular muscles intact, no lymphadenopathy Neck: supple Cardiac: S1-S2 heard Lungs: clear to auscultation bilaterally Abdomen: soft , nontender, nondistended, bowel sounds positive Extremities: no edema clubbing or cyanosis Skin: no rash or lesions Neurologic: no gross focal deficits Psych: appropriate behavior, appropriate mood, corporative, judgment intact - Constitutional Vitals: Temp Pulse Resp BP Pulse Ox 98.4 F 92 H 18 165/81 92 07/14/18 15:45 07/14/18 15:45 07/14/18 15:45 07/14/18 15:45 07/14/18 15:45 Results - Labs CBC & Chem 7: 07/12/18 05:50 07/14/18 05:05 Labs: Laboratory Last Values WBC 3.4 K/mm3 (4.5-11.0) L 07/12/18 05:50 RBC 3.34 M/mm3 (3.65-5.03) L 07/12/18 05:50 Hgb 10.9 gm/dl (11.8-15.2) L 07/12/18 05:50 Hct 32.3 % (35.5-45.6) L 07/12/18 05:50 MCV 97 fl (84-94) H 07/12/18 05:50 MCH 33 pg (28-32) H 07/12/18 05:50 MCHC 34 % (32-34) 07/12/18 05:50 RDW 16.5 % (13.2-15.2) H 07/12/18 05:50 Plt Count 207 K/mm3 (140-440) 07/12/18 05:50 Lymph % (Auto) 37.9 % (13.4-35.0) H 07/12/18 05:50 [place] % (Auto) 10.0 % (0.0-7.3) H 07/12/18 05:50 Eos % (Auto) 5.4 % (0.0-4.3) H 07/12/18 05:50 Baso % (Auto) 0.6 % (0.0-1.8) 07/12/18 05:50 Lymph # 1.3 K/mm3 (1.2-5.4) 07/12/18 05:50 [place] # 0.3 K/mm3 (0.0-0.8) 07/12/18 05:50 Eos # 0.2 K/mm3 (0.0-0.4) 07/12/18 05:50 Baso # 0.0 K/mm3 (0.0-0.1) 07/12/18 05:50 Seg Neutrophils % 46.1 % (40.0-70.0) 07/12/18 05:50 Seg Neutrophils # 1.6 K/mm3 (1.8-7.7) L 07/12/18 05:50 Sodium 140 mmol/L (137-145) 07/14/18 05:05 Potassium 4.2 mmol/L (3.6-5.0) 07/14/18 05:05 Chloride 101.7 mmol/L (98-107) 07/14/18 05:05 Carbon Dioxide 27 mmol/L (22-30) 07/14/18 05:05 Anion Gap 16 mmol/L 07/14/18 05:05 BUN 5 mg/dL (9-20) L 07/14/18 05:05 Creatinine 0.7 mg/dL (0.8-1.5) L 07/14/18 05:05 Estimated GFR > 60 ml/min 07/14/18 05:05 BUN/Creatinine Ratio 7 % 07/14/18 05:05 Glucose 124 mg/dL (75-100) H 07/14/18 05:05 POC Glucose 148 (70-105) H 07/14/18 16:38 Calcium 9.3 mg/dL (8.4-10.2) 07/14/18 05:05 Phosphorus 3.50 mg/dL (2.5-4.5) 07/14/18 05:05 Magnesium 2.10 mg/dL (1.7-2.3) 07/14/18 05:05 Total Bilirubin 0.60 mg/dL (0.1-1.2) 07/12/18 05:50 AST 9 units/L (5-40) 07/12/18 05:50 ALT < 5 units/L (7-56) L 07/12/18 05:50 Alkaline Phosphatase 39 units/L (35-129) 07/12/18 05:50 Total Protein 6.6 g/dL (6.3-8.2) 07/12/18 05:50 Albumin 3.5 g/dL (3.9-5) L 07/12/18 05:50 Albumin/Globulin Ratio 1.1 % 07/12/18 05:50 Lipase 23 units/L (13-60) 07/11/18 03:01 Urine Color Yellow (Yellow) 07/11/18 10:25 Urine Turbidity Clear (Clear) 07/11/18 10:25 Urine pH 6.0 (5.0-7.0) 07/11/18 10:25 Ur Specific [place] 1.029 (1.003-1.030) 07/11/18 10:25 Urine Protein <15 mg/dl mg/dL (Negative) 07/11/18 10:25 Urine Glucose (UA) Neg mg/dL (Negative) 07/11/18 10:25 Urine Ketones Tr mg/dL (Negative) 07/11/18 10:25 Urine Blood Sm (Negative) 07/11/18 10:25 Urine Nitrite Neg (Negative) 07/11/18 10:25 Urine Bilirubin Neg (Negative) 07/11/18 10:25 Urine Urobilinogen < 2.0 mg/dL (<2.0) 07/11/18 10:25 Ur Leukocyte Esterase Neg (Negative) 07/11/18 10:25 Urine WBC (Auto) 2.0 /HPF (0.0-6.0) 07/11/18 10:25 Urine RBC (Auto) 4.0 /HPF (0.0-6.0) 07/11/18 10:25 Blood Type A POSITIVE 07/14/18 12:20 Antibody Screen Negative 07/14/18 12:20
[2018-07-14] MEDS: LACTATED RINGERS 1,000 ML IV SCH (23:20)
[2018-07-15] MEDS: HumaLOG SUB-Q SCH ×3 (00:13→18:19)
[2018-07-15] MEDS: APRESOLINE IV PRN ×3 (00:23→23:16)
[2018-07-15] MEDS: ZOSYN/NS 4.5GM/100ML 4.5 GM/100 ML VIAL IV SCH (05:26)
[2018-07-15] MEDS: DILAUDID IV PRN ×4 (05:26→22:55)
[2018-07-15 05:55] LABS: Basophils % (Auto) 0.6 % (0.0-1.8); Eosinophils # (Auto) 0.1 K/mm3 (0.0-0.4); Eosinophils % (Auto) 1.7 % (0.0-4.3); Hematocrit 36.1 % (35.5-45.6); Hemoglobin 12.1 gm/dl (11.8-15.2); Lymphocytes # (Auto) 1.9 K/mm3 (1.2-5.4); Lymphocytes % (Auto) 31.7 % (13.4-35.0); Mean Corpuscular HGB Conc 33 % (32-34); Mean Corpuscular Hemoglobin 32 pg (28-32); Mean Corpuscular Volume 96 fl (84-94); Monocytes # (Auto) 0.4 K/mm3 (0.0-0.8); Monocytes % (Auto) 6.9 % (0.0-7.3); Platelet Count 249 K/mm3 (140-440); Red Blood Count 3.75 M/mm3 (3.65-5.03); Red Cell Distribution Width 16.5 % (13.2-15.2)
[2018-07-15 06:19] LABS: Albumin 3.8 g/dL (3.9-5); BUN/Creatinine Ratio 15; Blood Urea Nitrogen 12 mg/dL (9-20); Calcium 9.9 mg/dL (8.4-10.2); Hemolysis Index 0
[2018-07-15 06:21] LABS: Alanine Aminotransferase < 5 units/L (7-56)
[2018-07-15] MEDS: TORADOL IV PRN (08:34)
[2018-07-15] MEDS ORDERED: NORMODYNE IV PRN (08:37)
--- NOTE | 2018-07-15 09:21 | Ultrasound Report ---
ULTRASOUND RENAL BILATERAL HISTORY: Hydronephrosis. TECHNIQUE: transabdominal ultrasound with color Doppler interrogation. FINDINGS: The right kidney measures 9.5cm. Right renal cortex: 2.0cm. The left kidney measures 11.0cm. Left renal cortex: 2.2cm. Both kidneys remain echogenic consistent with nonspecific medical renal disease. No focal renal lesion or nephrolithiasis is identified. Mild left hydronephrosis has not significantly changed since 07/12/18. The bladder is collapsed and contains a [place] catheter IMPRESSION: Medical renal disease. No change in mild left hydronephrosis.
--- NOTE | 2018-07-15 09:29 | Post Anesthesia Evaluation ---
- Post Anesthesia Evaluation Patient Participated: Yes Airway Patent: Yes Stable Respiratory Function: Yes Nausea/Vomiting: No Temp > 96.8F: Yes Pain Manageable: Yes Adequeate Hydration: Yes Anesthesia Complications: No
[2018-07-15] MEDS: LOVENOX SUB-Q SCH (10:35)
[2018-07-15] MEDS: NORMODYNE IV PRN ×2 (11:00→18:39)
--- NOTE | 2018-07-15 11:50 | Progress Note ---
Assessment and Plan POD # 1 Pt resting comfortably. No compl other than incisional pain Abd soft. dressings dry surgically stable d/c adamson OOB as cristóbal IS q 2 Selected Entries 07/15/18 05:00 Temperature 99.3 F Pulse Rate 102 H Respiratory 17 Rate Blood Pressure 204/89 [Left] Laboratory Tests 07/15/18 07/15/18 05:25 05:25 WBC 6.0 Hgb 12.1 Hct 36.1 Sodium 139 Potassium 4.2 Chloride 99.1 Carbon Dioxide 30 Anion Gap 14 BUN 12 Creatinine 0.8 Objective Vital Signs - 12hr 07/15/18 07/15/18 07/15/18 00:23 04:34 05:00 Temperature 99.3 F Pulse Rate 93 H 97 H 102 H Respiratory 17 Rate Respiratory Rate [ Generalized] Blood Pressure 177/87 Blood Pressure 204/89 [Left] O2 Sat by Pulse 98 97 Oximetry 07/15/18 07/15/18 07/15/18 07:00 08:55 09:01 Temperature Pulse Rate 94 H 96 H Respiratory Rate Respiratory 17 Rate [ Generalized] Blood Pressure 202/89 Blood Pressure 202/92 [Left] O2 Sat by Pulse Oximetry 07/15/18 11:00 Temperature Pulse Rate 90 Respiratory Rate Respiratory Rate [ Generalized] Blood Pressure 196/88 Blood Pressure [Left] O2 Sat by Pulse Oximetry - Labs 07/15/18 05:25 07/15/18 05:25 Diabetes panel 07/15/18 Range/Units 05:25 Sodium 139 (137-145) mmol/L Potassium 4.2 (3.6-5.0) mmol/L Chloride 99.1 (98-107) mmol/L Carbon Dioxide 30 (22-30) mmol/L BUN 12 (9-20) mg/dL Creatinine 0.8 (0.8-1.5) mg/dL Glucose 98 (75-100) mg/dL Calcium 9.9 (8.4-10.2) mg/dL AST 9 (5-40) units/L ALT < 5 L (7-56) units/L Alkaline Phosphatase 40 (35-129) units/L Total Protein 6.6 (6.3-8.2) g/dL Albumin 3.8 L (3.9-5) g/dL Calcium panel 07/15/18 Range/Units 05:25 Calcium 9.9 (8.4-10.2) mg/dL Phosphorus 5.00 H D (2.5-4.5) mg/dL Albumin 3.8 L (3.9-5) g/dL Pituitary panel 07/15/18 Range/Units 05:25 Sodium 139 (137-145) mmol/L Potassium 4.2 (3.6-5.0) mmol/L Chloride 99.1 (98-107) mmol/L Carbon Dioxide 30 (22-30) mmol/L BUN 12 (9-20) mg/dL Creatinine 0.8 (0.8-1.5) mg/dL Glucose 98 (75-100) mg/dL Calcium 9.9 (8.4-10.2) mg/dL Adrenal panel 07/15/18 Range/Units 05:25 Sodium 139 (137-145) mmol/L Potassium 4.2 (3.6-5.0) mmol/L Chloride 99.1 (98-107) mmol/L Carbon Dioxide 30 (22-30) mmol/L BUN 12 (9-20) mg/dL Creatinine 0.8 (0.8-1.5) mg/dL Glucose 98 (75-100) mg/dL Calcium 9.9 (8.4-10.2) mg/dL Total Bilirubin 0.60 (0.1-1.2) mg/dL AST 9 (5-40) units/L ALT < 5 L (7-56) units/L Alkaline Phosphatase 40 (35-129) units/L Total Protein 6.6 (6.3-8.2) g/dL Albumin 3.8 L (3.9-5) g/dL
--- NOTE | 2018-07-15 11:51 | Progress Note ---
Assessment and Plan Assessment and plan: 53-year-old male with a past medical history of diabetes, hypertension, seizures , and infrarenal abdominal aortic aneurysm repair in April 2018 presents to the hospital with complaints of severe abdominal pain times one day. assoc with vomiting, found to have SBO Past History Past Medical History: diabetes Small bowel obstruction did not respond to conservative mgt -sp Ex lap and HANS, 07/14 -gen sx input appreciated History of repair of abdominal aneurysm Diabetes mellitus SSI Accelerated hypertension/htn urgency optimize clonidine patch and IV meds as he is NPO Tobacco use disorder counseled about cessation Hypokalemia Repleted IV mild Left Hydronephrosis patient denies hx of it -Urology consulted History Interval history: Review of systems Constitutional: No fevers, no malaise, no joint pains CVS: No chest pain, no orthopnea, no dyspnea on exertion, no pedal edema GI: c/o mild abdominal pain, no nausea , no vomiting, still no BM, not passing gas Respiratory: No shortness of breath, no wheezing, no coughing Hospitalist Physical - Physical exam Narrative exam: General.: Appears well, no distress, nontoxic HEENT: Moist mucous membranes, extraocular muscles intact, no lymphadenopathy Neck: supple Cardiac: S1-S2 heard Lungs: clear to auscultation bilaterally Abdomen: soft , nontender, nondistended, bowel sounds positive Extremities: no edema clubbing or cyanosis Skin: no rash or lesions Neurologic: no gross focal deficits Psych: appropriate behavior, appropriate mood, corporative, judgment intact - Constitutional Vitals: Temp Pulse Resp BP Pulse Ox 99.3 F 90 17 196/88 97 07/15/18 05:00 07/15/18 11:00 07/15/18 09:01 07/15/18 11:00 07/15/18 05:00 Results - Labs CBC & Chem 7: 07/15/18 05:25 07/15/18 05:25 Labs: Laboratory Last Values WBC 6.0 K/mm3 (4.5-11.0) 07/15/18 05:25 RBC 3.75 M/mm3 (3.65-5.03) 07/15/18 05:25 Hgb 12.1 gm/dl (11.8-15.2) 07/15/18 05:25 Hct 36.1 % (35.5-45.6) 07/15/18 05:25 MCV 96 fl (84-94) H 07/15/18 05:25 MCH 32 pg (28-32) 07/15/18 05:25 MCHC 33 % (32-34) 07/15/18 05:25 RDW 16.5 % (13.2-15.2) H 07/15/18 05:25 Plt Count 249 K/mm3 (140-440) 07/15/18 05:25 Lymph % (Auto) 31.7 % (13.4-35.0) 07/15/18 05:25 [place] % (Auto) 6.9 % (0.0-7.3) 07/15/18 05:25 Eos % (Auto) 1.7 % (0.0-4.3) 07/15/18 05:25 Baso % (Auto) 0.6 % (0.0-1.8) 07/15/18 05:25 Lymph # 1.9 K/mm3 (1.2-5.4) 07/15/18 05:25 [place] # 0.4 K/mm3 (0.0-0.8) 07/15/18 05:25 Eos # 0.1 K/mm3 (0.0-0.4) 07/15/18 05:25 Baso # 0.0 K/mm3 (0.0-0.1) 07/15/18 05:25 Seg Neutrophils % 59.1 % (40.0-70.0) 07/15/18 05:25 Seg Neutrophils # 3.6 K/mm3 (1.8-7.7) 07/15/18 05:25 Sodium 139 mmol/L (137-145) 07/15/18 05:25 Potassium 4.2 mmol/L (3.6-5.0) 07/15/18 05:25 Chloride 99.1 mmol/L (98-107) 07/15/18 05:25 Carbon Dioxide 30 mmol/L (22-30) 07/15/18 05:25 Anion Gap 14 mmol/L 07/15/18 05:25 BUN 12 mg/dL (9-20) 07/15/18 05:25 Creatinine 0.8 mg/dL (0.8-1.5) 07/15/18 05:25 Estimated GFR > 60 ml/min 07/15/18 05:25 BUN/Creatinine Ratio 15 % 07/15/18 05:25 Glucose 98 mg/dL (75-100) 07/15/18 05:25 POC Glucose 133 (70-105) H 07/14/18 21:16 Calcium 9.9 mg/dL (8.4-10.2) 07/15/18 05:25 Phosphorus 5.00 mg/dL (2.5-4.5) H D 07/15/18 05:25 Magnesium 2.10 mg/dL (1.7-2.3) 07/15/18 05:25 Total Bilirubin 0.60 mg/dL (0.1-1.2) 07/15/18 05:25 AST 9 units/L (5-40) 07/15/18 05:25 ALT < 5 units/L (7-56) L 07/15/18 05:25 Alkaline Phosphatase 40 units/L (35-129) 07/15/18 05:25 Total Protein 6.6 g/dL (6.3-8.2) 07/15/18 05:25 Albumin 3.8 g/dL (3.9-5) L 07/15/18 05:25 Albumin/Globulin Ratio 1.4 % 07/15/18 05:25 Lipase 23 units/L (13-60) 07/11/18 03:01 Urine Color Yellow (Yellow) 07/11/18 10:25 Urine Turbidity Clear (Clear) 07/11/18 10:25 Urine pH 6.0 (5.0-7.0) 07/11/18 10:25 Ur Specific [place] 1.029 (1.003-1.030) 07/11/18 10:25 Urine Protein <15 mg/dl mg/dL (Negative) 07/11/18 10:25 Urine Glucose (UA) Neg mg/dL (Negative) 07/11/18 10:25 Urine Ketones Tr mg/dL (Negative) 07/11/18 10:25 Urine Blood Sm (Negative) 07/11/18 10:25 Urine Nitrite Neg (Negative) 07/11/18 10:25 Urine Bilirubin Neg (Negative) 07/11/18 10:25 Urine Urobilinogen < 2.0 mg/dL (<2.0) 07/11/18 10:25 Ur Leukocyte Esterase Neg (Negative) 07/11/18 10:25 Urine WBC (Auto) 2.0 /HPF (0.0-6.0) 07/11/18 10:25 Urine RBC (Auto) 4.0 /HPF (0.0-6.0) 07/11/18 10:25 Blood Type A POSITIVE 07/14/18 12:20 Antibody Screen Negative 07/14/18 12:20
[2018-07-15] MEDS: D5W/0.45% NACL/KCL 10 MEQ 10 MEQ/1,000 ML BAG IV SCH (12:49)
[2018-07-15] MEDS: PEPCID IV SCH (22:07)
[2018-07-16] MEDS: D5W/0.45% NACL/KCL 10 MEQ 10 MEQ/1,000 ML BAG IV SCH ×3 (00:03→23:44)
[2018-07-16] MEDS: HumaLOG SUB-Q SCH ×4 (00:25→18:10)
[2018-07-16] MEDS: DILAUDID IV PRN ×5 (05:15→22:37)
[2018-07-16] MEDS: APRESOLINE IV PRN ×2 (06:01→17:08)
[2018-07-16 06:13] LABS: BUN/Creatinine Ratio 12; Blood Urea Nitrogen 7 mg/dL (9-20); Calcium 9.1 mg/dL (8.4-10.2); Hemolysis Index 0
[2018-07-16] MEDS: NORMODYNE IV PRN ×2 (10:08→18:41)
[2018-07-16] MEDS: LOVENOX SUB-Q SCH (10:09)
[2018-07-16] MEDS: PEPCID IV SCH ×2 (10:10→22:13)
[2018-07-16] MEDS: CEPACOL X STRENGTH MM PRN (11:20)
--- NOTE | 2018-07-16 12:15 | Progress Note ---
Assessment and Plan POD # 2 Pt status quo. hypokalemic. states + flatus Abd - less distended. non tender. hypoactive BS stable correct K OOB as cristóbal continue NG suction continue present care Selected Entries 07/16/18 07/16/18 11:21 11:36 Temperature 97.9 F Pulse Rate 82 Respiratory 19 Rate Blood Pressure 160/79 Laboratory Tests 07/16/18 05:38 Sodium 138 Potassium 3.3 L D Chloride 99.7 Carbon Dioxide 29 BUN 7 L Creatinine 0.6 L Objective Vital Signs - 12hr 07/16/18 07/16/18 07/16/18 05:15 05:55 06:01 Temperature 98.0 F Pulse Rate 93 H 87 Respiratory 16 20 Rate Blood Pressure 192/92 191/92 Blood Pressure [Left] O2 Sat by Pulse 97 Oximetry 07/16/18 07/16/18 07/16/18 10:08 11:21 11:36 Temperature 97.9 F Pulse Rate 89 82 Respiratory 19 Rate Blood Pressure 190/91 160/79 Blood Pressure 184/86 [Left] O2 Sat by Pulse Oximetry - Labs 07/15/18 05:25 07/16/18 05:38 Diabetes panel 07/16/18 Range/Units 05:38 Sodium 138 (137-145) mmol/L Potassium 3.3 L D (3.6-5.0) mmol/L Chloride 99.7 (98-107) mmol/L Carbon Dioxide 29 (22-30) mmol/L BUN 7 L (9-20) mg/dL Creatinine 0.6 L (0.8-1.5) mg/dL Glucose 122 H (75-100) mg/dL Calcium 9.1 (8.4-10.2) mg/dL Calcium panel 07/16/18 Range/Units 05:38 Calcium 9.1 (8.4-10.2) mg/dL Phosphorus 3.10 D (2.5-4.5) mg/dL Pituitary panel 07/16/18 Range/Units 05:38 Sodium 138 (137-145) mmol/L Potassium 3.3 L D (3.6-5.0) mmol/L Chloride 99.7 (98-107) mmol/L Carbon Dioxide 29 (22-30) mmol/L BUN 7 L (9-20) mg/dL Creatinine 0.6 L (0.8-1.5) mg/dL Glucose 122 H (75-100) mg/dL Calcium 9.1 (8.4-10.2) mg/dL Adrenal panel 07/16/18 Range/Units 05:38 Sodium 138 (137-145) mmol/L Potassium 3.3 L D (3.6-5.0) mmol/L Chloride 99.7 (98-107) mmol/L Carbon Dioxide 29 (22-30) mmol/L BUN 7 L (9-20) mg/dL Creatinine 0.6 L (0.8-1.5) mg/dL Glucose 122 H (75-100) mg/dL Calcium 9.1 (8.4-10.2) mg/dL
--- NOTE | 2018-07-16 12:33 | Consultation ---
History of Present Illness - Reason for Consult Consult date: 07/16/18 - History of Present Illness 53-year-old male with a past medical history of diabetes, hypertension, seizures , and infrarenal abdominal aortic aneurysm repair in April 2018 presents to the hospital with complaints of severe abdominal pain times one day. Pain started in a.m. and has been constant and not improving. Pain is rated 10/10 intensity, worse with palpation, no alleviating factors. Positive nausea with 2 episodes of vomiting. Last bowel moment was yesterday and no flatus produced today. No reports of fever. consult requested in notes 07-12-18. We were not contacted until today ( - Dr. Phillip) CTAP left hydro ed (07-15-18) mild left hydro A/P AAA repair left hydro mild (chronic vs acute) split function renal scan Past History Past Medical History: diabetes Past Surgical History: Other (surgery for AAA) Social history: smoking Family history: no significant family history Medications and Allergies Allergies Allergy/AdvReac Type Severity Reaction Status Date / Time No Known Drug Allergies Allergy Unknown Verified 04/14/18 06:34 Home Medications Medication Instructions Recorded Confirmed Last Taken Type AtorvaSTATin [Lipitor] 20 mg PO QHS #30 tab 05/15/18 07/11/18 Unknown Rx Lisinopril [Zestril TAB] 40 mg PO QDAY #30 tablet 05/15/18 07/11/18 Unknown Rx Metoprolol [Lopressor TAB] 50 mg PO BID #60 tablet 05/15/18 07/11/18 Unknown Rx Polyethylene Glycol 3350 [Miralax 17 gm PO QDAY PRN #14 powd.pack 05/15/1807/11 Unknown Rx 3350] amLODIPine [Norvasc] 10 mg PO QDAY #30 tablet 05/15/18 07/11/18 Unknown Rx glipiZIDE [Glucotrol] 5 mg PO QDDIAB #60 tablet 05/15/18 07/11/18 Unknown Rx hydrALAZINE [Apresoline TAB] 100 mg PO TID #90 tab 05/15/18 07/11/18 Unknown Rx levETIRAcetam [Keppra ORAL LIQ] 500 mg PO BID 30 Days bottle 05/15/18 07/11/18 Unknown Rx traMADol [Ultram 50 MG tab] 50 mg PO Q8H PRN #20 tablet 05/15/18 07/11/18 Unknown Rx Active Meds: Active Medications Benzocaine/Menthol (Cepacol X Strength) 1 each MM Q2HR PRN PRN Reason: Sore Throat Last Admin: 07/16/18 11:20 Dose: 1 each Clonidine HCl (Catapres-Tts Patch) 0.3 mg TD We BARBARA Last Admin: 07/13/18 21:16 Dose: 0.3 mg Dextrose (D50w (25gm) Syringe) 50 ml IV PRN PRN PRN Reason: Hypoglycemia Enoxaparin Sodium (Lovenox) 40 mg SUB-Q QDAY [facility] Last Admin: 07/16/18 10:09 Dose: 40 mg Famotidine (Pepcid) 20 mg IV BID [facility] Last Admin: 07/16/18 10:10 Dose: 20 mg Hydralazine HCl (Apresoline) 20 mg IV Q4H PRN PRN Reason: Hypertension Last Admin: 07/16/18 06:01 Dose: 20 mg Hydromorphone HCl (Dilaudid) 1 mg IV Q4H PRN PRN Reason: Pain , Severe (7-10) Last Admin: 07/16/18 10:10 Dose: 1 mg Potassium Chloride/Dextrose/Sod Cl (D5w/0.45% Nacl/Kcl 10 Meq) 10 meq in 1,000 mls @ 125 mls/hr IV DIRECT BARBARA Last Admin: 07/16/18 10:04 Dose: 125 mls/hr Lactated Ringer's (Lactated Ringers) 1,000 mls @ 100 mls/hr IV DIRECT BARBARA Last Admin: 07/14/18 23:20 Dose: 100 mls/hr Insulin Human Lispro (Humalog) 0 unit SUB-Q Q6HR BARBARA; Protocol Last Admin: 07/16/18 06:56 Dose: Not Given Ketorolac Tromethamine (Toradol) 30 mg IV ONCE PRN PRN Reason: Pain , Severe (7-10) Stop: 07/19/18 14:39 Last Admin: 07/15/18 08:34 Dose: 30 mg Labetalol HCl (Normodyne) 20 mg IV Q4H PRN PRN Reason: BP >160/100 Last Admin: 07/16/18 10:08 Dose: 20 mg Ondansetron HCl (Zofran) 4 mg IV Q4H PRN PRN Reason: Nausea And Vomiting Last Admin: 07/12/18 14:07 Dose: 4 mg Phenol (Chloraseptic) 1 spray MM PRN PRN PRN Reason: Sore Throat Last Admin: 07/12/18 14:08 Dose: 1 spray Exam - Constitutional Vitals: Temp Pulse Resp BP Pulse Ox 97.9 F 82 19 160/79 97 07/16/18 11:36 07/16/18 11:21 07/16/18 11:36 07/16/18 11:36 07/16/18 05:55 Results - Labs CBC & Chem 7: 07/15/18 05:25 07/16/18 05:38 Labs: Abnormal lab results 07/15/18 07/16/18 07/16/18 Range/Units 17:17 05:38 06:55 Potassium 3.3 L D (3.6-5.0) mmol/L BUN 7 L (9-20) mg/dL Creatinine 0.6 L (0.8-1.5) mg/dL Glucose 122 H (75-100) mg/dL POC Glucose 107 H 159 H (70-105) 07/16/18 Range/Units 11:39 Potassium (3.6-5.0) mmol/L BUN (9-20) mg/dL Creatinine (0.8-1.5) mg/dL Glucose (75-100) mg/dL POC Glucose 200 H (70-105)
--- NOTE | 2018-07-16 12:50 | Progress Note ---
Assessment and Plan Assessment and plan: 53-year-old male with a past medical history of diabetes, hypertension, seizures , and infrarenal abdominal aortic aneurysm repair in April 2018 presents to the hospital with complaints of severe abdominal pain times one day. assoc with vomiting, found to have SBO Past History Past Medical History: diabetes Small bowel obstruction did not respond to conservative mgt -sp Ex lap and HANS, 07/14 -gen sx input appreciated, Advance diet per gen sx History of repair of abdominal aneurysm Diabetes mellitus SSI Accelerated hypertension/htn urgency optimize clonidine patch and IV meds as he is NPO Tobacco use disorder counseled about cessation Hypokalemia Repleted IV mild Left Hydronephrosis patient denies hx of it -Urology consulted History Interval history: Review of systems Constitutional: No fevers, no malaise, no joint pains CVS: No chest pain, no orthopnea, no dyspnea on exertion, no pedal edema GI: c/o mild abdominal pain, no nausea , no vomiting, still no BM, not passing gas Respiratory: No shortness of breath, no wheezing, no coughing Hospitalist Physical - Physical exam Narrative exam: General.: Appears well, no distress, nontoxic HEENT: Moist mucous membranes, extraocular muscles intact, no lymphadenopathy Neck: supple Cardiac: S1-S2 heard Lungs: clear to auscultation bilaterally Abdomen: soft , nontender, nondistended, bowel sounds positive Extremities: no edema clubbing or cyanosis Skin: no rash or lesions Neurologic: no gross focal deficits Psych: appropriate behavior, appropriate mood, corporative, judgment intact - Constitutional Vitals: Temp Pulse Resp BP Pulse Ox 97.9 F 82 19 160/79 97 07/16/18 11:36 07/16/18 11:21 07/16/18 11:36 07/16/18 11:36 07/16/18 05:55 Results - Labs CBC & Chem 7: 07/15/18 05:25 07/17/18 07:12 Labs: Laboratory Last Values WBC 6.0 K/mm3 (4.5-11.0) 07/15/18 05:25 RBC 3.75 M/mm3 (3.65-5.03) 07/15/18 05:25 Hgb 12.1 gm/dl (11.8-15.2) 07/15/18 05:25 Hct 36.1 % (35.5-45.6) 07/15/18 05:25 MCV 96 fl (84-94) H 07/15/18 05:25 MCH 32 pg (28-32) 07/15/18 05:25 MCHC 33 % (32-34) 07/15/18 05:25 RDW 16.5 % (13.2-15.2) H 07/15/18 05:25 Plt Count 249 K/mm3 (140-440) 07/15/18 05:25 Lymph % (Auto) 31.7 % (13.4-35.0) 07/15/18 05:25 [place] % (Auto) 6.9 % (0.0-7.3) 07/15/18 05:25 Eos % (Auto) 1.7 % (0.0-4.3) 07/15/18 05:25 Baso % (Auto) 0.6 % (0.0-1.8) 07/15/18 05:25 Lymph # 1.9 K/mm3 (1.2-5.4) 07/15/18 05:25 [place] # 0.4 K/mm3 (0.0-0.8) 07/15/18 05:25 Eos # 0.1 K/mm3 (0.0-0.4) 07/15/18 05:25 Baso # 0.0 K/mm3 (0.0-0.1) 07/15/18 05:25 Seg Neutrophils % 59.1 % (40.0-70.0) 07/15/18 05:25 Seg Neutrophils # 3.6 K/mm3 (1.8-7.7) 07/15/18 05:25 Sodium 138 mmol/L (137-145) 07/16/18 05:38 Potassium 3.3 mmol/L (3.6-5.0) L D 07/16/18 05:38 Chloride 99.7 mmol/L (98-107) 07/16/18 05:38 Carbon Dioxide 29 mmol/L (22-30) 07/16/18 05:38 Anion Gap 13 mmol/L 07/16/18 05:38 BUN 7 mg/dL (9-20) L 07/16/18 05:38 Creatinine 0.6 mg/dL (0.8-1.5) L 07/16/18 05:38 Estimated GFR > 60 ml/min 07/16/18 05:38 BUN/Creatinine Ratio 12 % 07/16/18 05:38 Glucose 122 mg/dL (75-100) H 07/16/18 05:38 POC Glucose 200 (70-105) H 07/16/18 11:39 Calcium 9.1 mg/dL (8.4-10.2) 07/16/18 05:38 Phosphorus 3.10 mg/dL (2.5-4.5) D 07/16/18 05:38 Magnesium 1.70 mg/dL (1.7-2.3) 07/16/18 05:38 Total Bilirubin 0.60 mg/dL (0.1-1.2) 07/15/18 05:25 AST 9 units/L (5-40) 07/15/18 05:25 ALT < 5 units/L (7-56) L 07/15/18 05:25 Alkaline Phosphatase 40 units/L (35-129) 07/15/18 05:25 Total Protein 6.6 g/dL (6.3-8.2) 07/15/18 05:25 Albumin 3.8 g/dL (3.9-5) L 07/15/18 05:25 Albumin/Globulin Ratio 1.4 % 07/15/18 05:25 Lipase 23 units/L (13-60) 07/11/18 03:01 Urine Color Yellow (Yellow) 07/11/18 10:25 Urine Turbidity Clear (Clear) 07/11/18 10:25 Urine pH 6.0 (5.0-7.0) 07/11/18 10:25 Ur Specific [place] 1.029 (1.003-1.030) 07/11/18 10:25 Urine Protein <15 mg/dl mg/dL (Negative) 07/11/18 10:25 Urine Glucose (UA) Neg mg/dL (Negative) 07/11/18 10:25 Urine Ketones Tr mg/dL (Negative) 07/11/18 10:25 Urine Blood Sm (Negative) 07/11/18 10:25 Urine Nitrite Neg (Negative) 07/11/18 10:25 Urine Bilirubin Neg (Negative) 07/11/18 10:25 Urine Urobilinogen < 2.0 mg/dL (<2.0) 07/11/18 10:25 Ur Leukocyte Esterase Neg (Negative) 07/11/18 10:25 Urine WBC (Auto) 2.0 /HPF (0.0-6.0) 07/11/18 10:25 Urine RBC (Auto) 4.0 /HPF (0.0-6.0) 07/11/18 10:25 Blood Type A POSITIVE 07/14/18 12:20 Antibody Screen Negative 07/14/18 12:20
[2018-07-16] MEDS ORDERED: KCL 40 MEQ in NACL 0.45% 500 ML IV SCH (13:00)
[2018-07-16] MEDS: KCL 10MEQ/100ML 10 MEQ/100 ML BAG IV SCH ×2 (14:40→14:58)
[2018-07-17] MEDS: APRESOLINE IV PRN ×3 (01:17→18:17)
[2018-07-17] MEDS: HumaLOG SUB-Q SCH ×4 (02:43→18:00)
[2018-07-17] MEDS: DILAUDID IV PRN ×5 (05:53→21:37)
[2018-07-17 08:21] LABS: BUN/Creatinine Ratio 12; Blood Urea Nitrogen 7 mg/dL (9-20); Calcium 9.2 mg/dL (8.4-10.2); Hemolysis Index 231
[2018-07-17] MEDS: LOVENOX SUB-Q SCH (10:02)
[2018-07-17] MEDS: PEPCID IV SCH ×2 (10:02→21:39)
[2018-07-17] MEDS: D5W/0.45% NACL/KCL 10 MEQ 10 MEQ/1,000 ML BAG IV SCH ×2 (10:09→19:32)
--- NOTE | 2018-07-17 11:08 | Progress Note ---
Assessment and Plan Assessment and plan: 53-year-old male with a past medical history of diabetes, hypertension, seizures , and infrarenal abdominal aortic aneurysm repair in April 2018 presents to the hospital with complaints of severe abdominal pain times one day. assoc with vomiting, found to have SBO Past History Past Medical History: diabetes Small bowel obstruction did not respond to conservative mgt -sp Ex lap and HANS, 07/14 -gen sx input appreciated, Advance diet per gen sx History of repair of abdominal aneurysm Diabetes mellitus SSI Accelerated hypertension/htn urgency optimize clonidine patch and IV meds as he is NPO Tobacco use disorder counseled about cessation Hypokalemia Repleted IV mild Left Hydronephrosis patient denies hx of it -Urology consulted History Interval history: Review of systems Constitutional: No fevers, no malaise, no joint pains CVS: No chest pain, no orthopnea, no dyspnea on exertion, no pedal edema GI: c/o mild abdominal pain, no nausea , no vomiting, still no BM, not passing gas Respiratory: No shortness of breath, no wheezing, no coughing Hospitalist Physical - Physical exam Narrative exam: General.: Appears well, no distress, nontoxic HEENT: Moist mucous membranes, extraocular muscles intact, no lymphadenopathy Neck: supple Cardiac: S1-S2 heard Lungs: clear to auscultation bilaterally Abdomen: soft , nontender, nondistended, bowel sounds positive Extremities: no edema clubbing or cyanosis Skin: no rash or lesions Neurologic: no gross focal deficits Psych: appropriate behavior, appropriate mood, corporative, judgment intact - Constitutional Vitals: Temp Pulse Resp BP Pulse Ox 98.1 F 82 19 163/76 97 07/17/18 09:04 07/17/18 07:42 07/17/18 09:04 07/17/18 09:04 07/17/18 05:41 Results - Labs CBC & Chem 7: 07/15/18 05:25 07/17/18 07:12 Labs: Laboratory Last Values WBC 6.0 K/mm3 (4.5-11.0) 07/15/18 05:25 RBC 3.75 M/mm3 (3.65-5.03) 07/15/18 05:25 Hgb 12.1 gm/dl (11.8-15.2) 07/15/18 05:25 Hct 36.1 % (35.5-45.6) 07/15/18 05:25 MCV 96 fl (84-94) H 07/15/18 05:25 MCH 32 pg (28-32) 07/15/18 05:25 MCHC 33 % (32-34) 07/15/18 05:25 RDW 16.5 % (13.2-15.2) H 07/15/18 05:25 Plt Count 249 K/mm3 (140-440) 07/15/18 05:25 Lymph % (Auto) 31.7 % (13.4-35.0) 07/15/18 05:25 [place] % (Auto) 6.9 % (0.0-7.3) 07/15/18 05:25 Eos % (Auto) 1.7 % (0.0-4.3) 07/15/18 05:25 Baso % (Auto) 0.6 % (0.0-1.8) 07/15/18 05:25 Lymph # 1.9 K/mm3 (1.2-5.4) 07/15/18 05:25 [place] # 0.4 K/mm3 (0.0-0.8) 07/15/18 05:25 Eos # 0.1 K/mm3 (0.0-0.4) 07/15/18 05:25 Baso # 0.0 K/mm3 (0.0-0.1) 07/15/18 05:25 Seg Neutrophils % 59.1 % (40.0-70.0) 07/15/18 05:25 Seg Neutrophils # 3.6 K/mm3 (1.8-7.7) 07/15/18 05:25 Sodium 137 mmol/L (137-145) 07/17/18 07:12 Potassium 4.6 mmol/L (3.6-5.0) D 07/17/18 07:12 Chloride 99.6 mmol/L (98-107) 07/17/18 07:12 Carbon Dioxide 24 mmol/L (22-30) 07/17/18 07:12 Anion Gap 18 mmol/L 07/17/18 07:12 BUN 7 mg/dL (9-20) L 07/17/18 07:12 Creatinine 0.6 mg/dL (0.8-1.5) L 07/17/18 07:12 Estimated GFR > 60 ml/min 07/17/18 07:12 BUN/Creatinine Ratio 12 % 07/17/18 07:12 Glucose 138 mg/dL (75-100) H 07/17/18 07:12 POC Glucose 126 (70-105) H 07/17/18 05:43 Calcium 9.2 mg/dL (8.4-10.2) 07/17/18 07:12 Phosphorus 3.60 mg/dL (2.5-4.5) 07/17/18 07:12 Magnesium 1.80 mg/dL (1.7-2.3) 07/17/18 07:12 Total Bilirubin 0.60 mg/dL (0.1-1.2) 07/15/18 05:25 AST 9 units/L (5-40) 07/15/18 05:25 ALT < 5 units/L (7-56) L 07/15/18 05:25 Alkaline Phosphatase 40 units/L (35-129) 07/15/18 05:25 Total Protein 6.6 g/dL (6.3-8.2) 07/15/18 05:25 Albumin 3.8 g/dL (3.9-5) L 07/15/18 05:25 Albumin/Globulin Ratio 1.4 % 07/15/18 05:25 Lipase 23 units/L (13-60) 07/11/18 03:01 Urine Color Yellow (Yellow) 07/11/18 10:25 Urine Turbidity Clear (Clear) 07/11/18 10:25 Urine pH 6.0 (5.0-7.0) 07/11/18 10:25 Ur Specific [place] 1.029 (1.003-1.030) 07/11/18 10:25 Urine Protein <15 mg/dl mg/dL (Negative) 07/11/18 10:25 Urine Glucose (UA) Neg mg/dL (Negative) 07/11/18 10:25 Urine Ketones Tr mg/dL (Negative) 07/11/18 10:25 Urine Blood Sm (Negative) 07/11/18 10:25 Urine Nitrite Neg (Negative) 07/11/18 10:25 Urine Bilirubin Neg (Negative) 07/11/18 10:25 Urine Urobilinogen < 2.0 mg/dL (<2.0) 07/11/18 10:25 Ur Leukocyte Esterase Neg (Negative) 07/11/18 10:25 Urine WBC (Auto) 2.0 /HPF (0.0-6.0) 07/11/18 10:25 Urine RBC (Auto) 4.0 /HPF (0.0-6.0) 07/11/18 10:25 Blood Type A POSITIVE 07/14/18 12:20 Antibody Screen Negative 07/14/18 12:20
[2018-07-17] MEDS: NORMODYNE IV PRN (14:02)
--- NOTE | 2018-07-17 21:01 | Progress Note ---
Assessment and Plan POD # 3 Pt status quo. no specific compl Abd softer. hypoactive BS eval appreciated. continue ng suction x 24hrs continue present care Selected Entries 07/17/18 07/17/18 16:38 18:17 Temperature 98.4 F Pulse Rate 87 Respiratory 19 Rate Blood Pressure 184/81 Laboratory Tests 07/17/18 07:12 Sodium 137 Potassium 4.6 D Chloride 99.6 Carbon Dioxide 24 Anion Gap 18 BUN 7 L Creatinine 0.6 L Objective Vital Signs - 12hr 07/17/18 07/17/18 07/17/18 09:04 11:30 14:02 Temperature 98.1 F 98.6 F Pulse Rate 89 91 H Respiratory 19 19 Rate Blood Pressure 163/76 172/83 188/84 Blood Pressure [Left] O2 Sat by Pulse 97 Oximetry 07/17/18 07/17/18 07/17/18 15:07 16:38 18:17 Temperature 98.4 F Pulse Rate 79 87 Respiratory 19 Rate Blood Pressure 175/82 184/81 Blood Pressure 165/77 [Left] O2 Sat by Pulse Oximetry - Labs 07/15/18 05:25 07/17/18 07:12 Diabetes panel 07/17/18 Range/Units 07:12 Sodium 137 (137-145) mmol/L Potassium 4.6 D (3.6-5.0) mmol/L Chloride 99.6 (98-107) mmol/L Carbon Dioxide 24 (22-30) mmol/L BUN 7 L (9-20) mg/dL Creatinine 0.6 L (0.8-1.5) mg/dL Glucose 138 H (75-100) mg/dL Calcium 9.2 (8.4-10.2) mg/dL Calcium panel 07/17/18 Range/Units 07:12 Calcium 9.2 (8.4-10.2) mg/dL Phosphorus 3.60 (2.5-4.5) mg/dL Pituitary panel 07/17/18 Range/Units 07:12 Sodium 137 (137-145) mmol/L Potassium 4.6 D (3.6-5.0) mmol/L Chloride 99.6 (98-107) mmol/L Carbon Dioxide 24 (22-30) mmol/L BUN 7 L (9-20) mg/dL Creatinine 0.6 L (0.8-1.5) mg/dL Glucose 138 H (75-100) mg/dL Calcium 9.2 (8.4-10.2) mg/dL Adrenal panel 07/17/18 Range/Units 07:12 Sodium 137 (137-145) mmol/L Potassium 4.6 D (3.6-5.0) mmol/L Chloride 99.6 (98-107) mmol/L Carbon Dioxide 24 (22-30) mmol/L BUN 7 L (9-20) mg/dL Creatinine 0.6 L (0.8-1.5) mg/dL Glucose 138 H (75-100) mg/dL Calcium 9.2 (8.4-10.2) mg/dL
[2018-07-18] MEDS: HumaLOG SUB-Q SCH ×4 (00:26→18:55)
[2018-07-18] MEDS: DILAUDID IV PRN ×3 (04:04→18:57)
[2018-07-18] MEDS: D5W/0.45% NACL/KCL 10 MEQ 10 MEQ/1,000 ML BAG IV SCH (04:05)
[2018-07-18 07:08] LABS: BUN/Creatinine Ratio 12; Blood Urea Nitrogen 7 mg/dL (9-20); Calcium 9.2 mg/dL (8.4-10.2); Hemolysis Index 11
--- NOTE | 2018-07-18 07:36 | Progress Note ---
Assessment and Plan POD # 4 Pt status quo Abd 1+ distended, non tender. hypoactive BS incision clean and dry surgically stable abd series this am Selected Entries 07/18/18 05:47 Temperature 99.0 F Pulse Rate 88 Respiratory 18 Rate Blood Pressure 183/82 Laboratory Tests 07/18/18 06:04 Sodium 138 Potassium 3.4 L D Chloride 100.0 BUN 7 L Creatinine 0.6 L Objective Vital Signs - 12hr 07/18/18 07/18/18 01:05 05:47 Temperature 98.7 F 99.0 F Pulse Rate 83 88 Respiratory 18 18 Rate Blood Pressure 170/80 183/82 O2 Sat by Pulse 97 98 Oximetry - Labs 07/15/18 05:25 07/18/18 06:04 Diabetes panel 07/17/18 07/18/18 Range/Units 07:12 06:04 Sodium 137 138 (137-145) mmol/L Potassium 4.6 D 3.4 L D (3.6-5.0) mmol/L Chloride 99.6 100.0 (98-107) mmol/L Carbon Dioxide 24 26 (22-30) mmol/L BUN 7 L 7 L (9-20) mg/dL Creatinine 0.6 L 0.6 L (0.8-1.5) mg/dL Glucose 138 H 131 H (75-100) mg/dL Calcium 9.2 9.2 (8.4-10.2) mg/dL Calcium panel 07/17/18 07/18/18 Range/Units 07:12 06:04 Calcium 9.2 9.2 (8.4-10.2) mg/dL Phosphorus 3.60 3.80 (2.5-4.5) mg/dL Pituitary panel 07/17/18 07/18/18 Range/Units 07:12 06:04 Sodium 137 138 (137-145) mmol/L Potassium 4.6 D 3.4 L D (3.6-5.0) mmol/L Chloride 99.6 100.0 (98-107) mmol/L Carbon Dioxide 24 26 (22-30) mmol/L BUN 7 L 7 L (9-20) mg/dL Creatinine 0.6 L 0.6 L (0.8-1.5) mg/dL Glucose 138 H 131 H (75-100) mg/dL Calcium 9.2 9.2 (8.4-10.2) mg/dL Adrenal panel 07/17/18 07/18/18 Range/Units 07:12 06:04 Sodium 137 138 (137-145) mmol/L Potassium 4.6 D 3.4 L D (3.6-5.0) mmol/L Chloride 99.6 100.0 (98-107) mmol/L Carbon Dioxide 24 26 (22-30) mmol/L BUN 7 L 7 L (9-20) mg/dL Creatinine 0.6 L 0.6 L (0.8-1.5) mg/dL Glucose 138 H 131 H (75-100) mg/dL Calcium 9.2 9.2 (8.4-10.2) mg/dL
[2018-07-18] MEDS ORDERED: LASIX ONE (08:28)
[2018-07-18] MEDS ORDERED: LASIX IV ONE (08:29)
--- NOTE | 2018-07-18 10:00 | XRay Report ---
ABDOMINAL SERIES: History: Small bowel obstruction. Midline surgical skin yajaira are identified suggesting interval surgery since 07/13/18. There is small free air beneath the right hemidiaphragm which is probably secondary to recent surgery. A nasogastric tube terminates in the vicinity of the mid stomach. The bowel gas pattern is unremarkable. No dilated bowel loops or large air-fluid levels are identified. The lungs are clear. Heart size is stable at the upper limits of normal. IMPRESSION: Recent surgical changes are suspected, correlate with the patient's history. No evidence for obstruction or significant ileus on today's exam.
[2018-07-18] MEDS: PEPCID IV SCH ×2 (10:32→21:50)
[2018-07-18] MEDS: LOVENOX SUB-Q SCH (10:33)
[2018-07-18] MEDS: APRESOLINE IV PRN (11:55)
--- NOTE | 2018-07-18 14:00 | Nuclear Medicine Report ---
NUCLEAR MEDICINE RENAL SCAN CAPTOPRIL/LASIX HISTORY: Left hydronephrosis. TECHNIQUE: Posterior flow and function images were obtained following 5 mCi of technetium 99m MAG3. 20 mg of IV Lasix was administered 25 minutes. COMPARISON: Renal ultrasound dated 07/15/18. CT angiogram abdomen and pelvis dated 07/11/18. FINDINGS: The posterior perfusion images demonstrate relatively normal flow to the right kidney and moderately decreased flow to the left kidney. The posterior function images demonstrate relatively normal uptake and excretion of the radiotracer to the right kidney. There is delayed uptake and excretion of the radiotracer in the left collecting system with evidence of left hydronephrosis. There is a moderate response in the left excretory curve following IV Lasix with complete or near-complete clearance of the radiotracer from the dilated left collecting system. Split function measures 70% right kidney and 30% left kidney. IMPRESSION: Mild to moderate left hydronephrosis with decreased flow and function of the left kidney as described which responds to IV Lasix therapy.
--- NOTE | 2018-07-18 17:07 | Progress Note ---
Assessment and Plan Assessment and plan: 53-year-old male with a past medical history of diabetes, hypertension, seizures , and infrarenal abdominal aortic aneurysm repair in April 2018 presents to the hospital with complaints of severe abdominal pain times one day. assoc with vomiting, found to have SBO Past History Past Medical History: diabetes Small bowel obstruction did not respond to conservative mgt -sp Ex lap and HANS, 07/14 -gen sx input appreciated, keep NPO -for abdominal series in AM History of repair of abdominal aneurysm Diabetes mellitus SSI Accelerated hypertension/htn urgency optimize clonidine patch and IV meds as he is NPO Tobacco use disorder counseled about cessation Hypokalemia Repleted IV mild Left Hydronephrosis patient denies hx of it -Urology consult appreciated Dvt ppx- chemical History Interval history: Review of systems Constitutional: No fevers, no malaise, no joint pains CVS: No chest pain, no orthopnea, no dyspnea on exertion, no pedal edema GI: c/o mild abdominal pain, no nausea , no vomiting, still no BM, he is passing gas Respiratory: No shortness of breath, no wheezing, no coughing Hospitalist Physical - Physical exam Narrative exam: General.: Appears well, no distress, nontoxic HEENT: Moist mucous membranes, extraocular muscles intact, no lymphadenopathy NG tube in place to suction Neck: supple Cardiac: S1-S2 heard Lungs: clear to auscultation bilaterally Abdomen: soft , nontender, nondistended, bowel sounds positive Extremities: no edema clubbing or cyanosis Skin: no rash or lesions Neurologic: no gross focal deficits Psych: appropriate behavior, appropriate mood, corporative, judgment intact - Constitutional Vitals: Temp Pulse Resp BP Pulse Ox 98.1 F 97 H 20 159/74 97 07/18/18 12:27 07/18/18 12:27 07/18/18 12:27 07/18/18 12:27 07/18/18 11:47 Results - Labs CBC & Chem 7: 07/15/18 05:25 07/18/18 06:04 Labs: Laboratory Last Values WBC 6.0 K/mm3 (4.5-11.0) 07/15/18 05:25 RBC 3.75 M/mm3 (3.65-5.03) 07/15/18 05:25 Hgb 12.1 gm/dl (11.8-15.2) 07/15/18 05:25 Hct 36.1 % (35.5-45.6) 07/15/18 05:25 MCV 96 fl (84-94) H 07/15/18 05:25 MCH 32 pg (28-32) 07/15/18 05:25 MCHC 33 % (32-34) 07/15/18 05:25 RDW 16.5 % (13.2-15.2) H 07/15/18 05:25 Plt Count 249 K/mm3 (140-440) 07/15/18 05:25 Lymph % (Auto) 31.7 % (13.4-35.0) 07/15/18 05:25 [place] % (Auto) 6.9 % (0.0-7.3) 07/15/18 05:25 Eos % (Auto) 1.7 % (0.0-4.3) 07/15/18 05:25 Baso % (Auto) 0.6 % (0.0-1.8) 07/15/18 05:25 Lymph # 1.9 K/mm3 (1.2-5.4) 07/15/18 05:25 [place] # 0.4 K/mm3 (0.0-0.8) 07/15/18 05:25 Eos # 0.1 K/mm3 (0.0-0.4) 07/15/18 05:25 Baso # 0.0 K/mm3 (0.0-0.1) 07/15/18 05:25 Seg Neutrophils % 59.1 % (40.0-70.0) 07/15/18 05:25 Seg Neutrophils # 3.6 K/mm3 (1.8-7.7) 07/15/18 05:25 Sodium 138 mmol/L (137-145) 07/18/18 06:04 Potassium 3.4 mmol/L (3.6-5.0) L D 07/18/18 06:04 Chloride 100.0 mmol/L (98-107) 07/18/18 06:04 Carbon Dioxide 26 mmol/L (22-30) 07/18/18 06:04 Anion Gap 15 mmol/L 07/18/18 06:04 BUN 7 mg/dL (9-20) L 07/18/18 06:04 Creatinine 0.6 mg/dL (0.8-1.5) L 07/18/18 06:04 Estimated GFR > 60 ml/min 07/18/18 06:04 BUN/Creatinine Ratio 12 % 07/18/18 06:04 Glucose 131 mg/dL (75-100) H 07/18/18 06:04 POC Glucose 123 (70-105) H 07/18/18 11:07 Calcium 9.2 mg/dL (8.4-10.2) 07/18/18 06:04 Phosphorus 3.80 mg/dL (2.5-4.5) 07/18/18 06:04 Magnesium 1.70 mg/dL (1.7-2.3) 07/18/18 06:04 Total Bilirubin 0.60 mg/dL (0.1-1.2) 07/15/18 05:25 AST 9 units/L (5-40) 07/15/18 05:25 ALT < 5 units/L (7-56) L 07/15/18 05:25 Alkaline Phosphatase 40 units/L (35-129) 07/15/18 05:25 Total Protein 6.6 g/dL (6.3-8.2) 07/15/18 05:25 Albumin 3.8 g/dL (3.9-5) L 07/15/18 05:25 Albumin/Globulin Ratio 1.4 % 07/15/18 05:25 Lipase 23 units/L (13-60) 07/11/18 03:01 Urine Color Yellow (Yellow) 07/11/18 10:25 Urine Turbidity Clear (Clear) 07/11/18 10:25 Urine pH 6.0 (5.0-7.0) 07/11/18 10:25 Ur Specific [place] 1.029 (1.003-1.030) 07/11/18 10:25 Urine Protein <15 mg/dl mg/dL (Negative) 07/11/18 10:25 Urine Glucose (UA) Neg mg/dL (Negative) 07/11/18 10:25 Urine Ketones Tr mg/dL (Negative) 07/11/18 10:25 Urine Blood Sm (Negative) 07/11/18 10:25 Urine Nitrite Neg (Negative) 07/11/18 10:25 Urine Bilirubin Neg (Negative) 07/11/18 10:25 Urine Urobilinogen < 2.0 mg/dL (<2.0) 07/11/18 10:25 Ur Leukocyte Esterase Neg (Negative) 07/11/18 10:25 Urine WBC (Auto) 2.0 /HPF (0.0-6.0) 07/11/18 10:25 Urine RBC (Auto) 4.0 /HPF (0.0-6.0) 07/11/18 10:25 Blood Type A POSITIVE 07/14/18 12:20 Antibody Screen Negative 07/14/18 12:20
[2018-07-18] MEDS: LACTATED RINGERS 1,000 ML IV SCH (21:47)
[2018-07-18] MEDS: TORADOL IV PRN (23:17)
[2018-07-19] MEDS: HumaLOG SUB-Q SCH ×2 (01:11→06:24)
[2018-07-19] MEDS: DILAUDID IV PRN ×3 (04:14→14:06)
[2018-07-19 06:03] LABS: BUN/Creatinine Ratio 10; Blood Urea Nitrogen 7 mg/dL (9-20); Calcium 9.4 mg/dL (8.4-10.2); Hemolysis Index 1
[2018-07-19] MEDS: LACTATED RINGERS 1,000 ML IV SCH ×2 (07:59→20:45)
[2018-07-19] MEDS: APRESOLINE IV PRN ×3 (08:16→23:13)
[2018-07-19] MEDS: LOVENOX SUB-Q SCH (09:41)
[2018-07-19] MEDS: PEPCID IV SCH ×2 (09:41→23:13)
[2018-07-19] MEDS ORDERED: MAGNESIUM SULFATE 2GM/50ML 2 GM/50 ML BAG IV ONE (12:00)
--- NOTE | 2018-07-19 12:22 | Progress Note ---
Assessment and Plan POD # 5 Pt without compl. Abd - non tender Abd series - ileus pattern but no evidence of sbo stable - improving d/c ng observe off ng suction x 24 hrs prior to attempting cl liq may have ice chips and po meds Selected Entries 07/18/18 07/19/18 21:51 08:16 Temperature 98.6 F Pulse Rate 76 Blood Pressure 175/77 Laboratory Tests 07/19/18 05:30 Sodium 141 Potassium 3.5 L Chloride 101.3 BUN 7 L Creatinine 0.7 L Objective Vital Signs - 12hr 07/19/18 08:16 Pulse Rate 76 Blood Pressure 175/77 - Labs 07/15/18 05:25 07/19/18 05:30 Diabetes panel 07/19/18 Range/Units 05:30 Sodium 141 (137-145) mmol/L Potassium 3.5 L (3.6-5.0) mmol/L Chloride 101.3 (98-107) mmol/L Carbon Dioxide 29 (22-30) mmol/L BUN 7 L (9-20) mg/dL Creatinine 0.7 L (0.8-1.5) mg/dL Glucose 86 (75-100) mg/dL Calcium 9.4 (8.4-10.2) mg/dL Calcium panel 07/19/18 Range/Units 05:30 Calcium 9.4 (8.4-10.2) mg/dL Phosphorus 3.90 (2.5-4.5) mg/dL Pituitary panel 07/19/18 Range/Units 05:30 Sodium 141 (137-145) mmol/L Potassium 3.5 L (3.6-5.0) mmol/L Chloride 101.3 (98-107) mmol/L Carbon Dioxide 29 (22-30) mmol/L BUN 7 L (9-20) mg/dL Creatinine 0.7 L (0.8-1.5) mg/dL Glucose 86 (75-100) mg/dL Calcium 9.4 (8.4-10.2) mg/dL Adrenal panel 07/19/18 Range/Units 05:30 Sodium 141 (137-145) mmol/L Potassium 3.5 L (3.6-5.0) mmol/L Chloride 101.3 (98-107) mmol/L Carbon Dioxide 29 (22-30) mmol/L BUN 7 L (9-20) mg/dL Creatinine 0.7 L (0.8-1.5) mg/dL Glucose 86 (75-100) mg/dL Calcium 9.4 (8.4-10.2) mg/dL
--- NOTE | 2018-07-19 13:14 | Progress Note ---
Assessment and Plan Assessment and plan: Patient is a 53-year-old man with a past medical history of diabetes mellitus type 2, hypertension, seizures, and infrarenal abdominal aortic aneurysm repair in April 2018 who presents to the hospital with complaints of severe abdominal pain with n/v and found to have SBO Small bowel obstruction, did not respond to conservative mgt, sp Ex lap and HANS , 07/14/18, POD # 5: gen sx input appreciated, Advance diet per gen sx Recent History of repair of abdominal aneurysm Diabetes mellitus: treat with SSI Accelerated hypertension/htn urgency: optimize clonidine patch and IV meds as he is NPO Tobacco use disorder: counseled about cessation Hypokalemia: Repleted IV Hypomagnesemia: replace and recheck Mild Left Hydronephrosis, patient denies hx of it: Urology consulted History Interval history: Patient was seen and examined. Follow-up on current diagnosis of SBO. Overnight uneventful. Patient denies any chest pain, shortness breath, nausea/vomiting or severe headaches. Imaging, nursing note, chart, labs and old chart reviewed. Discussed with patient. He is asking for food and wants NGT removed. Hospitalist Physical - Physical exam Narrative exam: GEN: thin frail, bmi 19.1, NAD, Awake, Alert, Orientated x 3 HEENT: NCAT, EOMI, PERRL, OP with ngt in place NECK: supple, no adenopathy, no thyromegaly, no JVD CVS/HEART: RRR, normal S1S2, pulses present bilaterally CHEST/LUNGS: CTA B, Symmetrical chest expansion, good air entry bilaterally GI/Abdomen: surgical wound covered with clean dsg, +bowel sounds, no guarding or rebound /Bladder: no suprapubic tenderness, no CVA or paraspinal tenderness EXT/Skin: no c/c/e, no obvious rash MSK: FROM x 4 Neuro: CN 2-12 grossly intact, no new focal deficits Psych: calm - Constitutional Vitals: Temp Pulse Resp BP Pulse Ox 98.3 F 86 14 176/82 95 07/19/18 11:25 07/19/18 11:25 07/19/18 11:25 07/19/18 11:25 07/19/18 11:25 Results - Labs CBC & Chem 7: 07/15/18 05:25 07/19/18 05:30 Labs: Laboratory Last Values WBC 6.0 K/mm3 (4.5-11.0) 07/15/18 05:25 RBC 3.75 M/mm3 (3.65-5.03) 07/15/18 05:25 Hgb 12.1 gm/dl (11.8-15.2) 07/15/18 05:25 Hct 36.1 % (35.5-45.6) 07/15/18 05:25 MCV 96 fl (84-94) H 07/15/18 05:25 MCH 32 pg (28-32) 07/15/18 05:25 MCHC 33 % (32-34) 07/15/18 05:25 RDW 16.5 % (13.2-15.2) H 07/15/18 05:25 Plt Count 249 K/mm3 (140-440) 07/15/18 05:25 Lymph % (Auto) 31.7 % (13.4-35.0) 07/15/18 05:25 [place] % (Auto) 6.9 % (0.0-7.3) 07/15/18 05:25 Eos % (Auto) 1.7 % (0.0-4.3) 07/15/18 05:25 Baso % (Auto) 0.6 % (0.0-1.8) 07/15/18 05:25 Lymph # 1.9 K/mm3 (1.2-5.4) 07/15/18 05:25 [place] # 0.4 K/mm3 (0.0-0.8) 07/15/18 05:25 Eos # 0.1 K/mm3 (0.0-0.4) 07/15/18 05:25 Baso # 0.0 K/mm3 (0.0-0.1) 07/15/18 05:25 Seg Neutrophils % 59.1 % (40.0-70.0) 07/15/18 05:25 Seg Neutrophils # 3.6 K/mm3 (1.8-7.7) 07/15/18 05:25 Sodium 141 mmol/L (137-145) 07/19/18 05:30 Potassium 3.5 mmol/L (3.6-5.0) L 07/19/18 05:30 Chloride 101.3 mmol/L (98-107) 07/19/18 05:30 Carbon Dioxide 29 mmol/L (22-30) 07/19/18 05:30 Anion Gap 14 mmol/L 07/19/18 05:30 BUN 7 mg/dL (9-20) L 07/19/18 05:30 Creatinine 0.7 mg/dL (0.8-1.5) L 07/19/18 05:30 Estimated GFR > 60 ml/min 07/19/18 05:30 BUN/Creatinine Ratio 10 % 07/19/18 05:30 Glucose 86 mg/dL (75-100) 07/19/18 05:30 POC Glucose 83 (70-105) 07/19/18 05:44 Calcium 9.4 mg/dL (8.4-10.2) 07/19/18 05:30 Phosphorus 3.90 mg/dL (2.5-4.5) 07/19/18 05:30 Magnesium 1.60 mg/dL (1.7-2.3) L 07/19/18 05:30 Total Bilirubin 0.60 mg/dL (0.1-1.2) 07/15/18 05:25 AST 9 units/L (5-40) 07/15/18 05:25 ALT < 5 units/L (7-56) L 07/15/18 05:25 Alkaline Phosphatase 40 units/L (35-129) 07/15/18 05:25 Total Protein 6.6 g/dL (6.3-8.2) 07/15/18 05:25 Albumin 3.8 g/dL (3.9-5) L 07/15/18 05:25 Albumin/Globulin Ratio 1.4 % 07/15/18 05:25 Lipase 23 units/L (13-60) 07/11/18 03:01 Urine Color Yellow (Yellow) 07/11/18 10:25 Urine Turbidity Clear (Clear) 07/11/18 10:25 Urine pH 6.0 (5.0-7.0) 07/11/18 10:25 Ur Specific [place] 1.029 (1.003-1.030) 07/11/18 10:25 Urine Protein <15 mg/dl mg/dL (Negative) 07/11/18 10:25 Urine Glucose (UA) Neg mg/dL (Negative) 07/11/18 10:25 Urine Ketones Tr mg/dL (Negative) 07/11/18 10:25 Urine Blood Sm (Negative) 07/11/18 10:25 Urine Nitrite Neg (Negative) 07/11/18 10:25 Urine Bilirubin Neg (Negative) 07/11/18 10:25 Urine Urobilinogen < 2.0 mg/dL (<2.0) 07/11/18 10:25 Ur Leukocyte Esterase Neg (Negative) 07/11/18 10:25 Urine WBC (Auto) 2.0 /HPF (0.0-6.0) 07/11/18 10:25 Urine RBC (Auto) 4.0 /HPF (0.0-6.0) 07/11/18 10:25 Blood Type A POSITIVE 07/14/18 12:20 Antibody Screen Negative 07/14/18 12:20
[2018-07-19] MEDS: NORMODYNE IV PRN (14:05)
[2018-07-19] MEDS: KCL 10MEQ/100ML 10 MEQ/100 ML BAG IV SCH ×2 (14:07→14:32)
[2018-07-19] MEDS: MORPHINE IV PRN (20:12)
[2018-07-20] MEDS: MORPHINE IV PRN ×2 (00:42→22:20)
[2018-07-20] MEDS: DILAUDID IV PRN ×4 (05:41→19:46)
[2018-07-20] MEDS: LACTATED RINGERS 1,000 ML IV SCH ×2 (06:47→19:45)
[2018-07-20] MEDS: APRESOLINE IV PRN (07:12)
[2018-07-20 09:08] LABS: Hematocrit 34.5 % (35.5-45.6); Hemoglobin 11.5 gm/dl (11.8-15.2); Mean Corpuscular HGB Conc 33 % (32-34); Mean Corpuscular Hemoglobin 32 pg (28-32); Mean Corpuscular Volume 97 fl (84-94); Platelet Count 309 K/mm3 (140-440); Red Blood Count 3.57 M/mm3 (3.65-5.03)
[2018-07-20 10:02] LABS: BUN/Creatinine Ratio 15; Blood Urea Nitrogen 9 mg/dL (9-20); Calcium 9.4 mg/dL (8.4-10.2); Hemolysis Index 4
[2018-07-20] MEDS: LOVENOX SUB-Q SCH (10:04)
[2018-07-20] MEDS: PEPCID IV SCH ×2 (10:04→22:20)
[2018-07-20] MEDS: HumaLOG SUB-Q SCH ×2 (12:00→18:01)
--- NOTE | 2018-07-20 13:46 | Progress Note ---
Assessment and Plan POD # 6 Pt feeling well. cristóbal d/c of ng. + flatus Abd soft, incision clean and dry stable attempt cl liq diet Selected Entries 07/20/18 11:57 Temperature 98.0 F Pulse Rate 85 Respiratory 18 Rate Blood Pressure 196/82 Laboratory Tests 07/20/18 08:55 WBC 4.4 L Hgb 11.5 L Hct 34.5 L Objective Vital Signs - 12hr 07/20/18 07/20/18 07/20/18 05:19 07:12 11:57 Temperature 98.7 F 98.0 F Pulse Rate 93 H 82 85 Respiratory 20 18 Rate Blood Pressure 179/86 179/86 196/82 O2 Sat by Pulse 96 98 Oximetry - Labs 07/20/18 08:55 07/20/18 08:55 Diabetes panel 07/20/18 Range/Units 08:55 Sodium 141 (137-145) mmol/L Potassium 4.0 (3.6-5.0) mmol/L Chloride 98.9 (98-107) mmol/L Carbon Dioxide 26 (22-30) mmol/L BUN 9 (9-20) mg/dL Creatinine 0.6 L (0.8-1.5) mg/dL Glucose 75 (75-100) mg/dL Calcium 9.4 (8.4-10.2) mg/dL Calcium panel 07/20/18 Range/Units 08:55 Calcium 9.4 (8.4-10.2) mg/dL Pituitary panel 07/20/18 Range/Units 08:55 Sodium 141 (137-145) mmol/L Potassium 4.0 (3.6-5.0) mmol/L Chloride 98.9 (98-107) mmol/L Carbon Dioxide 26 (22-30) mmol/L BUN 9 (9-20) mg/dL Creatinine 0.6 L (0.8-1.5) mg/dL Glucose 75 (75-100) mg/dL Calcium 9.4 (8.4-10.2) mg/dL Adrenal panel 07/20/18 Range/Units 08:55 Sodium 141 (137-145) mmol/L Potassium 4.0 (3.6-5.0) mmol/L Chloride 98.9 (98-107) mmol/L Carbon Dioxide 26 (22-30) mmol/L BUN 9 (9-20) mg/dL Creatinine 0.6 L (0.8-1.5) mg/dL Glucose 75 (75-100) mg/dL Calcium 9.4 (8.4-10.2) mg/dL
--- NOTE | 2018-07-20 15:53 | Progress Note ---
Subjective Date of service: 07/20/18 Interval history: 53-year-old male with a past medical history of diabetes, hypertension, seizures , and infrarenal abdominal aortic aneurysm repair in April 2018 presents to the hospital with complaints of severe abdominal pain times one day. Pain started in a.m. and has been constant and not improving. Pain is rated 10/10 intensity, worse with palpation, no alleviating factors. Positive nausea with 2 episodes of vomiting. Last bowel moment was yesterday and no flatus produced today. No reports of fever. consult requested in notes 07-12-18. We were not contacted until today ( - Dr. Phillip) CTAP left hydro ed (07-15-18) mild left hydro, medical renal disease split function renal scan (07-18-18)--- rt 70% function/ left 30% function with response to lasix A/P AAA repair left hydro mild (chronic vs acute) - uncertain etiology (AAA, surgery, prior) recommend nephrostomy tube only (Drs. Cochran or Maksim)---pt does not want anythng done (given copy of report) will sign off Objective - Constitutional Vitals: Vital Signs - 12hr 07/20/18 07/20/18 07/20/18 05:19 07:12 11:57 Temperature 98.7 F 98.0 F Pulse Rate 93 H 82 85 Respiratory 20 18 Rate Blood Pressure 179/86 179/86 196/82 O2 Sat by Pulse 96 98 Oximetry - Labs CBC & Chem 7: 07/20/18 08:55 07/20/18 08:55 Labs: Abnormal lab results 07/20/18 07/20/18 07/20/18 Range/Units 08:55 08:55 11:59 WBC 4.4 L (4.5-11.0) K/mm3 RBC 3.57 L (3.65-5.03) M/mm3 Hgb 11.5 L (11.8-15.2) gm/dl Hct 34.5 L (35.5-45.6) % MCV 97 H (84-94) fl Creatinine 0.6 L (0.8-1.5) mg/dL POC Glucose 68 L (70-105)
[2018-07-20] MEDS ORDERED: D50W (25GM) Vial IV ONE (17:29)
--- NOTE | 2018-07-20 17:33 | Progress Note ---
Assessment and Plan Assessment and plan: Patient is a 53-year-old man with a past medical history of diabetes mellitus type 2, hypertension, seizures, and infrarenal abdominal aortic aneurysm repair in April 2018 who presents to the hospital with complaints of severe abdominal pain with n/v and found to have SBO Small bowel obstruction, did not respond to conservative mgt, sp Ex lap and HANS , 07/14/18, POD # 5: gen sx input appreciated, Advance diet per gen sx Recent History of repair of abdominal aneurysm Diabetes mellitus: treat with SSI Accelerated hypertension/htn urgency: optimize clonidine patch and IV meds as he is NPO Tobacco use disorder: counseled about cessation Hypokalemia: Repleted IV Hypomagnesemia: replace and recheck Mild Left Hydronephrosis, patient denies hx of it: Urology consulted and recommended nephrostomy tube, pt refused History Interval history: Patient was seen and examined. Follow-up on current diagnosis of SBO. Overnight uneventful. Patient denies any chest pain, shortness breath, nausea/vomiting or severe headaches. Imaging, nursing note, chart, labs and old chart reviewed. Discussed with patient. He is asking for food. NGT removed yesterday. He refuses some treatment. He is very verbally abusive. He demands more to eat. He told me to get out if I didn't change his diet. Hospitalist Physical - Physical exam Narrative exam: GEN: thin frail, bmi 19.1, NAD, Awake, Alert, Orientated x 3 HEENT: NCAT, EOMI, PERRL, OP with ngt in place NECK: supple, no adenopathy, no thyromegaly, no JVD CVS/HEART: RRR, normal S1S2, pulses present bilaterally CHEST/LUNGS: CTA B, Symmetrical chest expansion, good air entry bilaterally GI/Abdomen: surgical wound covered with clean dsg, +bowel sounds, no guarding or rebound /Bladder: no suprapubic tenderness, no CVA or paraspinal tenderness EXT/Skin: no c/c/e, no obvious rash MSK: FROM x 4 Neuro: CN 2-12 grossly intact, no new focal deficits Psych: calm - Constitutional Vitals: Temp Pulse Resp BP Pulse Ox 98.0 F 85 18 196/82 98 07/20/18 11:57 07/20/18 11:57 07/20/18 11:57 07/20/18 11:57 07/20/18 11:57 Results - Labs CBC & Chem 7: 07/20/18 08:55 07/20/18 08:55 Labs: Laboratory Last Values WBC 4.4 K/mm3 (4.5-11.0) L 07/20/18 08:55 RBC 3.57 M/mm3 (3.65-5.03) L 07/20/18 08:55 Hgb 11.5 gm/dl (11.8-15.2) L 07/20/18 08:55 Hct 34.5 % (35.5-45.6) L 07/20/18 08:55 MCV 97 fl (84-94) H 07/20/18 08:55 MCH 32 pg (28-32) 07/20/18 08:55 MCHC 33 % (32-34) 07/20/18 08:55 RDW 15.0 % (13.2-15.2) 07/20/18 08:55 Plt Count 309 K/mm3 (140-440) 07/20/18 08:55 Lymph % (Auto) 31.7 % (13.4-35.0) 07/15/18 05:25 [place] % (Auto) 6.9 % (0.0-7.3) 07/15/18 05:25 Eos % (Auto) 1.7 % (0.0-4.3) 07/15/18 05:25 Baso % (Auto) 0.6 % (0.0-1.8) 07/15/18 05:25 Lymph # 1.9 K/mm3 (1.2-5.4) 07/15/18 05:25 [place] # 0.4 K/mm3 (0.0-0.8) 07/15/18 05:25 Eos # 0.1 K/mm3 (0.0-0.4) 07/15/18 05:25 Baso # 0.0 K/mm3 (0.0-0.1) 07/15/18 05:25 Seg Neutrophils % 59.1 % (40.0-70.0) 07/15/18 05:25 Seg Neutrophils # 3.6 K/mm3 (1.8-7.7) 07/15/18 05:25 Sodium 141 mmol/L (137-145) 07/20/18 08:55 Potassium 4.0 mmol/L (3.6-5.0) 07/20/18 08:55 Chloride 98.9 mmol/L (98-107) 07/20/18 08:55 Carbon Dioxide 26 mmol/L (22-30) 07/20/18 08:55 Anion Gap 20 mmol/L 07/20/18 08:55 BUN 9 mg/dL (9-20) 07/20/18 08:55 Creatinine 0.6 mg/dL (0.8-1.5) L 07/20/18 08:55 Estimated GFR > 60 ml/min 07/20/18 08:55 BUN/Creatinine Ratio 15 % 07/20/18 08:55 Glucose 75 mg/dL (75-100) 07/20/18 08:55 POC Glucose 68 (70-105) L 07/20/18 11:59 Calcium 9.4 mg/dL (8.4-10.2) 07/20/18 08:55 Phosphorus 3.90 mg/dL (2.5-4.5) 07/19/18 05:30 Magnesium 1.80 mg/dL (1.7-2.3) 07/20/18 08:55 Total Bilirubin 0.60 mg/dL (0.1-1.2) 07/15/18 05:25 AST 9 units/L (5-40) 07/15/18 05:25 ALT < 5 units/L (7-56) L 07/15/18 05:25 Alkaline Phosphatase 40 units/L (35-129) 07/15/18 05:25 Total Protein 6.6 g/dL (6.3-8.2) 07/15/18 05:25 Albumin 3.8 g/dL (3.9-5) L 07/15/18 05:25 Albumin/Globulin Ratio 1.4 % 07/15/18 05:25 Lipase 23 units/L (13-60) 07/11/18 03:01 Urine Color Yellow (Yellow) 07/11/18 10:25 Urine Turbidity Clear (Clear) 07/11/18 10:25 Urine pH 6.0 (5.0-7.0) 07/11/18 10:25 Ur Specific [place] 1.029 (1.003-1.030) 07/11/18 10:25 Urine Protein <15 mg/dl mg/dL (Negative) 07/11/18 10:25 Urine Glucose (UA) Neg mg/dL (Negative) 07/11/18 10:25 Urine Ketones Tr mg/dL (Negative) 07/11/18 10:25 Urine Blood Sm (Negative) 07/11/18 10:25 Urine Nitrite Neg (Negative) 07/11/18 10:25 Urine Bilirubin Neg (Negative) 07/11/18 10:25 Urine Urobilinogen < 2.0 mg/dL (<2.0) 07/11/18 10:25 Ur Leukocyte Esterase Neg (Negative) 07/11/18 10:25 Urine WBC (Auto) 2.0 /HPF (0.0-6.0) 07/11/18 10:25 Urine RBC (Auto) 4.0 /HPF (0.0-6.0) 07/11/18 10:25 Blood Type A POSITIVE 07/14/18 12:20 Antibody Screen Negative 07/14/18 12:20
[2018-07-20] MEDS: CATAPRES-TTS PATCH TD SCH (17:59)
[2018-07-20] MEDS: NORMODYNE IV PRN (18:40)
[2018-07-20] MEDS ORDERED: LEVETIRACETAM 500 MG PO SCH (22:00)
[2018-07-20] MEDS ORDERED: LOPRESSOR PO SCH (22:00)
[2018-07-20] MEDS: LOPRESSOR PO SCH (22:18)
[2018-07-20] MEDS: KEPPRA PO SCH (22:19)
[2018-07-21] MEDS: HumaLOG SUB-Q SCH ×4 (00:30→19:15)
[2018-07-21] MEDS: LACTATED RINGERS 1,000 ML IV SCH ×2 (06:07→16:33)
[2018-07-21] MEDS: DILAUDID IV PRN ×4 (06:08→22:24)
[2018-07-21] MEDS: APRESOLINE IV PRN (06:39)
[2018-07-21 07:50] LABS: Hematocrit 32.4 % (35.5-45.6); Hemoglobin 10.8 gm/dl (11.8-15.2); Mean Corpuscular HGB Conc 34 % (32-34); Mean Corpuscular Hemoglobin 32 pg (28-32); Mean Corpuscular Volume 97 fl (84-94); Platelet Count 266 K/mm3 (140-440); Red Blood Count 3.36 M/mm3 (3.65-5.03)
[2018-07-21 07:59] LABS: BUN/Creatinine Ratio 13; Blood Urea Nitrogen 8 mg/dL (9-20); Calcium 9.1 mg/dL (8.4-10.2); Hemolysis Index 0
--- NOTE | 2018-07-21 10:46 | Progress Note ---
Assessment and Plan POD # 7 Pt feeling well. Has ambulated. cristóbal cl liq Abd soft. incision clean & dry surgically stable full liq diet today d/c yajaira in am Selected Entries 07/21/18 08:36 Temperature 97.9 F Pulse Rate 72 Respiratory 18 Rate Blood Pressure 147/68 Laboratory Tests 07/21/18 07/21/18 07:07 07:07 WBC 3.6 L Hgb 10.8 L Hct 32.4 L Potassium 3.5 L Objective Vital Signs - 12hr 07/20/18 07/21/18 07/21/18 23:38 05:40 06:08 Temperature 98.5 F 98.5 F Pulse Rate 78 75 Respiratory 20 20 20 Rate Blood Pressure 155/76 171/79 O2 Sat by Pulse 99 95 Oximetry 07/21/18 07/21/18 06:39 08:36 Temperature 97.9 F Pulse Rate 79 72 Respiratory 18 Rate Blood Pressure 171/79 147/68 O2 Sat by Pulse 97 Oximetry - Labs 07/21/18 07:07 07/21/18 07:07 Diabetes panel 07/21/18 Range/Units 07:07 Sodium 141 (137-145) mmol/L Potassium 3.5 L (3.6-5.0) mmol/L Chloride 100.3 (98-107) mmol/L Carbon Dioxide 29 (22-30) mmol/L BUN 8 L (9-20) mg/dL Creatinine 0.6 L (0.8-1.5) mg/dL Glucose 90 (75-100) mg/dL Calcium 9.1 (8.4-10.2) mg/dL Calcium panel 07/21/18 Range/Units 07:07 Calcium 9.1 (8.4-10.2) mg/dL Pituitary panel 07/21/18 Range/Units 07:07 Sodium 141 (137-145) mmol/L Potassium 3.5 L (3.6-5.0) mmol/L Chloride 100.3 (98-107) mmol/L Carbon Dioxide 29 (22-30) mmol/L BUN 8 L (9-20) mg/dL Creatinine 0.6 L (0.8-1.5) mg/dL Glucose 90 (75-100) mg/dL Calcium 9.1 (8.4-10.2) mg/dL Adrenal panel 07/21/18 Range/Units 07:07 Sodium 141 (137-145) mmol/L Potassium 3.5 L (3.6-5.0) mmol/L Chloride 100.3 (98-107) mmol/L Carbon Dioxide 29 (22-30) mmol/L BUN 8 L (9-20) mg/dL Creatinine 0.6 L (0.8-1.5) mg/dL Glucose 90 (75-100) mg/dL Calcium 9.1 (8.4-10.2) mg/dL
[2018-07-21] MEDS: LOVENOX SUB-Q SCH (10:56)
[2018-07-21] MEDS: KEPPRA PO SCH ×2 (10:56→22:04)
[2018-07-21] MEDS: PEPCID IV SCH ×2 (10:58→22:24)
[2018-07-21] MEDS: LOPRESSOR PO SCH ×2 (10:58→22:04)
--- NOTE | 2018-07-21 14:26 | Progress Note ---
Assessment and Plan Assessment and plan: Patient is a 53-year-old man with a past medical history of diabetes mellitus type 2, hypertension, seizures and infrarenal abdominal aortic aneurysm repair in April 2018 who presents to the hospital with complaints of severe abdominal pain with n/v and found to have SBO Small bowel obstruction, did not respond to conservative mgt, sp Ex lap and HANS , 07/14/18, POD # 5: gen sx input appreciated, Advance diet per gen sx Recent History of repair of abdominal aneurysm: continue to monitor Diabetes mellitus: treat with SSI Accelerated hypertension/htn urgency: optimize clonidine patch and IV meds, started oral medications Tobacco use disorder: counseled about cessation Hypokalemia: Repleted Hypomagnesemia: replace and recheck Mild Left Hydronephrosis, patient denies hx of it: Urology consulted and recommended nephrostomy tube, pt refused History Interval history: Patient was seen and examined. Follow-up on current diagnosis of SBO. Overnight uneventful. Patient denies any chest pain, shortness breath, nausea/vomiting or severe headaches. Imaging, nursing note, chart, labs and old chart reviewed. Discussed with patient. He is asking for food. NGT removed, tolerated clear liquid, +flatus, no bm, asking for more food than just liquids Hospitalist Physical - Physical exam Narrative exam: GEN: thin frail, bmi 19.1, NAD, Awake, Alert, Orientated x 3 HEENT: NCAT, EOMI, PERRL, OP with ngt in place NECK: supple, no adenopathy, no thyromegaly, no JVD CVS/HEART: RRR, normal S1S2, pulses present bilaterally CHEST/LUNGS: CTA B, Symmetrical chest expansion, good air entry bilaterally GI/Abdomen: surgical wound covered with clean dsg, +bowel sounds, no guarding or rebound /Bladder: no suprapubic tenderness, no CVA or paraspinal tenderness EXT/Skin: no c/c/e, no obvious rash MSK: FROM x 4 Neuro: CN 2-12 grossly intact, no new focal deficits Psych: calm - Constitutional Vitals: Temp Pulse Resp BP Pulse Ox 98.6 F 79 18 171/72 94 07/21/18 11:11 07/21/18 11:11 07/21/18 11:11 07/21/18 11:11 07/21/18 11:11 Results - Labs CBC & Chem 7: 07/21/18 07:07 07/21/18 07:07 Labs: Laboratory Last Values WBC 3.6 K/mm3 (4.5-11.0) L 07/21/18 07:07 RBC 3.36 M/mm3 (3.65-5.03) L 07/21/18 07:07 Hgb 10.8 gm/dl (11.8-15.2) L 07/21/18 07:07 Hct 32.4 % (35.5-45.6) L 07/21/18 07:07 MCV 97 fl (84-94) H 07/21/18 07:07 MCH 32 pg (28-32) 07/21/18 07:07 MCHC 34 % (32-34) 07/21/18 07:07 RDW 15.0 % (13.2-15.2) 07/21/18 07:07 Plt Count 266 K/mm3 (140-440) 07/21/18 07:07 Lymph % (Auto) 31.7 % (13.4-35.0) 07/15/18 05:25 [place] % (Auto) 6.9 % (0.0-7.3) 07/15/18 05:25 Eos % (Auto) 1.7 % (0.0-4.3) 07/15/18 05:25 Baso % (Auto) 0.6 % (0.0-1.8) 07/15/18 05:25 Lymph # 1.9 K/mm3 (1.2-5.4) 07/15/18 05:25 [place] # 0.4 K/mm3 (0.0-0.8) 07/15/18 05:25 Eos # 0.1 K/mm3 (0.0-0.4) 07/15/18 05:25 Baso # 0.0 K/mm3 (0.0-0.1) 07/15/18 05:25 Seg Neutrophils % 59.1 % (40.0-70.0) 07/15/18 05:25 Seg Neutrophils # 3.6 K/mm3 (1.8-7.7) 07/15/18 05:25 Sodium 141 mmol/L (137-145) 07/21/18 07:07 Potassium 3.5 mmol/L (3.6-5.0) L 07/21/18 07:07 Chloride 100.3 mmol/L (98-107) 07/21/18 07:07 Carbon Dioxide 29 mmol/L (22-30) 07/21/18 07:07 Anion Gap 15 mmol/L 07/21/18 07:07 BUN 8 mg/dL (9-20) L 07/21/18 07:07 Creatinine 0.6 mg/dL (0.8-1.5) L 07/21/18 07:07 Estimated GFR > 60 ml/min 07/21/18 07:07 BUN/Creatinine Ratio 13 % 07/21/18 07:07 Glucose 90 mg/dL (75-100) 07/21/18 07:07 POC Glucose 114 (70-105) H 07/21/18 11:16 Calcium 9.1 mg/dL (8.4-10.2) 07/21/18 07:07 Phosphorus 3.90 mg/dL (2.5-4.5) 07/19/18 05:30 Magnesium 1.80 mg/dL (1.7-2.3) 07/20/18 08:55 Total Bilirubin 0.60 mg/dL (0.1-1.2) 07/15/18 05:25 AST 9 units/L (5-40) 07/15/18 05:25 ALT < 5 units/L (7-56) L 07/15/18 05:25 Alkaline Phosphatase 40 units/L (35-129) 07/15/18 05:25 Total Protein 6.6 g/dL (6.3-8.2) 07/15/18 05:25 Albumin 3.8 g/dL (3.9-5) L 07/15/18 05:25 Albumin/Globulin Ratio 1.4 % 07/15/18 05:25 Lipase 23 units/L (13-60) 07/11/18 03:01 Urine Color Yellow (Yellow) 07/11/18 10:25 Urine Turbidity Clear (Clear) 07/11/18 10:25 Urine pH 6.0 (5.0-7.0) 07/11/18 10:25 Ur Specific [place] 1.029 (1.003-1.030) 07/11/18 10:25 Urine Protein <15 mg/dl mg/dL (Negative) 07/11/18 10:25 Urine Glucose (UA) Neg mg/dL (Negative) 07/11/18 10:25 Urine Ketones Tr mg/dL (Negative) 07/11/18 10:25 Urine Blood Sm (Negative) 07/11/18 10:25 Urine Nitrite Neg (Negative) 07/11/18 10:25 Urine Bilirubin Neg (Negative) 07/11/18 10:25 Urine Urobilinogen < 2.0 mg/dL (<2.0) 07/11/18 10:25 Ur Leukocyte Esterase Neg (Negative) 07/11/18 10:25 Urine WBC (Auto) 2.0 /HPF (0.0-6.0) 07/11/18 10:25 Urine RBC (Auto) 4.0 /HPF (0.0-6.0) 07/11/18 10:25 Blood Type A POSITIVE 07/14/18 12:20 Antibody Screen Negative 07/14/18 12:20
[2018-07-21] MEDS ORDERED: POTASSIUM CHLORIDE PO ONE (15:00)
[2018-07-21] MEDS: MORPHINE IV PRN (19:38)
[2018-07-22] MEDS: HumaLOG SUB-Q SCH ×2 (02:15→07:34)
[2018-07-22] MEDS: MORPHINE IV PRN ×2 (02:16→20:31)
[2018-07-22] MEDS: LACTATED RINGERS 1,000 ML IV SCH ×2 (02:16→14:58)
[2018-07-22] MEDS: DILAUDID IV PRN ×4 (07:37→23:57)
--- NOTE | 2018-07-22 08:03 | Progress Note ---
Assessment and Plan Pt feeling well without compl. cristóbal full liq diet + BM Abd soft non tender surgically stable advance to solid diet may d/c from surg perspective today if diet cristóbal rto next Wed (I wk) Selected Entries 07/22/18 07/22/18 05:01 07:37 Temperature 98.5 F Respiratory 20 Rate Blood Pressure 160/74 Objective Vital Signs - 12hr 07/21/18 07/21/18 07/21/18 22:00 22:04 22:24 Temperature Pulse Rate 70 Respiratory 20 Rate Respiratory 16 Rate [Abdomen] Blood Pressure 173/77 O2 Sat by Pulse 97 Oximetry 07/22/18 07/22/18 07/22/18 00:30 02:16 05:01 Temperature 98.0 F 98.5 F Pulse Rate 69 70 Respiratory 20 20 18 Rate Respiratory Rate [Abdomen] Blood Pressure 180/73 160/74 O2 Sat by Pulse 98 95 Oximetry 07/22/18 07:37 Temperature Pulse Rate Respiratory 20 Rate Respiratory Rate [Abdomen] Blood Pressure O2 Sat by Pulse Oximetry - Labs 07/21/18 07:07 07/21/18 07:07
[2018-07-22 08:56] LABS: Hematocrit 33.7 % (35.5-45.6); Hemoglobin 11.2 gm/dl (11.8-15.2); Mean Corpuscular HGB Conc 33 % (32-34); Mean Corpuscular Hemoglobin 32 pg (28-32); Mean Corpuscular Volume 96 fl (84-94); Platelet Count 263 K/mm3 (140-440); Red Blood Count 3.51 M/mm3 (3.65-5.03); Red Cell Distribution Width 14.8 % (13.2-15.2)
[2018-07-22 09:21] LABS: BUN/Creatinine Ratio 7; Blood Urea Nitrogen 4 mg/dL (9-20); Calcium 9.2 mg/dL (8.4-10.2); Hemolysis Index 17
[2018-07-22] MEDS: LOPRESSOR PO SCH ×2 (10:47→22:19)
[2018-07-22] MEDS: KEPPRA PO SCH ×2 (10:47→22:19)
[2018-07-22] MEDS: PEPCID IV SCH (10:47)
[2018-07-22] MEDS: LOVENOX SUB-Q SCH (10:48)
--- NOTE | 2018-07-22 15:25 | Discharge Summary ---
Providers - Providers Date of Admission: 07/11/18 05:53 Date of discharge: 07/23/18 Attending physician: JOSH PITTS 07/11/18 05:31 Consult to Physician [CONS] Urgent Comment: Consulting Provider: ALAN MCCLURE Physician Instructions: Reason For Exam: partial sbo 07/12/18 12:43 Consult to Physician [CONS] Routine Comment: Consulting Provider: VIC BUCKLEY Physician Instructions: Reason For Exam: hydronephrosis 07/19/18 17:25 Physical Therapy Evaluation and Treat [CONS] Routine Comment: Reason For Exam: unsteady gait/crutches/ Post op surgery Primary care physician: RFID ENGINEER Hospitalization Condition: Stable Hospital course: Patient is a 53-year-old man with a past medical history of diabetes mellitus type 2, hypertension, seizures and infrarenal abdominal aortic aneurysm repair in April 2018 who presents to the hospital with complaints of severe abdominal pain with n/v and found to have SBO Small bowel obstruction, did not respond to conservative mgt, sp Ex lap and HANS , 07/14/18, POD # 5: gen sx input appreciated, Advance diet per gen sx Recent History of repair of abdominal aneurysm: continue to monitor Diabetes mellitus: treat with SSI Accelerated hypertension/htn urgency: optimize clonidine patch and IV meds, started oral medications Tobacco use disorder: counseled about cessation Hypokalemia: Repleted Hypomagnesemia: replace and recheck Mild Left Hydronephrosis, patient denies hx of it: Urology consulted and recommended nephrostomy tube, pt refused Disposition: DC-01 TO HOME OR SELFCARE Time spent for discharge: 35 minutes Core Measure Documentation - Palliative Care Palliative Care/ Comfort Measures: Not Applicable - Core Measures Any of the following diagnoses?: none - VTE Discharge Requirements Deep Vein Thrombosis/Pulmonary Embolism Present on Admission: No Has pt received <5 days of overlap therapy or INR<2.0: No Anticoagulant overlap therapy prescribed at discharge: No Contraindication No Overlap Therapy order at DC: Not Indicated Exam - Physical Exam Narrative exam: GEN: thin frail, bmi 19.1, NAD, Awake, Alert, Orientated x 3 HEENT: NCAT, EOMI, PERRL, OP with ngt in place NECK: supple, no adenopathy, no thyromegaly, no JVD CVS/HEART: RRR, normal S1S2, pulses present bilaterally CHEST/LUNGS: CTA B, Symmetrical chest expansion, good air entry bilaterally GI/Abdomen: surgical wound covered with clean dsg, +bowel sounds, no guarding or rebound /Bladder: no suprapubic tenderness, no CVA or paraspinal tenderness EXT/Skin: no c/c/e, no obvious rash MSK: FROM x 4 Neuro: CN 2-12 grossly intact, no new focal deficits Psych: calm - Constitutional Vitals: Temp Pulse Resp BP Pulse Ox 98.7 F 74 19 137/67 95 07/22/18 11:58 07/22/18 10:47 07/22/18 11:58 07/22/18 11:58 07/22/18 05:01 Plan Activity: other (no strenous activity) Diet: clear liquids, advance as tolerated Wound: per your surgeon's advice Follow up with: PRIMARY CAREMD [Primary Care Provider] - 7 Days ALAN MCCLURE MD [Staff Physician] - 7 Days VIC BUCKLEY MD [Staff Physician] - 7 Days Prescriptions: cloNIDine-TTS PATCH [Catapres-Tts Patch] 0.3 mg TD We #15 patch levETIRAcetam [Keppra ORAL LIQ] 500 mg PO BID 30 Days bottle Metoprolol [Lopressor TAB] 50 mg PO BID #60 tablet traMADol [Ultram 50 MG tab] 50 mg PO Q8H PRN #20 tablet PRN Reason: Pain , Severe (7-10)
[2018-07-22] MEDS: PEPCID PO SCH (22:19)
[2018-07-22] MEDS: APRESOLINE IV PRN (23:57)
[2018-07-23] MEDS: LACTATED RINGERS 1,000 ML IV SCH (01:02)
[2018-07-23] MEDS: DILAUDID IV PRN ×2 (04:59→09:37)
[2018-07-23] MEDS: HumaLOG SUB-Q SCH ×3 (07:30→12:30)
--- NOTE | 2018-07-23 08:45 | Progress Note ---
Assessment and Plan Assessment and plan: Patient is a 53-year-old man with a past medical history of diabetes mellitus type 2, hypertension, seizures and infrarenal abdominal aortic aneurysm repair in April 2018 who presents to the hospital with complaints of severe abdominal pain with n/v and found to have SBO Small bowel obstruction, did not respond to conservative mgt, sp Ex lap and HANS , 07/14/18, POD # 5: gen sx input appreciated, Advance diet per gen sx Recent History of repair of abdominal aneurysm: continue to monitor Diabetes mellitus: treat with SSI Accelerated hypertension/htn urgency: optimize clonidine patch and IV meds, started oral medications Tobacco use disorder: counseled about cessation Hypokalemia: Repleted Hypomagnesemia: replace and recheck Mild Left Hydronephrosis, patient denies hx of it: Urology consulted and recommended nephrostomy tube, pt refused Pt has been cleared for discharge by Surgeon, pt refused to leave. RN called the Surgeon who ok'd patient to stay. History Interval history: Patient was seen and examined. Follow-up on current diagnosis of SBO. Overnight uneventful. Patient denies any chest pain, shortness breath, nausea/vomiting or severe headaches. Imaging, nursing note, chart, labs and old chart reviewed. Discussed with patient. Tolerating diet, walking the hallways during PT Hospitalist Physical - Physical exam Narrative exam: GEN: thin frail, bmi 19.1, NAD, Awake, Alert, Orientated x 3 HEENT: NCAT, EOMI, PERRL, OP with ngt in place NECK: supple, no adenopathy, no thyromegaly, no JVD CVS/HEART: RRR, normal S1S2, pulses present bilaterally CHEST/LUNGS: CTA B, Symmetrical chest expansion, good air entry bilaterally GI/Abdomen: surgical wound covered with clean dsg, +bowel sounds, no guarding or rebound /Bladder: no suprapubic tenderness, no CVA or paraspinal tenderness EXT/Skin: no c/c/e, no obvious rash MSK: FROM x 4 Neuro: CN 2-12 grossly intact, no new focal deficits Psych: calm - Constitutional Vitals: Temp Pulse Resp BP Pulse Ox 98.1 F 64 16 128/54 93 07/23/18 05:21 07/23/18 05:21 07/23/18 05:21 07/23/18 05:21 07/23/18 05:21 Results - Labs CBC & Chem 7: 07/22/18 08:05 07/22/18 08:05 Labs: Laboratory Last Values WBC 3.4 K/mm3 (4.5-11.0) L 07/22/18 08:05 RBC 3.51 M/mm3 (3.65-5.03) L 07/22/18 08:05 Hgb 11.2 gm/dl (11.8-15.2) L 07/22/18 08:05 Hct 33.7 % (35.5-45.6) L 07/22/18 08:05 MCV 96 fl (84-94) H 07/22/18 08:05 MCH 32 pg (28-32) 07/22/18 08:05 MCHC 33 % (32-34) 07/22/18 08:05 RDW 14.8 % (13.2-15.2) 07/22/18 08:05 Plt Count 263 K/mm3 (140-440) 07/22/18 08:05 Lymph % (Auto) 31.7 % (13.4-35.0) 07/15/18 05:25 [place] % (Auto) 6.9 % (0.0-7.3) 07/15/18 05:25 Eos % (Auto) 1.7 % (0.0-4.3) 07/15/18 05:25 Baso % (Auto) 0.6 % (0.0-1.8) 07/15/18 05:25 Lymph # 1.9 K/mm3 (1.2-5.4) 07/15/18 05:25 [place] # 0.4 K/mm3 (0.0-0.8) 07/15/18 05:25 Eos # 0.1 K/mm3 (0.0-0.4) 07/15/18 05:25 Baso # 0.0 K/mm3 (0.0-0.1) 07/15/18 05:25 Seg Neutrophils % 59.1 % (40.0-70.0) 07/15/18 05:25 Seg Neutrophils # 3.6 K/mm3 (1.8-7.7) 07/15/18 05:25 Sodium 140 mmol/L (137-145) 07/22/18 08:05 Potassium 4.1 mmol/L (3.6-5.0) 07/22/18 08:05 Chloride 100.6 mmol/L (98-107) 07/22/18 08:05 Carbon Dioxide 26 mmol/L (22-30) 07/22/18 08:05 Anion Gap 18 mmol/L 07/22/18 08:05 BUN 4 mg/dL (9-20) L 07/22/18 08:05 Creatinine 0.6 mg/dL (0.8-1.5) L 07/22/18 08:05 Estimated GFR > 60 ml/min 07/22/18 08:05 BUN/Creatinine Ratio 7 % 07/22/18 08:05 Glucose 94 mg/dL (75-100) 07/22/18 08:05 POC Glucose 109 (70-105) H 07/23/18 06:19 Calcium 9.2 mg/dL (8.4-10.2) 07/22/18 08:05 Phosphorus 3.90 mg/dL (2.5-4.5) 07/19/18 05:30 Magnesium 1.60 mg/dL (1.7-2.3) L 07/22/18 08:05 Total Bilirubin 0.60 mg/dL (0.1-1.2) 07/15/18 05:25 AST 9 units/L (5-40) 07/15/18 05:25 ALT < 5 units/L (7-56) L 07/15/18 05:25 Alkaline Phosphatase 40 units/L (35-129) 07/15/18 05:25 Total Protein 6.6 g/dL (6.3-8.2) 07/15/18 05:25 Albumin 3.8 g/dL (3.9-5) L 07/15/18 05:25 Albumin/Globulin Ratio 1.4 % 07/15/18 05:25 Lipase 23 units/L (13-60) 07/11/18 03:01 Urine Color Yellow (Yellow) 07/11/18 10:25 Urine Turbidity Clear (Clear) 07/11/18 10:25 Urine pH 6.0 (5.0-7.0) 07/11/18 10:25 Ur Specific [place] 1.029 (1.003-1.030) 07/11/18 10:25 Urine Protein <15 mg/dl mg/dL (Negative) 07/11/18 10:25 Urine Glucose (UA) Neg mg/dL (Negative) 07/11/18 10:25 Urine Ketones Tr mg/dL (Negative) 07/11/18 10:25 Urine Blood Sm (Negative) 07/11/18 10:25 Urine Nitrite Neg (Negative) 07/11/18 10:25 Urine Bilirubin Neg (Negative) 07/11/18 10:25 Urine Urobilinogen < 2.0 mg/dL (<2.0) 07/11/18 10:25 Ur Leukocyte Esterase Neg (Negative) 07/11/18 10:25 Urine WBC (Auto) 2.0 /HPF (0.0-6.0) 07/11/18 10:25 Urine RBC (Auto) 4.0 /HPF (0.0-6.0) 07/11/18 10:25 Blood Type A POSITIVE 07/14/18 12:20 Antibody Screen Negative 07/14/18 12:20
[2018-07-23 09:30] VITALS: BP 158/75
[2018-07-23] MEDS: KEPPRA PO SCH (09:31)
[2018-07-23] MEDS: PEPCID PO SCH (09:31)
[2018-07-23] MEDS: LOPRESSOR PO SCH (09:31)
[2018-07-23] MEDS: LOVENOX SUB-Q SCH (09:37)
== END 2018-07-23 16:05 | disposition home or self-care (01) | DRG 336 ==
LOC: ED 02:25 → 3A 05:53
PROVIDERS: ADMIT Internal Medicine; ATTEND Internal Medicine
PROC: 0D9670Z Drainage of Stomach with Drainage Device, Via Natural or Artificial Opening (ICD-10-PCS; 2018-07-11)
PROC: 0DNU0ZZ Release Omentum, Open Approach (ICD-10-PCS; principal; 2018-07-14)
DX: K56.51 Intestinal adhesions [bands], with partial obstruction (principal); N13.30 Unspecified hydronephrosis; I10 Essential (primary) hypertension; E11.9 Type 2 diabetes mellitus without complications; I71.4 Abdominal aortic aneurysm, without rupture; I16.0 Hypertensive urgency; F17.200 Nicotine dependence, unspecified, uncomplicated; E87.6 Hypokalemia; M16.10 Unilateral primary osteoarthritis, unspecified hip; E83.42 Hypomagnesemia; Z79.899 Other long term (current) drug therapy; Z79.82 Long term (current) use of aspirin; Z71.6 Tobacco abuse counseling
CPT/HCPCS: 36415; 74022; 74174; 76770; 78708; 80048; 80053; 81001; 82962; 83690; 83735; 84100; 85025; 85027; 86850; 86900; 86901; 87086; 87116; 88305; 96361; 96374; 96375; 96376; A9562; J0330; J0360; J1170; J1650; J1815; J1885; J1940; J1956; J2250; J2270; J2405; J2543; J2704; J2710; J3010; J3475; J3480; J7120; Q9967